=== PATIENT | male | born 1935 | race Caucasian/White ===

== ENCOUNTER 2016-08-17 15:58 | Inpatient (IN) | payer OTHER, MEDICARE ==
[2016-08-17] VITALS (7 sets, daily range): BP systolic 111–164; BP diastolic 56–74; PULSE 81–101; RESP 18–22; TEMP 98.1–101.4; O2SAT 94–96
[~2016-08-17] VITALS: Ht 170.2 cm; Wt 82.1 kg
[~2016-08-17 15:58] MED LIST: LATA.005%O OU; LISI-587 PO; LOVA40TA PO; TAMS0.4C67 PO
[2016-08-17] MEDS ORDERED: LISI-587 PO (16:11)
[2016-08-17] MEDS ORDERED: TAMS5CAP PO (16:11)
[2016-08-17] MEDS ORDERED: LATA0.002 EACH EYE (16:11)
[2016-08-17] MEDS ORDERED: LOVA40TA PO (16:11)
[2016-08-17] MEDS ORDERED: SODIUM CHLOR 0.9% 1000 ML INJ 1,000 ML IV ONE (16:15)
[2016-08-17] MEDS ORDERED: ACETAMINOPHEN 325 MG TAB PO ONE (16:15)
--- NOTE | 2016-08-17 16:25 | PD ---
HPI Chief Complaint: General Weakness Time Seen by Provider: 16:07 Travel History International Travel<30 days: No Contact w/Intl Traveler<30days: No Traveled to known affect area: No History of Present Illness HPI 81-year-old man who presents to the emergency department complaining of feeling weak and dizzy. The symptoms started about 2 days ago. It some chills with it. Today he was weak and had a fall motor strength get up. He had one episode of vomiting earlier today and another episode in the EMS unit. States she has a little bit a chronic cough but no change. Only medical history is hyperlipidemia. No history of surgery. No shortness of breath, no chest pain, no myalgias, no urinary symptoms, no diarrhea. No other complaints. History Past Medical History Narrative Medical Hyperlipidemia Tetanus Vaccination: > 5 Years Past Surgical History Surgical History: No Previous Surgery Social History Alcohol Use: Yes (A FEW DRINKS PER NITE) Tobacco Use: Yes (1 PPD) Allergies-Medications (Allergen,Severity, Reaction): Coded Allergies: No Known Allergies (Unverified , 05/16/15) Reported Meds & Prescriptions Reported Meds & Active Scripts Active Reported Zestoretic (Lisinopril-Hctz) 20-25 Mg Tab 1 Tab PO DAILY Flomax (Tamsulosin HCl) 0.4 Mg Cap 0.4 Mg PO HS Lovastatin 40 Mg Tab 40 Mg PO DAILY Latanoprost Opth Drops (Latanoprost) 0.005% Drops 1 Drop EACH EYE HS Refrigerate until opened. Review of Systems Except as stated in HPI: all other systems reviewed are Neg Physical Exam Narrative GENERAL: Well-appearing 81 year-old woman, no acute distress. SKIN: Warm, flushed. HEAD: Atraumatic. Normocephalic. EYES: Pupils equal and round. No scleral icterus. No injection or drainage. ENT: No nasal bleeding or discharge. Mucous membranes pink and moist. NECK: Trachea midline. No JVD. CARDIOVASCULAR: Heart. The rapid. He has a soft systolic murmur. RESPIRATORY: No accessory muscle use. Clear to auscultation. Breath sounds equal bilaterally. GASTROINTESTINAL: Abdomen soft, non-tender, nondistended. Hepatic and splenic margins not palpable. MUSCULOSKELETAL: No obvious deformities. No edema. NEUROLOGICAL: Awake and alert. No obvious cranial nerve deficits. Motor grossly within normal limits. Normal speech. Data Data Last Documented VS Vital Signs Date Time Temp Pulse Resp B/P Pulse Ox O2 Delivery O2 Flow Rate FiO2 08/17/16 18:00 99.6 91 22 129/74 94 08/17/16 16:16 Room Air Orders Complete Blood Count With Diff (08/17/16 16:07) Comprehensive Metabolic Panel (08/17/16 16:07) Lactic Acid Sepsis Protocol (08/17/16 16:07) Magnesium (Mg) (08/17/16 16:07) Troponin I (08/17/16 16:07) Urinalysis - C+S If Indicated (08/17/16 16:07) Influenzae A/B Antigen (08/17/16 16:07) Blood Culture (08/17/16 16:07) Chest, Single Ap (08/17/16 16:07) Blood Glucose (08/17/16 16:07) Ecg Monitoring (08/17/16 16:07) Iv Access Insert/Monitor (08/17/16 16:07) Oximetry (08/17/16 16:07) Oxygen Administration (08/17/16 16:07) Acetaminophen (Tylenol) (08/17/16 16:15) Sodium Chlor 0.9% 1000 Ml Inj (Ns 1000 M (08/17/16 16:15) Urine Culture (08/17/16 16:47) Admit Order (Ed Use Only) (08/17/16 ) Ceftriaxone Inj (Rocephin Inj) (08/17/16 18:00) Labs Laboratory Tests Test 08/17/16 08/17/16 16:15 16:47 White Blood Count 14.6 TH/MM3 Red Blood Count 4.06 MIL/MM3 Hemoglobin 12.8 GM/DL Hematocrit 37.6 % Mean Corpuscular Volume 92.6 FL Mean Corpuscular Hemoglobin 31.6 PG Mean Corpuscular Hemoglobin 34.1 % Concent Red Cell Distribution Width 13.7 % Platelet Count 163 TH/MM3 Mean Platelet Volume 9.3 FL Neutrophils (%) (Auto) 86.7 % Lymphocytes (%) (Auto) 4.6 % Monocytes (%) (Auto) 8.5 % Eosinophils (%) (Auto) 0.0 % Basophils (%) (Auto) 0.2 % Neutrophils # (Auto) 12.7 TH/MM3 Lymphocytes # (Auto) 0.7 TH/MM3 Monocytes # (Auto) 1.2 TH/MM3 Eosinophils # (Auto) 0.0 TH/MM3 Basophils # (Auto) 0.0 TH/MM3 CBC Comment DIFF FINAL Differential Comment Sodium Level 135 MEQ/L Potassium Level 3.6 MEQ/L Chloride Level 102 MEQ/L Carbon Dioxide Level 24.1 MEQ/L Anion Gap 9 MEQ/L Blood Urea Nitrogen 19 MG/DL Creatinine 1.21 MG/DL Estimat Glomerular Filtration 57 ML/MIN Rate Random Glucose 149 MG/DL Lactic Acid Level 1.7 mmol/L Calcium Level 8.5 MG/DL Magnesium Level 1.7 MG/DL Total Bilirubin 0.3 MG/DL Aspartate Amino Transf 16 U/L (AST/SGOT) Alanine Aminotransferase 26 U/L (ALT/SGPT) Alkaline Phosphatase 75 U/L Troponin I LESS THAN 0.02 NG/ML Total Protein 7.1 GM/DL Albumin 3.6 GM/DL Urine Color YELLOW Urine Turbidity CLEAR Urine pH 5.5 Urine Specific [place] 1.029 Urine Protein 30 mg/dL Urine Glucose (UA) TRACE mg/dL Urine Ketones 40 mg/dL Urine Occult Blood MOD Urine Nitrite NEG Urine Bilirubin NEG Urine Urobilinogen LESS THAN 2.0 MG/DL Urine Leukocyte Esterase NEG Urine RBC 2 /hpf Urine WBC 1 /hpf Urine Squamous Epithelial <1 /hpf Cells Urine Bacteria OCC /hpf Urine Mucus FEW /lpf Microscopic Urinalysis Comment CATH-CULTURE IND MDM Medical Decision Making Medical Screen Exam Complete: Yes Emergency Medical Condition: Yes Interpretation(s) My review of EKG: Sinus tachycardia rate of 101, normal axis, normal intervals, lateral T wave flattening, no definite evidence of acute ischemia. LABS: CBC remarkable for mild leukocytosis. Mild anemia. CMP is generally unremarkable. Troponin negative. Lactate 1.7 Chest x-ray: No acute cardiopulmonary disease. Differential Diagnosis Infection, UTI, influenza, pneumonia, bronchitis, other Narrative Course Medical decision making INITIAL: This Is an 81 year-old woman presents emergent department we can dizziness, fall, and a little bit of vomiting, with a low-grade fever and some tachycardia. We'll check labs, influenza, give IV fluids, reassess. Diagnosis Primary Impression: Sepsis Qualified Code: A41.9 - Sepsis, due to unspecified organism Admitting Information Admitting Physician Requests: Admit Osvaldo Ignacio MD Aug 17, 2016 16:25
--- NOTE | 2016-08-17 16:37 | RADRPT ---
EXAM DATE/TIME: 08/17/2016 16:18 [facility] COMPARISON: No previous studies available for comparison. INDICATIONS : Fever. Congestion. MEDICAL HISTORY : None. SURGICAL HISTORY : None. ENCOUNTER: Initial ACUITY: 3 days PAIN SCORE: 4/10 LOCATION: Bilateral chest FINDINGS: The lungs are clear without infiltrate, nodule, or mass. There is no appreciable pleural effusion fo r technique. Heart and mediastinum are unremarkable. CONCLUSION: No acute cardiopulmonary disease. Jorge Ferrera MD on August 17, 2016 at 16:34 Board Certified Radiologist. This report was verified electronically.
[2016-08-17 16:38] LABS: AUTOMATED NEUTROPHIL # 12.7 TH/MM3 (1.8-7.7); BASOPHIL % 0.2 % (0.0-2.0); HEMATOCRIT 37.6 % (39.0-51.0); HEMO FLAGS DIFF FINAL; LYMPH % 4.6 % (9.0-44.0); LYMPHOCYTE # 0.7 TH/MM3 (1.0-4.8); MEAN CELL VOLUME 92.6 FL (80.0-100.0); MEAN CORPUSCULAR HEMOGLOBIN 31.6 PG (27.0-34.0); MEAN CORPUSCULAR HGB CONC 34.1 % (32.0-36.0); MONO % 8.5 % (0.0-8.0); NEUT % 86.7 % (16.0-70.0); PLATELET COUNT 163 TH/MM3 (150-450); RED BLOOD COUNT 4.06 MIL/MM3 (4.50-5.90); RED CELL DISTRIBUTION WIDTH 13.7 % (11.6-17.2); WHITE BLOOD COUNT 14.6 TH/MM3 (4.0-11.0)
[2016-08-17 16:57] LABS: ANION GAP 9 MEQ/L (5-15); AST (GOT) 16 U/L (15-37); BICARBONATE 24.1 MEQ/L (21.0-32.0); BLOOD UREA NITROGEN 19 MG/DL (7-18); CHLORIDE 102 MEQ/L (98-107); GLOMERULAR FILTRATION RATE 57 ML/MIN (>89); MAGNESIUM 1.7 MG/DL (1.5-2.5); POTASSIUM 3.6 MEQ/L (3.5-5.1); SODIUM (NA) 135 MEQ/L (136-145)
[2016-08-17 17:02] LABS: ALKALINE PHOSPHATASE 75 U/L (45-117); ALT (GPT) 26 U/L (12-78); TOTAL BILIRUBIN ADULT 0.3 MG/DL (0.2-1.0)
[2016-08-17 17:16] LABS: BACTERIA, URINE OCC /hpf; BLOOD, URINE MOD (NEG); GLUCOSE,URINE TRACE mg/dL (NEG); KETONE, URINE 40 mg/dL (NEG); MUCUS URINE FEW /lpf (OCC); NITRITE,URINE NEG (NEG); PH, URINE 5.5 (5.0-8.5); SQUAMOUS EPITHELIAL CELL URINE <1 /hpf (0-5); URINE COLOR YELLOW (YELLW/STRAW)
[2016-08-17 17:25] LABS: COMMENT (UR) CATH-CULTURE IND; CULTURE IF INDICATED CATH CULTURE IND
[2016-08-17] MEDS ORDERED: cefTRIAXone INJ 1,000 MG in SODIUM CHLORIDE 0.9% INJ 100 ML IV ONE (18:00)
[2016-08-17] MEDS: SODIUM CHLOR 0.9% 1000 ML INJ 1,000 ML IV SCH ×2 (18:10→22:44)
[2016-08-17] MEDS ORDERED: ONDANSETRON HCL 4 MG/2 ML VIAL IVP PRN (18:15)
[2016-08-17] MEDS ORDERED: NALOXONE HCL 0.4 MG/ML AMP IV PRN (18:15)
[2016-08-17] MEDS ORDERED: SODIUM CHLORIDE 0.9% FLUSH 5 ML FLUSH FLUSH PRN (18:15)
[2016-08-17] MEDS: ENOXAPARIN SODIUM 40 MG/0.4 ML SYRINGE SQ SCH (20:08)
[2016-08-17] MEDS: SODIUM CHLORIDE 0.9% FLUSH 5 ML FLUSH FLUSH SCH (21:00)
[2016-08-17] MEDS: LATANOPROST 0.005% OPHT SOLN 2.5 ML BTL EACH EYE SCH (22:43)
[2016-08-17] MEDS: TAMSULOSIN HCL 0.4 MG CAP PO SCH (22:43)
[2016-08-18] VITALS (8 sets, daily range): BP systolic 118–188; BP diastolic 56–91; PULSE 87–111; RESP 18–24; TEMP 98.1–101; O2SAT 87–93
[2016-08-18] MEDS ORDERED: cloNIDine HCL 0.1 MG TAB PO PRN (02:00)
[2016-08-18 05:10] LABS: AUTOMATED NEUTROPHIL # 9.9 TH/MM3 (1.8-7.7); BASOPHIL % 0.2 % (0.0-2.0); EOSINOPHIL % 0.1 % (0.0-4.0); HEMO FLAGS DIFF FINAL; LYMPH % 6.3 % (9.0-44.0); LYMPHOCYTE # 0.7 TH/MM3 (1.0-4.8); MEAN CELL VOLUME 91.6 FL (80.0-100.0); MEAN CORPUSCULAR HEMOGLOBIN 31.2 PG (27.0-34.0); MEAN CORPUSCULAR HGB CONC 34.1 % (32.0-36.0); MONO % 8.4 % (0.0-8.0); PLATELET COUNT 140 TH/MM3 (150-450); RED BLOOD COUNT 3.71 MIL/MM3 (4.50-5.90); RED CELL DISTRIBUTION WIDTH 13.4 % (11.6-17.2); WHITE BLOOD COUNT 11.6 TH/MM3 (4.0-11.0)
[2016-08-18 06:05] LABS: ALKALINE PHOSPHATASE 60 U/L (45-117); ALT (GPT) 33 U/L (12-78); ANION GAP 10 MEQ/L (5-15); AST (GOT) 26 U/L (15-37); BICARBONATE 21.5 MEQ/L (21.0-32.0); BLOOD UREA NITROGEN 18 MG/DL (7-18); CHLORIDE 109 MEQ/L (98-107); GLOMERULAR FILTRATION RATE 64 ML/MIN (>89); POTASSIUM 3.6 MEQ/L (3.5-5.1); SODIUM (NA) 140 MEQ/L (136-145); TOTAL BILIRUBIN ADULT 0.2 MG/DL (0.2-1.0)
--- NOTE | 2016-08-18 08:02 | EKG ---
Date Performed: 08/17/2016 Time Performed: 16:07:21 PTAGE: 81 years EKG: SINUS TACHYCARDIA NONSPECIFIC ST & T-WAVE ABNORMALITY ABNORMAL RHYTHM ECG NO PREVIOUS TRACING DOCTOR: Vivek Clayton Interpretating Date/Time 08/18/2016 07:59:55
[2016-08-18] MEDS ORDERED: NON-FORMULARY DRUG (Lisinopril-Hctz (Zestoretic) 1 TAB) PO SCH (09:00)
[2016-08-18] MEDS ORDERED: HYDROCHLOROTHIAZIDE 25 MG TAB PO SCH (09:00)
[2016-08-18] MEDS: LISINOPRIL 20 MG TAB PO SCH (09:07)
[2016-08-18] MEDS: PRAVASTATIN SOD 40 MG TAB PO SCH (09:07)
[2016-08-18] MEDS: SODIUM CHLORIDE 0.9% FLUSH 5 ML FLUSH FLUSH SCH ×2 (09:07→21:00)
[2016-08-18] MEDS ORDERED: FOLIC ACID 1 MG TAB PO ONE (10:00)
[2016-08-18 10:24] LABS: FERRITIN 276 NG/ML (26-388); TRANSFERRIN IRON PROFILE 173 MG/DL (200-360)
--- NOTE | 2016-08-18 11:31 | MH ---
cc: MELISSA BRYSON MD DATE OF ADMISSION: 08/17/2016 CHIEF COMPLAINT The patient came to the ER complaining weakness, dizziness followed by fall twice. HISTORY OF PRESENTING ILLNESS This is a pleasant, 81-year-old male with prior history of hypertension, hyperlipidemia, BPH and chronic urge incontinence. He lives at home with his . He smokes about two packs per day and usually consumes a couple of shots of Scotch and whiskey at night. He was in his usual state of health until yesterday when he claims that he was sitting in chair. As he tried to get up to go to the kitchen, he lost his balance and fell backward on his buttocks. Fortunately he did not sustain any injury. He denies head injury, loss of consciousness, denies preceding chest pain, palpitations. His came to help him and it took him about 8-10 minutes after which was able to get up and was able to walk to the chair and sat down for some time. She needed to help his put a roast in the oven, so therefore he walked to the kitchen where he bent over and placed the roast inside the oven. After he was done pushing it in, he lost his balance again and fell backwards again, landing on his bottom. He denies any significant back pain, hip pain, head injury or loss of consciousness. He had a difficult time getting up, his got concerned and called [facility]. The patient was brought to hospital. Upon arrival he was slightly tachycardiac, clinically appeared dehydrated. He admitted to having intermittent cough which is mostly chronic with occasional scanty white sputum production. He denies fever, denies chest pain, dyspnea, orthopnea, paroxysmal nocturnal dyspnea. Denies nausea or vomiting. His appetite is okay. He denies melena or bright red blood per rectum. He has had frequent urination and has chronic urge incontinence. He has to get up several times at night to urinate. He usually wears Depends at home as he is incontinent of urine. PAST MEDICAL HISTORY: Significant for - 1. Hypertension. 2. Hyperlipidemia. 3. BPH. 4. Chronic urge incontinence. 5. Glaucoma. PAST SURGICAL HISTORY 1. Significant for cyst removal from his back. 2. Colonoscopy 7 or 8 years ago. ALLERGIES No known drug allergies. HOME MEDICATIONS 1. Flomax 0.4 mg daily. 2. Lisinopril HCTZ 20/25 once daily. 3. Lovastatin 40 mg daily. 4. Eye drops for glaucoma. SOCIAL HISTORY The patient is a chronic smoker, smoked one pack per day for 60+ years. He usually drinks a couple shots of Scotch or whiskey at night. He denies any drug abuse. He is and lives with his . He is retired from the formerly [employer], [employer]. FAMILY HISTORY He was raised by his grandparents. He does not know anything about his parents. REVIEW OF SYSTEMS The patient denies headache, denies loss of vision, double vision. He has chronic hearing difficulty with has not been changed. He denies any recent change in vision or hearing. Denies sore throat, dysphagia or odynophagia. Denies any chest pain, dyspnea, chest orthopnea, paroxysmal nocturnal dyspnea. He was feeling somewhat weak the last couple of days and has not been eating as much as he usually does. He denies change in bowel pattern. Denies melena or bright red blood per rectum. Denies dysuria or hematuria. Denies back pain, hip pain or joint pain. Otherwise review of some was negative for 12 systems except what is mentioned above. PHYSICAL EXAMINATION General: An elderly obese male, lying in bed, not in any acute distress. Awake, alert. He is oriented x 3. Vital Signs: Upon arrival, blood pressure 164/72, pulse of 101, respirations 20, temperature 101.4 degrees Fahrenheit, O2 sat was 95%. Head and Neck Examination: Normocephalic, atraumatic. Eye examination - Extraocular muscles intact. Pupils are round and reactive. No icterus or significant pallor. ENT: No throat congestion. No oral ulcers. The patient is wearing false dentures. Ears clear. Neck: Supple. No JVD, no lymphadenopathy, no bruits. Cardiovascular: S1, S2 audible. Regular rhythm. No murmur or gallop appreciated. Respiratory System: Good bilateral air entry. Lungs: Clear to auscultation. No crackles or rhonchi appreciated. Abdomen: Soft, protuberant, bulky, nontender. Positive bowel sounds. No hepatosplenomegaly. Extremities: No edema, cyanosis, clubbing. Feet are warm to touch. Homans' sign is negative. Neurologic: Awake and alert. He is oriented x 3. Slightly hard of hearing. Cranial nerves II through XII otherwise intact. No facial asymmetry. Tongue is midline. Sternocleidomastoid muscles intact. Motor exam shows power is 5/5 in both upper and lower extremities with good tone and bulk. DTRs 1+ bilaterally. Plantars are downgoing. No cerebellar sign. Gait is normal. LABORATORY DATA White count 14.6, hemoglobin 12.8, hematocrit 7.6, platelet count of 160, MCV of 92.7. Differential shows 86.7% neutrophils. Sodium 135, potassium 3.6, chloride 102, bicarb 24, BUN of 19, creatinine 1.2, random glucose 149, calcium was 8.5. LFTs unremarkable. CPK 132, troponin-I less than 0.02. Total protein 7.1, albumin 3.6. Urinalysis showed yellow clear urine, pH 5.5, specific gravity 1.029, ketones 40, occult blood moderate, bacteria occasional, RBCs 2. Chest x-ray was taken; this was a portable film. Shows clear lung guevara. No evidence of acute infiltrate or effusion. EKG A 12-lead EKG was performed, showed sinus tach with ventricular rate of 101, normal axis, nonspecific T-wave changes. No acute ST-segment changes. ASSESSMENT 1. Acute febrile illness with leukocytosis and left shift, source not clear. The patient has evidence of microscopic hematuria, questionable urinary tract infection, rule out bacteremia, question bronchitis. 2. Hyperglycemia. 3. Normochromic normocytic anemia. 4. BPH with chronic urge incontinence. 5. Hypertension. 6. Hyperlipidemia. 7. Recurrent falls, fortunately no significant injury. PLAN 1. The patient is admitted to the hospital. He was placed in observation. However I feel that he meets inpatient criteria due to his fever, leukocytosis and left shift. Due to his advanced age he would be at risk for developing serious complications if untreated for appropriate infection. Blood cultures have been taking. Tested for flu antigen, A and B and they are negative. Urine culture has been taken. He was started on empiric IV antibiotic, currently getting IV Rocephin. We will give him IV fluids. Monitor H&H. Check ultrasound of the kidneys as he is showing signs of microscopic hematuria, to rule out underlying stone or malignant process. 2. Follow H&H. 3. Control blood pressure. 4. Resume home medications. 5. Put him on GI protection with Pepcid. He is started on subcu Lovenox for DVT prophylaxis. We will monitor him closely. If he shows any sign of bleeding, will stop that. 6. The patient was counseled against cigarette smoking and was advised to completely stop smoking but he is not willing to do that at this at this time. He has been smoking all his life and he enjoys is. He also was advised to at least cut down on drinking alcohol. We will put him on some thiamine and folic acid and watch him for DTs. The patient meets inpatient criteria due to advanced age, fever and leukocytosis. He needs further investigation for his occult infection and control offered for appropriate treatment including intravenous antibiotics. Expected length of stay is about 3-4 days with possible to discharge when stable. MD RICHARD Phelps/YOVANI /9:34 AM /11:25 AM
[2016-08-18] MEDS: ACETAMINOPHEN 325 MG TAB PO PRN (12:38)
[2016-08-18] MEDS: THIAMINE HCL 100 MG TAB PO SCH (12:38)
[2016-08-18] MEDS: SODIUM CHLOR 0.9% 1000 ML INJ 1,000 ML IV SCH ×2 (12:43→23:18)
--- NOTE | 2016-08-18 13:16 | RADRPT ---
EXAM DATE/TIME: 08/18/2016 11:49 [facility] COMPARISON: No previous studies available for comparison. INDICATIONS : Hematuria. MEDICAL HISTORY : Hypertension. Hypercholesterolemia. Glaucoma.Cataracts. SURGICAL HISTORY : Back. ENCOUNTER: Initial ACUITY: 1 day PAIN SCORE: 3/10 LOCATION: Bilateral flank MEASUREMENTS: RIGHT KIDNEY: 10.3 x 5.4 x 5.6 cm LEFT KIDNEY: 11.0 x 6.5 x 5.2 cm FINDINGS: Kidneys are echogenic. No hydronephrosis. No masses. Bilateral simple cysts the largest in the right kidney measures 22 x 22 x 18 mm. Smaller one measures 9 x 10 x 12 mm. Cyst in the left mid kidney srinivas sures 31 x 27 x 33 mm. Urinary bladder are unremarkable. CONCLUSION: 1. Echogenic kidneys which can be seen with medical renal disease. 2. Bilateral renal cysts. Ricardo Adan MD on August 18, 2016 at 13:12 Board Certified Radiologist. This report was verified electronically.
--- NOTE | 2016-08-18 13:31 | RADRPT ---
EXAM DATE/TIME: 08/18/2016 13:13 [facility] COMPARISON: No previous studies available for comparison. INDICATIONS : Dizziness. RADIATION DOSE: 42.84 CTDIvol (mGy) MEDICAL HISTORY : Hypertension. SURGICAL HISTORY : None. ENCOUNTER: Initial ACUITY: 3 days PAIN SCALE: 0/10 LOCATION: cranial TECHNIQUE: Multiple contiguous axial images were obtained of the head. Using automated exposure control and adj ustment of the mA and/or kV according to patient size, radiation dose was kept as low as reasonably a chievable to obtain optimal diagnostic quality images. FINDINGS: CEREBRUM: The ventricles are normal for age. No evidence of midline shift, mass lesion, hemorrhage or acute in farction. No extra-axial fluid collections are seen. POSTERIOR FOSSA: The cerebellum and brainstem are intact. The 4th ventricle is midline. The cerebellopontine angle i s unremarkable. EXTRACRANIAL: The visualized portion of the orbits is intact. SKULL: The calvaria is intact. No evidence of skull fracture. CONCLUSION: No acute intracranial disease. Ricardo Adan MD on August 18, 2016 at 13:28 Board Certified Radiologist. This report was verified electronically.
[2016-08-18] MEDS: cefTRIAXone INJ 1,000 MG in SODIUM CHLORIDE 0.9% INJ 100 ML IV SCH (16:39)
[2016-08-18] MEDS: LATANOPROST 0.005% OPHT SOLN 2.5 ML BTL EACH EYE SCH (21:00)
[2016-08-18] MEDS: TAMSULOSIN HCL 0.4 MG CAP PO SCH (23:12)
[2016-08-18] MEDS: ENOXAPARIN SODIUM 40 MG/0.4 ML SYRINGE SQ SCH (23:13)
[2016-08-19] VITALS (21 sets, daily range): BP systolic 104–201; BP diastolic 58–96; PULSE 76–163; RESP 20–26; TEMP 97.8–101; O2SAT 79–99
[2016-08-19] MEDS: ACETAMINOPHEN 325 MG TAB PO PRN (02:11)
[2016-08-19] MEDS ORDERED: ETOMIDATE 20 MG/10 ML VIAL ONE (02:37)
[2016-08-19] MEDS ORDERED: PROPOFOL 1000 MG/100 ML INJ 100 ML ONE (02:38)
--- NOTE | 2016-08-19 02:49 | HHI.FPPN ---
Addendum to progress note ADDENDUM Additional information Code rosa called at [phone] due to respiratory distress. Family medicine residents responded. Upon arrival to pt room, pt was sitting up in bed wearing a non- rebreather, alert and interactive. Lining Cleaner present at bedside. Pt to be transferred to ICU. Gabrielle Finn MD R2 Aug 19, 2016 02:48
--- NOTE | 2016-08-19 03:12 | PD.CONS ---
HPI Service Critical Care Medicine Consult Requested By Primary Care Physician Unknown History of Present Illness 81-year-old man who admitted to [facility] with complains of feeling weak and dizzy , also some chills with it. He had one episode of vomiting earlier today and another episode in the ED. While on a medical floor, he became hypoxemic and tachycardic. Due to hypoxemia at 80s he is transfered to ICU. Patient is alert and oriented and he doesn't want to be intubated in case his condition declines. Review of Systems ROS Unable to obtain, patient on FM BiPAP Past Family Social History Allergies: Coded Allergies: No Known Allergies (Unverified , 05/16/15) Past Medical History Hyperlipidemia HTN BPH Glaucoma Past Surgical History No Previous Surgery Reported Medications Zestoretic (Lisinopril-Hctz) 20-25 Mg Tab 1 Tab PO DAILY Flomax (Tamsulosin HCl) 0.4 Mg Cap 0.4 Mg PO HS Lovastatin 40 Mg Tab 40 Mg PO DAILY Latanoprost Opth Drops (Latanoprost) 0.005% Drops 1 Drop EACH EYE HS Active Ordered Medications Current Medications Medications (Trade) Dose Ordered Sig/Kelsie Route PRN Reason Start Time Stop Time Status Last Admin Dose Admin Sodium Chloride (NS 1000 ml Inj) 1,000 ml @ 100 mls/hr Q10H IV 08/17/16 18:01 08/18/16 23:18 IV Flush (NS Flush) 2 ml UNSCH PRN FLUSH FLUSH AFTER USING IV ACCESS 08/17/16 18:15 IV Flush (NS Flush) 2 ml BID FLUSH 08/17/16 21:00 08/18/16 09:07 Acetaminophen (Tylenol) 650 mg Q4H PRN PO TEMP > 100.4 08/17/16 18:15 08/19/16 02:11 Ondansetron HCl (Zofran Inj) 4 mg Q6H PRN IVP NAUSEA OR VOMITING 08/17/16 18:15 Enoxaparin Sodium (Lovenox Inj) 40 mg Q24H SQ 08/17/16 20:00 08/18/16 23:13 Naloxone HCl 0.4 mg 0.4 mg UNSCH PRN IV SEE LABEL COMMENTS 08/17/16 18:15 Ceftriaxone Sodium/Sodium Chloride (Rocephin Inj/NS Inj) 100 ml @ 200 mls/hr Q24H IV 08/18/16 18:00 08/18/16 16:39 Latanoprost (Xalatan 0.005% Opth Soln) 1 drop HS EACH EYE 08/17/16 21:00 08/18/16 21:00 Pravastatin Sodium (Pravachol) 40 mg DAILY PO 08/18/16 09:00 08/18/16 09:07 Tamsulosin HCl (Flomax) 0.4 mg HS PO 08/17/16 21:00 08/18/16 23:12 Lisinopril (Prinivil) 20 mg DAILY PO 08/18/16 09:00 08/18/16 09:07 Clonidine (Catapres) 0.1 mg Q8H PRN PO FOR SBP > 180 08/18/16 02:00 08/18/16 02:35 Thiamine HCl (Vitamin B1) 100 mg DAILY PO 08/18/16 10:00 08/18/16 12:38 Folic Acid 1 mg 1 mg DAILY PO 08/19/16 09:00 Diltiazem HCl/ Sodium Chloride (Cardizem Inj/NS Inj) 125 ml @ 0 mls/hr TITRATE IV 08/19/16 03:15 Family History Noncontributory Social History Smokes PPD lifelong Drinks occasionally Physical Exam Vital Signs Vital Signs Date Time Temp Pulse Resp B/P Pulse Ox O2 Delivery O2 Flow Rate FiO2 08/19/16 02:49 92 100 08/19/16 02:40 85 15.00 100 08/19/16 00:30 99.3 98 22 139/66 93 08/19/16 00:30 Nasal Cannula 2.00 08/18/16 20:25 106 08/18/16 20:15 93 Nasal Cannula 2.00 08/18/16 20:00 100.8 111 20 118/56 87 08/18/16 20:00 Room Air 08/18/16 16:00 100.5 108 20 188/84 87 08/18/16 11:39 101.0 87 18 142/70 08/18/16 07:45 99.3 94 24 140/68 93 08/18/16 05:32 98.2 93 20 146/63 93 Physical Exam GENERAL: Well-nourished, well-developed elderly patient. SKIN: Warm and dry. HEAD: Normocephalic.[place] EYES: No scleral icterus. No injection or drainage. NECK: Supple, trachea midline. No JVD or lymphadenopathy. CARDIOVASCULAR: Regular rate and rhythm without murmurs, gallops, or rubs. RESPIRATORY: Breath sounds equal bilaterally. No accessory muscle use. GASTROINTESTINAL: Abdomen soft, non-tender, nondistended. MUSCULOSKELETAL: No cyanosis, or edema. BACK: Nontender without obvious deformity. No CVA tenderness. Laboratory Laboratory Tests Test 08/18/16 04:22 White Blood Count 11.6 Red Blood Count 3.71 Hemoglobin 11.6 Hematocrit 34.0 Mean Corpuscular Volume 91.6 Mean Corpuscular Hemoglobin 31.2 Mean Corpuscular Hemoglobin 34.1 Concent Red Cell Distribution Width 13.4 Platelet Count 140 Mean Platelet Volume 9.6 Neutrophils (%) (Auto) 85.0 Lymphocytes (%) (Auto) 6.3 Monocytes (%) (Auto) 8.4 Eosinophils (%) (Auto) 0.1 Basophils (%) (Auto) 0.2 Neutrophils # (Auto) 9.9 Lymphocytes # (Auto) 0.7 Monocytes # (Auto) 1.0 Eosinophils # (Auto) 0.0 Basophils # (Auto) 0.0 CBC Comment DIFF FINAL Differential Comment Sodium Level 140 Potassium Level 3.6 Chloride Level 109 Carbon Dioxide Level 21.5 Anion Gap 10 Blood Urea Nitrogen 18 Creatinine 1.10 Estimat Glomerular Filtration 64 Rate Random Glucose 125 Calcium Level 7.9 Iron Level 5 Total Iron Binding Capacity 242 Percent Iron Saturation 2.1 Ferritin 276 Total Bilirubin 0.2 Aspartate Amino Transf 26 (AST/SGOT) Alanine Aminotransferase 33 (ALT/SGPT) Alkaline Phosphatase 60 Total Protein 6.0 Albumin 2.8 Date/Time Procedure Status Source Growth 08/17/16 16:47 Urine Culture - Preliminary Resulted Urine Catheterized Urine Gram Negative [place] 08/17/16 16:27 Influenza Types A,B Antigen ([facility]ANDOVAL) - Final Complete Nasal Washing NEGATIVE FOR FLU A AND B ANTIGEN.... 08/17/16 16:25 Aerobic Blood Culture - Preliminary Resulted Blood Peripheral NO GROWTH IN 1 DAY 08/17/16 16:25 Anaerobic Blood Culture - Preliminary Resulted Blood Peripheral NO GROWTH IN 1 DAY Result Diagram: 08/18/16 0422 08/18/16 0422 Imaging Last 24 hours Impressions Chest X-Ray 08/19/16 0000 Signed Impressions: Service Date/Time: Friday, August 19, 2016 03:42 - CONCLUSION: New bilateral perihilar and bibasilar infiltrates. Findings are most consistent with pulmonary edema. Germán Bansal MD Septic Shock Reassessment Heart: Regular rate and rhythm Lungs: Clear Skin: Warm Peripheral Pulses: Bounding Right Radial Bounding Left Radial Bounding Right Popliteal Bounding Left Popliteal Assessment and Plan Problem List: (1) BPH with urinary obstruction ICD Code: N40.1 Status: Acute (2) COPD (chronic obstructive pulmonary disease) ICD Code: J44.9 Status: Acute (3) Pulmonary edema ICD Code: J81.1 Status: Acute (4) Respiratory failure ICD Code: J96.90 Status: Acute Assessment and Plan Respiratory failure - pulmonary edema - patient is DNI - BiPAP as needed - i.v. Lasix - O2 to keep Sat > 92 - Aerosols PRN HTN - Lisinopril - Clonidine - Diltiazem as well for rate control Pulmonaryu edema - diuresis - CXR - 2D Echo - r/o coronary syndrom - Troponin Stat BPH - Flomax Hyperlipidemia - Statins per home regiment Glaucoma - Latanoprost DVT/GI prophylaxis - Lovenox/ Pepcid Critical Care: The total critical care time was 35 minutes. Time to perform other separately billable procedures was not included in the critical care time. Joseph Ramsay MD Aug 19, 2016 03:12
[2016-08-19] MEDS ORDERED: methylPREDNISolone SOD SUCC 125 MG/2 ML VIAL IV PUSH ONE (03:15)
[2016-08-19] MEDS ORDERED: DILTIAZEM INJ 125 MG in SODIUM CHLORIDE 0.9% INJ 100 ML IV SCH (03:15)
[2016-08-19] MEDS ORDERED: FUROSEMIDE 20 MG/2 ML VIAL IV PUSH ONE (03:15)
[2016-08-19] MEDS ORDERED: DILTIAZEM HCL 25 MG/5 ML VIAL IVP ONE (03:15)
[2016-08-19] MEDS: RESP: ALBUTEROL 2.5 MG/IPRATROPIUM 0.5 MG NEB (SCH) NEB ×6 (03:40→23:25)
[2016-08-19 03:41] LABS: BLOOD GAS BASE EXCESS -5.6 mmol/L (-2-2); BLOOD GAS CARBOXYHEMOGLOBIN 0.9 % (0-4); BLOOD GAS HCO3 19 mmol/L (22-26); BLOOD GAS METHEMOGLOBIN 0.8 % (0-2); BLOOD GAS O2 HGB SATURATION 96 % (90-100); BLOOD GAS PCO2 32 mmHg (38-42); BLOOD GAS PO2 101 mmHg (61-120); BLOOD GAS TOTAL HGB 12.6 G/DL (12.0-16.0); CRITICAL VALUE NO; OXYGEN DEVICE BiPAP; TEMP CORR TO 98.6; VENT SETTINGS 12IPAP/8EPAP
[2016-08-19 03:42] LABS: DRAW SITE LT BRACHIAL; FIO2 100 %; NUMBER OF ARTERIAL PUNCTURES 2; STAT NO; ULNAR PULSE PRESENT
--- NOTE | 2016-08-19 04:33 | RADRPT ---
EXAM DATE/TIME: 08/19/2016 03:42 [facility] COMPARISON: CHEST SINGLE AP, August 17, 2016, 16:18. INDICATIONS : Shortness of breath. MEDICAL HISTORY : Hypertension. Hypercholesterolemia. Glaucoma.Cataracts SURGICAL HISTORY : None. ENCOUNTER: Subsequent ACUITY: 1 day PAIN SCORE: 0/10 LOCATION: Bilateral chest FINDINGS: A single AP semierect view the chest was obtained and demonstrates new bilateral perihilar and bibasi lar infiltrates. This is greater on the right than the left with consolidation and air bronchograms. The heart size is within normal limits there is no effusion. The bony thorax is intact. CONCLUSION: New bilateral perihilar and bibasilar infiltrates. Findings are most consistent with pulmonary edema. Germán Bansal MD on August 19, 2016 at 4:28 Board Certified Radiologist. This report was verified electronically.
[2016-08-19] MEDS: FUROSEMIDE 20 MG/2 ML VIAL IV PUSH SCH ×3 (09:15→20:14)
[2016-08-19] MEDS: PRAVASTATIN SOD 40 MG TAB PO SCH (09:15)
[2016-08-19] MEDS: THIAMINE HCL 100 MG TAB PO SCH (09:16)
[2016-08-19] MEDS: FOLIC ACID 1 MG TAB PO SCH (09:16)
[2016-08-19] MEDS: LISINOPRIL 20 MG TAB PO SCH (09:16)
[2016-08-19] MEDS: SODIUM CHLORIDE 0.9% FLUSH 5 ML FLUSH FLUSH SCH ×2 (09:16→20:16)
[2016-08-19 09:31] LABS: HEMATOCRIT 37.4 % (39.0-51.0); MEAN CORPUSCULAR HEMOGLOBIN 31.4 PG (27.0-34.0); MEAN CORPUSCULAR HGB CONC 33.7 % (32.0-36.0); PLATELET COUNT 148 TH/MM3 (150-450); RED BLOOD COUNT 4.02 MIL/MM3 (4.50-5.90); RED CELL DISTRIBUTION WIDTH 13.7 % (11.6-17.2); REVIEW FLAG FINAL; WHITE BLOOD COUNT 12.8 TH/MM3 (4.0-11.0)
[2016-08-19 09:59] LABS: BICARBONATE 23.1 MEQ/L (21.0-32.0); MAGNESIUM 2.2 MG/DL (1.5-2.5); POTASSIUM 3.9 MEQ/L (3.5-5.1)
[2016-08-19] MEDS: SODIUM CHLOR 0.9% 1000 ML INJ 1,000 ML IV SCH ×2 (10:01→20:01)
[2016-08-19] MEDS ORDERED: PILL SPLITTER OTHER PRN (12:15)
[2016-08-19] MEDS: ASPIRIN 81 MG CHEW TAB CHEW SCH (13:00)
[2016-08-19] MEDS ORDERED: METOPROLOL SUCCINATE 25 MG EXTENDED RELEASE TAB PO SCH (13:00)
--- NOTE | 2016-08-19 13:04 | HHI.CCPN ---
History - Height: 170.18 cm Weight: 85.6 kg Allergies: Coded Allergies: No Known Allergies (Unverified , 05/16/15) Major 24 Hour Events Elevated troponin level 5.17 resulted. EKG sinus rhythm, with PACs. The patient denies any chest pain. Aspirin, beta rosalio initiated. The patient's home medication statin is continued. Serial troponins and BNP pending. Echo obtained. Drips Drips Cardizem infusion 4 mg/hr Vent Settings Respiratory Data Oxygen 3 L/m nasal cannula Mechanical Vent Remarks N/A IV Lines IV Lines Remarks PIV's x 2 Exam Patient Data - Vital Signs Date Time Temp Pulse Resp B/P Pulse Ox O2 Delivery O2 Flow Rate FiO2 08/19/16 12:00 98 08/19/16 10:00 96 08/19/16 08:00 76 08/19/16 07:57 93 Nasal Cannula 6.00 08/19/16 07:36 96 Partial Rebreather 08/19/16 07:00 95 Nasal Cannula 4.00 08/19/16 05:35 94 Partial Rebreather 15.00 08/19/16 05:13 93 60 08/19/16 04:00 97 80 08/19/16 04:00 100.1 139 26 187/95 99 08/19/16 02:49 92 100 08/19/16 02:45 86 15.00 08/19/16 02:40 85 15.00 100 08/19/16 02:30 Non-Rebreather 100 08/19/16 02:30 161 187/90 79 08/19/16 02:27 81 Non-Rebreather 100 08/19/16 02:27 151 201/96 08/19/16 02:25 163 170/93 08/19/16 02:25 73 Non-Rebreather 100 08/19/16 02:05 101.0 08/19/16 00:30 99.3 98 22 139/66 93 08/19/16 00:30 Nasal Cannula 2.00 08/18/16 20:25 106 08/18/16 20:15 93 Nasal Cannula 2.00 08/18/16 20:00 100.8 111 20 118/56 87 08/18/16 20:00 Room Air 08/18/16 16:00 100.5 108 20 188/84 87 Intake & Output 08/18/16 08/18/16 08/19/16 15:00 23:00 07:00 Intake Total 480 ml 776 ml 200 ml Output Total 200 ml Balance 480 ml 776 ml 0 ml Intake Oral 480 ml IV Total 776 ml 200 ml Output Urine Total 200 ml # Voids 0 # Bowel Movements 0 Critical Care EMR Data Laboratory Tests Test 08/19/16 08/19/16 03:28 09:03 Blood Gas Puncture Site LT BRACHIAL Blood Gas Patient Temperature 98.6 Blood Gas HCO3 19 mmol/L Blood Gas Base Excess -5.6 mmol/L Blood Gas Oxygen Saturation 96 % Arterial Blood pH 7.38 Arterial Blood Partial 32 mmHg Pressure CO2 Arterial Blood Partial 101 mmHg Pressure O2 Arterial Blood Oxygen Content 17.0 Vol % Arterial Blood 0.9 % Carboxyhemoglobin Arterial Blood Methemoglobin 0.8 % Blood Gas Hemoglobin 12.6 G/DL Oxygen Delivery Device BiPAP Blood Gas Ventilator Setting 12IPAP/8EPAP Blood Gas Inspired Oxygen 100 % White Blood Count 12.8 TH/MM3 Red Blood Count 4.02 MIL/MM3 Hemoglobin 12.6 GM/DL Hematocrit 37.4 % Mean Corpuscular Volume 93.0 FL Mean Corpuscular Hemoglobin 31.4 PG Mean Corpuscular Hemoglobin 33.7 % Concent Red Cell Distribution Width 13.7 % Platelet Count 148 TH/MM3 Mean Platelet Volume 10.2 FL Sodium Level 138 MEQ/L Potassium Level 3.9 MEQ/L Chloride Level 103 MEQ/L Carbon Dioxide Level 23.1 MEQ/L Anion Gap 12 MEQ/L Blood Urea Nitrogen 23 MG/DL Creatinine 1.42 MG/DL Estimat Glomerular Filtration 48 ML/MIN Rate Random Glucose 167 MG/DL Calcium Level 8.3 MG/DL Magnesium Level 2.2 MG/DL Troponin I 5.17 NG/ML Medications see MAR Patient Data Remarks Last Impressions Chest X-Ray 08/19/16 0000 Signed Impressions: Service Date/Time: Friday, August 19, 2016 03:42 - CONCLUSION: New bilateral perihilar and bibasilar infiltrates. Findings are most consistent with pulmonary edema. Germán Bansal MD Renal Ultrasound 08/18/16 0000 Signed Impressions: Service Date/Time: Thursday, August 18, 2016 11:49 - CONCLUSION: 1. Echogenic kidneys which can be seen with medical renal disease. 2. Bilateral renal cysts. Ricardo Adan MD Head CT 08/18/16 0000 Signed Impressions: Service Date/Time: Thursday, August 18, 2016 13:13 - CONCLUSION: No acute intracranial disease. Ricardo Adan MD Constitutional Nutritional status: normal Respiratory Respiratory effort: normal Chest appearance: Increased AP diameter Ausculation: Right: Diminished at base Gastrointestinal Bowel sounds: LUQ: Normal, LLQ: Normal, RUQ: Normal, RLQ: Normal Skin Nails: Clubbing Neurologic Cranial nerves: Normal: CN I: Olfactory, CN II: Optic, CN III: Oculomotor, CN IV: Trochlear, CN V: Trigeminal, CN : Abducent, CN VII: Facial, CN VIII: Acoustic, CN IX: Glossopharyngeal, CN X: Vagus, CN XI: Accessory, CN XII: Hypoglossal Sensation: Normal: Light touch, Pinprick, Proprioception, Vibratory Results CBC/BMP: 08/19/16 0903 08/19/16 0903 Micro/ID Microbiology Date/Time Procedure Status Source Growth 08/17/16 16:47 Urine Culture - Final Complete Urine Catheterized Urine Proteus Mirabilis 08/17/16 16:27 Influenza Types A,B Antigen (SANDOVAL) - Final Complete Nasal Washing NEGATIVE FOR FLU A AND B ANTIGEN.... 08/17/16 16:25 Aerobic Blood Culture - Preliminary Resulted Blood Peripheral NO GROWTH IN 2 DAYS 08/17/16 16:25 Anaerobic Blood Culture - Preliminary Resulted Blood Peripheral NO GROWTH IN 2 DAYS Daily Goals Daily Goals: Yes: Family Updated last 24 hr Daily Goals Remarks Discussed with patient and family CODE status, patient and family at this time requests full code, and all aggressive measures. Assessment/Plan Assessment/Plan - Cardiovascular -Troponin level 5.17, patient denies chest pain -Continue serial troponin 2 -Cardiology consulted -Echo obtained, follow-up results -Aspirin,beta rosalio initiated patient on already on statin( home medication) -EKG normal sinus rhythmPAC's -NSTEMI -Nuclear medicine stress scan- scheduled for this afternoon -Follow cardiology recommendations, for possible cardiac catheterization Time Spend with Patient Critical Care Minutes: 27 Gavi Meraz MD Aug 19, 2016 13:03
[2016-08-19] MEDS ORDERED: METOPROLOL TARTRATE 5 MG/5 ML VIAL ONE (14:56)
[2016-08-19] MEDS: cefTRIAXone INJ 1,000 MG in SODIUM CHLORIDE 0.9% INJ 100 ML IV SCH ×2 (18:00→20:15)
--- NOTE | 2016-08-19 19:00 | HHI.PR ---
Subjective History of Present Illness Patient apparently became hypoxemic and turned blue last night Halicat at was called Patient was placed on oxygen and transferred to intensive care unit Portable chest x-ray showed evidence of pulmonary edema Troponin I was elevated IV Lasix was started/ cardiology was consulted Patients feeling much better now I don't remember what happened He denies chest pain No nausea or vomiting No more fever Good appetite Offers no other complaints Vitals/Results Intake & Output 08/18/16 08/18/16 08/19/16 15:00 23:00 07:00 Intake Total 480 ml 776 ml 200 ml Output Total 200 ml Balance 480 ml 776 ml 0 ml Intake Oral 480 ml IV Total 776 ml 200 ml Output Urine Total 200 ml # Voids 0 # Bowel Movements 0 Vital Signs Vital Signs Date Time Temp Pulse Resp B/P Pulse Ox O2 Delivery O2 Flow Rate FiO2 08/19/16 16:04 92 Nasal Cannula 2.00 08/19/16 16:00 99.0 95 23 122/58 94 08/19/16 12:00 97.9 100 24 131/67 94 08/19/16 12:00 98 08/19/16 10:00 96 08/19/16 08:00 97.8 76 20 104/60 95 08/19/16 08:00 76 08/19/16 07:57 93 Nasal Cannula 6.00 08/19/16 07:36 96 Partial Rebreather 08/19/16 07:00 95 Nasal Cannula 4.00 08/19/16 05:35 94 Partial Rebreather 15.00 08/19/16 05:13 93 60 08/19/16 04:00 97 80 08/19/16 04:00 100.1 139 26 187/95 99 08/19/16 02:49 92 100 08/19/16 02:45 86 15.00 08/19/16 02:40 85 15.00 100 08/19/16 02:30 Non-Rebreather 100 08/19/16 02:30 161 187/90 79 08/19/16 02:27 81 Non-Rebreather 100 08/19/16 02:27 151 201/96 08/19/16 02:25 163 170/93 08/19/16 02:25 73 Non-Rebreather 100 08/19/16 02:05 101.0 08/19/16 00:30 99.3 98 22 139/66 93 08/19/16 00:30 Nasal Cannula 2.00 08/18/16 20:25 106 08/18/16 20:15 93 Nasal Cannula 2.00 08/18/16 20:00 100.8 111 20 118/56 87 08/18/16 20:00 Room Air CBC/BMP: 08/19/16 0903 08/19/16 0903 Lab Results Laboratory Tests Test 08/19/16 08/19/16 08/19/16 03:28 09:03 15:02 Blood Gas Puncture Site LT BRACHIAL Blood Gas Patient Temperature 98.6 Blood Gas HCO3 19 mmol/L Blood Gas Base Excess -5.6 mmol/L Blood Gas Oxygen Saturation 96 % Arterial Blood pH 7.38 Arterial Blood Partial 32 mmHg Pressure CO2 Arterial Blood Partial 101 mmHg Pressure O2 Arterial Blood Oxygen Content 17.0 Vol % Arterial Blood 0.9 % Carboxyhemoglobin Arterial Blood Methemoglobin 0.8 % Blood Gas Hemoglobin 12.6 G/DL Oxygen Delivery Device BiPAP Blood Gas Ventilator Setting 12IPAP/8EPAP Blood Gas Inspired Oxygen 100 % White Blood Count 12.8 TH/MM3 Red Blood Count 4.02 MIL/MM3 Hemoglobin 12.6 GM/DL Hematocrit 37.4 % Mean Corpuscular Volume 93.0 FL Mean Corpuscular Hemoglobin 31.4 PG Mean Corpuscular Hemoglobin 33.7 % Concent Red Cell Distribution Width 13.7 % Platelet Count 148 TH/MM3 Mean Platelet Volume 10.2 FL Sodium Level 138 MEQ/L Potassium Level 3.9 MEQ/L Chloride Level 103 MEQ/L Carbon Dioxide Level 23.1 MEQ/L Anion Gap 12 MEQ/L Blood Urea Nitrogen 23 MG/DL Creatinine 1.42 MG/DL Estimat Glomerular Filtration 48 ML/MIN Rate Random Glucose 167 MG/DL Calcium Level 8.3 MG/DL Magnesium Level 2.2 MG/DL Troponin I 5.17 NG/ML 4.91 NG/ML B-Type Natriuretic Peptide 158 PG/ML Physical Exam General General Appearance: No Acute Distress, Comfortable, Obese Eyes Eye Exam: Pupils Equal, Sclera White, Extraocular Movement Intact Ears & Nose Ears & Nose Exam: Nasal Mucosa [place] Throat Throat Exam: Oral Mucosa [place] & Moist Neck Neck Exam: Neck Supple, Trachea Midline Pulmonary Resp Exam: Breath Sounds Equal, No Distress, Crackles Cardiology CV Exam: Regular, Normal Sinus Rhythm, Tachycardia Gastrointestinal/Abdomen GI Exam: Soft, Non-Tender, Bowel Sounds Present Integumentary Skin Exam: Warm, Dry Extremeties Extremities Exam: No Edema, Pedal Pulses Palpable Neurologic Neuro Exam: Alert, Awake, Oriented, Speech Clear, Moving All Extremities Psychiatric Psych Exam: Appropriate Responses Assessment/Plan Assessment/Plan ASSESSMENT 1. Acute febrile illness with leukocytosis and left shift, source not clear. The patient has evidence of microscopic hematuria, questionable urinary tract infection, rule out bacteremia, question bronchitis. 2. Hyperglycemia. 3. Normochromic normocytic anemia. 4. BPH with chronic urge incontinence. 5. Hypertension. 6. Hyperlipidemia. 7. Recurrent falls, fortunately no significant injury. 8. S/P hYPOXEMIA D/T PULMONARYN EDEMA 9. ACS/ NSTEMI PLAN O2 Aspirin Beta rosalio IV Lasix/ kcl Repeat troponin Cardiology consulted, Dr. almonte aware Add statin Check lipid profile The echocardiogram Cardizem was started due to tachycardia Blood cultures negative so far Urine culture positive for Proteus mirabilis, Continue IV antibiotic [employer] input appreciated Continue PPI Subcutaneous Lovenox A.m. labs Will follow Elba De La Cruz MD Aug 19, 2016 19:00
--- NOTE | 2016-08-19 19:05 | MB ---
cc: DEBBI MENJIVAR DATE OF CONSULTATION 08/19/16 HISTORY OF PRESENT ILLNESS Mr. Pulido is an 81 year old white male with history of hypertension and dyslipidemia. He presented with dizziness, weakness, chills, vomiting, shortness of breath and hypoxemia. He was transferred to the Intensive Care Unit. He refused intubation at the time. His condition improved and he currently has minimal shortness of breath. He had not had any chest pain. PAST MEDICAL HISTORY 1. Dyslipidemia 2. Hypertension 3. Benign prostatic hypertrophy 4. Glaucoma MEDICATIONS 1. Latanoprost 2. Lovastatin 3. Flomax 4. Zestoretic ALLERGIES None. SOCIAL HISTORY The patient is a smoker. He drinks alcohol occasionally. He is a . He is accompanied by his fiance and his son. FAMILY HISTORY Negative for heart disease REVIEW OF SYSTEMS Otherwise negative. PHYSICAL EXAMINATION VITAL SIGNS: Blood pressure 120/58, pulse 95 and regular. HEENT: Negative, 2+ carotid upstrokes, no bruits. LUNGS: Clear with decreased breath sounds at the bases. HEART: Regular with no murmurs or gallops ABDOMEN: Soft, no bruits. EXTREMITIES: Without edema, 2+ distal pulses. NEUROLOGIC: Grossly nonfocal. CARDIOLOGY STUDIES Electrocardiogram was reviewed and showed sinus tachycardia and mild nonspecific ST T changes. LABORATORY DATA Hemoglobin 12.6, potassium 3.9, creatinine 1.3, troponin 4.9, BNP 158. DIAGNOSES 1. Non ST elevation myocardial infarction 2. Respiratory failure 3. Acute pulmonary edema 4. Chronic obstructive pulmonary disease 5. Hypertension 6. Dyslipidemia DISPOSITION Mr. Pulido will undergo adenosine myocardial perfusion study to evaluate for ischemia. If he has significant ischemic burden, we will consider cardiac catheterization for his further evaluation. I recommend to continue his medical program with aggressive modification of his cardiac risk factors. I recommend to continue therapy with beta rosalio, aspirin, and JOSE inhibitor. I also recommend continuing diuresis closely monitoring his renal function. I will follow him for cardiology during his hospitalization. MD CASSY Treadwell/ /6:26 PM /6:51 PM SH[facility]
[2016-08-19] MEDS: ENOXAPARIN SODIUM 40 MG/0.4 ML SYRINGE SQ SCH (20:00)
[2016-08-19] MEDS: TAMSULOSIN HCL 0.4 MG CAP PO SCH (20:14)
[2016-08-19] MEDS: LATANOPROST 0.005% OPHT SOLN 2.5 ML BTL EACH EYE SCH (20:16)
--- NOTE | 2016-08-19 21:04 | EC ---
Study Study Date:08/19/2016 STUDY CONCLUSIONS SUMMARY - Left ventricle: The cavity size was normal. Wall thickness was normal. Systolic function was at the lower limits of normal. The estimated ejection fraction was 50%. Wall motion was normal; there were no regional wall motion abnormalities. - Mitral valve: Mildly calcified annulus. - Right ventricle: The cavity size was mildly dilated. Wall thickness was normal. - Pulmonary arteries: PA peak pressure: 38mm Hg (S). If LV function is below 40, please consider prescribing an ACEI or ARB or document rationale for non-use. PROCEDURE DATA STUDY STATUS: Elective. Procedure: Transthoracic echocardiography. Image quality was good. Scanning was performed from the parasternal, apical, and subcostal acoustic windows. Study completion: The patient tolerated the procedure well. Transthoracic echocardiography. M-mode, complete 2D, complete spectral Doppler, and color Doppler. Patient status: Inpatient. CARDIAC ANATOMY LEFT VENTRICLE: The cavity size was normal. Wall thickness was normal. Systolic function was at the lower limits of normal. The estimated ejection fraction was 50%. Wall motion was normal; there were no regional wall motion abnormalities. AORTIC VALVE: Trileaflet; moderately thickened, mildly calcified leaflets. Doppler: Transvalvular velocity was within the normal range. There was no stenosis. No regurgitation. Mean gradient: 6mm Hg (S). Peak gradient: 12mm Hg (S). AORTA: Aortic root: The aortic root was normal in size. MITRAL VALVE: Mildly calcified annulus. Doppler: Transvalvular velocity was within the normal range. There was no evidence for stenosis. Trace regurgitation. Peak gradient: 5mm Hg (D). LEFT ATRIUM: The atrium was normal in size. RIGHT VENTRICLE: The cavity size was mildly dilated. Wall thickness was normal. PULMONIC VALVE: Doppler: Transvalvular velocity was within the normal range. There was no evidence for stenosis. No regurgitation. TRICUSPID VALVE: Structurally normal valve. Doppler: Transvalvular velocity was within the normal range. Trace regurgitation. PULMONARY ARTERY: The main pulmonary artery was normal-sized. Systolic pressure was within the normal range. RIGHT ATRIUM: The atrium was normal in size. PERICARDIUM: There was no pericardial effusion. SYSTEMIC VEINS: Inferior vena cava: The vessel was normal in size. BASIC MEASUREMENTS ADULT NORMAL Left ventricle LV internal dimension, ED, chordal level, 45.2 mm 43-52 PLAX LV internal dimension, ES, chordal level, 36.7 mm 23-38 PLAX Fractional shortening, chordal level, PLAX *19 % >29 LV posterior wall thickness, ED 8.55 mm IVS/LVPW ratio, ED 1.08 <1.3 Ventricular septum Septal thickness, ED 9.26 mm Aortic valve Leaflet separation 17 mm 15-26 Left atrium Anterior-posterior dimension 32 mm Right ventricle RV internal dimension, ED, PLAX 29.9 mm 19-38 BASIC MEASUREMENTS ADULT NORMAL Aortic valve Leaflet separation 17 mm 15-26 Aorta Root diameter, ED 30 mm 20-37 DOPPLER MEASUREMENTS ADULT NORMAL Main pulmonary artery Pressure, S *38 mm Hg =30 Aortic valve Peak velocity, S 171 cm/s Mean velocity, S 113 cm/s VTI, S 41 cm Mean gradient, S 6 mm Hg Peak gradient, S 12 mm Hg Mitral valve Peak E-wave velocity 110 cm/s Peak A-wave velocity 111 cm/s Peak gradient, D 5 mm Hg Peak E/A ratio 1 Tricuspid valve Regurgitant peak velocity 266 cm/s Peak RV-RA gradient, S 28 mm Hg Maximal regurgitant velocity 266 cm/s Systemic veins Estimated CVP 10 mm Hg Right ventricle RV pressure, S *38 mm Hg <30 LEGEND: Mean values are shown as u=mean value. Asterisk (*) burton values outside specified normal range. Prepared and signed by Regi Cason [id number]
[2016-08-20] VITALS (13 sets, daily range): BP systolic 96–142; BP diastolic 42–64; PULSE 96–112; RESP 12–32; TEMP 98–100.9; O2SAT 89–99
[2016-08-20] MEDS: FUROSEMIDE 20 MG/2 ML VIAL IV PUSH SCH (01:25)
[2016-08-20] MEDS: RESP: ALBUTEROL 2.5 MG/IPRATROPIUM 0.5 MG NEB (SCH) NEB ×7 (03:25→23:48)
[2016-08-20 05:04] LABS: HEMATOCRIT 33.6 % (39.0-51.0); MEAN CELL VOLUME 90.7 FL (80.0-100.0); MEAN CORPUSCULAR HEMOGLOBIN 30.9 PG (27.0-34.0); PLATELET COUNT 163 TH/MM3 (150-450); RED CELL DISTRIBUTION WIDTH 13.6 % (11.6-17.2); REVIEW FLAG FINAL; WHITE BLOOD COUNT 14.3 TH/MM3 (4.0-11.0)
[2016-08-20] MEDS: SODIUM CHLOR 0.9% 1000 ML INJ 1,000 ML IV SCH (05:14)
--- NOTE | 2016-08-20 05:22 | RADRPT ---
EXAM DATE/TIME: 08/20/2016 04:12 [facility] COMPARISON: CHEST SINGLE AP, August 19, 2016, 3:42. INDICATIONS : Congestive heart failure and shortness of breath. MEDICAL HISTORY : Hypertension. Hypercholesterolemia SURGICAL HISTORY : None. ENCOUNTER: Subsequent ACUITY: 2 days PAIN SCORE: Non-responsive. LOCATION: Bilateral chest FINDINGS: A single AP semierect view of the chest was obtained and demonstrates an interval decrease in the con fluent infiltrate in the perihilar regions and both lung bases. Moderate residual remains greater on the right. The heart size is mildly prominent. There is no definite effusion. There are multiple over lying electrocardiogram leads. The bony thorax remains intact. CONCLUSION: 1. Mild improvement in pulmonary edema. 2. Mild cardiomegaly. Germán Bansal MD on August 20, 2016 at 5:20 Board Certified Radiologist. This report was verified electronically.
[2016-08-20 05:28] LABS: BICARBONATE 24.7 MEQ/L (21.0-32.0); HDL CHOLESTEROL 65.3 MG/DL (40.0-60.0); MAGNESIUM 1.9 MG/DL (1.5-2.5)
[2016-08-20] MEDS: RESP: ALBUTEROL 2.5 MG/IPRATROPIUM 0.5 MG NEB (PRN) NEB ×2 (06:57→15:37)
[2016-08-20] MEDS: POTASSIUM CHLOR 20 MEQ PREMIX 100 ML IV PRN ×2 (07:00→13:00)
[2016-08-20] MEDS ORDERED: METOPROLOL TARTRATE 5 MG/5 ML VIAL IV PUSH ONE (07:30)
[2016-08-20] MEDS ORDERED: ICU - POTASSIUM PHOSPHATE 30 MMOL/NS 250 ML IV PRN ×2 (07:30)
[2016-08-20] MEDS ORDERED: ICU - MAGNESIUM OXIDE 400 MG TAB PO PRN (07:30)
[2016-08-20] MEDS ORDERED: ICU - POTASSIUM CHLORIDE 10% LIQUID 40 MEQ/30 ML CUP PO PRN (07:30)
[2016-08-20] MEDS ORDERED: ICU - SODIUM PHOSPHATE 30 MMOL/NS 250 ML IV PRN ×2 (07:30)
[2016-08-20] MEDS ORDERED: MAGNESIUM SULFATE INJ 4 GM in SODIUM CHLORIDE 0.9% INJ 92 ML IV PRN (07:30)
[2016-08-20] MEDS ORDERED: ICU - MAGNESIUM SULFATE 4 GM/NS 100 ML IV PRN ×2 (07:30)
[2016-08-20] MEDS ORDERED: ICU - POTASSIUM PHOSPHATE MONOBASIC 500 MG TAB PO/TUBE PRN (07:30)
[2016-08-20] MEDS ORDERED: ICU - POTASSIUM CHLORIDE/AQUEOUS SOLN 20 MEQ/100 ML IVPB IV PRN (07:30)
[2016-08-20] MEDS ORDERED: POTASSIUM PHOSPHATE MONOBASIC 500 MG TAB PO/TUBE PRN (07:30)
[2016-08-20] MEDS ORDERED: ICU - MAGNESIUM SULFATE 2 GM/NS 100 ML IV PRN ×2 (07:30)
[2016-08-20] MEDS ORDERED: POTASSIUM CL 40 MEQ/30 ML LIQ UDC PO/TUBE PRN ×2 (07:30)
[2016-08-20] MEDS ORDERED: MAGNESIUM OXIDE 400 MG TAB PO PRN (07:30)
[2016-08-20] MEDS ORDERED: POTASSIUM CHLOR 40 MEQ PREMIX 100 ML IV PRN ×2 (07:30)
[2016-08-20] MEDS ORDERED: POTASSIUM PHOSPHATE INJ 30 MMOL in SODIUM CHLOR 0.9% 250 ML INJ 250 ML IV PRN (07:30)
[2016-08-20] MEDS ORDERED: POTASSIUM CHLOR 20 MEQ PREMIX 100 ML IV PRN (07:30)
[2016-08-20] MEDS ORDERED: POTASSIUM PHOSPHATE MONOBASIC 500 MG TAB PO PRN (07:30)
[2016-08-20] MEDS ORDERED: MAGNESIUM SULFATE INJ 2 GM in SODIUM CHLORIDE 0.9% INJ 96 ML IV PRN (07:30)
[2016-08-20] MEDS ORDERED: ICU - D/C ICU ELECTROLYTE ORDERS XX PRN (07:30)
[2016-08-20] MEDS ORDERED: ICU - CALL ORDERING PHYSICIAN XX PRN (07:30)
[2016-08-20] MEDS ORDERED: SODIUM PHOSPHATE INJ 30 MMOL in SODIUM CHLOR 0.9% 250 ML INJ 240 ML IV PRN (07:30)
[2016-08-20] MEDS ORDERED: ICU - POTASSIUM CHLORIDE/AQUEOUS SOLN 40 MEQ/100 ML IVPB IV PRN (07:30)
--- NOTE | 2016-08-20 07:41 | EKG ---
Date Performed: 08/19/2016 Time Performed: 11:26:27 PTAGE: 81 years EKG: Sinus rhythm WITH OCCASIONAL SUPRAVENTRICULAR PREMATURE COMPLEXES BORDERLINE ECG PREVIOUS TRACING : 08/17/2016 16.07 DOCTOR: Jared Carvajal Interpretating Date/Time 08/20/2016 07:39:09
[2016-08-20] MEDS ORDERED: LORazepam 2 MG/ML VIAL IM ONE (08:00)
[2016-08-20] MEDS ORDERED: LORazepam 2 MG/ML VIAL IM PRN (08:00)
--- NOTE | 2016-08-20 08:16 | RADRPT ---
EXAM DATE/TIME: 08/20/2016 07:58 [facility] COMPARISON: CT BRAIN W/O CONTRAST, August 18, 2016, 13:13. INDICATIONS : Trauma. Fell out of bed. RADIATION DOSE: 56.77 CTDIvol (mGy) MEDICAL HISTORY : Hypertension. SURGICAL HISTORY : None. ENCOUNTER: Initial ACUITY: 1 day PAIN SCALE: 2/10 LOCATION: cranial TECHNIQUE: Multiple contiguous axial images were obtained of the head. Using automated exposure control and adj ustment of the mA and/or kV according to patient size, radiation dose was kept as low as reasonably a chievable to obtain optimal diagnostic quality images. FINDINGS: CEREBRUM: The ventricles are normal for age. Stable bilateral chronic white matter changes. No evidence of midl ine shift, mass lesion, hemorrhage or acute infarction. No extra-axial fluid collections are seen. POSTERIOR FOSSA: The cerebellum and brainstem are intact. The 4th ventricle is midline. The cerebellopontine angle i s unremarkable. EXTRACRANIAL: The visualized portion of the orbits is intact. Chronic sinus disease in the ethmoid sinuses. Stable compared to the prior study. SKULL: The calvaria is intact. No evidence of skull fracture. No significant changes. CONCLUSION: Unremarkable and stable CT brain for patient's age. Alexander Carter MD on August 20, 2016 at 8:13 Board Certified Radiologist. This report was verified electronically.
--- NOTE | 2016-08-20 08:28 | HHI.CCPN ---
Subjective Remarks/Hospital Course 81-year-old man who admitted to [facility] with complains of feeling weak and dizzy , also some chills with it. He had one episode of vomiting earlier today and another episode in the ED. While on a medical floor, he became hypoxemic and tachycardic. Due to hypoxemia at 80s he is transfered to ICU. Patient is alert and oriented and he doesn't want to be intubated in case his condition declines. 08/20 Afebrile. 24 hours patient was noted to have elevated troponins, etiology consulted patient was initiated on aspirin and beta blockers. Cardiology was consulted. Plan for nuclear medicine myocardial perfusion scan, initially scheduled for 08/19 will be done today secondary to NPO status of patient. The patient continues on a Cardizem infusion, metoprolol dosage was increased. Early this a.m., the patient climbed out of the bed and fell, noted laceration posterior right ear. Of note, the patient consumes 2-3 drinks of whiskey per night, came very anxious last night, reported by . The patient was alert and oriented with GCS of 15. Full range of motion denies pain in extremities 4. Stat CT of the head, results pending. Objective Vital Signs Date Time Temp Pulse Resp B/P Pulse Ox O2 Delivery O2 Flow Rate FiO2 08/20/16 07:01 98 60 08/20/16 04:00 98.9 110 12 100/62 08/19/16 19:51 Nasal Cannula 2.00 Intake and Output 08/19/16 08/19/16 08/19/16 07:59 15:59 23:59 Intake Total 200 ml 479 ml 386 ml Output Total 200 ml 1250 ml 1100 ml Balance 0 ml -771 ml -714 ml Result Diagram: 08/20/16 0350 08/20/16 0350 Other Results Microbiology Date/Time Procedure Status Source Growth 08/17/16 16:27 Influenza Types A,B Antigen (SANDOVAL) - Final Complete Nasal Washing NEGATIVE FOR FLU A AND B ANTIGEN.... 08/17/16 16:47 Urine Culture - Final Complete Urine Catheterized Urine Proteus Mirabilis Imaging Last Impressions Chest X-Ray 08/20/16 0600 Signed Impressions: Service Date/Time: Thursday, August 20, 2016 04:12 - CONCLUSION: 1. Mild improvement in pulmonary edema. 2. Mild cardiomegaly. Germán Bansal MD Head CT 08/20/16 0000 Signed Impressions: Service Date/Time: Saturday, August 20, 2016 07:58 - CONCLUSION: Unremarkable and stable CT brain for patient's age. Alexander Carter MD Renal Ultrasound 08/18/16 0000 Signed Impressions: Service Date/Time: Thursday, August 18, 2016 11:49 - CONCLUSION: 1. Echogenic kidneys which can be seen with medical renal disease. 2. Bilateral renal cysts. Ricardo Adan MD Last 24 hours Impressions Chest X-Ray 08/19/16 0000 Signed Impressions: Service Date/Time: Friday, August 19, 2016 03:42 - CONCLUSION: New bilateral perihilar and bibasilar infiltrates. Findings are most consistent with pulmonary edema. Germán Bansal MD Objective Remarks GENERAL: Well-nourished, well-developed elderly patient, sitting in chair viewing television SKIN: Warm and dry, noted abrasion posterior right ear, and small abrasion right knee HEAD: Normocephalic.[place] EYES: No scleral icterus. No injection or drainage. NECK: Supple, trachea midline. No JVD or lymphadenopathy. CARDIOVASCULAR: Regular rate and rhythm without murmurs, gallops, or rubs. RESPIRATORY: Breath sounds equal bilaterally, diminished bilateral bases. No accessory muscle use. GASTROINTESTINAL: Abdomen soft, non-tender, nondistended. MUSCULOSKELETAL: No cyanosis, or edema. Movement of extremities 4. Motor strength 5/5. BACK: Nontender without obvious deformity. No CVA tenderness. Urinary Catheter: Yes Assessment to: Continue Bauer insert reason: Measure Accurate Output Date of Insertion: Aug 19, 2016 Vascular Central Line Catheter: No A/P Problem List: (1) BPH with urinary obstruction ICD Code: N40.1 Status: Acute (2) COPD (chronic obstructive pulmonary disease) ICD Code: J44.9 Status: Acute (3) Pulmonary edema ICD Code: J81.1 Status: Acute (4) Respiratory failure ICD Code: J96.90 Status: Acute Assessment and Plan Neurologic: Glaucoma Alcohol use S/P Fall-confusion (08/20) -GCS 15, alert oriented 3 conversant appropriately -Continued on Latanoprost (home med) -Fall OOB early this am, obtain stat CT of the head, follow-up results -Monitor for alcohol withdrawal, reports 2-3 drinks whiskey per day-Ativan 0.5 mg prn q 6 hr for agitation -Sleep hygiene, stimulation during the day, minimize disruptions at night. -Thiamine, folate q/day -Melatonin for sleep Respiratory: Acute Pulmonary edema COPD Chronic smoker -Continue diuresis ,Lasix scheduled doses -BiPAP PRN -Maintain O2 sat greater than 92% -Chest x-ray 08/20- mild improvement in pulmonary edema -Schedule dual nebs every 4 hours, add every 2 when necessary -Counseled on smoking cessation (smokes 1 PPD x 55 years) -Nicotine patch Cardiovascular: NSTEMI Hypertension Tachycardia Dyslipidemia -EKG ST with -Cardizem infusion -Troponin5.17->4.91->4.23 -Continue ASA 81 mg/day, Metoprolol increased, patient on pravastatin (home med) -Patient continued on home medications clonidine, lisinopril -ECHO 08/19- EF 50% , no RWMA -BNP- 156->91 today -08/20 nuclear medicine myocardial perfusion scan scheduled today -Cardiology on board, Dr. Cason, follow recommendations Renal: Renal insufficiency BPH -Creatinine 1.3, continue to monitor, adequate urine output -Maintain Bauer -Continued on home meds Flomax -- Strict I/Os FEN/GI: Hypokalemia -Electrolyte replacement per ICU protocol -NPO for studies, resume heart healthy diet -Zofran for nausea -Pepcid GI prophylaxis -Bowel regimen Heme/ID: - 08/18 urine culture-Proteus mirabilis -08/18 blood culture- NGTD -Rocephin (day 2) -Monitor CBC, WBC 14.3 Endocrine: Blood glucose monitoring every 4 hours per ICU protocol -- SSI Prophylaxis: GI Prophylaxis Pepcid DVT Prophylaxis -- SCDs Lovenox Lines: Peripheral IVs. Central line if indicated Dispo: Level 3 Physician Gavi Chew MD Aug 20, 2016 08:28 Hyperlipidemia - Statins per home regiment Glaucoma - Latanoprost DVT/GI prophylaxis - Lovenox/ Pepcid Critical Care: The total critical care time was 35 minutes. Time to perform other separately billable procedures was not included in the critical care time. Gavi Meraz MD Aug 20, 2016 08:28
[2016-08-20] MEDS ORDERED: REGADENOSON INJ 0.4 MG/5 ML SYR ONE (08:44)
[2016-08-20] MEDS: LISINOPRIL 20 MG TAB PO SCH (09:00)
[2016-08-20] MEDS ORDERED: METOPROLOL SUCCINATE 25 MG EXTENDED RELEASE TAB PO SCH (09:00)
[2016-08-20] MEDS: SODIUM CHLORIDE 0.9% FLUSH 5 ML FLUSH FLUSH SCH ×2 (09:00→22:35)
[2016-08-20] MEDS ORDERED: LORazepam 2 MG/ML VIAL IV PRN (09:30)
[2016-08-20] MEDS ORDERED: DEXTROSE 50% IN WATER 50 ML VIAL(D50) IV PUSH PRN (09:30)
[2016-08-20] MEDS ORDERED: MELATONIN 5 MG TAB PO PRN (09:30)
[2016-08-20] MEDS ORDERED: GLUCAGON 1 MG/ML VIAL OTHER PRN (09:30)
[2016-08-20] MEDS: REMOVE OLD PATCH TD SCH (10:00)
[2016-08-20] MEDS: NICOTINE 14 MG/24 HR PATCH TD SCH (10:00)
[2016-08-20] MEDS: FOLIC ACID 1 MG TAB PO SCH (10:31)
[2016-08-20] MEDS: THIAMINE HCL 100 MG TAB PO SCH (10:32)
[2016-08-20] MEDS: PRAVASTATIN SOD 40 MG TAB PO SCH (10:32)
--- NOTE | 2016-08-20 10:34 | RADRPT ---
EXAM DATE/TIME: 08/20/2016 08:43 [facility] COMPARISON: No previous studies available for comparison. INDICATIONS : Infarction with weakness and syncope. Abnormal EKG. DOSE: 26.9 mCi Tc99m Myoview at stress. 8.5 mCi Tc99m Myoview at rest. 0.4 mg Lexiscan STRESS SYMPTOMS: None noted. EJECTION FRACTION: 55% MEDICAL HISTORY : Hypercholesterolemia. Hypertension. Hyperlipidemia SURGICAL HISTORY : Cataract removal ENCOUNTER: Initial ACUITY: 2 days PAIN SCALE: 2/10 LOCATION: TECHNIQUE: The patient underwent pharmacologic stress with infusion of prescribed dose. Continuous ECG tracing was monitored during stress. Gated SPECT imaging was performed after stress and conventional SPECT i maging was performed at rest. The examination was performed on a SPECT/CT scanner, both attenuation and non-corrected datasets were reviewed. FINDINGS: DISTRIBUTION: The maximum perfused segment at stress is in the anterior wall. PERFUSION STUDY: The pattern of perfusion at stress is within normal limits. GATED STUDY: There is intact wall motion and thickening without hypokinetic or dyskinetic segments. CONCLUSION: Unremarkable myocardial perfusion examination. RISK CATEGORY: low Alexander Carter MD on August 20, 2016 at 10:32 Board Certified Radiologist. This report was verified electronically.
[2016-08-20] MEDS: ASPIRIN 81 MG CHEW TAB CHEW SCH (10:44)
[2016-08-20] MEDS ORDERED: ETOMIDATE 40 MG/20 ML VIAL ONE (12:37)
[2016-08-20] MEDS ORDERED: FUROSEMIDE 100 MG/10 ML VIAL IV PUSH ONE (12:45)
[2016-08-20] MEDS ORDERED: PROPOFOL 1000 MG/100 ML INJ 100 ML ONE ×2 (12:54→21:50)
[2016-08-20] MEDS ORDERED: MIDAZOLAM HCL 5 MG/ML VIAL (1 ML) ONE (13:03)
[2016-08-20 13:13] LABS: BLOOD GAS BASE EXCESS -2.2 mmol/L (-2-2); BLOOD GAS CARBOXYHEMOGLOBIN 0.8 % (0-4); BLOOD GAS HCO3 22 mmol/L (22-26); BLOOD GAS METHEMOGLOBIN 0.7 % (0-2); BLOOD GAS O2 HGB SATURATION 89 % (90-100); BLOOD GAS OXYGEN CONTENT 17.7 Vol % (12.0-20.0); BLOOD GAS PCO2 33 mmHg (38-42); BLOOD GAS PO2 62 mmHg (61-120); BLOOD GAS TOTAL HGB 14.1 G/DL (12.0-16.0); CRITICAL VALUE YES; DRAW SITE LT RADIAL; FIO2 100 %; NUMBER OF ARTERIAL PUNCTURES 1; OXYGEN DEVICE VENTILATOR; STAT YES; TEMP CORR TO 98.6; ULNAR PULSE PRESENT; VENT SETTINGS PRVC/AC
--- NOTE | 2016-08-20 13:34 | RADRPT ---
EXAM DATE/TIME: 08/20/2016 13:20 [facility] COMPARISON: CHEST SINGLE AP, August 20, 2016, 4:12. INDICATIONS : ET Tube placement. MEDICAL HISTORY : Hypertension. Hypercholesterolemia. Glaucoma.Cataracts SURGICAL HISTORY : None. ENCOUNTER: Subsequent ACUITY: 4 - 6 days PAIN SCORE: Non-responsive. LOCATION: Bilateral chest FINDINGS: An ET tube has been placed. The ET tube appears to be in good position. There is an NG tube in the st omach. There is no pneumothorax. There is diffuse bilateral interstitial and airspace disease through out the lung guevara. This appears to be increased compared to the prior exam. The heart size is withi n normal limits. There are no pleural effusions. The bony structures are stable. CONCLUSION: 1. The ET tube and NG tube appear to be in good position. 2. No pneumothorax. 3. Diffuse bilateral interstitial and airspace disease. Alexander Carter MD on August 20, 2016 at 13:31 Board Certified Radiologist. This report was verified electronically.
--- NOTE | 2016-08-20 13:50 | PD.PROCEDR ---
Procedure Note Procedure Procedure: Arterial Line Placement Right radial Diagnosis: Hypoxic respiratory failure Indications: Cardiac and respiratory monitoring Consent: Emergent Description of the Procedure: The right radial was prepped and draped sterilely. 1% lidocaine was used for local anesthesia. The pulse was located and a needle was advanced into the artery. A 20-gauge gauge, 1 3/4 in catheter was advanced into the artery using a modified Seldinger technique. The catheter was sutured to the skin and a sterile dressing was applied. The catheter was connected to a pressure transducer and an arterial waveform was noted. There were no immediate complications noted. There was minimal EBL. I personally performed the procedure. Gavi Meraz MD Aug 20, 2016 13:50
--- NOTE | 2016-08-20 13:52 | PD.PROCEDR ---
Procedure Note Procedure Endotracheal Intubation Diagnosis: Hypoxic respiratory failure Indications: Acute hypoxic respiratory failure Consent: Emergent Anesthesia: Etomidate 20 mg, Description of the Procedure: The patient was positioned in the sniffing position. Pre-oxygenation was performed using a 100% Ambu bag. Anesthesia was induced via rapid sequence. A glidescope #4 was used for laryngoscopy and a Grade 1 view was obtained. A 8.0 cuffed endotracheal tube was inserted atraumatically through the vocal cords. Confirmation of correct endotracheal tube placement was made by equal and bilateral breath sounds and colorimetric CO2 detection. The endotracheal tube was secured at 24 cm at the teeth. There were no immediate complications noted. The patient remained hemodynamically stable throughout the procedure. A chest x-ray has been ordered. I personally performed the procedure. Gavi Meraz MD Aug 20, 2016 13:52
[2016-08-20] MEDS: ESMOLOL DRIP INJ PREMIX 250 ML IV SCH ×2 (13:53→19:41)
[2016-08-20 14:21] LABS: BLOOD GAS BASE EXCESS -1.7 mmol/L (-2-2); BLOOD GAS CARBOXYHEMOGLOBIN 0.9 % (0-4); BLOOD GAS HCO3 22 mmol/L (22-26); BLOOD GAS METHEMOGLOBIN 0.7 % (0-2); BLOOD GAS O2 HGB SATURATION 96 % (90-100); BLOOD GAS OXYGEN CONTENT 16.6 Vol % (12.0-20.0); BLOOD GAS PCO2 31 mmHg (38-42); BLOOD GAS PO2 94 mmHg (61-120); BLOOD GAS TOTAL HGB 12.3 G/DL (12.0-16.0); CRITICAL VALUE NO; DRAW SITE ART LINE; FIO2 100 %; NUMBER OF ARTERIAL PUNCTURES 0; OXYGEN DEVICE VENTILATOR; STAT YES; TEMP CORR TO 98.6; ULNAR PULSE PRESENT; VENT SETTINGS AC/RR18/600/PEEP5
[2016-08-20] MEDS: fentaNYL DRIP 250 ML IV SCH (15:00)
[2016-08-20 15:41] LABS: BICARBONATE 22.9 MEQ/L (21.0-32.0); POTASSIUM 3.6 MEQ/L (3.5-5.1)
[2016-08-20] MEDS ORDERED: MIDAZOLAM HCL 2 MG/2 ML VIAL IVP ONE (16:00)
[2016-08-20] MEDS ORDERED: SUCCINYLCHOLINE CHLORIDE 200 MG/10 ML VIAL IVP ONE (16:00)
[2016-08-20] MEDS ORDERED: ETOMIDATE 20 MG/10 ML VIAL IV PUSH ONE (16:00)
[2016-08-20] MEDS: INSULIN ASPART SUPPLEMENTAL SCALE SQ SCH ×2 (16:00→21:00)
[2016-08-20] MEDS ORDERED: Vancomycin Consult Pharmacy 1 EA OTHER SCH (17:00)
[2016-08-20] MEDS: ACETAMINOPHEN 325 MG TAB PO PRN ×2 (17:11→22:57)
[2016-08-20] MEDS: cefTRIAXone INJ 1,000 MG in SODIUM CHLORIDE 0.9% INJ 100 ML IV SCH (17:16)
[2016-08-20] MEDS: LEVOFLOXACIN 750 MG PREMIX INJ 150 ML IV SCH (17:23)
--- NOTE | 2016-08-20 18:07 | HHI.PR ---
Subjective History of Present Illness remained intubated , now on 45% fio2 spiked temp again BP dropped , on pressors sedated making urine son is at bedside Vitals/Results Intake & Output 08/19/16 08/19/16 08/20/16 15:00 23:00 07:00 Intake Total 479 ml 386 ml 144 ml Output Total 1250 ml 1100 ml 750 ml Balance -771 ml -714 ml -606 ml Intake Oral 200 ml 250 ml IV Total 279 ml 136 ml 144 ml Output Urine Total 1250 ml 1100 ml 750 ml # Bowel Movements 0 Vital Signs Vital Signs Date Time Temp Pulse Resp B/P Pulse Ox O2 Delivery O2 Flow Rate FiO2 08/20/16 15:37 96 80 08/20/16 13:06 93 100 08/20/16 10:30 98 Nasal Cannula 3.00 08/20/16 08:00 98.0 112 32 142/64 92 08/20/16 08:00 112 08/20/16 07:01 98 60 08/20/16 07:00 97 Bi-Pap 60 08/20/16 04:00 98.9 110 12 100/62 92 08/20/16 00:00 99.1 112 16 110/56 99 08/19/16 22:00 99.6 110 21 141/90 95 08/19/16 20:00 113 08/19/16 19:51 95 Nasal Cannula 2.00 08/19/16 19:00 95 Nasal Cannula 4.00 CBC/BMP: 08/20/16 0350 08/20/16 1329 Lab Results Laboratory Tests Test 08/19/16 08/20/16 08/20/16 08/20/16 21:21 00:00 03:30 03:50 Troponin I 4.23 NG/ML Blood Gas Puncture Site ART LINE Blood Gas Patient Temperature 98.6 Blood Gas HCO3 22 mmol/L Blood Gas Base Excess -1.7 mmol/L Blood Gas Oxygen Saturation 96 % Arterial Blood pH 7.46 Arterial Blood Partial 31 mmHg Pressure CO2 Arterial Blood Partial 94 mmHg Pressure O2 Arterial Blood Oxygen Content 16.6 Vol % Arterial Blood 0.9 % Carboxyhemoglobin Arterial Blood Methemoglobin 0.7 % Blood Gas Hemoglobin 12.3 G/DL Oxygen Delivery Device VENTILATOR Blood Gas Ventilator Setting AC/RR18/600/PEEP5 Blood Gas Inspired Oxygen 100 % B-Type Natriuretic Peptide 91 PG/ML White Blood Count 14.3 TH/MM3 Red Blood Count 3.70 MIL/MM3 Hemoglobin 11.4 GM/DL Hematocrit 33.6 % Mean Corpuscular Volume 90.7 FL Mean Corpuscular Hemoglobin 30.9 PG Mean Corpuscular Hemoglobin 34.0 % Concent Red Cell Distribution Width 13.6 % Platelet Count 163 TH/MM3 Mean Platelet Volume 10.9 FL Sodium Level 140 MEQ/L Potassium Level 3.0 MEQ/L Chloride Level 104 MEQ/L Carbon Dioxide Level 24.7 MEQ/L Anion Gap 11 MEQ/L Blood Urea Nitrogen 29 MG/DL Creatinine 1.38 MG/DL Estimat Glomerular Filtration 49 ML/MIN Rate Random Glucose 143 MG/DL Calcium Level 8.6 MG/DL Phosphorus Level 1.9 MG/DL Magnesium Level 1.9 MG/DL Triglycerides Level 65 MG/DL Cholesterol Level 138 MG/DL LDL Cholesterol 60 MG/DL HDL Cholesterol 65.3 MG/DL Cholesterol/HDL Ratio 2.11 RATIO Test 08/20/16 08/20/16 08/20/16 11:05 13:00 13:29 Phosphorus Level 2.2 MG/DL Blood Gas Puncture Site LT RADIAL Blood Gas Patient Temperature 98.6 Blood Gas HCO3 22 mmol/L Blood Gas Base Excess -2.2 mmol/L Blood Gas Oxygen Saturation 89 % Arterial Blood pH 7.43 Arterial Blood Partial 33 mmHg Pressure CO2 Arterial Blood Partial 62 mmHg Pressure O2 Arterial Blood Oxygen Content 17.7 Vol % Arterial Blood 0.8 % Carboxyhemoglobin Arterial Blood Methemoglobin 0.7 % Blood Gas Hemoglobin 14.1 G/DL Oxygen Delivery Device VENTILATOR Blood Gas Ventilator Setting PRVC/AC Blood Gas Inspired Oxygen 100 % Sodium Level 139 MEQ/L Potassium Level 3.6 MEQ/L Chloride Level 104 MEQ/L Carbon Dioxide Level 22.9 MEQ/L Anion Gap 12 MEQ/L Blood Urea Nitrogen 31 MG/DL Creatinine 1.57 MG/DL Estimat Glomerular Filtration 43 ML/MIN Rate Random Glucose 185 MG/DL Calcium Level 8.2 MG/DL Physical Exam General General Appearance: No Acute Distress, Comfortable, Obese Appearance Remarks Intubated and sedated Eyes Eye Exam: Pupils Equal, Sclera White, Extraocular Movement Intact Ears & Nose Ears & Nose Exam: Nasal Mucosa [place] Throat Throat Exam: Oral Mucosa [place] & Moist Throat Remarks +VE ET tube. +ve OGT Neck Neck Exam: Neck Supple, Trachea Midline Pulmonary Resp Exam: Breath Sounds Equal, Crackles Cardiology CV Exam: Regular, Normal Sinus Rhythm Gastrointestinal/Abdomen GI Exam: Soft, Non-Tender, Bowel Sounds Present Integumentary Skin Exam: Warm, Dry Extremeties Extremities Exam: No Edema, Pedal Pulses Palpable VTE Prophylaxis VTE Prophylaxis Meds: Lovenox PUD Prophylasis PUD Prophylaxis: Protonix Assessment/Plan Assessment/Plan ASSESSMENT 1. Acute febrile illness with leukocytosis and left shift, source not clear. The patient has evidence of microscopic hematuria, questionable urinary tract infection, rule out bacteremia, question bronchitis. 2. Hyperglycemia. 3. Normochromic normocytic anemia. 4. BPH with chronic urge incontinence. 5. Hypertension. 6. Hyperlipidemia. 7. Recurrent falls, fortunately no significant injury. 8. Acute VDRF 9. ACS/ NSTEMI 10. Acute pulmonary edema/flash pulmonary edema PLAN Ventilator support and weaning per control systems specialist IV sedation pressors , Neosynephrine/levo, titrate to keep MAP >60 mmhg IV diuretic therapy Control blood pressure 2-D echocardiogram noted, EF is 50% Stress test noted, no evidence of reversible ischemia Discussed with Dr. almonte earlier this morning Empiric IV antibiotic, ID input appreciated tube feeding is started Continue Aspirin hold beta rosalio d/t hypotension worsening renal function likley d/t diuresis consider holding diuretic & cautious hydration f/u renal function Blood cultures negative so far Urine culture positive for Proteus mirabilis, Continue PPI Subcutaneous Lovenox Discussed with patient's son at bedside in detail Graeme labs Will follow Elba De La Cruz MD Aug 20, 2016 18:07 Subcutaneous Lovenox Discussed with patient's significant other and his children at bedside in detail Answered all of their questions, they verbalized understanding Discussed with Dr. Meraz Achava. labs Will follow Elba De La Cruz MD Aug 20, 2016 18:07
[2016-08-20] MEDS ORDERED: VANCOMYCIN INJ 2,000 MG in SODIUM CHLORID 0.9% 500 ML INJ 500 ML IV ONE (18:30)
[2016-08-20] MEDS ORDERED: BUMETANIDE INJ 1 MG/4 ML VIAL IV PUSH STA (19:31)
[2016-08-20] MEDS: DOCUSATE SODIUM 50 MG/SENNA 8.6 MG TAB PO SCH (19:41)
[2016-08-20] MEDS: TAMSULOSIN HCL 0.4 MG CAP PO SCH (19:42)
[2016-08-20] MEDS: ENOXAPARIN SODIUM 40 MG/0.4 ML SYRINGE SQ SCH (19:42)
[2016-08-20] MEDS: LATANOPROST 0.005% OPHT SOLN 2.5 ML BTL EACH EYE SCH (19:43)
[2016-08-20] MEDS: CHLORHEXIDINE 0.12% (ORAL KIT) 15 ML CUP MT SCH (19:43)
[2016-08-20] MEDS ORDERED: TERBUTALINE INJ 1 MG/ML AMP SQ PRN ×2 (19:45→22:15)
[2016-08-20] MEDS ORDERED: PHENYLEPHRINE 40 MG/D5W 496 ML ADMIX IV SCH ×2 (19:45)
[2016-08-20] MEDS: LORazepam 2 MG/ML VIAL IV PRN (21:30)
[2016-08-20] MEDS: PROPOFOL 1000 MG/100 ML IV SCH (22:35)
[2016-08-20] MEDS: PHENYLEPHRINE HCL 80 MG/D5W 492 ML ADMIX IV SCH ×2 (22:53)
[2016-08-20] MEDS: NOREPINEPHRINE 8 MG/D5W 250 ML IV SCH ×2 (22:53)
[2016-08-21] VITALS (13 sets, daily range): BP systolic 89–118; BP diastolic 47–56; PULSE 82–96; RESP 18; TEMP 98.1–101.3; O2SAT 95–98
[2016-08-21] MEDS ORDERED: MIDAZOLAM 100 MG/NS 100 ML DRIP Premix IV SCH (00:45)
[2016-08-21] MEDS: LORazepam 2 MG/ML VIAL IV PRN (03:06)
[2016-08-21] MEDS: fentaNYL DRIP 250 ML IV SCH (03:06)
[2016-08-21] MEDS: ACETAMINOPHEN 325 MG TAB PO PRN (03:37)
[2016-08-21 03:53] LABS: HEMATOCRIT 35.6 % (39.0-51.0); MEAN CELL VOLUME 91.8 FL (80.0-100.0); MEAN CORPUSCULAR HEMOGLOBIN 30.5 PG (27.0-34.0); MEAN CORPUSCULAR HGB CONC 33.2 % (32.0-36.0); PLATELET COUNT 190 TH/MM3 (150-450); RED BLOOD COUNT 3.88 MIL/MM3 (4.50-5.90); RED CELL DISTRIBUTION WIDTH 14.4 % (11.6-17.2); REVIEW FLAG FINAL; WHITE BLOOD COUNT 19.6 TH/MM3 (4.0-11.0)
[2016-08-21 04:24] LABS: BICARBONATE 23.2 MEQ/L (21.0-32.0); POTASSIUM 4.5 MEQ/L (3.5-5.1)
[2016-08-21] MEDS: PHENYLEPHRINE HCL 80 MG/D5W 492 ML ADMIX IV SCH ×4 (04:38→13:17)
[2016-08-21] MEDS: NOREPINEPHRINE 8 MG/D5W 250 ML IV SCH ×2 (04:38)
[2016-08-21] MEDS: RESP: ALBUTEROL 2.5 MG/IPRATROPIUM 0.5 MG NEB (SCH) NEB ×5 (05:14→20:25)
[2016-08-21] MEDS: INSULIN ASPART SUPPLEMENTAL SCALE SQ SCH ×3 (06:11→20:34)
[2016-08-21] MEDS: PROPOFOL 1000 MG/100 ML IV SCH ×2 (06:11→13:00)
[2016-08-21] MEDS ORDERED: methylPREDNISolone SOD SUCC 125 MG/2 ML VIAL ONE (06:23)
[2016-08-21] MEDS ORDERED: methylPREDNISolone SOD SUCC 125 MG/2 ML VIAL IV PUSH ONE (07:00)
--- NOTE | 2016-08-21 07:17 | HHI.CCPN ---
Subjective Remarks/Hospital Course 81-year-old man who admitted to [place] with complains of feeling weak and dizzy , also some chills with it. He had one episode of vomiting earlier today and another episode in the ED. While on a medical floor, he became hypoxemic and tachycardic. Due to hypoxemia at 80s he is transfered to ICU. Patient is alert and oriented and he doesn't want to be intubated in case his condition declines. 08/20 Afebrile. 24 hours patient was noted to have elevated troponins, etiology consulted patient was initiated on aspirin and beta blockers. Cardiology was consulted. Plan for nuclear medicine myocardial perfusion scan, initially scheduled for 08/19 will be done today secondary to NPO status of patient. The patient continues on a Cardizem infusion, metoprolol dosage was increased. Early this a.m., the patient climbed out of the bed and fell, noted laceration posterior right ear. Of note, the patient consumes 2-3 drinks of whiskey per night, came very anxious last night, reported by . The patient was alert and oriented with GCS of 15. Full range of motion denies pain in extremities 4. Stat CT of the head, results pending. 08/21 Tmax 101.8. Yesterday afternoon post nuclear medicine perfusion scan, the patient became acutely hypoxic O2 sat in the 70s, the patient was emergently intubated. Max pulmonary edema was noted, with copious pink frothy sputum via ETT . FiO2 requirements were increased, unable to wean below 70% yesterday afternoon .Sputum culture and urine cultures were obtained, broad- spectrum antibiotics were initiated Vancomycin and Levaquin. The patient currently is on Rocephin for UTI. Flowtrac was instituted, cardiac output and cardiac index were within normal limits. During the night the patient's O2 requirements were increased, the patient required 15 cm of PEEP and initially 100% FiO2. The patient was received 2 mg of Bumex without any diuresis noted. The patient became hypotensive during the night requiring Charbel-Synephrine and Norepinephrine infusions. This morning a central line was placed, steroids were initiated, Solu-Medrol 125 mg IV push, and repeat blood cultures were obtained. Objective Vital Signs Date Time Temp Pulse Resp B/P Pulse Ox O2 Delivery O2 Flow Rate FiO2 08/21/16 05:14 98 80 08/21/16 04:00 101.3 91 18 97/47 08/20/16 10:30 Nasal Cannula 3.00 Intake and Output 08/20/16 08/20/16 08/21/16 08:00 16:00 00:00 Intake Total 144 ml 471 ml 1015 ml Output Total 750 ml 825 ml 275 ml Balance -606 ml -354 ml 740 ml Result Diagram: 08/21/16 0340 08/21/16 0340 Other Results Laboratory Tests Test 08/20/16 13:00 Blood Gas Puncture Site LT RADIAL Blood Gas Patient Temperature 98.6 Blood Gas HCO3 22 mmol/L (22-26) Blood Gas Base Excess -2.2 mmol/L (-2-2) Blood Gas Oxygen Saturation 89 % (90-100) Arterial Blood pH 7.43 (7.380-7.420) Arterial Blood Partial 33 mmHg (38-42) Pressure CO2 Arterial Blood Partial 62 mmHg Pressure O2 (61-120) Arterial Blood Oxygen Content 17.7 Vol % (12.0-20.0) Arterial Blood 0.8 % (0-4) Carboxyhemoglobin Arterial Blood Methemoglobin 0.7 % (0-2) Blood Gas Hemoglobin 14.1 G/DL (12.0-16.0) Oxygen Delivery Device VENTILATOR Blood Gas Ventilator Setting PRVC/AC Blood Gas Inspired Oxygen 100 % Imaging Last Impressions Chest X-Ray 08/20/16 0600 Signed Impressions: Service Date/Time: Saturday, August 20, 2016 04:12 - CONCLUSION: 1. Mild improvement in pulmonary edema. 2. Mild cardiomegaly. Germán Bansal MD Myocardial Perfusion Scan Nuc Med 08/20/16 0000 Signed Impressions: Service Date/Time: Saturday, August 20, 2016 08:43 - CONCLUSION: Unremarkable myocardial perfusion examination. RISK CATEGORY: low Alexander Carter MD Head CT 08/20/16 0000 Signed Impressions: Service Date/Time: Saturday, August 20, 2016 07:58 - CONCLUSION: Unremarkable and stable CT brain for patient's age. Alexander Carter MD Renal Ultrasound 08/18/16 0000 Signed Impressions: Service Date/Time: Thursday, August 18, 2016 11:49 - CONCLUSION: 1. Echogenic kidneys which can be seen with medical renal disease. 2. Bilateral renal cysts. Ricardo F. Tocci, MD Last Impressions Chest X-Ray 08/20/16 0600 Signed Impressions: Service Date/Time: Saturday, August 20, 2016 04:12 - CONCLUSION: 1. Mild improvement in pulmonary edema. 2. Mild cardiomegaly. Germán Bansal MD Head CT 08/20/16 0000 Signed Impressions: Service Date/Time: Saturday, August 20, 2016 07:58 - CONCLUSION: Unremarkable and stable CT brain for patient's age. Alexander Carter MD Renal Ultrasound 08/18/16 0000 Signed Impressions: Service Date/Time: Thursday, August 18, 2016 11:49 - CONCLUSION: 1. Echogenic kidneys which can be seen with medical renal disease. 2. Bilateral renal cysts. Ricardo Adan MD Last 24 hours Impressions Chest X-Ray 08/19/16 0000 Signed Impressions: Service Date/Time: Friday, August 19, 2016 03:42 - CONCLUSION: New bilateral perihilar and bibasilar infiltrates. Findings are most consistent with pulmonary edema. Germán Bansal MD Objective Remarks GENERAL: Critically ill-appearing male intubated and sedated. SKIN: Warm and dry, noted abrasion posterior right ear, and small abrasion right knee HEAD: Normocephalic. EYES: No scleral icterus. No injection or drainage. NECK: Supple, trachea midline. No JVD or lymphadenopathy. Orotracheally intubated CARDIOVASCULAR: Regular rate and rhythm without murmurs, gallops, or rubs. RESPIRATORY: Breath sounds equal bilaterally, diminished bilateral base, no wheezing noted. Mechanically ventilated GASTROINTESTINAL: Abdomen soft, non-tender, nondistended. OGT in situ MUSCULOSKELETAL: No cyanosis, or edema. Movement of extremities 4. During sedation holiday BACK: Nontender without obvious deformity. No CVA tenderness. Procedures Central line placement Urinary Catheter: Yes Bauer insert reason: ICU Pt Getting Diuretics Date of Insertion: Aug 19, 2016 Vascular Central Line Catheter: Yes Date of Insertion: Aug 21, 2016 Line: Central Venous Catheter Side: Right Location: Internal, Jugular Reason for Continuation Vasoactive medications administration and CVP monitoring A/P Problem List: (1) BPH with urinary obstruction ICD Code: N40.1 Status: Acute (2) COPD (chronic obstructive pulmonary disease) ICD Code: J44.9 Status: Acute (3) Pulmonary edema ICD Code: J81.1 Status: Acute (4) Respiratory failure ICD Code: J96.90 Status: Acute Assessment and Plan Neurologic: Glaucoma Alcohol use S/P Fall-confusion (08/20) -GCS 3T, sedated and intubated, propofol infusion@25 mcgs -Continued on Latanoprost (home med) -Fall OOB 08/20, CT of the head-unremarkable stable CT of the brain -Monitor for alcohol withdrawal, reports 2-3 drinks whiskey per day-Ativan 0.5 mg prn q 6 hr for agitation -Thiamine, folate q/day Respiratory: Acute hypoxic respiratory failure Acute Pulmonary edema COPD exacerbation Chronic smoker Probable multilobar Pneumonia -Continue diuresis ,Lasix scheduled doses -Intubated 08/20-ETT 8.0 -Mechanical vent settings-FiO2 60%/550/12/rate of 18, and attempt to wean FiO2 -Maintain O2 sat greater than 92% -Chest x-ray 08/20 afternoon-worsening diffuse bilateral interstitial and airspace disease throughout all lung guevara -Schedule dual nebs every 4 hours, add every 2 PRN -Methylprednisone 125 mg IV push, 60 mg every 8hrs 3 days, then attempt to wean steroids -Counseled on smoking [id number] (smokes 2 PPD x 65 years), family reported accurate smoking history -Nicotine patch day 09/30 Cardiovascular: NSTEMI H/O Hypertension Tachycardia-resolved Dyslipidemia Cardiogenic Shock -Cardizem infusion discontinued, esmolol infusion discontinued yesterday -Charbel-Synephrine infusions currently 190 mcgs, norepinephrine 10 mcgs -Troponin (08/19)5.17->4.91->4.23 -Continue ASA 81 mg/day, Metoprolol on hold, heart rate 80s patient continues on pravastatin (home med) -Patient's home medications clonidine, lisinopril (on hold) -ECHO 08/19- EF 50% , no RWMA -BNP- 156->91 (08/21) -08/20 nuclear medicine myocardial perfusion scan-intact wall motion and thickening without hypokinetic or dyskinetic segments -Cardiology on board, Dr. Cason, follow recommendations -Flowtrac monitor- CO 5.3, CI 2.7 (08/21) Renal: Renal insufficiency BPH -Creatinine 2.3, increased continue to monitor, adequate urine output -Maintain Bauer - Home meds Flomax-held in light of hypotension -- Strict I/Os -monitor urinary output hourly FEN/GI: Hypokalemia-resolved -Electrolyte replacement per ICU protocol -Begin tube feeds-Jevity 1.5, goal of 60 cc/hr -Zofran for nausea -Protonix GI prophylaxis -Bowel regimen Heme/ID: Leukocytosis Probable multilobar pneumonia Septic shock UTI - 08/18 urine culture-Proteus mirabilis -08/18 blood culture- Coag neg Staph (resulted 08/21 am) -08/20 blood culture-NGTD -08/20 urine Legionella, Pneumococcal-pending -Rocephin dc'd (2 days) azithromycin, vancomycin (day 2) -Methylprednisolone 60 mg every 8 hours -Monitor CBC, WBC 14.3->19.6 today -Follow-up serial lactate level -ID consulted, appreciate recommendations Vanc, Levaquin (Day 2), Rocephin dc'd, Cefepime 2 GM q 8hr initiated Endocrine: Blood glucose monitoring every 4 hours per ICU protocol -- SSI Prophylaxis: GI Prophylaxis Protonix DVT Prophylaxis -- SCDs Lovenox Lines: Peripheral IVs. Central line RIJ 08/21, R radial Radha 08/21 Dispo: This patient remains critically ill with one or more organ systems which are or may become a threat to life. I have spent in excess of 43 minutes discontinuously in the care and management of this patient. This time is exclusive of procedures, and includes, but is not limited to, evaluation of the patient, review of the medical record, discussions with family, consultants, nursing staff, or respiratory therapy, and documentation in the medical record. Updated family, and discussed with PANEL COVERER at bedside Physician Gavi Chew MD Aug 21, 2016 07:17
--- NOTE | 2016-08-21 07:32 | RADRPT ---
EXAM DATE/TIME: 08/21/2016 07:16 [facility] COMPARISON: CHEST SINGLE AP, August 20, 2016, 13:20. INDICATIONS : Central line placement. MEDICAL HISTORY : Hypertension. Hypercholesterolemia. SURGICAL HISTORY : None. ENCOUNTER: Subsequent ACUITY: 4 - 6 days PAIN SCORE: Non-responsive. LOCATION: Bilateral chest FINDINGS: Widespread alveolar opacities are again seen in both lungs, especially in the bilateral mid to lower lungs. These appear slightly improved since yesterday. No pleural effusion. No pneumothorax seen. There is a new right IJ central venous catheter with tip in the superior vena cava. Patient remains i ntubated. Endotracheal tube tip is about 4 cm above the les. There is a nasogastric tube coursing into the stomach. CONCLUSION: 1. New right internal jugular central venous catheter with tip in the superior vena cava. No pneumoth orax. 2. Other lines and tubes unchanged as above. 3. Widespread alveolar parenchymal opacities slightly improved. Moises Villagomez MD on August 21, 2016 at 7:29 Board Certified Radiologist. This report was verified electronically.
[2016-08-21 08:10] LABS: CALCIUM-PROTEIN CORRECTED 8.3 MG/DL (8.5-10.1)
[2016-08-21 08:43] LABS: BLOOD GAS BASE EXCESS -4.8 mmol/L (-2-2); BLOOD GAS CARBOXYHEMOGLOBIN 0.8 % (0-4); BLOOD GAS HCO3 20 mmol/L (22-26); BLOOD GAS O2 HGB SATURATION 95 % (90-100); BLOOD GAS OXYGEN CONTENT 16.3 Vol % (12.0-20.0); BLOOD GAS PCO2 42 mmHg (38-42); BLOOD GAS PO2 98 mmHg (61-120); BLOOD GAS TOTAL HGB 12.2 G/DL (12.0-16.0); CRITICAL VALUE NO; OXYGEN DEVICE VENTILATOR; TEMP CORR TO 98.6
[2016-08-21 08:44] LABS: DRAW SITE ART LINE; FIO2 60 %; STAT NO; VENT SETTINGS PVRC/R18/VT550/IT1.0
[2016-08-21] MEDS ORDERED: METOPROLOL SUCCINATE 50 MG EXTENDED RELEASE TAB PO SCH (09:00)
[2016-08-21] MEDS ORDERED: MEROPENEM INJ 1,000 MG in SODIUM CHLORIDE 0.9% INJ 100 ML IV SCH (09:00)
[2016-08-21] MEDS ORDERED: MISCELLANEOUS PHARMACY INFORMATION XX PRN ×2 (09:00)
[2016-08-21] MEDS: NICOTINE 14 MG/24 HR PATCH TD SCH (09:00)
[2016-08-21] MEDS: REMOVE OLD PATCH TD SCH (09:00)
[2016-08-21] MEDS: THIAMINE HCL 100 MG TAB PO SCH (09:07)
[2016-08-21] MEDS: DOCUSATE SODIUM 50 MG/SENNA 8.6 MG TAB PO SCH ×2 (09:07→20:32)
--- NOTE | 2016-08-21 09:09 | PD.PROCEDR ---
Central Line Procedure REASON FOR PROCEDURE Central venous access PROCEDURE PERFORMED Central line placement: Right IJ CONSENT Informed consent for procedure was obtained Tabitha DREW. The risks and benefits of the procedure were discussed to include but limited to bleeding , clot formation, infection, and even . ANESTHESIA Local injection of 1% Lidocaine DESCRIPTION OF THE PROCEDURE The patient was placed in supine, mild Trendelenburg position. The area was exposed and cleansed with ChloraPrep, times two. Large sterile drape was used to cover the patient, with the site exposed, under sterile conditions including cap, face mask, sterile gown, and sterile gloves. On single attempt, the introducer needle was inserted with negative pressure in syringe and venous flash was obtained. The guide wire was then advanced without any restriction and the needle was removed. The dilator was used without any complications. Using Seldinger technique the 7 F catheter was advanced over the guide wire to a depth of 18 centimeters. The guide wire was removed. All ports were aspirated with dark venous blood return and flushed easily with sterile saline. All ports were capped. Antibiotic disc was placed around central line at puncture site. The central line was secured to the skin with two interrupted 2.0 silk sutures. The area was bandaged with sterile see-through central line bandage. RADIOLOGICAL DATA Ultrasound guidance was used to locate right IJ. Doppler/color flow was used to confirm venous flow. COMPLICATIONS: No apparent complications ESTIMATED BLOOD LOSS: Less than 1 cc. Gavi Meraz MD Aug 21, 2016 09:09
[2016-08-21] MEDS: SODIUM CHLORIDE 0.9% FLUSH 5 ML FLUSH FLUSH SCH ×2 (09:10→20:32)
[2016-08-21] MEDS: ASPIRIN 81 MG CHEW TAB CHEW SCH (09:10)
[2016-08-21] MEDS: PANTOPRAZOLE SODIUM 40 MG VIAL IV PUSH SCH (09:11)
[2016-08-21] MEDS: CHLORHEXIDINE 0.12% (ORAL KIT) 15 ML CUP MT SCH ×2 (09:11→20:31)
[2016-08-21] MEDS: PRAVASTATIN SOD 40 MG TAB PO SCH (09:15)
[2016-08-21] MEDS: FOLIC ACID 1 MG TAB PO SCH (09:15)
[2016-08-21] MEDS: CEFEPIME 2000 MG/NS 100 ML IV SCH ×4 (10:00→21:30)
--- NOTE | 2016-08-21 12:54 | PD.CONS ---
History of Present Illness Service Infectious Disease Consult Requested By Dr Meraz Reason for Consult Eval patient with Sepsis Primary Care Physician Unknown Diagnoses: History of Present Illness Patient seen and examined. Records reviewed. Patient is an 81-year-old male admitted to the hospital after he had fallen 2 times at home. There was reportedly no loss of consciousness or any obvious injury noted. He had a fever on admission. His WBC was elevated at 14,000. Chest x-ray and urinalysis were both unremarkable. Patient ruled in for an OH. He was started empirically on some antibiotics. On August 19 Ange Was called and he was transferred to the intensive care unit. He was short of breath, and his chest x-ray has developed bilateral pulmonary infiltrates felt to be pulmonary edema. Yesterday he deteriorated further, and ended up getting intubated. He also developed hypotension requiring pressors. Patient has been febrile. His creatinine had gone up to 2+. Chest x-ray has remained with bilateral pulmonary infiltrates. His echo showed EF of 50%. Patient had 1 blood culture when he came in that had coag-negative staph. His urine culture had Proteus. Renal ultrasound did not show any evidence of obstruction. Patient currently is on pressors. He is sedated on the respirator. He has a new central line in the right IJ, as well as a right radial a line. Infectious disease consultation is requested to evaluate the patient. Review of Systems ROS Limitations: Clinical Condition, Intubated Past Family Social History Allergies: Coded Allergies: No Known Allergies (Unverified , 05/16/15) Past Medical History Hyperlipidemia HTN BPH Glaucoma Past Surgical History Cyst removal from his back Colonoscopy Active Ordered Medications Tylenol Albuterol Aspirin Cefepime Lovenox Fentanyl Folic acid Levaquin Ativan Solu-Medrol Versed Nicotine patch Levophed Zofran Protonix Vasopressin Pravachol Sonia-Colace Diprivan Thiamine Vanco x 1 dose 08/20 Social History Smokes 1 ppd Drinks 2-3 shots of scotch or whiskey per night No illicit drug use Physical Exam Vital Signs Vital Signs Date Time Temp Pulse Resp B/P Pulse Ox O2 Delivery O2 Flow Rate FiO2 08/21/16 11:27 95 50 08/21/16 08:29 96 60 08/21/16 08:00 99.7 86 18 95 114/52 08/21/16 08:00 60 08/21/16 08:00 86 08/21/16 05:14 98 80 08/21/16 04:00 101.3 91 18 98 97/47 08/21/16 04:00 80 08/21/16 00:00 100.2 83 18 96 89/49 08/21/16 00:00 80 08/20/16 23:38 98 100 08/20/16 22:00 101 08/20/16 20:24 89 100 08/20/16 20:00 100.8 98 18 94 107/55 08/20/16 20:00 102 08/20/16 20:00 100 08/20/16 16:00 100.9 96 21 96/42 97 08/20/16 15:37 96 80 08/20/16 13:06 93 100 Physical Exam GENERAL: This is a well-nourished, well-developed male, sedated on the vent, not in distress. SKIN: Cool and dry. No generalized rash or ecchymosis. No embolic lesions noted. HEAD: Atraumatic. Normocephalic. No temporal or scalp tenderness. EYES: [place] conjunctivae, no petechia or hemorrhage. Pupils are equal and pinpoint. No scleral icterus. No injection or drainage. ENT: Nose without bleeding, or purulent drainage. Endotracheal tube is in the mouth. Moist oral mucosa. NECK: Trachea midline. No JVD or lymphadenopathy. Supple, nontender, no meningeal signs. CARDIOVASCULAR: Regular rate and rhythm without murmurs, gallops, or rubs. RESPIRATORY: Coarse breath sounds bilaterally, equal. No wheezes, rales, or rhonchi. Decreased breath sounds at the bases. GASTROINTESTINAL: Abdomen soft, mildly distended, no reaction to deep palpation. Bowel sounds are present and hypoactive. No hepato-splenomegaly, or palpable masses. MUSCULOSKELETAL: Extremities without clubbing, cyanosis, or edema. Both feet are cool to touch. No joint effusion, or edema noted. NEUROLOGICAL: Sedated, no Babinski, no ankle clonus. PSYCH: Unable to assess LINE: RIJ TLC, R radial A line, PIV, all with no evidence of ubfection : Bauer in place, urine looks clear Laboratory Laboratory Tests Test 08/20/16 08/20/16 08/21/16 08/21/16 13:00 13:29 03:40 08:10 Blood Gas Puncture Site LT RADIAL Blood Gas Patient Temperature 98.6 Blood Gas HCO3 22 Blood Gas Base Excess -2.2 Blood Gas Oxygen Saturation 89 Arterial Blood pH 7.43 Arterial Blood Partial 33 Pressure CO2 Arterial Blood Partial 62 Pressure O2 Arterial Blood Oxygen Content 17.7 Arterial Blood 0.8 Carboxyhemoglobin Arterial Blood Methemoglobin 0.7 Blood Gas Hemoglobin 14.1 Oxygen Delivery Device VENTILATOR Blood Gas Ventilator Setting PRVC/AC Blood Gas Inspired Oxygen 100 Sodium Level 139 136 Potassium Level 3.6 4.5 Chloride Level 104 102 Carbon Dioxide Level 22.9 23.2 Anion Gap 12 11 Blood Urea Nitrogen 31 44 Creatinine 1.57 2.34 Estimat Glomerular Filtration 43 27 Rate Random Glucose 185 109 Calcium Level 8.2 8.0 White Blood Count 19.6 Red Blood Count 3.88 Hemoglobin 11.8 Hematocrit 35.6 Mean Corpuscular Volume 91.8 Mean Corpuscular Hemoglobin 30.5 Mean Corpuscular Hemoglobin 33.2 Concent Red Cell Distribution Width 14.4 Platelet Count 190 Mean Platelet Volume 10.4 Protein Corrected Calcium 8.3 Phosphorus Level 5.6 Magnesium Level 2.0 Total Protein 6.7 Lactic Acid Level 1.1 Test 08/21/16 08:30 Blood Gas Puncture Site ART LINE Blood Gas Patient Temperature 98.6 Blood Gas HCO3 20 Blood Gas Base Excess -4.8 Blood Gas Oxygen Saturation 95 Arterial Blood pH 7.31 Arterial Blood Partial 42 Pressure CO2 Arterial Blood Partial 98 Pressure O2 Arterial Blood Oxygen Content 16.3 Arterial Blood 0.8 Carboxyhemoglobin Arterial Blood Methemoglobin 1.0 Blood Gas Hemoglobin 12.2 Oxygen Delivery Device VENTILATOR Blood Gas Ventilator Setting [id number]/R18/VT550/IT1.0 Blood Gas Inspired Oxygen 60 Date/Time Procedure Status Source Growth 08/21/16 00:45 Aerobic Blood Culture Received Blood Peripheral Pending 08/21/16 00:45 Anaerobic Blood Culture Received Blood Peripheral Pending 08/20/16 20:15 Legionella Antigen - Final Complete Urine Catheterized Urine PRESUMPTIVE NEGATIVE FOR LEGIONELLA P... 08/20/16 20:15 Streptococcus pneumoniae Antigen (M - Final Complete Urine Catheterized Urine PRESUMPTIVE NEGATIVE FOR STREPTOCOCCU... 08/20/16 05:05 Gram Stain - Final Resulted Sputum Endotracheal 08/20/16 05:05 Sputum Culture Resulted Sputum Endotracheal Pending 08/17/16 16:47 Urine Culture - Final Complete Urine Catheterized Urine Proteus Mirabilis 08/17/16 16:27 Influenza Types A,B Antigen (SANDOVAL) - Final Complete Nasal Washing NEGATIVE FOR FLU A AND B ANTIGEN.... 08/17/16 16:25 Aerobic Blood Culture - Preliminary Resulted Blood Peripheral NO GROWTH IN 4 DAYS 08/17/16 16:25 Anaerobic Blood Culture - Preliminary Resulted Staph Sp Coagulase Negative Result Diagram: 08/21/16 0340 08/21/16 0340 Imaging RADIOLOGY STUDIES/FILMS REVIEWED Chest X-Ray 08/21/16 0000 Signed Impressions: Service Date/Time: July 07:16 - CONCLUSION: 1. New right internal jugular central venous catheter with tip in the superior vena cava. No pneumothorax. 2. Other lines and tubes unchanged as above. 3. Widespread alveolar parenchymal opacities slightly improved. Moises Villagomez MD Myocardial Perfusion Scan Nuc Med 08/20/16 0000 Signed Impressions: Service Date/Time: Saturday, August 20, 2016 08:43 - CONCLUSION: Unremarkable myocardial perfusion examination. RISK CATEGORY: low Alexander Carter MD Head CT 08/20/16 0000 Signed Impressions: Service Date/Time: Saturday, August 20, 2016 07:58 - CONCLUSION: Unremarkable and stable CT brain for patient's age. Alexander Carter MD Renal Ultrasound 08/18/16 0000 Signed Impressions: Service Date/Time: Thursday, August 18, 2016 11:49 - CONCLUSION: 1. Echogenic kidneys which can be seen with medical renal disease. 2. Bilateral renal cysts. Ricardo Adan MD Assessment and Plan Assessment and Plan IMPRESSION Sepsis with shock, source, likely pulmonary, HCAP - has known COPD, chronic smoker Admission with NSTEMI, EF 50% MOSF - respiratory, renal Hx daily ETOH use Chronic smoker 1 ppd One (+) BC with Coag Neg Staph on admission likely contaminant RECOMMENDATION Continue Cefepime and Vancomycin Continue Levaquin Check Legionella Ag Repeat UA and C/S Follow C/S Follow temps Monitor progress I will determine course of Abx once work-up completed, cultures finalized and based on his clinical course I will follow along with you Thank you for this consultation Mimi Benavides MD Aug 21, 2016 12:54
[2016-08-21] MEDS: LINEZOLID 600 MG PREMIX 300 ML IV SCH (13:00)
[2016-08-21] MEDS: methylPREDNISolone SOD SUCC 125 MG/2 ML VIAL IV PUSH SCH ×2 (13:00→21:30)
[2016-08-21 15:16] LABS: BLOOD, URINE SMALL (NEG); COMMENT (UR) CULT NOT INDICATED; CULTURE IF INDICATED CULT NOT INDICATED; GLUCOSE,URINE 70 mg/dL (NEG); KETONE, URINE NEG (NEG); MUCUS URINE FEW /lpf (OCC); NITRITE,URINE NEG (NEG); PH, URINE 5.5 (5.0-8.5); SQUAMOUS EPITHELIAL CELL URINE <1 /hpf (0-5); URINE COLOR YELLOW (YELLW/STRAW)
[2016-08-21 15:39] LABS: INDIRECT BILIRUBIN 0.2 MG/DL (0.0-0.8); TOTAL BILIRUBIN ADULT 0.3 MG/DL (0.2-1.0)
[2016-08-21 15:41] LABS: ALT (GPT) 112 U/L (12-78); ANION GAP 11 MEQ/L (5-15); AST (GOT) 91 U/L (15-37); BICARBONATE 22.2 MEQ/L (21.0-32.0); BLOOD UREA NITROGEN 45 MG/DL (7-18); CHLORIDE 100 MEQ/L (98-107); GLOMERULAR FILTRATION RATE 29 ML/MIN (>89); POTASSIUM 4.3 MEQ/L (3.5-5.1); SODIUM (NA) 133 MEQ/L (136-145)
[2016-08-21 15:44] LABS: ALKALINE PHOSPHATASE 64 U/L (45-117); TOTAL BILIRUBIN ADULT 0.3 MG/DL (0.2-1.0)
[2016-08-21] MEDS ORDERED: VANCOMYCIN INJ 1,000 MG in SODIUM CHLOR 0.9% 250 ML INJ 250 ML IV ONE (16:30)
[2016-08-21] MEDS: ENOXAPARIN SODIUM 30 MG/0.3 ML SYRINGE SQ SCH (20:31)
[2016-08-21] MEDS: LATANOPROST 0.005% OPHT SOLN 2.5 ML BTL EACH EYE SCH (20:32)
[2016-08-22] VITALS (17 sets, daily range): BP systolic 98–128; BP diastolic 44–60; PULSE 84–116; RESP 11–18; TEMP 96.8–98.3; O2SAT 94–99
[2016-08-22] MEDS: RESP: ALBUTEROL 2.5 MG/IPRATROPIUM 0.5 MG NEB (SCH) NEB ×6 (00:36→20:33)
[2016-08-22] MEDS: LINEZOLID 600 MG PREMIX 300 ML IV SCH ×2 (00:53→14:04)
[2016-08-22] MEDS: PROPOFOL 1000 MG/100 ML IV SCH ×3 (03:18→23:42)
[2016-08-22 03:27] LABS: BASOPHIL % 0.2 % (0.0-2.0); HEMATOCRIT 33.2 % (39.0-51.0); HEMO FLAGS DIFF FINAL; LYMPH % 0.7 % (9.0-44.0); LYMPHOCYTE # 0.1 TH/MM3 (1.0-4.8); MEAN CELL VOLUME 91.6 FL (80.0-100.0); MEAN CORPUSCULAR HEMOGLOBIN 31.4 PG (27.0-34.0); MEAN CORPUSCULAR HGB CONC 34.3 % (32.0-36.0); MONO % 1.3 % (0.0-8.0); NEUT % 97.8 % (16.0-70.0); PLATELET COUNT 189 TH/MM3 (150-450); RED BLOOD COUNT 3.63 MIL/MM3 (4.50-5.90); RED CELL DISTRIBUTION WIDTH 14.8 % (11.6-17.2); WHITE BLOOD COUNT 19.4 TH/MM3 (4.0-11.0)
[2016-08-22 03:47] LABS: MAGNESIUM 2.4 MG/DL (1.5-2.5); POTASSIUM 3.8 MEQ/L (3.5-5.1)
--- NOTE | 2016-08-22 03:53 | HHI.CCPN ---
Subjective Remarks/Hospital Course 81-year-old man who admitted to [facility] with complains of feeling weak and dizzy , also some chills with it. He had one episode of vomiting earlier today and another episode in the ED. While on a medical floor, he became hypoxemic and tachycardic. Due to hypoxemia at 80s he is transfered to ICU. Patient is alert and oriented and he doesn't want to be intubated in case his condition declines. 08/20 Afebrile. 24 hours patient was noted to have elevated troponins, etiology consulted patient was initiated on aspirin and beta blockers. Cardiology was consulted. Plan for nuclear medicine myocardial perfusion scan, initially scheduled for 08/19 will be done today secondary to NPO status of patient. The patient continues on a Cardizem infusion, metoprolol dosage was increased. Early this a.m., the patient climbed out of the bed and fell, noted laceration posterior right ear. Of note, the patient consumes 2-3 drinks of whiskey per night, came very anxious last night, reported by . The patient was alert and oriented with GCS of 15. Full range of motion denies pain in extremities 4. Stat CT of the head, results pending. 08/21 Tmax 101.8. Yesterday afternoon post nuclear medicine perfusion scan, the patient became acutely hypoxic O2 sat in the 70s, the patient was emergently intubated. Max pulmonary edema was noted, with copious pink frothy sputum via ETT . FiO2 requirements were increased, unable to wean below 70% yesterday afternoon .Sputum culture and urine cultures were obtained, broad- spectrum antibiotics were initiated Vancomycin and Levaquin. The patient currently is on Rocephin for UTI. Flowtrac was instituted, cardiac output and cardiac index were within normal limits. During the night the patient's O2 requirements were increased, the patient required 15 cm of PEEP and initially 100% FiO2. The patient was received 2 mg of Bumex without any diuresis noted. The patient became hypotensive during the night requiring Charbel-Synephrine and Norepinephrine infusions. This morning a central line was placed, steroids were initiated, Solu-Medrol 125 mg IV push, and repeat blood cultures were obtained. 08/22 Tmax 97.8. Patient improvement, weaned off all vasopressors. Oxygen requirements decreased, FiO2 now 40%, PEEP 5. GCS 11 T during sedation holiday. Plan for CPAP trials today. Objective Vital Signs Date Time Temp Pulse Resp B/P Pulse Ox O2 Delivery O2 Flow Rate FiO2 08/22/16 03:43 96 45 08/22/16 00:00 98.2 84 18 98/46 08/20/16 10:30 Nasal Cannula 3.00 Intake and Output 08/21/16 08/21/16 08/22/16 08:00 16:00 00:00 Intake Total 1590 ml 1266 ml 1625 ml Output Total 150 ml 800 ml 525 ml Balance 1440 ml 466 ml 1100 ml Result Diagram: 08/22/16 0315 08/22/16 0315 Other Results Microbiology Date/Time Procedure Status Source Growth 08/20/16 20:15 Legionella Antigen - Final Complete Urine Catheterized Urine PRESUMPTIVE NEGATIVE FOR LEGIONELLA P... 08/20/16 20:15 Streptococcus pneumoniae Antigen (M - Final Complete Urine Catheterized Urine PRESUMPTIVE NEGATIVE FOR STREPTOCOCCU... 08/21/16 14:28 Legionella Antigen - Final Complete Urine Catheterized Urine PRESUMPTIVE NEGATIVE FOR LEGIONELLA P... Laboratory Tests Test 08/21/16 08:30 Blood Gas Puncture Site ART LINE Blood Gas Patient Temperature 98.6 Blood Gas HCO3 20 mmol/L (22-26) Blood Gas Base Excess -4.8 mmol/L (-2-2) Blood Gas Oxygen Saturation 95 % (90-100) Arterial Blood pH 7.31 (7.380-7.420) Arterial Blood Partial 42 mmHg (38-42) Pressure CO2 Arterial Blood Partial 98 mmHg Pressure O2 (61-120) Arterial Blood Oxygen Content 16.3 Vol % (12.0-20.0) Arterial Blood 0.8 % (0-4) Carboxyhemoglobin Arterial Blood Methemoglobin 1.0 % (0-2) Blood Gas Hemoglobin 12.2 G/DL (12.0-16.0) Oxygen Delivery Device VENTILATOR Blood Gas Ventilator Setting PVRC/R18/VT550/IT1.0 Blood Gas Inspired Oxygen 60 % Imaging Last Impressions Chest X-Ray 08/22/16 0200 Signed Impressions: Service Date/Time: Monday, August 22, 2016 04:55 - CONCLUSION: 1. Bilateral airspace disease more notably within the lower lobes has slightly improved. 2. Support lines and tubes are unchanged. Ricardo Adan MD Myocardial Perfusion Scan Nuc Med 12/28/16 0000 Signed Impressions: Service Date/Time: Saturday, August 20, 2016 08:43 - CONCLUSION: Unremarkable myocardial perfusion examination. RISK CATEGORY: low Alexander Carter MD Head CT 08/20/16 0000 Signed Impressions: Service Date/Time: Saturday, August 20, 2016 07:58 - CONCLUSION: Unremarkable and stable CT brain for patient's age. Alexander Carter MD Renal Ultrasound 08/18/16 0000 Signed Impressions: Service Date/Time: Thursday, August 18, 2016 11:49 - CONCLUSION: 1. Echogenic kidneys which can be seen with medical renal disease. 2. Bilateral renal cysts. Ricardo Adan MD Last Impressions Chest X-Ray 08/20/16 0600 Signed Impressions: Service Date/Time: Saturday, August 20, 2016 04:12 - CONCLUSION: 1. Mild improvement in pulmonary edema. 2. Mild cardiomegaly. Germán Bansal MD Myocardial Perfusion Scan Nuc Med 08/20/16 0000 Signed Impressions: Service Date/Time: Saturday, August 20, 2016 08:43 - CONCLUSION: Unremarkable myocardial perfusion examination. RISK CATEGORY: low Alexander Carter MD Head CT 08/20/16 0000 Signed Impressions: Service Date/Time: Saturday, August 20, 2016 07:58 - CONCLUSION: Unremarkable and stable CT brain for patient's age. Alexander Carter MD Renal Ultrasound 08/18/16 0000 Signed Impressions: Service Date/Time: Thursday, August 18, 2016 11:49 - CONCLUSION: 1. Echogenic kidneys which can be seen with medical renal disease. 2. Bilateral renal cysts. Ricardo Adan MD Last Impressions Chest X-Ray 08/20/16 0600 Signed Impressions: Service Date/Time: Saturday, August 20, 2016 04:12 - CONCLUSION: 1. Mild improvement in pulmonary edema. 2. Mild cardiomegaly. Germán Bansal MD Head CT 08/20/16 0000 Signed Impressions: Service Date/Time: Saturday, August 20, 2016 07:58 - CONCLUSION: Unremarkable and stable CT brain for patient's age. Alexander Carter MD Renal Ultrasound 08/18/16 0000 Signed Impressions: Service Date/Time: Thursday, August 18, 2016 11:49 - CONCLUSION: 1. Echogenic kidneys which can be seen with medical renal disease. 2. Bilateral renal cysts. Ricardo Adan MD Last 24 hours Impressions Chest X-Ray 08/19/16 0000 Signed Impressions: Service Date/Time: Friday, August 19, 2016 03:42 - CONCLUSION: New bilateral perihilar and bibasilar infiltrates. Findings are most consistent with pulmonary edema. Germán Bansal MD Objective Remarks GENERAL: Critically ill-appearing male intubated and sedated on propofol. SKIN: Warm and dry, noted abrasion posterior right ear, and small abrasion right knee HEAD: Normocephalic. EYES: No scleral icterus. No injection or drainage. NECK: Supple, trachea midline. No JVD or lymphadenopathy. Orotracheally intubated CARDIOVASCULAR: Regular rate and rhythm without murmurs, gallops, or rubs. RESPIRATORY: Breath sounds equal bilaterally, diminished bilateral base, no wheezing noted. Mechanically ventilated GASTROINTESTINAL: Abdomen soft, non-tender, nondistended. OGT in situ, tube feeds infusing. MUSCULOSKELETAL: No cyanosis, or edema. Movement of extremities 4. During sedation holiday BACK: Nontender without obvious deformity. No CVA tenderness. Urinary Catheter: Yes Bauer insert reason: ICU Pt Getting Diuretics Date of Insertion: Aug 19, 2016 Vascular Central Line Catheter: Yes Assessment to: Continue Date of Insertion: Aug 21, 2016 Line: Central Venous Catheter Side: Right Location: Internal, Jugular A/P Problem List: (1) BPH with urinary obstruction ICD Code: N40.1 Status: Acute (2) COPD (chronic obstructive pulmonary disease) ICD Code: J44.9 Status: Acute (3) Pulmonary edema ICD Code: J81.1 Status: Acute (4) Respiratory failure ICD Code: J96.90 Status: Acute Assessment and Plan Neurologic: Glaucoma Alcohol use S/P Fall-confusion (08/20) -GCS 11T, during sedation holiday. Propofol infusion on hold, for CPAP trials, possible SBT -Continued on Latanoprost (home med) -Fall OOB 08/20, CT of the head-unremarkable stable CT of the brain -Monitor for alcohol withdrawal, reports 2-3 drinks whiskey per day-Ativan 0.5 mg prn q 6 hr for agitation -Thiamine, folate q/day Respiratory: Acute hypoxic respiratory failure Acute Pulmonary edema COPD exacerbation Chronic smoker Probable multilobar Pneumonia -Continue diuresis ,Lasix scheduled doses -Intubated 08/20-ETT 8.0 -Mechanical vent settings-FiO2 40%/550/5/rate of 18, continue to wean FiO2 -Maintain O2 sat greater than 92% -Chest x-ray 08/21 afternoon-improvement of diffuse bilateral interstitial and airspace disease throughout all lung guevara -Schedule Duonebs every 4 hours, add every 2 PRN -Methylprednisone 125 mg IV push, 60 mg every 8hrs 3 days, then begin to taper steroids 08/24/16 -Counseled on smoking [id number] (smokes 2 PPD x 65 years), family reported accurate smoking history -Nicotine patch day 10/28 -CPAP trials this a.m. Cardiovascular: NSTEMI H/O Hypertension Tachycardia-resolved Dyslipidemia Cardiogenic Shock -Cardizem infusion discontinued, esmolol infusion discontinued yesterday -Charbel-Synephrine, levophed off since 7 AM 08/22 -Troponin (08/19)5.17->4.91->4.23 -Continue ASA 81 mg/day, Metoprolol on hold, heart rate 80s, will resume when normotensive - patient continues on pravastatin (home med) -Patient's home medications clonidine, lisinopril (on hold) -ECHO 08/19- EF 50% , no RWMA -BNP- 156->91 (08/21) -08/20 nuclear medicine myocardial perfusion scan-intact wall motion and thickening without hypokinetic or dyskinetic segments -Cardiology on board, Dr. Cason, follow recommendations -Flowtrac monitor- CO 6.1, CI 3.1(08/22) -D/C Flowtrac Renal: Renal insufficiency BPH -Creatinine 2.3-> 2.1 today continue to monitor, adequate urine output -Maintain Bauer - Home meds Flomax-held in light of hypotension, will resume when clinically indicated -- Strict I/Os -monitor urinary output hourly FEN/GI: Hypokalemia-resolved -Electrolyte replacement per ICU protocol - Tube feeds-Jevity 1.5, goal of 60 cc/hr -Zofran for nausea -Protonix GI prophylaxis -Bowel regimen Heme/ID: Leukocytosis Probable multilobar pneumonia Septic shock UTI - 08/18 urine culture-Proteus mirabilis -08/18 blood culture- Coag neg Staph (resulted 08/21 am) possible contamination of specimen -08/20 blood culture-NGTD -08/20 urine Legionella, Pneumococcal-negative -Rocephin dc'd (2 days) Levaquin, Vancomycin (day 3), Cefepime (day 2) -Methylprednisolone 60 mg every 8 hours -Monitor CBC, WBC 19.6->19.4 today -Lactate 1.5 -Follow-up serial lactate level -ID consulted, Dr Benavides -Vanc(Day 3), Levaquin (Day 2), Rocephin dc'd, Cefepime (day 2) Endocrine: Blood glucose monitoring every 4 hours per ICU protocol -- SSI Prophylaxis: GI Prophylaxis Protonix DVT Prophylaxis -- SCDs Lovenox Lines: Peripheral IVs. Central line RIJ 08/21, R radial [place] 08/21 Dispo: This patient remains critically ill with one or more organ systems which are or may become a threat to life. I have spent in excess of 39 minutes discontinuously in the care and management of this patient. This time is exclusive of procedures, and includes, but is not limited to, evaluation of the patient, review of the medical record, discussions with family, consultants, nursing staff, or respiratory therapy, and documentation in the medical record. Updated family,(son) and discussed with [employer] at bedside Physician Gavi Chew MD Aug 22, 2016 03:53
[2016-08-22 04:25] LABS: BLOOD GAS BASE EXCESS -4.8 mmol/L (-2-2); BLOOD GAS CARBOXYHEMOGLOBIN 0.7 % (0-4); BLOOD GAS HCO3 20 mmol/L (22-26); BLOOD GAS METHEMOGLOBIN 0.9 % (0-2); BLOOD GAS O2 HGB SATURATION 96 % (90-100); BLOOD GAS OXYGEN CONTENT 16.6 Vol % (12.0-20.0); BLOOD GAS PCO2 42 mmHg (38-42); BLOOD GAS PO2 120 mmHg (61-120); BLOOD GAS TOTAL HGB 12.1 G/DL (12.0-16.0); CRITICAL VALUE NO; OXYGEN DEVICE VENTILATOR; TEMP CORR TO 98.6
[2016-08-22 04:26] LABS: DRAW SITE ART LINE; STAT NO
[2016-08-22] MEDS: methylPREDNISolone SOD SUCC 125 MG/2 ML VIAL IV PUSH SCH ×3 (05:13→22:34)
--- NOTE | 2016-08-22 06:25 | RADRPT ---
EXAM DATE/TIME: 08/22/2016 04:55 [facility] COMPARISON: CHEST SINGLE AP, August 21, 2016, 7:16. INDICATIONS : Please evaluate after respiratory failure. MEDICAL HISTORY : Hypertension. Hypercholesterolemia. SURGICAL HISTORY : ENCOUNTER: Subsequent ACUITY: 1 week PAIN SCORE: Non-responsive. LOCATION: Bilateral chest FINDINGS: A single view of the chest demonstrates diffuse airspace disease more notably within the lung bases a nd minimally improved. Endotracheal tube, nasogastric tube and right jugular central line are stable position. Patient is rotated to the right. The cardiomediastinal contours are unremarkable. Osseous structures are intact. CONCLUSION: 1. Bilateral airspace disease more notably within the lower lobes has slightly improved. 2. Support lines and tubes are unchanged. Ricardo Adan MD on August 22, 2016 at 6:22 Board Certified Radiologist. This report was verified electronically.
[2016-08-22] MEDS: INSULIN ASPART SUPPLEMENTAL SCALE SQ SCH ×4 (06:36→20:50)
[2016-08-22] MEDS: REMOVE OLD PATCH TD SCH (09:00)
[2016-08-22] MEDS: NICOTINE 14 MG/24 HR PATCH TD SCH (09:00)
[2016-08-22] MEDS: ASPIRIN 81 MG CHEW TAB CHEW SCH (09:03)
[2016-08-22] MEDS: THIAMINE HCL 100 MG TAB PO SCH (09:03)
[2016-08-22] MEDS: FOLIC ACID 1 MG TAB PO SCH (09:03)
[2016-08-22] MEDS: PANTOPRAZOLE SODIUM 40 MG VIAL IV PUSH SCH (09:03)
[2016-08-22] MEDS: PRAVASTATIN SOD 40 MG TAB PO SCH (09:03)
[2016-08-22] MEDS: CEFEPIME 2000 MG/NS 100 ML IV SCH ×4 (09:03→22:34)
[2016-08-22] MEDS: DOCUSATE SODIUM 50 MG/SENNA 8.6 MG TAB PO SCH ×2 (09:04→20:49)
[2016-08-22] MEDS: SODIUM CHLORIDE 0.9% FLUSH 5 ML FLUSH FLUSH SCH ×2 (09:04→20:50)
[2016-08-22] MEDS: CHLORHEXIDINE 0.12% (ORAL KIT) 15 ML CUP MT SCH ×2 (09:05→19:36)
--- NOTE | 2016-08-22 10:03 | HHI.PR ---
Subjective History of Present Illness Temperature down BP stable, off pressors since a.m. Currently off sedation, on C PAP trial, tolerating it Making urine Tube feeding on hold No new problems Vitals/Results Intake & Output 08/21/16 08/21/16 08/22/16 15:00 23:00 07:00 Intake Total 1266 ml 1625 ml 1049 ml Output Total 800 ml 525 ml 750 ml Balance 466 ml 1100 ml 299 ml IV Total 1111 ml 1210 ml 637 ml Tube Feeding 95 ml 315 ml 362 ml Tube Irrigant 60 ml Other 100 ml 50 ml Output Urine Total 800 ml 525 ml 750 ml Stool Total 0 ml # Bowel Movements 0 0 Vital Signs Vital Signs Date Time Temp Pulse Resp B/P Pulse Ox O2 Delivery O2 Flow Rate FiO2 08/22/16 08:07 40 08/22/16 08:05 96 40 08/22/16 08:00 40 08/22/16 08:00 94 08/22/16 07:55 94 40 08/22/16 07:00 40 08/22/16 06:00 117/52 08/22/16 05:30 40 08/22/16 04:00 97.3 108 18 128/60 95 08/22/16 04:00 45 08/22/16 03:43 96 45 08/22/16 00:37 97 45 08/22/16 00:00 45 08/22/16 00:00 98.2 84 18 98/46 96 08/21/16 22:00 87 08/21/16 20:19 98 45 08/21/16 20:00 45 08/21/16 20:00 98.4 82 18 97 102/50 08/21/16 20:00 84 08/21/16 18:00 102/49 08/21/16 16:14 96 45 08/21/16 16:00 45 08/21/16 16:00 98.1 96 18 96 110/52 08/21/16 12:00 116/55 08/21/16 12:00 98.2 82 18 95 118/56 08/21/16 12:00 45 08/21/16 11:27 95 50 CBC/BMP: 08/22/16 0315 08/22/16 0315 Lab Results Laboratory Tests Test 08/21/16 08/21/16 08/21/16 08/22/16 14:18 14:28 20:21 03:15 Sodium Level 133 MEQ/L 134 MEQ/L Potassium Level 4.3 MEQ/L 3.8 MEQ/L Chloride Level 100 MEQ/L 100 MEQ/L Carbon Dioxide Level 22.2 MEQ/L 23.0 MEQ/L Anion Gap 11 MEQ/L 11 MEQ/L Blood Urea Nitrogen 45 MG/DL 49 MG/DL Creatinine 2.18 MG/DL 2.10 MG/DL Estimat Glomerular Filtration 29 ML/MIN 30 ML/MIN Rate Random Glucose 256 MG/DL 257 MG/DL Lactic Acid Level 1.5 mmol/L 1.5 mmol/L Calcium Level 8.2 MG/DL 8.2 MG/DL Total Bilirubin 0.3 MG/DL Direct Bilirubin 0.1 MG/DL Indirect Bilirubin 0.2 MG/DL Aspartate Amino Transf 89 U/L (AST/SGOT) Alanine Aminotransferase 112 U/L (ALT/SGPT) Alkaline Phosphatase 63 U/L Total Protein 6.5 GM/DL Albumin 2.1 GM/DL Random Vancomycin Level 16.8 COMMENT 29.0 COMMENT 21.5 COMMENT Urine Color YELLOW Urine Turbidity HAZY Urine pH 5.5 Urine Specific [place] 1.014 Urine Protein 30 mg/dL Urine Glucose (UA) 70 mg/dL Urine Ketones NEG mg/dL Urine Occult Blood SMALL Urine Nitrite NEG Urine Bilirubin NEG Urine Urobilinogen LESS THAN 2.0 MG/DL Urine Leukocyte Esterase NEG Urine RBC 3 /hpf Urine WBC 2 /hpf Urine Squamous Epithelial <1 /hpf Cells Urine Amorphous Sediment RARE Urine Mucus FEW /lpf Microscopic Urinalysis Comment CULT NOT INDICATED White Blood Count 19.4 TH/MM3 Red Blood Count 3.63 MIL/MM3 Hemoglobin 11.4 GM/DL Hematocrit 33.2 % Mean Corpuscular Volume 91.6 FL Mean Corpuscular Hemoglobin 31.4 PG Mean Corpuscular Hemoglobin 34.3 % Concent Red Cell Distribution Width 14.8 % Platelet Count 189 TH/MM3 Mean Platelet Volume 10.4 FL Neutrophils (%) (Auto) 97.8 % Lymphocytes (%) (Auto) 0.7 % Monocytes (%) (Auto) 1.3 % Eosinophils (%) (Auto) 0.0 % Basophils (%) (Auto) 0.2 % Neutrophils # (Auto) 19.0 TH/MM3 Lymphocytes # (Auto) 0.1 TH/MM3 Monocytes # (Auto) 0.3 TH/MM3 Eosinophils # (Auto) 0.0 TH/MM3 Basophils # (Auto) 0.0 TH/MM3 CBC Comment DIFF FINAL Differential Comment Phosphorus Level 3.9 MG/DL Magnesium Level 2.4 MG/DL Test 08/22/16 04:15 Blood Gas Puncture Site ART LINE Blood Gas Patient Temperature 98.6 Blood Gas HCO3 20 mmol/L Blood Gas Base Excess -4.8 mmol/L Blood Gas Oxygen Saturation 96 % Arterial Blood pH 7.31 Arterial Blood Partial 42 mmHg Pressure CO2 Arterial Blood Partial 120 mmHg Pressure O2 Arterial Blood Oxygen Content 16.6 Vol % Arterial Blood 0.7 % Carboxyhemoglobin Arterial Blood Methemoglobin 0.9 % Blood Gas Hemoglobin 12.1 G/DL Oxygen Delivery Device VENTILATOR Blood Gas Ventilator Setting SEE COMMENT Microbiology Microbiology 08/21/16 Legionella Antigen - Final, Complete PRESUMPTIVE NEGATIVE FOR LEGIONELLA P... Physical Exam General General Appearance: No Acute Distress, Comfortable, Obese Appearance Remarks Intubated off sedation Eyes Eye Exam: Pupils Equal, Sclera White, Extraocular Movement Intact Ears & Nose Ears & Nose Exam: Nasal Mucosa [place] Throat Throat Exam: Oral Mucosa [place] & Moist Throat Remarks +VE ET tube. +ve OGT Neck Neck Exam: Neck Supple, Trachea Midline Pulmonary Resp Exam: Breath Sounds Equal, Crackles Cardiology CV Exam: Regular, Normal Sinus Rhythm Gastrointestinal/Abdomen GI Exam: Soft, Non-Tender, Bowel Sounds Present Integumentary Skin Exam: Warm, Dry Extremeties Extremities Exam: No Edema, Pedal Pulses Palpable VTE Prophylaxis VTE Prophylaxis Meds: Lovenox PUD Prophylasis PUD Prophylaxis: Protonix Assessment/Plan Assessment/Plan ASSESSMENT 1. Acute febrile illness with leukocytosis and left shift, source not clear. The patient has evidence of microscopic hematuria, questionable urinary tract infection, rule out bacteremia, question bronchitis. 2. Hyperglycemia. 3. Normochromic normocytic anemia. 4. BPH with chronic urge incontinence. 5. Hypertension. 6. Hyperlipidemia. 7. Recurrent falls, fortunately no significant injury. 8. Acute VDRF 9. ACS/ NSTEMI 10. Acute pulmonary edema/flash pulmonary edema PLAN Ventilator support and weaning per sports physical therapist IV sedation Off pressors , Off diuretic therapy Cautious hydration Broad-spectrum empiric IV antibiotics, cefepime/Zyvox/Levaquin ID input appreciated Continue IV steroids Aerosol treatment Control blood pressure 2-D echocardiogram noted, EF is 50% Stress test noted, no evidence of reversible ischemia Continue Aspirin hold beta rosalio d/t hypotension renal function stable Blood cultures negative so far Urine culture positive for Proteus mirabilis, Continue PPI Subcutaneous Lovenox Discussed with Dr. Meraz Discussed with LEISA Bedolla labs Will follow Elba De La Cruz MD Aug 22, 2016 10:03
--- NOTE | 2016-08-22 14:39 | HHI.IDPN ---
Subjective Subjective Remarks Notes reviewed temps better Off pressors Sedated on the vent Antibiotics Zyvox Levaquin Cefepime Past Medical History Past Medical History Hyperlipidemia HTN BPH Glaucoma Past Surgical History Cyst removal from his back Colonoscopy Allergies: Coded Allergies: No Known Allergies (Unverified , 05/16/15) Objective . Vital Signs Date Time Temp Pulse Resp B/P Pulse Ox O2 Delivery O2 Flow Rate FiO2 08/22/16 12:00 40 08/22/16 12:00 98.3 98 11 99 102/44 08/22/16 11:52 96 40 08/22/16 08:07 40 08/22/16 08:05 96 40 08/22/16 08:00 40 08/22/16 08:00 98.1 116 11 97 116/50 08/22/16 08:00 94 08/22/16 07:55 94 40 08/22/16 07:07 94 08/22/16 07:00 40 08/22/16 06:00 117/52 08/22/16 05:30 40 08/22/16 04:00 97.3 108 18 128/60 95 08/22/16 04:00 45 08/22/16 03:43 96 45 08/22/16 00:37 97 45 08/22/16 00:00 45 08/22/16 00:00 98.2 84 18 98/46 96 08/21/16 22:00 87 08/21/16 20:19 98 45 08/21/16 20:00 45 08/21/16 20:00 98.4 82 18 97 102/50 08/21/16 20:00 84 08/21/16 18:00 102/49 08/21/16 16:14 96 45 08/21/16 16:00 45 08/21/16 16:00 98.1 96 18 96 110/52 08/21/16 08/21/16 08/22/16 15:00 23:00 07:00 Intake Total 1266 ml 1625 ml 1049 ml Output Total 800 ml 525 ml 750 ml Balance 466 ml 1100 ml 299 ml IV Total 1111 ml 1210 ml 637 ml Tube Feeding 95 ml 315 ml 362 ml Tube Irrigant 60 ml Other 100 ml 50 ml Output Urine Total 800 ml 525 ml 750 ml Stool Total 0 ml # Bowel Movements 0 0 . Laboratory Tests Test 08/21/16 08/22/16 03:40 03:15 White Blood Count 19.6 TH/MM3 19.4 TH/MM3 Red Blood Count 3.88 MIL/MM3 3.63 MIL/MM3 Hemoglobin 11.8 GM/DL 11.4 GM/DL Hematocrit 35.6 % 33.2 % Mean Corpuscular Volume 91.8 FL 91.6 FL Mean Corpuscular Hemoglobin 30.5 PG 31.4 PG Mean Corpuscular Hemoglobin 33.2 % 34.3 % Concent Red Cell Distribution Width 14.4 % 14.8 % Platelet Count 190 TH/MM3 189 TH/MM3 Mean Platelet Volume 10.4 FL 10.4 FL Neutrophils (%) (Auto) 97.8 % Lymphocytes (%) (Auto) 0.7 % Monocytes (%) (Auto) 1.3 % Eosinophils (%) (Auto) 0.0 % Basophils (%) (Auto) 0.2 % Neutrophils # (Auto) 19.0 TH/MM3 Lymphocytes # (Auto) 0.1 TH/MM3 Monocytes # (Auto) 0.3 TH/MM3 Eosinophils # (Auto) 0.0 TH/MM3 Basophils # (Auto) 0.0 TH/MM3 CBC Comment DIFF FINAL Differential Comment Laboratory Tests Test 08/21/16 08/21/16 08/21/16 08/21/16 03:40 08:10 14:18 20:21 Sodium Level 136 MEQ/L 133 MEQ/L Potassium Level 4.5 MEQ/L 4.3 MEQ/L Chloride Level 102 MEQ/L 100 MEQ/L Carbon Dioxide Level 23.2 MEQ/L 22.2 MEQ/L Anion Gap 11 MEQ/L 11 MEQ/L Blood Urea Nitrogen 44 MG/DL 45 MG/DL Creatinine 2.34 MG/DL 2.18 MG/DL Estimat Glomerular Filtration 27 ML/MIN 29 ML/MIN Rate Random Glucose 109 MG/DL 256 MG/DL Calcium Level 8.0 MG/DL 8.2 MG/DL Protein Corrected Calcium 8.3 MG/DL Phosphorus Level 5.6 MG/DL Magnesium Level 2.0 MG/DL Total Protein 6.7 GM/DL 6.5 GM/DL Lactic Acid Level 1.1 mmol/L 1.5 mmol/L 1.5 mmol/L Total Bilirubin 0.3 MG/DL Direct Bilirubin 0.1 MG/DL Indirect Bilirubin 0.2 MG/DL Aspartate Amino Transf 89 U/L (AST/SGOT) Alanine Aminotransferase 112 U/L (ALT/SGPT) Alkaline Phosphatase 63 U/L Albumin 2.1 GM/DL Test 08/22/16 03:15 Sodium Level 134 MEQ/L Potassium Level 3.8 MEQ/L Chloride Level 100 MEQ/L Carbon Dioxide Level 23.0 MEQ/L Anion Gap 11 MEQ/L Blood Urea Nitrogen 49 MG/DL Creatinine 2.10 MG/DL Estimat Glomerular Filtration 30 ML/MIN Rate Random Glucose 257 MG/DL Calcium Level 8.2 MG/DL Phosphorus Level 3.9 MG/DL Magnesium Level 2.4 MG/DL Microbiology Date/Time Procedure Status Source Growth 08/20/16 05:05 Gram Stain - Final Complete Sputum Endotracheal 08/20/16 05:05 Sputum Culture - Final Complete Sputum Endotracheal NO GROWTH IN 48 HOURS. 08/20/16 20:15 Legionella Antigen - Final Complete Urine Catheterized Urine PRESUMPTIVE NEGATIVE FOR LEGIONELLA P... 08/20/16 20:15 Streptococcus pneumoniae Antigen (M - Final Complete Urine Catheterized Urine PRESUMPTIVE NEGATIVE FOR STREPTOCOCCU... 08/21/16 00:40 Aerobic Blood Culture - Preliminary Resulted Blood Peripheral NO GROWTH IN 1 DAY 08/21/16 00:40 Anaerobic Blood Culture - Preliminary Resulted Blood Peripheral NO GROWTH IN 1 DAY 08/21/16 00:45 Aerobic Blood Culture - Preliminary Resulted Blood Peripheral NO GROWTH IN 1 DAY 08/21/16 00:45 Anaerobic Blood Culture - Preliminary Resulted Blood Peripheral NO GROWTH IN 1 DAY 08/21/16 14:28 Legionella Antigen - Final Complete Urine Catheterized Urine PRESUMPTIVE NEGATIVE FOR LEGIONELLA P... Imaging Last Impressions Chest X-Ray 08/22/16 0200 Signed Impressions: Service Date/Time: Monday, August 22, 2016 04:55 - CONCLUSION: 1. Bilateral airspace disease more notably within the lower lobes has slightly improved. 2. Support lines and tubes are unchanged. Ricardo Adan MD Myocardial Perfusion Scan Nuc Med 08/20/16 0000 Signed Impressions: Service Date/Time: Saturday, August 20, 2016 08:43 - CONCLUSION: Unremarkable myocardial perfusion examination. RISK CATEGORY: low Alexander Carter MD Head CT 08/20/16 0000 Signed Impressions: Service Date/Time: Saturday, August 20, 2016 07:58 - CONCLUSION: Unremarkable and stable CT brain for patient's age. Alexander Carter MD Renal Ultrasound 08/18/16 0000 Signed Impressions: Service Date/Time: Thursday, August 18, 2016 11:49 - CONCLUSION: 1. Echogenic kidneys which can be seen with medical renal disease. 2. Bilateral renal cysts. Ricardo Adan MD Physical Exam GENERAL: sedated on the vent, not in distress. SKIN: Cool and dry. No generalized rash or ecchymosis. No embolic lesions noted. HEAD: Atraumatic. Normocephalic. No temporal or scalp tenderness. EYES: [place] conjunctivae, no petechia or hemorrhage. No scleral icterus. No injection or drainage. ENT: Nose without bleeding, or purulent drainage. Endotracheal tube is in the mouth. Moist oral mucosa. NECK: Trachea midline. No JVD or lymphadenopathy. Supple, nontender, no meningeal signs. CARDIOVASCULAR: Regular rate and rhythm without murmurs, gallops, or rubs. RESPIRATORY: Coarse breath sounds bilaterally, equal. No wheezes, rales, or rhonchi. Decreased breath sounds at the bases. GASTROINTESTINAL: Abdomen soft, mildly distended, no reaction to deep palpation. Bowel sounds are present and hypoactive. No hepato-splenomegaly, or palpable masses. MUSCULOSKELETAL: Extremities without clubbing, cyanosis, or edema. Both feet are cool to touch. No joint effusion, or edema noted. NEUROLOGICAL: Sedated, no Babinski, no ankle clonus. PSYCH: Unable to assess LINE: RIJ TLC, R radial A line, PIV, all with no evidence of infection : Bauer in place, urine looks clear Assessment & Plan Remarks IMPRESSION Sepsis with shock, source, likely pulmonary, HCAP - has known COPD, chronic smoker - BP better, off pressors Admission with NSTEMI, EF 50% MOSF - respiratory, renal Hx daily ETOH use Chronic smoker 1 ppd One (+) BC with Coag Neg Staph on admission likely contaminant RECOMMENDATION Continue Cefepime and Vancomycin Continue Levaquin Follow C/S Follow temps Monitor progress Dr Campa covering this weekend Mimi Benavides MD Aug 22, 2016 14:38
[2016-08-22] MEDS: LEVOFLOXACIN 750 MG PREMIX INJ 150 ML IV SCH (16:21)
[2016-08-22] MEDS: ENOXAPARIN SODIUM 30 MG/0.3 ML SYRINGE SQ SCH (19:36)
[2016-08-22] MEDS: LATANOPROST 0.005% OPHT SOLN 2.5 ML BTL EACH EYE SCH (20:50)
[2016-08-23] VITALS (19 sets, daily range): BP systolic 118–173; BP diastolic 48–80; PULSE 78–114; RESP 18–22; TEMP 96.8–98.4; O2SAT 93–97
[2016-08-23] MEDS: RESP: ALBUTEROL 2.5 MG/IPRATROPIUM 0.5 MG NEB (SCH) NEB ×4 (00:05→23:57)
[2016-08-23] MEDS: PHENYLEPHRINE HCL 80 MG/D5W 492 ML ADMIX IV SCH ×2 (00:38)
[2016-08-23] MEDS: LINEZOLID 600 MG PREMIX 300 ML IV SCH ×2 (02:16→12:25)
[2016-08-23 03:52] LABS: HEMATOCRIT 31.7 % (39.0-51.0); MEAN CELL VOLUME 90.6 FL (80.0-100.0); MEAN CORPUSCULAR HEMOGLOBIN 30.7 PG (27.0-34.0); MEAN CORPUSCULAR HGB CONC 33.9 % (32.0-36.0); PLATELET COUNT 232 TH/MM3 (150-450); RED CELL DISTRIBUTION WIDTH 14.3 % (11.6-17.2); REVIEW FLAG FINAL
[2016-08-23] MEDS: RESP: ALBUTEROL 2.5 MG/IPRATROPIUM 0.5 MG NEB (PRN) NEB (04:10)
[2016-08-23 04:37] LABS: BICARBONATE 22.5 MEQ/L (21.0-32.0); MAGNESIUM 2.8 MG/DL (1.5-2.5); POTASSIUM 3.6 MEQ/L (3.5-5.1)
--- NOTE | 2016-08-23 05:46 | RADRPT ---
EXAM DATE/TIME: 08/23/2016 03:53 [facility] COMPARISON: CHEST SINGLE AP, August 22, 2016, 4:55. INDICATIONS : Shortness of breath. MEDICAL HISTORY : Hypertension. Hypercholesterolemia. SURGICAL HISTORY : None. ENCOUNTER: Initial ACUITY: 1 week PAIN SCORE: Non-responsive. LOCATION: Bilateral chest FINDINGS: A single view of the chest demonstrates bilateral airspace disease more notably within the right noemi hilar distribution. Endotracheal tube, nasogastric tube and right jugular central line are stable pos ition. Heart in the upper limits of normal in size. The cardiomediastinal contours are unremarkable. Osseous structures are intact. CONCLUSION: 1. Diffuse bilateral airspace disease worsening in the right perihilar region. 2. Support lines and tubes are unchanged. Ricardo Adan MD on August 23, 2016 at 5:42 Board Certified Radiologist. This report was verified electronically.
[2016-08-23] MEDS: methylPREDNISolone SOD SUCC 125 MG/2 ML VIAL IV PUSH SCH ×3 (06:07→22:12)
[2016-08-23] MEDS: INSULIN ASPART SUPPLEMENTAL SCALE SQ SCH ×3 (06:07→16:13)
[2016-08-23 06:51] LABS: BLOOD GAS BASE EXCESS -3.1 mmol/L (-2-2); BLOOD GAS HCO3 21 mmol/L (22-26); BLOOD GAS METHEMOGLOBIN 0.7 % (0-2); BLOOD GAS O2 HGB SATURATION 95 % (90-100); BLOOD GAS OXYGEN CONTENT 15.2 Vol % (12.0-20.0); BLOOD GAS PCO2 36 mmHg (38-42); BLOOD GAS PO2 91 mmHg (61-120); BLOOD GAS TOTAL HGB 11.3 G/DL (12.0-16.0); CRITICAL VALUE NO; DRAW SITE ART LINE; FIO2 40 %; OXYGEN DEVICE VENTILATOR; TEMP CORR TO 98.6; VENT SETTINGS AC18/550/40/PEEP5
[2016-08-23 06:52] LABS: STAT NO
[2016-08-23] MEDS: REMOVE OLD PATCH TD SCH (09:00)
[2016-08-23] MEDS: FOLIC ACID 1 MG TAB PO SCH (09:14)
[2016-08-23] MEDS: THIAMINE HCL 100 MG TAB PO SCH (09:14)
[2016-08-23] MEDS: CHLORHEXIDINE 0.12% (ORAL KIT) 15 ML CUP MT SCH ×2 (09:14→19:43)
[2016-08-23] MEDS: ASPIRIN 81 MG CHEW TAB CHEW SCH (09:14)
[2016-08-23] MEDS: PROPOFOL 1000 MG/100 ML IV SCH (09:14)
[2016-08-23] MEDS: PRAVASTATIN SOD 40 MG TAB PO SCH (09:14)
[2016-08-23] MEDS: DOCUSATE SODIUM 50 MG/SENNA 8.6 MG TAB PO SCH ×2 (09:14→19:41)
[2016-08-23] MEDS: PANTOPRAZOLE SODIUM 40 MG VIAL IV PUSH SCH (09:15)
[2016-08-23] MEDS: SODIUM CHLORIDE 0.9% FLUSH 5 ML FLUSH FLUSH SCH ×2 (09:15→19:41)
[2016-08-23] MEDS: NICOTINE 14 MG/24 HR PATCH TD SCH (09:16)
[2016-08-23] MEDS: CEFEPIME 2000 MG/NS 100 ML IV SCH ×2 (09:20)
--- NOTE | 2016-08-23 13:02 | HHI.CCPN ---
Subjective Remarks/Hospital Course 81-year-old man who admitted to [place] with complains of feeling weak and dizzy , also some chills with it. He had one episode of vomiting earlier today and another episode in the ED. While on a medical floor, he became hypoxemic and tachycardic. Due to hypoxemia at 80s he is transfered to ICU. Patient is alert and oriented and he doesn't want to be intubated in case his condition declines. 08/20 Afebrile. 24 hours patient was noted to have elevated troponins, etiology consulted patient was initiated on aspirin and beta blockers. Cardiology was consulted. Plan for nuclear medicine myocardial perfusion scan, initially scheduled for 08/19 will be done today secondary to NPO status of patient. The patient continues on a Cardizem infusion, metoprolol dosage was increased. Early this a.m., the patient climbed out of the bed and fell, noted laceration posterior right ear. Of note, the patient consumes 2-3 drinks of whiskey per night, came very anxious last night, reported by . The patient was alert and oriented with GCS of 15. Full range of motion denies pain in extremities 4. Stat CT of the head, results pending. 08/21 Tmax 101.8. Yesterday afternoon post nuclear medicine perfusion scan, the patient became acutely hypoxic O2 sat in the 70s, the patient was emergently intubated. Max pulmonary edema was noted, with copious pink frothy sputum via ETT . FiO2 requirements were increased, unable to wean below 70% yesterday afternoon .Sputum culture and urine cultures were obtained, broad- spectrum antibiotics were initiated Vancomycin and Levaquin. The patient currently is on Rocephin for UTI. Flowtrac was instituted, cardiac output and cardiac index were within normal limits. During the night the patient's O2 requirements were increased, the patient required 15 cm of PEEP and initially 100% FiO2. The patient was received 2 mg of Bumex without any diuresis noted. The patient became hypotensive during the night requiring Charbel-Synephrine and Norepinephrine infusions. This morning a central line was placed, steroids were initiated, Solu-Medrol 125 mg IV push, and repeat blood cultures were obtained. 08/22 Tmax 97.8. Patient improvement, weaned off all vasopressors. Oxygen requirements decreased, FiO2 now 40%, PEEP 5. GCS 11 T during sedation holiday. Plan for CPAP trials today. 08/23: Passed weaning parameters today. However, several on propofol at 20 mcg /kg per minute for comfort. Switching to Precedex drip at present. Tolerating tube feeding. Objective Vital Signs Date Time Temp Pulse Resp B/P Pulse Ox O2 Delivery O2 Flow Rate FiO2 08/23/16 12:00 97.3 111 21 160/67 95 08/23/16 12:00 40 08/20/16 10:30 Nasal Cannula 3.00 Intake and Output 08/22/16 08/22/16 08/22/16 07:59 15:59 23:59 Intake Total 1049 ml 405 ml 1112 ml Output Total 750 ml 600 ml 650 ml Balance 299 ml -195 ml 462 ml Result Diagram: 08/23/16 0336 08/23/16 033 Other Results Microbiology Date/Time Procedure Status Source Growth 08/21/16 14:28 Legionella Antigen - Final Complete Urine Catheterized Urine PRESUMPTIVE NEGATIVE FOR LEGIONELLA P... 08/21/16 00:45 Aerobic Blood Culture - Preliminary Resulted Blood Peripheral NO GROWTH IN 2 DAYS 08/21/16 00:45 Anaerobic Blood Culture - Preliminary Resulted Blood Peripheral NO GROWTH IN 2 DAYS 08/20/16 05:05 Gram Stain - Final Complete Sputum Endotracheal 08/20/16 05:05 Sputum Culture - Final Complete Sputum Endotracheal NO GROWTH IN 48 HOURS. Imaging Last Impressions Chest X-Ray 08/23/16 0600 Signed Impressions: Service Date/Time: Tuesday, August 23, 2016 03:53 - CONCLUSION: 1. Diffuse bilateral airspace disease worsening in the right perihilar region. 2. Support lines and tubes are unchanged. Ricardo Adan MD Myocardial Perfusion Scan Nuc Med 08/20/16 0000 Signed Impressions: Service Date/Time: Saturday, August 20, 2016 08:43 - CONCLUSION: Unremarkable myocardial perfusion examination. RISK CATEGORY: low Alexander Carter MD Head CT 08/20/16 0000 Signed Impressions: Service Date/Time: Saturday, August 20, 2016 07:58 - CONCLUSION: Unremarkable and stable CT brain for patient's age. Alexander Carter MD Renal Ultrasound 08/18/16 0000 Signed Impressions: Service Date/Time: Thursday, August 18, 2016 11:49 - CONCLUSION: 1. Echogenic kidneys which can be seen with medical renal disease. 2. Bilateral renal cysts. Ricardo Adan MD Objective Remarks GENERAL: 81-year-old male, critically ill currently orotracheally intubated and sedated on propofol. SKIN: Warm and dry, noted abrasion posterior right ear, and small abrasion right knee HEAD: Normocephalic. EYES: No scleral icterus. No injection or drainage. Pupils around 2 mm bilaterally and reactive NECK: Supple, trachea midline. No JVD or lymphadenopathy. Orotracheally intubated CARDIOVASCULAR: Regular rate and rhythm S1, S2. No S4. Currently without murmurs, clicks, gallops or rubs. RESPIRATORY: Breath sounds equal bilaterally, diminished bilateral bases, no wheezing noted. Mechanically ventilated GASTROINTESTINAL: Abdomen soft, non-tender, nondistended. OGT in situ, tube feeds infusing. MUSCULOSKELETAL: Trace bilateral lower extremity nonpitting edema. Movement of extremities 4 while on propofol drip BACK: Nontender without obvious deformity. No CVA tenderness. Date of Insertion: Aug 19, 2016 Vascular Central Line Catheter: Yes Assessment to: Continue Date of Insertion: Aug 21, 2016 Line: Central Venous Catheter Side: Right Location: Internal, Jugular A/P Problem List: (1) BPH with urinary obstruction ICD Code: N40.1 Status: Acute (2) COPD (chronic obstructive pulmonary disease) ICD Code: J44.9 Status: Acute (3) Pulmonary edema ICD Code: J81.1 Status: Acute (4) Respiratory failure ICD Code: J96.90 Status: Acute Assessment and Plan Neurologic: Glaucoma Alcohol use S/P Fall-confusion (08/20) -GCS 11T, during sedation holiday. Propofol infusion currently on 20 mics per kilogram per minute for CPAP trials, -Continued on Latanoprost 0.005% 1 drop each eye at night for glaucoma (home med ) -Fall OOB 08/20, CT of the head-unremarkable stable CT of the brain -Monitor for alcohol withdrawal, reports 2-3 drinks whiskey per day- -Thiamine 100 mg, folate 1 mg q/day Respiratory: Acute hypoxic respiratory failure Acute Pulmonary edema COPD exacerbation Chronic smoker Probable multilobar Pneumonia -- + Cuff leak on spontaneously intra-. NIF -24. Tidal volume ~ thousand. RSBI 54 -Continue diuresis , Bumex 1 today -Intubated 08/20-ETT 8.0 -Mechanical vent settings-FiO2 40%/550/5/rate of 18, continue to wean FiO2 -Maintain O2 sat greater than 92% -Chest x-ray 08/23 worsening right greater than left bilateral infiltrates -Schedule Duonebs every 4 hours, add every 2 PRN -Methylprednisone 125 mg IV push, 60 mg every 8hrs 3 days, then begin to taper steroids 08/24/16 -Counseled on smoking [id number] (smokes 2 PPD x 65 years), family reported accurate smoking history -Nicotine patch day 11/28 -CPAP trials this a.m. Cardiovascular: NSTEMI H/O Hypertension Tachycardia-resolved Dyslipidemia Cardiogenic Shock -Cardizem infusion discontinued, esmolol infusion discontinued yesterday -Charbel-Synephrine off since 7 AM 08/23 -Troponin (08/19)5.17->4.91->4.23 -Continue ASA 81 mg/day, Metoprolol on hold, heart rate 80s, will resume when normotensive today - patient continues on pravastatin (home med) -Patient's home medications clonidine, lisinopril/HCTZ (on hold) -ECHO 08/19- EF 50% , no RWMA -BNP- 156->91 (08/21) -08/20 nuclear medicine myocardial perfusion scan-intact wall motion and thickening without hypokinetic or dyskinetic segments -Cardiology on board, Dr. Cason, follow recommendations including possible cardiac catheterization in the future once stable -Flowtrac has been discontinued Renal: Renal insufficiency BPH -Creatinine 2.3-> 2.1 -> 1.8 today continue to monitor, adequate urine output -Maintain Bauer - Home meds Flomax-held in light of hypotension, will resume when clinically indicated -- Strict I/Os -monitor urinary output hourly FEN/GI: Hypokalemia-resolved -Electrolyte replacement per ICU protocol - Tube feeds-Jevity 1.5, goal of 60 cc/hr -Zofran for nausea -Protonix GI prophylaxis -Bowel regimen including Sonia-Colace twice a day, MiraLAX and lactulose 4 times daily until BM Heme/ID: Leukocytosis Probable multilobar pneumonia Septic shock UTI - 08/18 urine culture-Proteus mirabilis -08/18 blood culture- Coag neg Staph (resulted 08/21 am) possible contamination of specimen -08/20 blood culture-NGTD -08/20 urine Legionella, Pneumococcal-negative -Rocephin dc'd (2 days) Levaquin, Vancomycin (day8) discontinued, Cefepime (day 2) -Methylprednisolone 60 mg every 8 hours -Monitor CBC, WBC 19.6->19.4 today -Lactate 1.5 -Follow-up serial lactate level -ID consulted, Dr Benavides -Zyvox (Day3), Levaquin (Day 3), Rocephin dc'd, Cefepime (day 3) Endocrine: Blood glucose monitoring every 4 hours per ICU protocol -- SSI Prophylaxis: GI Prophylaxis Protonix DVT Prophylaxis -- SCDs Lovenox Lines: Peripheral IVs. Central line RIJ 08/21, R radial Radha 08/21 Discuss with daughter at bedside. Care plan discussed. All questions answered. Critical Care: The total critical care time was 45 minutes. Time to perform other separately billable procedures was not included in the critical care time. Huan Page MD Aug 23, 2016 13:02 sedation holiday BACK: Nontender without obvious deformity. No CVA tenderness. Date of Insertion: Aug 19, 2016 Date of Insertion: Aug 21, 2016 Line: Central Venous Catheter Side: Right Location: Internal, Jugular A/P Problem List: (1) BPH with urinary obstruction ICD Code: N40.1 Status: Acute (2) COPD (chronic obstructive pulmonary disease) ICD Code: J44.9 Status: Acute (3) Pulmonary edema ICD Code: J81.1 Status: Acute (4) Respiratory failure ICD Code: J96.90 Status: Acute Assessment and Plan Neurologic: Glaucoma Alcohol use S/P Fall-confusion (08/20) -GCS 11T, during sedation holiday. Propofol infusion on hold, for CPAP trials, possible SBT -Continued on Latanoprost (home med) -Fall OOB 08/20, CT of the head-unremarkable stable CT of the brain -Monitor for alcohol withdrawal, reports 2-3 drinks whiskey per day-Ativan 0.5 mg prn q 6 hr for agitation -Thiamine, folate q/day Respiratory: Acute hypoxic respiratory failure Acute Pulmonary edema COPD exacerbation Chronic smoker Probable multilobar Pneumonia -Continue diuresis ,Lasix scheduled doses -Intubated 08/20-ETT 8.0 -Mechanical vent settings-FiO2 40%/550/5/rate of 18, continue to wean FiO2 -Maintain O2 sat greater than 92% -Chest x-ray 08/21 afternoon-improvement of diffuse bilateral interstitial and airspace disease throughout all lung guevara -Schedule Duonebs every 4 hours, add every 2 PRN -Methylprednisone 125 mg IV push, 60 mg every 8hrs 3 days, then begin to taper steroids 08/24/16 -Counseled on smoking [id number] (smokes 2 PPD x 65 years), family reported accurate smoking history -Nicotine patch day 10/28 -CPAP trials this a.m. Cardiovascular: NSTEMI H/O Hypertension Tachycardia-resolved Dyslipidemia Cardiogenic Shock -Cardizem infusion discontinued, esmolol infusion discontinued yesterday -Charbel-Synephrine, levophed off since 7 AM 08/22 -Troponin (08/19)5.17->4.91->4.23 -Continue ASA 81 mg/day, Metoprolol on hold, heart rate 80s, will resume when normotensive - patient continues on pravastatin (home med) -Patient's home medications clonidine, lisinopril (on hold) -ECHO 08/19- EF 50% , no RWMA -BNP- 156->91 (08/21) -08/20 nuclear medicine myocardial perfusion scan-intact wall motion and thickening without hypokinetic or dyskinetic segments -Cardiology on board, Dr. Cason, follow recommendations -Flowtrac monitor- CO 6.1, CI 3.1(08/22) -D/C Flowtrac Renal: Renal insufficiency BPH -Creatinine 2.3-> 2.1 today continue to monitor, adequate urine output -Maintain Bauer - Home meds Flomax-held in light of hypotension, will resume when clinically indicated -- Strict I/Os -monitor urinary output hourly FEN/GI: Hypokalemia-resolved -Electrolyte replacement per ICU protocol - Tube feeds-Jevity 1.5, goal of 60 cc/hr -Zofran for nausea -Protonix GI prophylaxis -Bowel regimen Heme/ID: Leukocytosis Probable multilobar pneumonia Septic shock UTI - 08/18 urine culture-Proteus mirabilis -08/18 blood culture- Coag neg Staph (resulted 08/21 am) possible contamination of specimen -08/20 blood culture-NGTD -08/20 urine Legionella, Pneumococcal-negative -Rocephin dc'd (2 days) Levaquin, Vancomycin (day 3), Cefepime (day 2) -Methylprednisolone 60 mg every 8 hours -Monitor CBC, WBC 19.6->19.4 today -Lactate 1.5 -Follow-up serial lactate level -ID consulted, Dr Benavides -Vanc(Day 3), Levaquin (Day 2), Rocephin dc'd, Cefepime (day 2) Endocrine: Blood glucose monitoring every 4 hours per ICU protocol -- SSI Prophylaxis: GI Prophylaxis Protonix DVT Prophylaxis -- SCDs Lovenox Lines: Peripheral IVs. Central line RIJ 08/21, R radial Radha 08/21 Dispo: This patient remains critically ill with one or more organ systems which are or may become a threat to life. I have spent in excess of 39 minutes discontinuously in the care and management of this patient. This time is exclusive of procedures, and includes, but is not limited to, evaluation of the patient, review of the medical record, discussions with family, consultants, nursing staff, or respiratory therapy, and documentation in the medical record. Updated family,(son) and discussed with PURCHASING/RECEIVING at bedside Huan Page MD Aug 23, 2016 13:02
[2016-08-23] MEDS ORDERED: METHYLNALTREXONE BROMIDE 12 MG/0.6 ML VIAL SQ ONE (13:30)
[2016-08-23] MEDS ORDERED: BUMETANIDE INJ 1 MG/4 ML VIAL IV PUSH ONE (13:30)
[2016-08-23] MEDS ORDERED: POLYETHYLENE GLYCOL 17 GM PKG PO ONE (13:30)
--- NOTE | 2016-08-23 13:37 | HHI.PR ---
Subjective History of Present Illness resting comfortably in bed afebrile on CPAP /tolerating it well Off pressors Making urine tolerating Tube feeding No new problems Vitals/Results Intake & Output 08/22/16 08/22/16 08/23/16 15:00 23:00 07:00 Intake Total 405 ml 1112 ml 683 ml Output Total 600 ml 650 ml 625 ml Balance -195 ml 462 ml 58 ml Intake Oral 0 ml IV Total 260 ml 734 ml 304 ml Tube Feeding 45 ml 318 ml 319 ml Other 100 ml 60 ml 60 ml Output Urine Total 600 ml 650 ml 625 ml # Bowel Movements 0 0 Vital Signs Vital Signs Date Time Temp Pulse Resp B/P Pulse Ox O2 Delivery O2 Flow Rate FiO2 08/23/16 12:00 97.3 111 21 160/67 95 08/23/16 12:00 40 08/23/16 12:00 113 08/23/16 11:32 94 40 08/23/16 10:00 106 08/23/16 08:46 40 08/23/16 08:36 94 40 08/23/16 08:00 113 08/23/16 08:00 97.2 114 22 173/80 94 08/23/16 08:00 40 08/23/16 06:00 128/54 08/23/16 04:10 93 40 08/23/16 04:00 97.0 99 18 138/57 93 08/23/16 04:00 55 08/23/16 00:09 94 40 08/23/16 00:00 96.8 92 22 118/48 93 08/23/16 00:00 55 08/22/16 22:00 98 08/22/16 20:29 96 40 08/22/16 20:00 88 08/22/16 20:00 96.8 86 18 108/44 08/22/16 20:00 55 08/22/16 16:20 95 40 08/22/16 16:00 55 08/22/16 16:00 97.3 100 18 94 118/57 08/22/16 15:54 95 40 CBC/BMP: 08/23/16 0336 08/23/16 0336 Lab Results Laboratory Tests Test 08/23/16 08/23/16 03:36 06:27 White Blood Count 19.0 TH/MM3 Red Blood Count 3.50 MIL/MM3 Hemoglobin 10.7 GM/DL Hematocrit 31.7 % Mean Corpuscular Volume 90.6 FL Mean Corpuscular Hemoglobin 30.7 PG Mean Corpuscular Hemoglobin 33.9 % Concent Red Cell Distribution Width 14.3 % Platelet Count 232 TH/MM3 Mean Platelet Volume 10.6 FL Sodium Level 139 MEQ/L Potassium Level 3.6 MEQ/L Chloride Level 105 MEQ/L Carbon Dioxide Level 22.5 MEQ/L Anion Gap 12 MEQ/L Blood Urea Nitrogen 52 MG/DL Creatinine 1.73 MG/DL Estimat Glomerular Filtration 38 ML/MIN Rate Random Glucose 238 MG/DL Calcium Level 8.6 MG/DL Phosphorus Level 2.4 MG/DL Magnesium Level 2.8 MG/DL Blood Gas Puncture Site ART LINE Blood Gas Patient Temperature 98.6 Blood Gas HCO3 21 mmol/L Blood Gas Base Excess -3.1 mmol/L Blood Gas Oxygen Saturation 95 % Arterial Blood pH 7.39 Arterial Blood Partial 36 mmHg Pressure CO2 Arterial Blood Partial 91 mmHg Pressure O2 Arterial Blood Oxygen Content 15.2 Vol % Arterial Blood 1.0 % Carboxyhemoglobin Arterial Blood Methemoglobin 0.7 % Blood Gas Hemoglobin 11.3 G/DL Oxygen Delivery Device VENTILATOR Blood Gas Ventilator Setting AC18/550/40/PEEP5 Blood Gas Inspired Oxygen 40 % Physical Exam General General Appearance: No Acute Distress, Comfortable, Obese Appearance Remarks Intubated off sedation Eyes Eye Exam: Pupils Equal, Sclera White Ears & Nose Ears & Nose Exam: Nasal Mucosa [place] Throat Throat Exam: Oral Mucosa [place] & Moist Throat Remarks +VE ET tube. +ve OGT Neck Neck Exam: Neck Supple, Trachea Midline Pulmonary Resp Exam: Breath Sounds Equal, Crackles Cardiology CV Exam: Regular, Normal Sinus Rhythm Gastrointestinal/Abdomen GI Exam: Soft, Non-Tender, Bowel Sounds Present Integumentary Skin Exam: Warm, Dry Extremeties Extremities Exam: No Edema, Pedal Pulses Palpable VTE Prophylaxis VTE Prophylaxis Meds: Lovenox PUD Prophylasis PUD Prophylaxis: Protonix Assessment/Plan Assessment/Plan ASSESSMENT 1. Acute febrile illness with leukocytosis and left shift, source not clear. The patient has evidence of microscopic hematuria, questionable urinary tract infection, rule out bacteremia, question bronchitis. 2. Hyperglycemia. 3. Normochromic normocytic anemia. 4. BPH with chronic urge incontinence. 5. Hypertension. 6. Hyperlipidemia. 7. Recurrent falls, fortunately no significant injury. 8. Acute VDRF 9. ACS/ NSTEMI 10. 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
[2016-08-23] MEDS: DEXMEDETOMIDINE INJ 50 ML IV SCH ×4 (13:49→22:13)
[2016-08-23] MEDS: LABETALOL HCL 100 MG/20 ML VIAL IV PUSH PRN (13:49)
[2016-08-23 14:14] LABS: AUTOMATED NEUTROPHIL # 16.9 TH/MM3 (1.8-7.7); BASOPHIL % 0.3 % (0.0-2.0); HEMATOCRIT 32.8 % (39.0-51.0); HEMO FLAGS DIFF FINAL; LYMPH % 0.9 % (9.0-44.0); LYMPHOCYTE # 0.2 TH/MM3 (1.0-4.8); MEAN CELL VOLUME 90.7 FL (80.0-100.0); MEAN CORPUSCULAR HEMOGLOBIN 30.4 PG (27.0-34.0); MEAN CORPUSCULAR HGB CONC 33.5 % (32.0-36.0); NEUT % 95.8 % (16.0-70.0); PLATELET COUNT 270 TH/MM3 (150-450); RED BLOOD COUNT 3.62 MIL/MM3 (4.50-5.90); RED CELL DISTRIBUTION WIDTH 14.6 % (11.6-17.2); WHITE BLOOD COUNT 17.6 TH/MM3 (4.0-11.0)
[2016-08-23 14:31] LABS: ALKALINE PHOSPHATASE 164 U/L (45-117); ALT (GPT) 168 U/L (12-78); ANION GAP 11 MEQ/L (5-15); AST (GOT) 122 U/L (15-37); BICARBONATE 23.4 MEQ/L (21.0-32.0); BLOOD UREA NITROGEN 53 MG/DL (7-18); CHLORIDE 106 MEQ/L (98-107); GLOMERULAR FILTRATION RATE 39 ML/MIN (>89); POTASSIUM 3.8 MEQ/L (3.5-5.1); SODIUM (NA) 140 MEQ/L (136-145); TOTAL BILIRUBIN ADULT 0.2 MG/DL (0.2-1.0)
[2016-08-23] MEDS ORDERED: POTASSIUM PHOSPHATE INJ 30 MMOL in SODIUM CHLOR 0.9% 250 ML INJ 250 ML IV ONE (16:00)
--- NOTE | 2016-08-23 16:49 | RADRPT ---
EXAM DATE/TIME: 08/23/2016 16:24 [facility] COMPARISON: No previous studies available for comparison. INDICATIONS : Abdominal distension MEDICAL HISTORY : None. SURGICAL HISTORY : None. ENCOUNTER: Initial ACUITY: 2 days PAIN SCORE: Non-responsive. LOCATION: Bilateral abdominal FINDINGS: 2 supine views of the abdomen show a nasogastric tube within a gas dilated stomach. Dilated loops of gas-filled small bowel are seen throughout the abdomen. The colon is gas-filled and mildly distended but to a lesser degree than the small bowel. No gross pneumoperitoneum observed. No organomegaly seen . Bony structures are unremarkable. CONCLUSION: Dilated bowel in a radiographic pattern suggesting an ileus. Gavin Gray Jr., MD on August 23, 2016 at 16:46 Board Certified Radiologist. This report was verified electronically.
[2016-08-23] MEDS: LACTULOSE SYRUP 20 GM/30 ML CUP PO SCH ×2 (16:52→19:41)
[2016-08-23] MEDS ORDERED: MINERAL OIL LIQUID 30 ML CUP PO ONE (17:00)
[2016-08-23] MEDS ORDERED: GLYCERIN ADULT 2 GM SUPP RECTAL PRN (17:00)
[2016-08-23] MEDS ORDERED: GLYCERIN ADULT 2 GM SUPP RECTAL ONE (17:00)
[2016-08-23] MEDS: ENOXAPARIN SODIUM 40 MG/0.4 ML SYRINGE SQ SCH (19:42)
--- NOTE | 2016-08-23 20:31 | HHI.IDPN ---
Subjective Subjective Remarks ID X cover for Dr Benavides Notes reviewed 81 yo pt with NSTEMI, tob/ETOH abuse has VDRF afebrile worsening distention of abdiomen noticed Off pressors Sedated on the vent Antibiotics Zyvox Levaquin Cefepime Past Medical History Past Medical History Hyperlipidemia HTN BPH Glaucoma Past Surgical History Cyst removal from his back Colonoscopy Allergies: Coded Allergies: No Known Allergies (Unverified , 05/16/15) Objective . Vital Signs Date Time Temp Pulse Resp B/P Pulse Ox O2 Delivery O2 Flow Rate FiO2 08/23/16 18:00 80 08/23/16 18:00 130/55 08/23/16 16:00 82 08/23/16 16:00 98.4 82 19 136/64 97 08/23/16 16:00 40 08/23/16 15:39 97 40 08/23/16 14:00 104 08/23/16 12:00 97.3 111 21 160/67 95 08/23/16 12:00 40 08/23/16 12:00 113 08/23/16 11:32 94 40 08/23/16 10:00 106 08/23/16 08:46 40 08/23/16 08:36 94 40 08/23/16 08:00 113 08/23/16 08:00 97.2 114 22 173/80 94 08/23/16 08:00 40 08/23/16 06:00 128/54 08/23/16 04:10 93 40 08/23/16 04:00 97.0 99 18 138/57 93 08/23/16 04:00 55 08/23/16 00:09 94 40 08/23/16 00:00 96.8 92 22 118/48 93 08/23/16 00:00 55 08/22/16 22:00 98 08/22/16 20:29 96 40 08/22/16 08/22/16 08/23/16 15:00 23:00 07:00 Intake Total 405 ml 1112 ml 683 ml Output Total 600 ml 650 ml 625 ml Balance -195 ml 462 ml 58 ml Intake Oral 0 ml IV Total 260 ml 734 ml 304 ml Tube Feeding 45 ml 318 ml 319 ml Other 100 ml 60 ml 60 ml Output Urine Total 600 ml 650 ml 625 ml # Bowel Movements 0 0 . Laboratory Tests Test 1208/23/16 08/23/16 03:15 03:36 13:05 White Blood Count 19.4 TH/MM3 19.0 TH/MM3 17.6 TH/MM3 Red Blood Count 3.63 MIL/MM3 3.50 MIL/MM3 3.62 MIL/MM3 Hemoglobin 11.4 GM/DL 10.7 GM/DL 11.0 GM/DL Hematocrit 33.2 % 31.7 % 32.8 % Mean Corpuscular Volume 91.6 FL 90.6 FL 90.7 FL Mean Corpuscular Hemoglobin 31.4 PG 30.7 PG 30.4 PG Mean Corpuscular Hemoglobin 34.3 % 33.9 % 33.5 % Concent Red Cell Distribution Width 14.8 % 14.3 % 14.6 % Platelet Count 189 TH/MM3 232 TH/MM3 270 TH/MM3 Mean Platelet Volume 10.4 FL 10.6 FL 10.4 FL Neutrophils (%) (Auto) 97.8 % 95.8 % Lymphocytes (%) (Auto) 0.7 % 0.9 % Monocytes (%) (Auto) 1.3 % 3.0 % Eosinophils (%) (Auto) 0.0 % 0.0 % Basophils (%) (Auto) 0.2 % 0.3 % Neutrophils # (Auto) 19.0 TH/MM3 16.9 TH/MM3 Lymphocytes # (Auto) 0.1 TH/MM3 0.2 TH/MM3 Monocytes # (Auto) 0.3 TH/MM3 0.5 TH/MM3 Eosinophils # (Auto) 0.0 TH/MM3 0.0 TH/MM3 Basophils # (Auto) 0.0 TH/MM3 0.0 TH/MM3 CBC Comment DIFF FINAL DIFF FINAL Differential Comment Laboratory Tests Test 08/22/16 08/23/16 08/23/16 03:15 03:36 13:05 Sodium Level 134 MEQ/L 139 MEQ/L 140 MEQ/L Potassium Level 3.8 MEQ/L 3.6 MEQ/L 3.8 MEQ/L Chloride Level 100 MEQ/L 105 MEQ/L 106 MEQ/L Carbon Dioxide Level 23.0 MEQ/L 22.5 MEQ/L 23.4 MEQ/L Anion Gap 11 MEQ/L 12 MEQ/L 11 MEQ/L Blood Urea Nitrogen 49 MG/DL 52 MG/DL 53 MG/DL Creatinine 2.10 MG/DL 1.73 MG/DL 1.71 MG/DL Estimat Glomerular Filtration 30 ML/MIN 38 ML/MIN 39 ML/MIN Rate Random Glucose 257 MG/DL 238 MG/DL 198 MG/DL Calcium Level 8.2 MG/DL 8.6 MG/DL 8.9 MG/DL Phosphorus Level 3.9 MG/DL 2.4 MG/DL 1.8 MG/DL Magnesium Level 2.4 MG/DL 2.8 MG/DL 3.0 MG/DL Total Bilirubin 0.2 MG/DL Aspartate Amino Transf 122 U/L (AST/SGOT) Alanine Aminotransferase 168 U/L (ALT/SGPT) Alkaline Phosphatase 164 U/L Total Protein 6.4 GM/DL Albumin 2.0 GM/DL Microbiology Date/Time Procedure Status Source Growth 08/21/16 00:40 Aerobic Blood Culture - Preliminary Resulted Blood Peripheral NO GROWTH IN 2 DAYS 08/21/16 00:40 Anaerobic Blood Culture - Preliminary Resulted Blood Peripheral NO GROWTH IN 2 DAYS 08/21/16 00:45 Aerobic Blood Culture - Preliminary Resulted Blood Peripheral NO GROWTH IN 2 DAYS 08/21/16 00:45 Anaerobic Blood Culture - Preliminary Resulted Blood Peripheral NO GROWTH IN 2 DAYS 08/21/16 14:28 Legionella Antigen - Final Complete Urine Catheterized Urine PRESUMPTIVE NEGATIVE FOR LEGIONELLA P... Imaging Last Impressions Chest X-Ray 08/23/16 0600 Signed Impressions: Service Date/Time: Tuesday, August 23, 2016 03:53 - CONCLUSION: 1. Diffuse bilateral airspace disease worsening in the right perihilar region. 2. Support lines and tubes are unchanged. Ricardo Adan MD Abdomen X-Ray 08/23/16 0000 Signed Impressions: Service Date/Time: Tuesday, August 23, 2016 16:24 - CONCLUSION: Dilated bowel in a radiographic pattern suggesting an ileus. Gavin Gray Jr., MD Myocardial Perfusion Scan Nuc Med 08/20/16 0000 Signed Impressions: Service Date/Time: Saturday, August 20, 2016 08:43 - CONCLUSION: Unremarkable myocardial perfusion examination. RISK CATEGORY: low Alexander Carter MD Head CT 08/20/16 0000 Signed Impressions: Service Date/Time: Saturday, August 20, 2016 07:58 - CONCLUSION: Unremarkable and stable CT brain for patient's age. Alexander Carter MD Renal Ultrasound 08/18/16 0000 Signed Impressions: Service Date/Time: Thursday, August 18, 2016 11:49 - CONCLUSION: 1. Echogenic kidneys which can be seen with medical renal disease. 2. Bilateral renal cysts. Ricardo Adan MD Physical Exam GENERAL: sedated on the vent, not in distress. SKIN: Cool and dry. No generalized rash or ecchymosis. No embolic lesions noted. EYES: [place] conjunctivae, no petechia or hemorrhage. No scleral icterus. No injection or drainage. ENT: Nose without bleeding, or purulent drainage. Endotracheal tube is in the mouth. Moist oral mucosa. NECK: Trachea midline. No JVD CARDIOVASCULAR: Regular rate and rhythm without murmurs, gallops, or rubs. RESPIRATORY: Coarse breath sounds bilaterally, equal. Scattered rhonchi. Decreased breath sounds at the bases. GASTROINTESTINAL: Abdomen soft, markedly distended, no reaction to deep palpation. Bowel sounds are present and high pitched, hypoactive. No hepato- splenomegaly, or palpable masses. MUSCULOSKELETAL: Extremities without clubbing, cyanosis, or edema. Both feet are cool to touch. No joint effusion, or edema noted. NEUROLOGICAL: Sedated, PSYCH: Unable to assess LINE: RIJ TLC, R radial A line, PIV, all with no evidence of infection : Bauer in place, urine looks clear Assessment & Plan Remarks IMPRESSION Sepsis with shock, source, likely pulmonary, HCAP - resp clx negative at 48 hrs - has known COPD, chronic smoker - BP better, off pressors Admission with NSTEMI, EF 50% MOSF - respiratory, renal Hx daily ETOH use Chronic smoker 1 ppd One (+) BC with Coag Neg Staph on admission likely contaminant Proteus mirabilis in the urine Ileus RECOMMENDATION dc Cefepime and Vancomycin Continue Levaquin Follow C/S Follow temps Monitor progress dw RN dw dgtr at b/s Amanda Campa MD Aug 23, 2016 20:31
[2016-08-23] MEDS: DEXMEDETOMIDINE INJ 1,000 MCG in SODIUM CHLOR 0.9% 250 ML INJ 240 ML IV SCH (22:59)
[2016-08-24] VITALS (19 sets, daily range): BP systolic 141–160; BP diastolic 58–82; PULSE 68–80; RESP 18–21; TEMP 97.7–98.9; O2SAT 94–97
[2016-08-24] MEDS: LINEZOLID 600 MG PREMIX 300 ML IV SCH ×2 (01:56→12:15)
[2016-08-24] MEDS ORDERED: BISACODYL 10 MG SUPP RECTAL ONE (02:00)
[2016-08-24] MEDS: METOCLOPRAMIDE HCL 10 MG/2 ML VIAL IV PUSH SCH ×3 (02:46→17:01)
[2016-08-24] MEDS: RESP: ALBUTEROL 2.5 MG/IPRATROPIUM 0.5 MG NEB (SCH) NEB ×6 (04:16→23:44)
--- NOTE | 2016-08-24 04:59 | RADRPT ---
EXAM DATE/TIME: 08/24/2016 03:22 [facility] COMPARISON: ABDOMEN KUB ONLY, August 23, 2016, 16:24. INDICATIONS : Distention. MEDICAL HISTORY : None. SURGICAL HISTORY : None. ENCOUNTER: Initial ACUITY: 4 - 6 days PAIN SCORE: Non-responsive. LOCATION: abdomen, all quadrants. FINDINGS: Supine view of the abdomen was performed. The abdominal bowel gas pattern is normal. No abnormal ma sses, calcifications, or organomegaly is seen. The osseous structures are unremarkable. CONCLUSION: Normal examination. Air is in the stomach with a nasogastric tube, large amount of air throughout the small bowel which is diffusely distended but may be slightly improved Osvaldo Webb MD on August 24, 2016 at 4:56 Board Certified Radiologist. This report was verified electronically.
--- NOTE | 2016-08-24 05:04 | RADRPT ---
EXAM DATE/TIME: 08/24/2016 03:19 [facility] COMPARISON: CHEST SINGLE AP, August 23, 2016, 3:53. INDICATIONS : Shortness of breath. MEDICAL HISTORY : Hypertension. Hypercholesterolemia. SURGICAL HISTORY : None. ENCOUNTER: Subsequent ACUITY: 1 week PAIN SCORE: Non-responsive. LOCATION: Bilateral chest FINDINGS: A single view of the chest demonstrates marked improved appearance of the lungs with much less infilt rates. There is more infiltrate right greater than left. Endotracheal tube nasogastric tube in good p osition. Osseous structures are intact. CONCLUSION: Improved airspace disease with some persistent infiltrate in the right perihilar and right lower lobe . NG tube and endotracheal tube in good position. Osvaldo Webb MD on August 24, 2016 at 5:00 Board Certified Radiologist. This report was verified electronically.
[2016-08-24 05:17] LABS: AUTOMATED NEUTROPHIL # 14.3 TH/MM3 (1.8-7.7); BASOPHIL % 0.1 % (0.0-2.0); HEMATOCRIT 33.3 % (39.0-51.0); HEMO FLAGS DIFF FINAL; LYMPH % 1.3 % (9.0-44.0); LYMPHOCYTE # 0.2 TH/MM3 (1.0-4.8); MEAN CELL VOLUME 89.4 FL (80.0-100.0); MEAN CORPUSCULAR HEMOGLOBIN 30.9 PG (27.0-34.0); MEAN CORPUSCULAR HGB CONC 34.5 % (32.0-36.0); MONO % 3.9 % (0.0-8.0); NEUT % 94.7 % (16.0-70.0); PLATELET COUNT 291 TH/MM3 (150-450); RED BLOOD COUNT 3.73 MIL/MM3 (4.50-5.90); RED CELL DISTRIBUTION WIDTH 14.2 % (11.6-17.2); WHITE BLOOD COUNT 15.1 TH/MM3 (4.0-11.0)
[2016-08-24 05:25] LABS: BICARBONATE 23.1 MEQ/L (21.0-32.0); POTASSIUM 3.9 MEQ/L (3.5-5.1)
[2016-08-24] MEDS: methylPREDNISolone SOD SUCC 125 MG/2 ML VIAL IV PUSH SCH (06:34)
[2016-08-24] MEDS: INSULIN ASPART SUPPLEMENTAL SCALE SQ SCH ×4 (07:00→20:31)
[2016-08-24] MEDS: DEXMEDETOMIDINE INJ 1,000 MCG in SODIUM CHLOR 0.9% 250 ML INJ 240 ML IV SCH ×3 (07:14→22:37)
[2016-08-24 07:16] LABS: BLOOD GAS BASE EXCESS 0.2 mmol/L (-2-2); BLOOD GAS CARBOXYHEMOGLOBIN 0.7 % (0-4); BLOOD GAS HCO3 24 mmol/L (22-26); BLOOD GAS METHEMOGLOBIN 0.7 % (0-2); BLOOD GAS O2 HGB SATURATION 97 % (90-100); BLOOD GAS OXYGEN CONTENT 16.6 Vol % (12.0-20.0); BLOOD GAS PCO2 34 mmHg (38-42); BLOOD GAS PO2 114 mmHg (61-120); BLOOD GAS TOTAL HGB 12.1 G/DL (12.0-16.0); CRITICAL VALUE NO; DRAW SITE ART LINE; FIO2 40 %; OXYGEN DEVICE VENTILATOR; STAT YES; TEMP CORR TO 98.6
[2016-08-24] MEDS: REMOVE OLD PATCH TD SCH (07:54)
[2016-08-24] MEDS: PANTOPRAZOLE SODIUM 40 MG VIAL IV PUSH SCH (07:54)
[2016-08-24] MEDS: CHLORHEXIDINE 0.12% (ORAL KIT) 15 ML CUP MT SCH ×2 (07:54→20:32)
[2016-08-24] MEDS: NICOTINE 14 MG/24 HR PATCH TD SCH (07:54)
[2016-08-24] MEDS: PRAVASTATIN SOD 40 MG TAB PO SCH (07:55)
[2016-08-24] MEDS: DOCUSATE SODIUM 50 MG/SENNA 8.6 MG TAB PO SCH ×2 (07:55→20:33)
[2016-08-24] MEDS: POLYETHYLENE GLYCOL 17 GM PKG PO SCH ×2 (07:55→19:59)
[2016-08-24] MEDS: THIAMINE HCL 100 MG TAB PO SCH (07:55)
[2016-08-24] MEDS: FOLIC ACID 1 MG TAB PO SCH (07:55)
[2016-08-24] MEDS: LACTULOSE SYRUP 20 GM/30 ML CUP PO SCH ×4 (07:55→19:59)
[2016-08-24] MEDS: ASPIRIN 81 MG CHEW TAB CHEW SCH (07:55)
[2016-08-24] MEDS ORDERED: POLYETHYLENE GLYCOL 17 GM PKG PO SCH (09:00)
[2016-08-24] MEDS: SODIUM CHLORIDE 0.9% FLUSH 5 ML FLUSH FLUSH SCH ×2 (09:00→20:33)
--- NOTE | 2016-08-24 11:35 | HHI.CCPN ---
Subjective Remarks/Hospital Course 81-year-old man who admitted to [facility] with complains of feeling weak and dizzy , also some chills with it. He had one episode of vomiting earlier today and another episode in the ED. While on a medical floor, he became hypoxemic and tachycardic. Due to hypoxemia at 80s he is transfered to ICU. Patient is alert and oriented and he doesn't want to be intubated in case his condition declines. 08/20 Afebrile. 24 hours patient was noted to have elevated troponins, etiology consulted patient was initiated on aspirin and beta blockers. Cardiology was consulted. Plan for nuclear medicine myocardial perfusion scan, initially scheduled for 08/19 will be done today secondary to NPO status of patient. The patient continues on a Cardizem infusion, metoprolol dosage was increased. Early this a.m., the patient climbed out of the bed and fell, noted laceration posterior right ear. Of note, the patient consumes 2-3 drinks of whiskey per night, came very anxious last night, reported by . The patient was alert and oriented with GCS of 15. Full range of motion denies pain in extremities 4. Stat CT of the head, results pending. 08/21 Tmax 101.8. Yesterday afternoon post nuclear medicine perfusion scan, the patient became acutely hypoxic O2 sat in the 70s, the patient was emergently intubated. Max pulmonary edema was noted, with copious pink frothy sputum via ETT . FiO2 requirements were increased, unable to wean below 70% yesterday afternoon .Sputum culture and urine cultures were obtained, broad- spectrum antibiotics were initiated Vancomycin and Levaquin. The patient currently is on Rocephin for UTI. Flowtrac was instituted, cardiac output and cardiac index were within normal limits. During the night the patient's O2 requirements were increased, the patient required 15 cm of PEEP and initially 100% FiO2. The patient was received 2 mg of Bumex without any diuresis noted. The patient became hypotensive during the night requiring Charbel-Synephrine and Norepinephrine infusions. This morning a central line was placed, steroids were initiated, Solu-Medrol 125 mg IV push, and repeat blood cultures were obtained. 08/22 Tmax 97.8. Patient improvement, weaned off all vasopressors. Oxygen requirements decreased, FiO2 now 40%, PEEP 5. GCS 11 T during sedation holiday. Plan for CPAP trials today. 08/23: Passed weaning parameters today. However, several on propofol at 20 mcg /kg per minute for comfort. Switching to Precedex drip at present. Tolerating tube feeding. 08/24: Not tolerating NG tube feeds, noted residual 500 cc last night. Ileus noted on KUB yesterday. NG tube placed to suction, large amount of care noted. Repeat KUB slightly improved. Prokinetic agents instituted over the last 24 hours. Objective Vital Signs Date Time Temp Pulse Resp B/P Pulse Ox O2 Delivery O2 Flow Rate FiO2 08/24/16 10:00 69 08/24/16 08:00 97.7 18 160/66 95 08/24/16 08:00 40 08/20/16 10:30 Nasal Cannula 3.00 Intake and Output 08/23/16 08/23/16 08/24/16 08:00 16:00 00:00 Intake Total 683 ml 817 ml 994 ml Output Total 625 ml 600 ml 1250 ml Balance 58 ml 217 ml -256 ml Result Diagram: 08/24/16 0433 08/24/16 0433 Other Results Microbiology Date/Time Procedure Status Source Growth 08/21/16 14:28 Legionella Antigen - Final Complete Urine Catheterized Urine PRESUMPTIVE NEGATIVE FOR LEGIONELLA P... Laboratory Tests Test 08/24/16 07:09 Blood Gas Puncture Site ART LINE Blood Gas Patient Temperature 98.6 Blood Gas HCO3 24 mmol/L (22-26) Blood Gas Base Excess 0.2 mmol/L (-2-2) Blood Gas Oxygen Saturation 97 % (90-100) Arterial Blood pH 7.46 (7.380-7.420) Arterial Blood Partial 34 mmHg (38-42) Pressure CO2 Arterial Blood Partial 114 mmHg Pressure O2 (61-120) Arterial Blood Oxygen Content 16.6 Vol % (12.0-20.0) Arterial Blood 0.7 % (0-4) Carboxyhemoglobin Arterial Blood Methemoglobin 0.7 % (0-2) Blood Gas Hemoglobin 12.1 G/DL (12.0-16.0) Oxygen Delivery Device VENTILATOR Blood Gas Ventilator Setting AC,18,600,PEEP5 Blood Gas Inspired Oxygen 40 % Imaging Last Impressions Chest X-Ray 08/23/16 0600 Signed Impressions: Service Date/Time: Tuesday, August 23, 2016 03:53 - CONCLUSION: 1. Diffuse bilateral airspace disease worsening in the right perihilar region. 2. Support lines and tubes are unchanged. Ricardo Adan MD Myocardial Perfusion Scan Nuc Med 08/20/16 0000 Signed Impressions: Service Date/Time: Saturday, August 20, 2016 08:43 - CONCLUSION: Unremarkable myocardial perfusion examination. RISK CATEGORY: low Alexander Carter MD Head CT 08/20/16 0000 Signed Impressions: Service Date/Time: Saturday, August 20, 2016 07:58 - CONCLUSION: Unremarkable and stable CT brain for patient's age. Alexander Carter MD Renal Ultrasound 08/18/16 0000 Signed Impressions: Service Date/Time: Thursday, August 18, 2016 11:49 - CONCLUSION: 1. Echogenic kidneys which can be seen with medical renal disease. 2. Bilateral renal cysts. Ricardo Adan MD Objective Remarks GENERAL: 81-year-old male, critically ill currently orotracheally intubated and sedated on propofol. SKIN: Warm and dry, noted abrasion posterior right ear, and small abrasion right knee HEAD: Normocephalic. EYES: No scleral icterus. No injection or drainage. Pupils around 2 mm bilaterally and reactive NECK: Supple, trachea midline. No JVD or lymphadenopathy. Orotracheally intubated CARDIOVASCULAR: Regular rate and rhythm S1, S2. No S4. Currently without murmurs, clicks, gallops or rubs. RESPIRATORY: Breath sounds equal bilaterally, diminished bilateral bases, no wheezing noted. Mechanically ventilated GASTROINTESTINAL: Abdomen soft, non-tender, nondistended. OGT in situ, tube feeds infusing. MUSCULOSKELETAL: Trace bilateral lower extremity nonpitting edema. Movement of extremities 4 while on propofol drip BACK: Nontender without obvious deformity. No CVA tenderness. Urinary Catheter: Yes Bauer insert reason: ICU Pt Getting Diuretics Date of Insertion: Aug 19, 2016 Date of Insertion: Aug 21, 2016 Line: Central Venous Catheter Side: Right Location: Internal, Jugular Reason for Continuation Measurement of CVP A/P Problem List: (1) BPH with urinary obstruction ICD Code: N40.1 Status: Acute (2) COPD (chronic obstructive pulmonary disease) ICD Code: J44.9 Status: Acute (3) Pulmonary edema ICD Code: J81.1 Status: Acute (4) Respiratory failure ICD Code: J96.90 Status: Acute Assessment and Plan Neurologic: Glaucoma Alcohol use S/P Fall-confusion (08/20) -GCS 11T, during sedation holiday. Currently on Precedex infusion, RASS -2 maintained -Continued on Latanoprost 0.005% 1 drop each eye at night for glaucoma (home med ) -Fall OOB 08/20, CT of the head-unremarkable stable CT of the brain -Monitor for alcohol withdrawal, reports 2-3 drinks whiskey per day -Thiamine 100 mg, folate 1 mg q/day Respiratory: Acute hypoxic respiratory failure Acute Pulmonary edema COPD exacerbation Chronic smoker Probable multilobar Pneumonia -SBT 08/23 + Cuff leak on spontaneously intra-. NIF -24. Tidal volume ~ thousand. RSBI 54 -Diuresis -Intubated 08/20-ETT 8.0 -Mechanical vent settings-FiO2 40%/550/5/rate of 18, continue to wean FiO2 -Maintain O2 sat greater than 92% -Chest x-ray improved -Scheduled Duonebs every 4 hours, add every 2 PRN -Initially Methylprednisone 125 mg IV push, 60 mg every 8hrs 3 days, then begin to taper steroids 08/24/16 40 mg BID, -Counseled on smoking [id number] (smokes 2 PPD x 65 years), family reported accurate smoking history -Nicotine patch day 12/28 Cardiovascular: NSTEMI H/O Hypertension Tachycardia-resolved Dyslipidemia Cardiogenic Shock -Charbel-Synephrine off since 7 AM 08/23 -Troponin (08/19)5.17->4.91->4.23 -Continue ASA 81 mg/day,Resume Lisinopril , HR 60's , SBP 140's-150's - Patient continues on pravastatin (home med) -Patient's home medications clonidine, lisinopril/HCTZ (on hold) -ECHO 08/19- EF 50% , no RWMA -BNP- 156->91 (08/21) -08/20 nuclear medicine myocardial perfusion scan-intact wall motion and thickening without hypokinetic or dyskinetic segments -Cardiology on board, Dr. Cason, follow recommendations including possible cardiac catheterization in the future once stable -Monitor CVP Renal: Renal insufficiency BPH -Creatinine 2.3-> 2.1 -> 1.8 today continue to monitor, adequate urine output -Maintain Bauer - Home meds Flomax- will resume 08/24 -- Strict I/Os -monitor urinary output hourly FEN/GI: Hypokalemia-resolved Ileus Constipation Increase intra-abdominal pressure -Electrolyte replacement per ICU protocol -Measure bladder pressures q 2hrs-initially 7, post soap suds enema 21 (no output) -Surgery consult-Dr Elizabeth 2/ increased intra-abdominal pressure - Tube feeds-Jevity 1.5, goal of 60 cc/hr on hold -NG tube to suction -Reglan 3 times a day -Soapsuds enema today -Zofran for nausea -Protonix GI prophylaxis -Bowel regimen including Sonia-Colace twice a day, MiraLAX and lactulose 4 times daily until BM Heme/ID: Leukocytosis Probable multilobar pneumonia Septic shock UTI - 08/18 urine culture-Proteus mirabilis -08/18 blood culture- Staph Capitis ([id number]) -08/20 blood culture-NGTD -08/20 urine Legionella, Pneumococcal-negative -Rocephin dc'd (2 days) Levaquin, Vancomycin (day8) discontinued, Cefepime (day 2) -Methylprednisolone 40 mg BID -Monitor CBC, WBC improving 17-> 15 today -Lactate 1.5 (08/22) -ID consulted, Dr Benavides - follow-up recommendations Endocrine: Blood glucose monitoring every 4 hours per ICU protocol -- SSI Prophylaxis: GI Prophylaxis Protonix DVT Prophylaxis -- SCDs Lovenox Lines: Peripheral IVs. Central line [place] 08/21, R radial Radha 08/21 Discussed with brother at bedside Critical Care: This patient remains critically ill with one or more organ systems which are or may become a threat to life. I have spent in excess of 49 minutes discontinuously in the care and management of this patient. This time is exclusive of procedures, and includes, but is not limited to, evaluation of the patient, review of the medical record, discussions with family, consultants, nursing staff, or respiratory therapy, and documentation in the medical record. . Physician Gavi Chew MD Aug 24, 2016 11:35
[2016-08-24] MEDS ORDERED: MAGNESIUM CITRATE SOLN 300 ML BTL PO ONE (12:15)
[2016-08-24] MEDS: LEVOFLOXACIN 750 MG PREMIX INJ 150 ML IV SCH (17:01)
--- NOTE | 2016-08-24 19:26 | HHI.PR ---
Subjective History of Present Illness remained intubated afebrile on CPAP /tolerating it well Off pressors Making urine abd is distended AXR c/w developing of ileus No other problems Vitals/Results Intake & Output 08/23/16 08/23/16 08/24/16 15:00 23:00 07:00 Intake Total 817 ml 994 ml 1076 ml Output Total 600 ml 1250 ml 1000 ml Balance 217 ml -256 ml 76 ml Intake Oral 0 ml IV Total 519 ml 462 ml 601 ml Tube Feeding 238 ml 432 ml 415 ml Other 60 ml 100 ml 60 ml Output Urine Total 600 ml 1250 ml 500 ml Gastric Drainage Total 500 ml # Bowel Movements 0 0 0 Vital Signs Vital Signs Date Time Temp Pulse Resp B/P Pulse Ox O2 Delivery O2 Flow Rate FiO2 08/24/16 18:00 69 08/24/16 18:00 157/68 08/24/16 16:00 72 08/24/16 16:00 40 08/24/16 16:00 98.0 72 20 141/58 97 08/24/16 15:29 94 40 08/24/16 15:27 40 08/24/16 14:00 71 08/24/16 12:00 97.7 71 18 142/62 96 08/24/16 12:00 40 08/24/16 12:00 71 08/24/16 11:53 94 40 08/24/16 10:00 69 08/24/16 08:00 68 08/24/16 08:00 97.7 68 18 160/66 95 08/24/16 08:00 40 08/24/16 07:58 95 40 08/24/16 07:00 143/69 08/24/16 06:00 76 08/24/16 04:17 97 40 08/24/16 04:00 40 08/24/16 04:00 98.5 73 20 154/73 97 08/24/16 04:00 80 08/24/16 02:00 80 08/24/16 00:00 80 08/24/16 00:00 98.9 80 18 160/70 95 08/24/16 00:00 40 08/23/16 23:52 97 40 08/23/16 22:23 95 40 08/23/16 22:00 80 08/23/16 20:30 95 40 08/23/16 20:00 98.0 78 20 132/56 95 08/23/16 20:00 78 08/23/16 20:00 40 CBC/BMP: 08/24/16 0433 08/24/16 0433 Lab Results Laboratory Tests Test 08/24/16 08/24/16 04:33 07:09 White Blood Count 15.1 TH/MM3 Red Blood Count 3.73 MIL/MM3 Hemoglobin 11.5 GM/DL Hematocrit 33.3 % Mean Corpuscular Volume 89.4 FL Mean Corpuscular Hemoglobin 30.9 PG Mean Corpuscular Hemoglobin 34.5 % Concent Red Cell Distribution Width 14.2 % Platelet Count 291 TH/MM3 Mean Platelet Volume 10.0 FL Neutrophils (%) (Auto) 94.7 % Lymphocytes (%) (Auto) 1.3 % Monocytes (%) (Auto) 3.9 % Eosinophils (%) (Auto) 0.0 % Basophils (%) (Auto) 0.1 % Neutrophils # (Auto) 14.3 TH/MM3 Lymphocytes # (Auto) 0.2 TH/MM3 Monocytes # (Auto) 0.6 TH/MM3 Eosinophils # (Auto) 0.0 TH/MM3 Basophils # (Auto) 0.0 TH/MM3 CBC Comment DIFF FINAL Differential Comment Sodium Level 144 MEQ/L Potassium Level 3.9 MEQ/L Chloride Level 108 MEQ/L Carbon Dioxide Level 23.1 MEQ/L Anion Gap 13 MEQ/L Blood Urea Nitrogen 62 MG/DL Creatinine 1.82 MG/DL Estimat Glomerular Filtration 36 ML/MIN Rate Random Glucose 238 MG/DL Calcium Level 9.1 MG/DL Phosphorus Level 3.1 MG/DL Magnesium Level 3.0 MG/DL Blood Gas Puncture Site ART LINE Blood Gas Patient Temperature 98.6 Blood Gas HCO3 24 mmol/L Blood Gas Base Excess 0.2 mmol/L Blood Gas Oxygen Saturation 97 % Arterial Blood pH 7.46 Arterial Blood Partial 34 mmHg Pressure CO2 Arterial Blood Partial 114 mmHg Pressure O2 Arterial Blood Oxygen Content 16.6 Vol % Arterial Blood 0.7 % Carboxyhemoglobin Arterial Blood Methemoglobin 0.7 % Blood Gas Hemoglobin 12.1 G/DL Oxygen Delivery Device VENTILATOR Blood Gas Ventilator Setting AC,18,600,PEEP5 Blood Gas Inspired Oxygen 40 % Physical Exam General General Appearance: No Acute Distress, Comfortable, Obese Appearance Remarks Intubated off sedation Eyes Eye Exam: Pupils Equal, Sclera White Ears & Nose Ears & Nose Exam: Nasal Mucosa [place] Throat Throat Exam: Oral Mucosa [place] & Moist Throat Remarks +VE ET tube. +ve OGT Neck Neck Exam: Neck Supple, Trachea Midline Pulmonary Resp Exam: Breath Sounds Equal, Crackles Cardiology CV Exam: Regular, Normal Sinus Rhythm Gastrointestinal/Abdomen GI Exam: Soft, Non-Tender, Bowel Sounds Present, Distended, Bowel Sounds Hypoactive Integumentary Skin Exam: Warm, Dry Extremeties Extremities Exam: No Edema, Pedal Pulses Palpable VTE Prophylaxis VTE Prophylaxis Meds: Lovenox PUD Prophylasis PUD Prophylaxis: Protonix Assessment/Plan Assessment/Plan ASSESSMENT 1. Acute febrile illness with leukocytosis and left shift, source not clear. The patient has evidence of microscopic hematuria, questionable urinary tract infection, rule out bacteremia, question bronchitis. 2. Hyperglycemia. 3. Normochromic normocytic anemia. 4. BPH with chronic urge incontinence. 5. Hypertension. 6. Hyperlipidemia. 7. Recurrent falls, fortunately no significant injury. 8. Acute VDRF 9. ACS/ NSTEMI 10. s/p Acute pulmonary edema/flash pulmonary edema 11. possible Pneumonia 12. Abdominal Ileus PLAN Ventilator support and weaning per subeditor IV sedation Off pressors , cont empic IV antibiotics, cefepime/Zyvox/Levaquin IV steroids aerosol tx IV diuretic ordered ID f/u Control blood pressure 2-D echocardiogram noted, EF is 50% Continue Aspirin Blood cultures negative so far Urine culture positive for Proteus mirabilis, hold tube feeding consider adding reglan/emycin Continue PPI Subcutaneous Lovenox Discussed with LEISA Bedolla labs Will follow Elba De La Cruz MD Aug 24, 2016 19:26
[2016-08-24] MEDS: ENOXAPARIN SODIUM 40 MG/0.4 ML SYRINGE SQ SCH (20:00)
[2016-08-24] MEDS: LATANOPROST 0.005% OPHT SOLN 2.5 ML BTL EACH EYE SCH (20:32)
[2016-08-24] MEDS: methylPREDNISolone SOD SUCC 40 MG/1 ML VIAL IV PUSH SCH (20:33)
[2016-08-24] MEDS: LORazepam 2 MG/ML VIAL IV PRN (20:33)
[2016-08-25] VITALS (19 sets, daily range): BP systolic 109–169; BP diastolic 50–74; PULSE 64–74; RESP 18–24; TEMP 97.9–99.2; O2SAT 94–96
[2016-08-25] MEDS: LORazepam 2 MG/ML VIAL IV PRN ×4 (00:37→22:44)
[2016-08-25] MEDS: LINEZOLID 600 MG PREMIX 300 ML IV SCH (00:37)
[2016-08-25] MEDS: METOCLOPRAMIDE HCL 10 MG/2 ML VIAL IV PUSH SCH ×3 (00:37→17:44)
[2016-08-25] MEDS: hydrALAZINE HCL 20 MG/ML VIAL IV PUSH PRN (03:07)
[2016-08-25] MEDS: RESP: ALBUTEROL 2.5 MG/IPRATROPIUM 0.5 MG NEB (SCH) NEB ×6 (03:32→23:58)
[2016-08-25 03:53] LABS: HEMATOCRIT 33.1 % (39.0-51.0); MEAN CELL VOLUME 89.4 FL (80.0-100.0); MEAN CORPUSCULAR HEMOGLOBIN 31.5 PG (27.0-34.0); MEAN CORPUSCULAR HGB CONC 35.2 % (32.0-36.0); PLATELET COUNT 288 TH/MM3 (150-450); RED BLOOD COUNT 3.71 MIL/MM3 (4.50-5.90); REVIEW FLAG FINAL; WHITE BLOOD COUNT 14.2 TH/MM3 (4.0-11.0)
[2016-08-25 04:17] LABS: BICARBONATE 27.1 MEQ/L (21.0-32.0); MAGNESIUM 3.1 MG/DL (1.5-2.5); POTASSIUM 4.1 MEQ/L (3.5-5.1)
[2016-08-25] MEDS: DEXMEDETOMIDINE INJ 1,000 MCG in SODIUM CHLOR 0.9% 250 ML INJ 240 ML IV SCH ×3 (05:20→21:15)
--- NOTE | 2016-08-25 05:50 | RADRPT ---
EXAM DATE/TIME: 08/25/2016 04:26 [facility] COMPARISON: CHEST SINGLE AP, August 24, 2016, 3:19. INDICATIONS : Shortness of breath. MEDICAL HISTORY : Hypertension. Hypercholesterolemia. SURGICAL HISTORY : None. ENCOUNTER: Subsequent ACUITY: 1 week PAIN SCORE: Non-responsive. LOCATION: Bilateral chest FINDINGS: A single portable frontal view of the chest shows an endotracheal tube with the tip 3 cm proximal to the les. Nasogastric tube tip is in the antrum of the stomach. By lateral pulmonary infiltrates ar e largely basilar in nature. These are more pronounced from the prior study. No effusions. Heart is n ormal in size. CONCLUSION: Worsening bilateral pulmonary infiltrates. Gavin Gray Jr., MD on August 25, 2016 at 5:48 Board Certified Radiologist. This report was verified electronically.
[2016-08-25] MEDS: INSULIN ASPART SUPPLEMENTAL SCALE SQ SCH ×4 (06:17→21:00)
[2016-08-25] MEDS ORDERED: BISACODYL 10 MG SUPP RECTAL ONE (07:00)
[2016-08-25 07:27] LABS: ULNAR PULSE PRESENT
[2016-08-25] MEDS: LACTULOSE SYRUP 20 GM/30 ML CUP PO SCH ×4 (09:00→20:37)
[2016-08-25] MEDS: REMOVE OLD PATCH TD SCH (09:00)
[2016-08-25] MEDS: POLYETHYLENE GLYCOL 17 GM PKG PO SCH ×2 (09:00→20:38)
[2016-08-25] MEDS: CHLORHEXIDINE 0.12% (ORAL KIT) 15 ML CUP MT SCH ×2 (09:07→20:39)
[2016-08-25] MEDS: DOCUSATE SODIUM 50 MG/SENNA 8.6 MG TAB PO SCH ×2 (09:11→20:38)
[2016-08-25] MEDS: ASPIRIN 81 MG CHEW TAB CHEW SCH (09:11)
[2016-08-25] MEDS: LISINOPRIL 20 MG TAB PO SCH (09:11)
[2016-08-25] MEDS: PANTOPRAZOLE SODIUM 40 MG VIAL IV PUSH SCH (09:11)
[2016-08-25] MEDS: methylPREDNISolone SOD SUCC 40 MG/1 ML VIAL IV PUSH SCH ×2 (09:12→20:38)
[2016-08-25] MEDS: FOLIC ACID 1 MG TAB PO SCH (09:12)
[2016-08-25] MEDS: NICOTINE 14 MG/24 HR PATCH TD SCH (09:12)
[2016-08-25] MEDS: SODIUM CHLORIDE 0.9% FLUSH 5 ML FLUSH FLUSH SCH ×2 (09:12→20:39)
[2016-08-25] MEDS: PRAVASTATIN SOD 40 MG TAB PO SCH (09:23)
[2016-08-25] MEDS: THIAMINE HCL 100 MG TAB PO SCH (09:24)
--- NOTE | 2016-08-25 10:34 | HHI.CCPN ---
Subjective Remarks/Hospital Course 81-year-old man who admitted to [facility] with complains of feeling weak and dizzy , also some chills with it. He had one episode of vomiting earlier today and another episode in the ED. While on a medical floor, he became hypoxemic and tachycardic. Due to hypoxemia at 80s he is transfered to ICU. Patient is alert and oriented and he doesn't want to be intubated in case his condition declines. 08/20 Afebrile. 24 hours patient was noted to have elevated troponins, etiology consulted patient was initiated on aspirin and beta blockers. Cardiology was consulted. Plan for nuclear medicine myocardial perfusion scan, initially scheduled for 08/19 will be done today secondary to NPO status of patient. The patient continues on a Cardizem infusion, metoprolol dosage was increased. Early this a.m., the patient climbed out of the bed and fell, noted laceration posterior right ear. Of note, the patient consumes 2-3 drinks of whiskey per night, came very anxious last night, reported by . The patient was alert and oriented with GCS of 15. Full range of motion denies pain in extremities 4. Stat CT of the head, results pending. 08/21 Tmax 101.8. Yesterday afternoon post nuclear medicine perfusion scan, the patient became acutely hypoxic O2 sat in the 70s, the patient was emergently intubated. Max pulmonary edema was noted, with copious pink frothy sputum via ETT . FiO2 requirements were increased, unable to wean below 70% yesterday afternoon .Sputum culture and urine cultures were obtained, broad- spectrum antibiotics were initiated Vancomycin and Levaquin. The patient currently is on Rocephin for UTI. Flowtrac was instituted, cardiac output and cardiac index were within normal limits. During the night the patient's O2 requirements were increased, the patient required 15 cm of PEEP and initially 100% FiO2. The patient was received 2 mg of Bumex without any diuresis noted. The patient became hypotensive during the night requiring Charbel-Synephrine and Norepinephrine infusions. This morning a central line was placed, steroids were initiated, Solu-Medrol 125 mg IV push, and repeat blood cultures were obtained. 08/22 Tmax 97.8. Patient improvement, weaned off all vasopressors. Oxygen requirements decreased, FiO2 now 40%, PEEP 5. GCS 11 T during sedation holiday. Plan for CPAP trials today. 08/23: Passed weaning parameters today. However, several on propofol at 20 mcg /kg per minute for comfort. Switching to Precedex drip at present. Tolerating tube feeding. 08/24: Not tolerating NG tube feeds, noted residual 500 cc last night. Ileus noted on KUB yesterday. NG tube placed to suction, large amount of care noted. Repeat KUB slightly improved. Prokinetic agents instituted over the last 24 hours 08/25: Increase in intra-abdominal pressure, bladder pressures yesterday afternoon up to . Mag citrate added to bowel regimen, Lopid large voluminous bowel movement. OGT to continuous suction 500 cc output overnight. The patient was placed on CPAP trials yesterday from 4 PM2 AM. Abdomen currently soft bladder pressure 14 at 6 AM. Plan for continued CPAP trials today, insertion of NG tube to continued low continuous suction, follow-up KUB. Objective Vital Signs Date Time Temp Pulse Resp B/P Pulse Ox O2 Delivery O2 Flow Rate FiO2 08/25/16 08:01 95 40 08/25/16 06:00 128/52 08/25/16 06:00 64 08/25/16 04:00 98.2 18 Intake and Output 08/24/16 08/24/16 08/25/16 08:00 16:00 00:00 Intake Total 1076 ml 637 ml 633 ml Output Total 1000 ml 850 ml 1000 ml Balance 76 ml -213 ml -367 ml Result Diagram: 08/25/16 0330 08/25/16 0330 Imaging Last Impressions Chest X-Ray 08/24/16 0600 Signed Impressions: Service Date/Time: Wednesday, August 24, 2016 03:19 - CONCLUSION: Improved airspace disease with some persistent infiltrate in the right perihilar and right lower lobe. NG tube and endotracheal tube in good position. Osvaldo Webb MD Abdomen X-Ray 08/24/16 0600 Signed Impressions: Service Date/Time: Wednesday, August 24, 2016 03:22 - CONCLUSION: Normal examination. Air is in the stomach with a nasogastric tube, large amount of air throughout the small bowel which is diffusely distended but may be slightly improved Osvaldo Webb MD Myocardial Perfusion Scan Nuc Med 08/20/16 0000 Signed Impressions: Service Date/Time: Saturday, August 20, 2016 08:43 - CONCLUSION: Unremarkable myocardial perfusion examination. RISK CATEGORY: low Alexander Carter MD Head CT 08/20/16 0000 Signed Impressions: Service Date/Time: Saturday, August 20, 2016 07:58 - CONCLUSION: Unremarkable and stable CT brain for patient's age. Alexander Carter MD Renal Ultrasound 08/18/16 0000 Signed Impressions: Service Date/Time: Thursday, August 18, 2016 11:49 - CONCLUSION: 1. Echogenic kidneys which can be seen with medical renal disease. 2. Bilateral renal cysts. Ricardo Adan MD Last Impressions Chest X-Ray 08/23/16 0600 Signed Impressions: Service Date/Time: Tuesday, August 23, 2016 03:53 - CONCLUSION: 1. Diffuse bilateral airspace disease worsening in the right perihilar region. 2. Support lines and tubes are unchanged. Ricardo Adan MD Myocardial Perfusion Scan Nuc Med 08/20/16 0000 Signed Impressions: Service Date/Time: Saturday, August 20, 2016 08:43 - CONCLUSION: Unremarkable myocardial perfusion examination. RISK CATEGORY: low Alexander Carter MD Head CT 08/20/16 0000 Signed Impressions: Service Date/Time: Saturday, August 20, 2016 07:58 - CONCLUSION: Unremarkable and stable CT brain for patient's age. Alexander Carter MD Renal Ultrasound 08/18/16 0000 Signed Impressions: Service Date/Time: Thursday, August 18, 2016 11:49 - CONCLUSION: 1. Echogenic kidneys which can be seen with medical renal disease. 2. Bilateral renal cysts. Ricardo Adan MD Objective Remarks GENERAL: 81-year-old male, critically ill currently orotracheally intubated and sedated on propofol. SKIN: Warm and dry, noted abrasion posterior right ear, and small abrasion right knee HEAD: Normocephalic. EYES: No scleral icterus. No injection or drainage. Pupils around 2 mm bilaterally and reactive NECK: Supple, trachea midline. No JVD or lymphadenopathy. Orotracheally intubated CARDIOVASCULAR: Regular rate and rhythm S1, S2. No S4. Currently without murmurs, clicks, gallops or rubs. RESPIRATORY: Breath sounds equal bilaterally, diminished bilateral bases, no wheezing noted. Mechanically ventilated GASTROINTESTINAL: Abdomen soft, obese non-tender, nondistended. OGT in situ, low continuous suction, bilious secretions MUSCULOSKELETAL: Trace bilateral lower extremity nonpitting edema. Movement of extremities 4 while on propofol drip BACK: Nontender without obvious deformity. No CVA tenderness. Urinary Catheter: Yes Date of Insertion: Aug 19, 2016 Vascular Central Line Catheter: Yes Date of Insertion: Aug 21, 2016 Line: Central Venous Catheter Side: Right Location: Internal, Jugular A/P Problem List: (1) BPH with urinary obstruction ICD Code: N40.1 Status: Acute (2) COPD (chronic obstructive pulmonary disease) ICD Code: J44.9 Status: Acute (3) Pulmonary edema ICD Code: J81.1 Status: Acute (4) Respiratory failure ICD Code: J96.90 Status: Acute Assessment and Plan Neurologic: Glaucoma Alcohol use S/P Fall-confusion (08/20) -GCS 11T, during sedation holiday. Precedex infusion, RASS -1 maintained -Continued on Latanoprost 0.005% 1 drop each eye at night for glaucoma (home med ) -Fall OOB 08/20, CT of the head-unremarkable stable CT of the brain -Monitor for alcohol withdrawal, reports 2-3 drinks whiskey per day -Thiamine 100 mg, folate 1 mg q/day Respiratory: Acute hypoxic respiratory failure Acute Pulmonary edema COPD exacerbation Chronic smoker Probable multilobar Pneumonia -SBT 08/23 + Cuff leak on spontaneously intra-. NIF -24. Tidal volume ~ thousand. RSBI 54 -Diuresis -Intubated 08/20-ETT 8.0 -Mechanical vent settings-FiO2 40%/550/5/rate of 18, continue to wean FiO2 -Maintain O2 sat greater than 92% -Chest x-ray improved -Scheduled Duonebs every 4 hours, add every 2 PRN -Initially Methylprednisone 125 mg IV push, 60 mg every 8hrs 3 days, then begin to taper steroids 08/24/16 40 mg BID, -Counseled on smoking /28 (smokes 2 PPD x 65 years), family reported accurate smoking history -Nicotine patch day 01/28 Cardiovascular: NSTEMI H/O Hypertension Tachycardia-resolved Dyslipidemia Cardiogenic Shock -Charbel-Synephrine off since 7 AM 08/23 -Troponin (08/19)5.17->4.91->4.23 -Continue ASA 81 mg/day,Resume Lisinopril , HR 60's , SBP 140's-150's - Patient continues on pravastatin (home med) -Patient's home medications clonidine, lisinopril/HCTZ (on hold) -ECHO 08/19- EF 50% , no RWMA -BNP- 156->91 (08/21) -08/20 nuclear medicine myocardial perfusion scan-intact wall motion and thickening without hypokinetic or dyskinetic segments -Cardiology on board, Dr. Cason, follow recommendations including possible cardiac catheterization in the future once stable -Monitor CVP Renal: Renal insufficiency BPH -Creatinine 2.3-> 2.1 -> 1.8 today continue to monitor, adequate urine output -Maintain Bauer - Home meds Flomax(unable to crush)- will change to Hytrin, patient NGT will remain -- Strict I/Os -monitor urinary output hourly FEN/GI: Hypokalemia-resolved Ileus Constipation Increase intra-abdominal pressure -Electrolyte replacement per ICU protocol -Measure bladder pressures q 2hrs-14, -Large BM 08/24 -Surgery consult-Dr Elizabeth 09/25 increased intra-abdominal pressure - Tube feeds-Jevity 1.5, goal of 60 cc/hr on hold -NG tube to suction -Reglan TID -Zofran for nausea -Protonix GI prophylaxis -Bowel regimen including Sonia-Colace twice a day, MiraLAX and lactulose 4 times daily until BM Heme/ID: Leukocytosis Probable multilobar pneumonia Septic shock UTI - 08/18 urine culture-Proteus mirabilis -08/18 blood culture- Staph Capitis ([id number]) -08/20 blood culture-NGTD -08/20 urine Legionella, Pneumococcal-negative -Methylprednisolone 40 mg BID -Monitor CBC, WBC improving 14 -Lactate 1.5 (08/22) -ID consulted, Dr Benavides - follow-up recommendations Endocrine: Blood glucose monitoring every 4 hours per ICU protocol -- SSI Prophylaxis: GI Prophylaxis Protonix DVT Prophylaxis -- SCDs Lovenox Lines: Peripheral IVs. Central line RIJ 08/21, R radial Radha 08/21 Discussed with brother at bedside Critical Care: This patient remains critically ill with one or more organ systems which are or may become a threat to life. I have spent in excess of 41 minutes discontinuously in the care and management of this patient. This time is exclusive of procedures, and includes, but is not limited to, evaluation of the patient, review of the medical record, discussions with family, consultants, nursing staff, or respiratory therapy, and documentation in the medical record. . Physician Gavi Chew MD Aug 25, 2016 10:34 Gavi Meraz MD Aug 25, 2016 10:34
[2016-08-25] MEDS ORDERED: FUROSEMIDE 40 MG/4 ML VIAL IV PUSH ONE (10:45)
--- NOTE | 2016-08-25 11:35 | RADRPT ---
EXAM DATE/TIME: 08/25/2016 10:43 [facility] COMPARISON: ABDOMEN KUB ONLY, August 24, 2016, 3:22. INDICATIONS : Ileus. MEDICAL HISTORY : Hypertension. Hypercholesterolemia. SURGICAL HISTORY : None. ENCOUNTER: Initial ACUITY: 1 week PAIN SCORE: Non-responsive. LOCATION: Bilateral abdomen FINDINGS: There is diffuse distention of small and large bowel loops characteristic of an ileus. NG tube tip te rminates at the proximal stomach. Temperature probe overlies the rectum. CONCLUSION: Ileus pattern. Rj Bangura MD on August 25, 2016 at 11:33 Board Certified Radiologist. This report was verified electronically.
--- NOTE | 2016-08-25 12:07 | HHI.IDPN ---
Subjective Subjective Remarks Notes reviewed Temps ok BP ok, not on pressors On CPAP, tolertaing well Problems with ileus - has NGT LIWS Sputum neg x 48 hrs BC negative Antibiotics Zyvox Levaquin Past Medical History Reviewed Allergies: Coded Allergies: No Known Allergies (Unverified , 05/16/15) Objective . Vital Signs Date Time Temp Pulse Resp B/P Pulse Ox O2 Delivery O2 Flow Rate FiO2 08/25/16 11:07 96 40 08/25/16 10:00 70 08/25/16 08:01 95 40 08/25/16 08:01 40 08/25/16 08:00 98.1 66 19 129/55 94 08/25/16 08:00 66 08/25/16 08:00 40 08/25/16 06:42 40 08/25/16 06:00 128/52 08/25/16 06:00 64 08/25/16 04:00 40 08/25/16 04:00 66 08/25/16 04:00 98.2 66 18 133/52 94 08/25/16 03:31 94 40 08/25/16 02:00 64 08/25/16 00:59 95 40 08/25/16 00:00 40 08/25/16 00:00 97.9 67 20 169/74 96 08/25/16 00:00 67 08/24/16 22:01 96 40 08/24/16 22:00 70 08/24/16 20:00 97.8 74 21 160/82 95 08/24/16 20:00 40 08/24/16 20:00 74 08/24/16 19:46 96 40 08/24/16 18:00 69 08/24/16 18:00 157/68 08/24/16 16:00 72 08/24/16 16:00 40 08/24/16 16:00 98.0 72 20 141/58 97 08/24/16 15:29 94 40 08/24/16 15:27 40 08/24/16 14:00 71 08/24/16 08/24/16 08/25/16 15:00 23:00 07:00 Intake Total 637 ml 633 ml 570 ml Output Total 850 ml 1000 ml 1200 ml Balance -213 ml -367 ml -630 ml IV Total 437 ml 633 ml 570 ml Tube Feeding 0 ml Other 200 ml Output Urine Total 550 ml 600 ml 600 ml Gastric Drainage Total 300 ml 400 ml 600 ml # Bowel Movements 1 . Laboratory Tests Test 08/23/16 08/24/16 08/25/16 13:05 04:33 03:30 White Blood Count 17.6 TH/MM3 15.1 TH/MM3 14.2 TH/MM3 Red Blood Count 3.62 MIL/MM3 3.73 MIL/MM3 3.71 MIL/MM3 Hemoglobin 11.0 GM/DL 11.5 GM/DL 11.7 GM/DL Hematocrit 32.8 % 33.3 % 33.1 % Mean Corpuscular Volume 90.7 FL 89.4 FL 89.4 FL Mean Corpuscular Hemoglobin 30.4 PG 30.9 PG 31.5 PG Mean Corpuscular Hemoglobin 33.5 % 34.5 % 35.2 % Concent Red Cell Distribution Width 14.6 % 14.2 % 14.0 % Platelet Count 270 TH/MM3 291 TH/MM3 288 TH/MM3 Mean Platelet Volume 10.4 FL 10.0 FL 9.5 FL Neutrophils (%) (Auto) 95.8 % 94.7 % Lymphocytes (%) (Auto) 0.9 % 1.3 % Monocytes (%) (Auto) 3.0 % 3.9 % Eosinophils (%) (Auto) 0.0 % 0.0 % Basophils (%) (Auto) 0.3 % 0.1 % Neutrophils # (Auto) 16.9 TH/MM3 14.3 TH/MM3 Lymphocytes # (Auto) 0.2 TH/MM3 0.2 TH/MM3 Monocytes # (Auto) 0.5 TH/MM3 0.6 TH/MM3 Eosinophils # (Auto) 0.0 TH/MM3 0.0 TH/MM3 Basophils # (Auto) 0.0 TH/MM3 0.0 TH/MM3 CBC Comment DIFF FINAL DIFF FINAL Differential Comment Laboratory Tests Test 08/23/16 08/24/16 08/25/16 13:05 04:33 03:30 Sodium Level 140 MEQ/L 144 MEQ/L 143 MEQ/L Potassium Level 3.8 MEQ/L 3.9 MEQ/L 4.1 MEQ/L Chloride Level 106 MEQ/L 108 MEQ/L 105 MEQ/L Carbon Dioxide Level 23.4 MEQ/L 23.1 MEQ/L 27.1 MEQ/L Anion Gap 11 MEQ/L 13 MEQ/L 11 MEQ/L Blood Urea Nitrogen 53 MG/DL 62 MG/DL 68 MG/DL Creatinine 1.71 MG/DL 1.82 MG/DL 1.59 MG/DL Estimat Glomerular Filtration 39 ML/MIN 36 ML/MIN 42 ML/MIN Rate Random Glucose 198 MG/DL 238 MG/DL 194 MG/DL Calcium Level 8.9 MG/DL 9.1 MG/DL 8.7 MG/DL Phosphorus Level 1.8 MG/DL 3.1 MG/DL 3.4 MG/DL Magnesium Level 3.0 MG/DL 3.0 MG/DL 3.1 MG/DL Total Bilirubin 0.2 MG/DL Aspartate Amino Transf 122 U/L (AST/SGOT) Alanine Aminotransferase 168 U/L (ALT/SGPT) Alkaline Phosphatase 164 U/L Total Protein 6.4 GM/DL Albumin 2.0 GM/DL Imaging Chest X-Ray 08/24/16 0600 Signed Impressions: Service Date/Time: Wednesday, August 24, 2016 03:19 - CONCLUSION: Improved airspace disease with some persistent infiltrate in the right perihilar and right lower lobe. NG tube and endotracheal tube in good position. Osvaldo Webb MD Abdomen X-Ray 08/24/16 0600 Signed Impressions: Service Date/Time: Wednesday, August 24, 2016 03:22 - CONCLUSION: Normal examination. Air is in the stomach with a nasogastric tube, large amount of air throughout the small bowel which is diffusely distended but may be slightly improved Osvaldo Webb MD Chest X-Ray 08/23/16 0600 Signed Impressions: Service Date/Time: Tuesday, August 23, 2016 03:53 - CONCLUSION: 1. Diffuse bilateral airspace disease worsening in the right perihilar region. 2. Support lines and tubes are unchanged. Ricardo Adan MD Abdomen X-Ray 08/23/16 0000 Signed Impressions: Service Date/Time: Tuesday, August 23, 2016 16:24 - CONCLUSION: Dilated bowel in a radiographic pattern suggesting an ileus. Gavin Gray Jr., MD Myocardial Perfusion Scan Nuc Med 08/20/16 0000 Signed Impressions: Service Date/Time: Saturday, August 20, 2016 08:43 - CONCLUSION: Unremarkable myocardial perfusion examination. RISK CATEGORY: low Alexander Carter MD Head CT 08/20/16 0000 Signed Impressions: Service Date/Time: Saturday, August 20, 2016 07:58 - CONCLUSION: Unremarkable and stable CT brain for patient's age. Alexander Carter MD Renal Ultrasound 08/18/16 0000 Signed Impressions: Service Date/Time: Thursday, August 18, 2016 11:49 - CONCLUSION: 1. Echogenic kidneys which can be seen with medical renal disease. 2. Bilateral renal cysts. Ricardo Adan MD Physical Exam GENERAL: sedated on the vent, not in distress. On CPAP SKIN: Cool and dry. No generalized rash or ecchymosis. HEENT: [place]ven[place] conjunctivae, no petechia or hemorrhage. No scleral icterus. No injection or drainage. NGT in place, nose without bleeding, or purulent drainage. Endotracheal tube is in the mouth. NECK: Trachea midline. No JVD CARDIOVASCULAR: Regular rate and rhythm without murmurs, gallops, or rubs. RESPIRATORY: Coarse breath sounds bilaterally, equal. Scattered rhonchi. Decreased breath sounds at the bases. GASTROINTESTINAL: Abdomen softer, less distended, no reaction to deep palpation. Bowel sounds are present and high pitched, hypoactive. MUSCULOSKELETAL: Extremities without clubbing, cyanosis, or edema. Both feet are cool to touch. No joint effusion, or edema noted. NEUROLOGICAL: Sedated, PSYCH: Unable to assess LINE: RIJ TLC, PIV, all with no evidence of infection : Bauer in place, urine looks clear Assessment & Plan Remarks IMPRESSION Sepsis with shock, source, likely pulmonary, HCAP - sputum C/S negative at 48 hrs - has known COPD, chronic smoker - BP better, off pressors Admission with NSTEMI, EF 50% MOSF - respiratory, renal Hx daily ETOH use Chronic smoker 1 ppd One (+) BC with Coag Neg Staph on admission likely contaminant Proteus mirabilis in the urine Ileus RECOMMENDATION Continue Levaquin Stop Zyvox Follow C/S Follow temps Monitor progress Weaning per CCM Mimi Benavides MD Aug 25, 2016 12:07
[2016-08-25] MEDS: NYSTATIN SUSP 500,000 U/5 ML CUP SWISH-SPIT SCH ×3 (15:30→20:38)
--- NOTE | 2016-08-25 16:47 | HHI.PR ---
Subjective History of Present Illness remained intubated afebrile was on CPAP became tired , back on AC Off pressors NGT to LIWS 600 cc output overnight & 380 cc so far today had a small BM today abd is less distended No other problems & step daughter are at bedside Vitals/Results Intake & Output 08/24/16 08/24/16 08/25/16 14:59 22:59 06:59 Intake Total 637 ml 633 ml 570 ml Output Total 850 ml 1000 ml 1200 ml Balance -213 ml -367 ml -630 ml IV Total 437 ml 633 ml 570 ml Tube Feeding 0 ml Other 200 ml Output Urine Total 550 ml 600 ml 600 ml Gastric Drainage Total 300 ml 400 ml 600 ml # Bowel Movements 1 Vital Signs Vital Signs Date Time Temp Pulse Resp B/P Pulse Ox O2 Delivery O2 Flow Rate FiO2 08/25/16 15:06 96 40 08/25/16 12:00 98.4 73 24 126/54 96 08/25/16 12:00 40 08/25/16 12:00 73 08/25/16 11:07 96 40 08/25/16 10:00 70 08/25/16 08:01 95 40 08/25/16 08:01 40 08/25/16 08:00 98.1 66 19 129/55 94 08/25/16 08:00 66 08/25/16 08:00 40 08/25/16 06:42 40 08/25/16 06:00 128/52 08/25/16 06:00 64 08/25/16 04:00 40 08/25/16 04:00 66 08/25/16 04:00 98.2 66 18 133/52 94 08/25/16 03:31 94 40 08/25/16 02:00 64 08/25/16 00:59 95 40 08/25/16 00:00 40 08/25/16 00:00 97.9 67 20 169/74 96 08/25/16 00:00 67 08/24/16 22:01 96 40 08/24/16 22:00 70 08/24/16 20:00 97.8 74 21 160/82 95 08/24/16 20:00 40 08/24/16 20:00 74 08/24/16 19:46 96 40 08/24/16 18:00 69 08/24/16 18:00 157/68 CBC/BMP: 08/25/16 0330 08/25/16 0330 Lab Results Laboratory Tests Test 08/25/16 03:30 White Blood Count 14.2 TH/MM3 Red Blood Count 3.71 MIL/MM3 Hemoglobin 11.7 GM/DL Hematocrit 33.1 % Mean Corpuscular Volume 89.4 FL Mean Corpuscular Hemoglobin 31.5 PG Mean Corpuscular Hemoglobin 35.2 % Concent Red Cell Distribution Width 14.0 % Platelet Count 288 TH/MM3 Mean Platelet Volume 9.5 FL Sodium Level 143 MEQ/L Potassium Level 4.1 MEQ/L Chloride Level 105 MEQ/L Carbon Dioxide Level 27.1 MEQ/L Anion Gap 11 MEQ/L Blood Urea Nitrogen 68 MG/DL Creatinine 1.59 MG/DL Estimat Glomerular Filtration 42 ML/MIN Rate Random Glucose 194 MG/DL Calcium Level 8.7 MG/DL Phosphorus Level 3.4 MG/DL Magnesium Level 3.1 MG/DL Physical Exam General General Appearance: No Acute Distress, Comfortable, Obese Appearance Remarks Intubated /sedated Eyes Eye Exam: Pupils Equal, Sclera White Ears & Nose Ears & Nose Exam: Nasal Mucosa [place] Throat Throat Exam: Oral Mucosa [place] & Moist Throat Remarks +VE ET tube. +ve OGT Neck Neck Exam: Neck Supple, Trachea Midline Pulmonary Resp Exam: Breath Sounds Equal, Crackles, Decreased Bases Cardiology CV Exam: Regular, Normal Sinus Rhythm Gastrointestinal/Abdomen GI Exam: Soft, Non-Tender, Bowel Sounds Present, Bowel Sounds Hypoactive GI Remarks abd less distended Integumentary Skin Exam: Warm, Dry Extremeties Extremities Exam: No Edema, Pedal Pulses Palpable VTE Prophylaxis VTE Prophylaxis Meds: Lovenox PUD Prophylasis PUD Prophylaxis: Protonix Assessment/Plan Assessment/Plan ASSESSMENT 1. Acute febrile illness with leukocytosis and left shift, source not clear. The patient has evidence of microscopic hematuria, questionable urinary tract infection, rule out bacteremia, question bronchitis. 2. Hyperglycemia. 3. Normochromic normocytic anemia. 4. BPH with chronic urge incontinence. 5. Hypertension. 6. Hyperlipidemia. 7. Recurrent falls, fortunately no significant injury. 8. Acute VDRF 9. ACS/ NSTEMI 10. s/p Acute pulmonary edema/flash pulmonary edema 11. HCA Pneumonia 12. Adynamic Ileus PLAN Ventilator support and weaning per newswriter IV sedation Off pressors , blood c/s neg [except stap capitis , contaminant] cont empic IV antibiotics, Levaquin zyvox d/c IV steroids , taper aerosol tx ID f/u Control blood pressure 2-D echocardiogram noted, EF is 50% Continue Aspirin cont reglan Continue PPI Subcutaneous Lovenox Discussed with family at bedside d/w LEISA Bedolla labs Dr thompson Will follow Elba De La Cruz MD Aug 25, 2016 16:47
--- NOTE | 2016-08-25 17:02 | PD.CONS ---
HPI History of Present Illness This is a 81 year old male who was admitted with weakness, dizziness and vomiting with chills. He became hypoxemic and tachycardic and had elevated troponins DT's and subsequently was intubated. He remains intubated on ventilatory support. He was stated in NG tube feedings and was noted to have a large residual and an Ileus on a KUB on 08/24/16. NG tube was placed to suction, and tube feedings were stopped. He did have a large BM yesterday and a small BM today. A repeat abdominal x-ray was done today which showed diffuse distention of the small and large bowel loops characteristic of an ileus. Secondary to no improvement in ileus, we were consulted. (Hui Trujillo) PFSH Past Medical History HTN BPH Chronic urge incontinence Glaucoma Past Surgical History Cyst removed from his back Colonoscopy about 7 to 8 years ago, results unknown (Hui Trujillo) Coded Allergies: No Known Allergies (Unverified , 05/16/15) Medications Reported Meds & Active Scripts Active Reported Zestoretic (Lisinopril-Hctz) 20-25 Mg Tab 1 Tab PO DAILY Flomax (Tamsulosin HCl) 0.4 Mg Cap 0.4 Mg PO HS Lovastatin 40 Mg Tab 40 Mg PO DAILY Latanoprost Opth Drops (Latanoprost) 0.005% Drops 1 Drop EACH EYE HS Refrigerate until opened. Family History Raised by grandparents, does not know anything about his family Social History Chronic smoker, Drinks alcohol on a daily basis, he is retired from the [employer]. (Hui Trujillo) Review of Systems ROS Unable to obtain secondary to sedated on vent (Hui Trujillo) GI Exam Vitals I&O Vital Signs Date Time Temp Pulse Resp B/P Pulse Ox O2 Delivery O2 Flow Rate FiO2 08/25/16 15:06 96 40 08/25/16 12:00 98.4 73 24 126/54 96 08/25/16 12:00 40 08/25/16 12:00 73 08/25/16 11:07 96 40 08/25/16 10:00 70 08/25/16 08:01 95 40 08/25/16 08:01 40 08/25/16 08:00 98.1 66 19 129/55 94 08/25/16 08:00 66 08/25/16 08:00 40 08/25/16 06:42 40 08/25/16 06:00 128/52 08/25/16 06:00 64 08/25/16 04:00 40 08/25/16 04:00 66 08/25/16 04:00 98.2 66 18 133/52 94 08/25/16 03:31 94 40 08/25/16 02:00 64 08/25/16 00:59 95 40 08/25/16 00:00 40 08/25/16 00:00 97.9 67 20 169/74 96 08/25/16 00:00 67 08/24/16 22:01 96 40 08/24/16 22:00 70 08/24/16 20:00 97.8 74 21 160/82 95 08/24/16 20:00 40 08/24/16 20:00 74 08/24/16 19:46 96 40 08/24/16 18:00 69 08/24/16 18:00 157/68 I/O 08/24/16 08/24/16 08/24/16 08/25/16 08/25/16 08/25/16 07:00 15:00 23:00 07:00 15:00 23:00 Intake Total 1076 ml 637 ml 633 ml 570 ml Output Total 1000 ml 850 ml 1000 ml 1200 ml Balance 76 ml -213 ml -367 ml -630 ml IV Total 601 ml 437 ml 633 ml 570 ml Tube Feeding 415 ml 0 ml Other 60 ml 200 ml Output Urine Total 500 ml 550 ml 600 ml 600 ml Gastric Drainage Total 500 ml 300 ml 400 ml 600 ml # Bowel Movements 0 1 Imaging Last Impressions Chest X-Ray 08/25/16599 Signed Impressions: Service Date/Time: Thursday, August 25, 2016 04:26 - CONCLUSION: Worsening bilateral pulmonary infiltrates. Gavin Gray Jr., MD Abdomen X-Ray 08/24/16599 Signed Impressions: Service Date/Time: Wednesday, August 24, 2016 03:22 - CONCLUSION: Normal examination. Air is in the stomach with a nasogastric tube, large amount of air throughout the small bowel which is diffusely distended but may be slightly improved Osvaldo Webb MD Myocardial Perfusion Scan Nuc Med 08/20/16 0000 Signed Impressions: Service Date/Time: Saturday, August 20, 2016 08:43 - CONCLUSION: Unremarkable myocardial perfusion examination. RISK CATEGORY: low Alexander Carter MD Head CT 08/20/16 0000 Signed Impressions: Service Date/Time: Saturday, August 20, 2016 07:58 - CONCLUSION: Unremarkable and stable CT brain for patient's age. Alexander Carter MD Renal Ultrasound 08/18/16 0000 Signed Impressions: Service Date/Time: Thursday, August 18, 2016 11:49 - CONCLUSION: 1. Echogenic kidneys which can be seen with medical renal disease. 2. Bilateral renal cysts. Ricardo Adan MD Last 48 hours Impressions Chest X-Ray 08/25/16599 Signed Impressions: Service Date/Time: Thursday, August 25, 2016 04:26 - CONCLUSION: Worsening bilateral pulmonary infiltrates. Gavin Gray Jr., MD Chest X-Ray 08/24/16599 Signed Impressions: Service Date/Time: Wednesday, August 24, 2016 03:19 - CONCLUSION: Improved airspace disease with some persistent infiltrate in the right perihilar and right lower lobe. NG tube and endotracheal tube in good position. Osvaldo Webb MD Abdomen X-Ray 08/24/16599 Signed Impressions: Service Date/Time: Wednesday, August 24, 2016 03:22 - CONCLUSION: Normal examination. Air is in the stomach with a nasogastric tube, large amount of air throughout the small bowel which is diffusely distended but may be slightly improved Osvaldo Webb MD Laboratory Test 08/25/16 03:30 White Blood Count 14.2 TH/MM3 Red Blood Count 3.71 MIL/MM3 Hemoglobin 11.7 GM/DL Hematocrit 33.1 % Mean Corpuscular Volume 89.4 FL Mean Corpuscular Hemoglobin 31.5 PG Mean Corpuscular Hemoglobin 35.2 % Concent Red Cell Distribution Width 14.0 % Platelet Count 288 TH/MM3 Mean Platelet Volume 9.5 FL Sodium Level 143 MEQ/L Potassium Level 4.1 MEQ/L Chloride Level 105 MEQ/L Carbon Dioxide Level 27.1 MEQ/L Anion Gap 11 MEQ/L Blood Urea Nitrogen 68 MG/DL Creatinine 1.59 MG/DL Estimat Glomerular Filtration 42 ML/MIN Rate Random Glucose 194 MG/DL Calcium Level 8.7 MG/DL Phosphorus Level 3.4 MG/DL Magnesium Level 3.1 MG/DL Date/Time Procedure Status Source Growth 08/21/16 14:28 Legionella Antigen - Final Complete Urine Catheterized Urine PRESUMPTIVE NEGATIVE FOR LEGIONELLA P... 08/21/16 00:45 Aerobic Blood Culture - Preliminary Resulted Blood Peripheral NO GROWTH IN 4 DAYS 08/21/16 00:45 Anaerobic Blood Culture - Preliminary Resulted Blood Peripheral NO GROWTH IN 4 DAYS Physical Examination HEENT: Pupils round and reactive to light; normocephalic; atraumatic; no jaundice. Throat is clear. NECK: Neck is supple, no JVD, no lymphadenopathy. CHEST: Chest is clear to auscultation and percussion. CARDIAC: Regular rate and rhythm with no murmur gallop or rubs. ABDOMEN: Soft, distended, ; hyperactive bowel sounds are present EXTREMITIES: No clubbing, cyanosis, or edema. SKIN: Normal; no rash; no jaundice. 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 on vent (Hui Trujillo) Assessment and Plan Assessment: (1) Ileus Plan: S/p acute hypoxic respiratory failure, acute pulmonary edema, COPD exacerbation and probable pneumonia on vent Developed an Ileus and abdominal x-ray done today showed distended small and large bowel loops , ileus pattern Was stated on Miralax, stool softeners, Senna, suppositories NG tube feeding place on hold Had large BM yesterday and small BM today, has bowel sounds present Plan Plan -Continue NG and hold tube feedings -Abdominal x-ray in am -Continue Miralax, Senna, suppositories,stool softeners -Further recommendations will follow Thank you for the consult Patient was seen and examined by Dr. Thakur and myself, this note is written on his behalf. (Hui Trujillo) Physician Comments Plan as above, will follow up with you. (Juan Jose Thakur MD) Hui Trujillo Aug 25, 2016 17:02 Juan Jose Thakur MD Aug 25, 2016 22:11
--- NOTE | 2016-08-25 18:41 | RADRPT ---
EXAM DATE/TIME: 08/25/2016 18:02 [facility] COMPARISON: CHEST SINGLE AP, August 25, 2016, 4:26. INDICATIONS : Respiratory status. MEDICAL HISTORY : Hypertension. Hypercholesterolemia. SURGICAL HISTORY : unobtainable ENCOUNTER: Initial ACUITY: 3 days PAIN SCORE: Non-responsive. LOCATION: Bilateral upper chest FINDINGS: Perihilar and basilar infiltrates are not significantly changed. No large effusion. No pneumothorax. Heart size stable, within normal limits. Endotracheal tube tip is about 5 cm above the les. There is a right IJ central venous catheter wit h tip in the superior vena cava. Nasogastric tube has its tip in the distal stomach. CONCLUSION: No significant change lines, tubes or bilateral perihilar/basilar consolidation. Moises Villagomez MD on August 25, 2016 at 18:38 Board Certified Radiologist. This report was verified electronically.
[2016-08-25] MEDS: LATANOPROST 0.005% OPHT SOLN 2.5 ML BTL EACH EYE SCH (20:37)
[2016-08-25] MEDS: ENOXAPARIN SODIUM 40 MG/0.4 ML SYRINGE SQ SCH (20:37)
[2016-08-25] MEDS: TERAZOSIN HCL 1 MG CAP PO SCH (20:38)
[2016-08-26] VITALS (16 sets, daily range): BP systolic 104–152; BP diastolic 47–72; PULSE 64–84; RESP 14–21; TEMP 97.9–99.2; O2SAT 94–99
[2016-08-26] MEDS: METOCLOPRAMIDE HCL 10 MG/2 ML VIAL IV PUSH SCH ×3 (00:31→16:33)
[2016-08-26] MEDS: RESP: ALBUTEROL 2.5 MG/IPRATROPIUM 0.5 MG NEB (SCH) NEB ×6 (03:32→23:35)
[2016-08-26 03:47] LABS: BASOPHIL # 0.1 TH/MM3 (0-0.2); BASOPHIL % 0.5 % (0.0-2.0); EOSINOPHIL % 0.1 % (0.0-4.0); HEMATOCRIT 35.7 % (39.0-51.0); LYMPHOCYTE # 0.5 TH/MM3 (1.0-4.8); MEAN CELL VOLUME 89.6 FL (80.0-100.0); MEAN CORPUSCULAR HGB CONC 33.5 % (32.0-36.0); MONO % 4.3 % (0.0-8.0); NEUT % 91.1 % (16.0-70.0); PLATELET COUNT 322 TH/MM3 (150-450); RED BLOOD COUNT 3.99 MIL/MM3 (4.50-5.90); RED CELL DISTRIBUTION WIDTH 14.3 % (11.6-17.2)
[2016-08-26 03:51] LABS: HEMO FLAGS AUTO DIFF
[2016-08-26 04:01] LABS: ALT (GPT) 123 U/L (12-78); ANION GAP 10 MEQ/L (5-15); AST (GOT) 48 U/L (15-37); BICARBONATE 27.1 MEQ/L (21.0-32.0); BLOOD UREA NITROGEN 74 MG/DL (7-18); CHLORIDE 109 MEQ/L (98-107); GLOMERULAR FILTRATION RATE 40 ML/MIN (>89); MAGNESIUM 3.1 MG/DL (1.5-2.5); POTASSIUM 4.3 MEQ/L (3.5-5.1); SODIUM (NA) 146 MEQ/L (136-145)
[2016-08-26 04:03] LABS: ALKALINE PHOSPHATASE 88 U/L (45-117); TOTAL BILIRUBIN ADULT 0.7 MG/DL (0.2-1.0)
[2016-08-26] MEDS: DEXMEDETOMIDINE INJ 1,000 MCG in SODIUM CHLOR 0.9% 250 ML INJ 240 ML IV SCH ×3 (04:23→21:36)
[2016-08-26] MEDS: hydrALAZINE HCL 20 MG/ML VIAL IV PUSH PRN (05:28)
[2016-08-26] MEDS: INSULIN ASPART SUPPLEMENTAL SCALE SQ SCH ×4 (05:32→21:00)
[2016-08-26 07:07] LABS: BANDS 5 % (0-6); NEUTROPHIL # MANUAL DIFF 11.2 TH/MM3 (1.8-7.7); POLYS (SEG NEUTROPHILS) 88 % (16-70); WBC DIFF SAMPLE 100
[2016-08-26 07:08] LABS: PLATELET MORPHOLOGY NORMAL (NORMAL); SCAN/DIFF FINAL DIFF MANUAL; SLIDE REVIEW N; TOXIC GRANULATION 1+ (NORMAL); TOXIC VACUOLATION PRESENT (NONE SEEN)
[2016-08-26] MEDS: CHLORHEXIDINE 0.12% (ORAL KIT) 15 ML CUP MT SCH ×2 (08:00→20:40)
--- NOTE | 2016-08-26 08:32 | RADRPT ---
EXAM DATE/TIME: 08/26/2016 07:17 [facility] COMPARISON: CHEST SINGLE AP, August 25, 2016, 18:02. INDICATIONS : Respiratory failure. MEDICAL HISTORY : Hypertension. Hypercholesterolemia. SURGICAL HISTORY : Unobtainable. ENCOUNTER: Subsequent ACUITY: 2 days PAIN SCORE: Non-responsive. LOCATION: Bilateral chest FINDINGS: The support devices remain in place. There is no pneumothorax. There continues to be bilateral pulmon morgan interstitial infiltrates which are about the same compared to the prior examination. No definite pleural effusions. The heart size is stable. The bony structures are stable. CONCLUSION: No significant interval change. Alexander Carter MD on August 26, 2016 at 8:30 Board Certified Radiologist. This report was verified electronically.
--- NOTE | 2016-08-26 08:46 | RADRPT ---
EXAM DATE/TIME: 08/26/2016 07:26 [facility] COMPARISON: ABDOMEN KUB ONLY, August 25, 2016, 10:43. INDICATIONS : Ileus. MEDICAL HISTORY : Hypertension. Hypercholesterolemia. SURGICAL HISTORY : None. ENCOUNTER: Subsequent ACUITY: 3 days PAIN SCORE: Non-responsive. LOCATION: Bilateral abdomen FINDINGS: Supine view of the abdomen was performed. The abdominal bowel gas pattern is essentially stable comp ared to the prior study. There continues to be moderately dilated loops of small bowel. There is some stool in the rectum. The colon does not appear to be distended. There is an NG tube in the stomach.. CONCLUSION: There has been no significant change in the bowel gas pattern compared to the prior examination. Ther e continues to be some moderately distended loops of small bowel with air. Alexander Carter MD on August 26, 2016 at 8:44 Board Certified Radiologist. This report was verified electronically.
[2016-08-26] MEDS: REMOVE OLD PATCH TD SCH (09:00)
[2016-08-26] MEDS: SODIUM CHLORIDE 0.9% FLUSH 5 ML FLUSH FLUSH SCH ×2 (09:00→20:41)
[2016-08-26] MEDS: PRAVASTATIN SOD 40 MG TAB PO SCH (09:50)
[2016-08-26] MEDS: LACTULOSE SYRUP 20 GM/30 ML CUP PO SCH ×4 (09:50→20:41)
[2016-08-26] MEDS: POLYETHYLENE GLYCOL 17 GM PKG PO SCH ×2 (09:50→20:41)
[2016-08-26] MEDS: NYSTATIN SUSP 500,000 U/5 ML CUP SWISH-SPIT SCH ×4 (09:50→20:41)
[2016-08-26] MEDS: FOLIC ACID 1 MG TAB PO SCH (09:50)
[2016-08-26] MEDS: LISINOPRIL 20 MG TAB PO SCH (09:50)
[2016-08-26] MEDS: THIAMINE HCL 100 MG TAB PO SCH (09:50)
[2016-08-26] MEDS: PANTOPRAZOLE SODIUM 40 MG VIAL IV PUSH SCH (09:51)
[2016-08-26] MEDS: NICOTINE 14 MG/24 HR PATCH TD SCH (09:51)
[2016-08-26] MEDS: DOCUSATE SODIUM 50 MG/SENNA 8.6 MG TAB PO SCH ×2 (09:51→20:41)
[2016-08-26] MEDS: methylPREDNISolone SOD SUCC 40 MG/1 ML VIAL IV PUSH SCH ×2 (09:51→20:41)
[2016-08-26] MEDS: ASPIRIN 81 MG CHEW TAB CHEW SCH (09:51)
--- NOTE | 2016-08-26 12:53 | HHI.IDPN ---
Subjective Subjective Remarks Notes reviewed D/W RN Patient has been tolerating CPAP trials Possible extubation today per RN Temps ok BP ok, not on pressors Problems with ileus - has high NGT output Sputum neg x 48 hrs BC negative Antibiotics Levaquin Past Medical History Reviewed Allergies: Coded Allergies: No Known Allergies (Unverified , 05/16/15) Objective . Vital Signs Date Time Temp Pulse Resp B/P Pulse Ox O2 Delivery O2 Flow Rate FiO2 08/26/16 12:29 99 40 08/26/16 08:06 40 08/26/16 08:02 96 40 08/26/16 08:00 64 08/26/16 08:00 40 08/26/16 08:00 99.2 74 19 120/52 94 08/26/16 06:00 106/47 08/26/16 06:00 67 08/26/16 04:00 40 08/26/16 04:00 98.7 68 18 152/62 97 08/26/16 04:00 68 08/26/16 03:33 97 40 08/26/16 02:00 70 08/26/16 00:00 70 08/26/16 00:00 40 08/26/16 00:00 98.9 70 19 146/59 96 08/25/16 23:58 96 40 08/25/16 22:00 74 08/25/16 20:00 99.2 74 19 120/52 94 08/25/16 20:00 40 08/25/16 20:00 74 08/25/16 19:28 94 40 08/25/16 18:00 67 08/25/16 18:00 109/50 08/25/16 17:20 40 08/25/16 16:00 40 08/25/16 16:00 98.1 67 18 113/53 95 08/25/16 16:00 67 08/25/16 15:06 96 40 08/25/16 14:00 70 08/25/16 08/25/16 08/26/16 14:59 22:59 06:59 Intake Total 411 ml 314 ml 394 ml Output Total 1830 ml 650 ml 950 ml Balance -1419 ml -336 ml -556 ml IV Total 351 ml 264 ml 394 ml Tube Feeding 0 ml 0 ml 0 ml Other 60 ml 50 ml 0 ml Output Urine Total 1450 ml 450 ml 900 ml Gastric Drainage Total 380 ml 200 ml 50 ml # Bowel Movements 1 1 1 . Laboratory Tests Test 08/25/16 08/26/16 03:30 03:40 White Blood Count 14.2 TH/MM3 12.0 TH/MM3 Red Blood Count 3.71 MIL/MM3 3.99 MIL/MM3 Hemoglobin 11.7 GM/DL 12.0 GM/DL Hematocrit 33.1 % 35.7 % Mean Corpuscular Volume 89.4 FL 89.6 FL Mean Corpuscular Hemoglobin 31.5 PG 30.0 PG Mean Corpuscular Hemoglobin 35.2 % 33.5 % Concent Red Cell Distribution Width 14.0 % 14.3 % Platelet Count 288 TH/MM3 322 TH/MM3 Mean Platelet Volume 9.5 FL 9.5 FL Neutrophils (%) (Auto) 91.1 % Lymphocytes (%) (Auto) 4.0 % Monocytes (%) (Auto) 4.3 % Eosinophils (%) (Auto) 0.1 % Basophils (%) (Auto) 0.5 % Neutrophils # (Auto) 11.0 TH/MM3 Lymphocytes # (Auto) 0.5 TH/MM3 Monocytes # (Auto) 0.5 TH/MM3 Eosinophils # (Auto) 0.0 TH/MM3 Basophils # (Auto) 0.1 TH/MM3 CBC Comment AUTO DIFF Differential Total Cells 100 Counted Neutrophils % (Manual) 88 % Band Neutrophils % 5 % Lymphocytes % 2 % Monocytes % 5 % Neutrophils # (Manual) 11.2 TH/MM3 Differential Comment FINAL DIFF MANUAL Toxic Granulation 1+ Toxic Vacuolation PRESENT Platelet Morphology Comment NORMAL Laboratory Tests Test 08/25/16 08/26/16 03:30 03:40 Sodium Level 143 MEQ/L 146 MEQ/L Potassium Level 4.1 MEQ/L 4.3 MEQ/L Chloride Level 105 MEQ/L 109 MEQ/L Carbon Dioxide Level 27.1 MEQ/L 27.1 MEQ/L Anion Gap 11 MEQ/L 10 MEQ/L Blood Urea Nitrogen 68 MG/DL 74 MG/DL Creatinine 1.59 MG/DL 1.66 MG/DL Estimat Glomerular Filtration 42 ML/MIN 40 ML/MIN Rate Random Glucose 194 MG/DL 172 MG/DL Calcium Level 8.7 MG/DL 8.7 MG/DL Phosphorus Level 3.4 MG/DL 4.1 MG/DL Magnesium Level 3.1 MG/DL 3.1 MG/DL Total Bilirubin 0.7 MG/DL Aspartate Amino Transf 48 U/L (AST/SGOT) Alanine Aminotransferase 123 U/L (ALT/SGPT) Alkaline Phosphatase 88 U/L Total Protein 6.2 GM/DL Albumin 2.0 GM/DL Imaging Chest X-Ray 08/24/16599 Signed Impressions: Service Date/Time: Wednesday, August 24, 2016 03:19 - CONCLUSION: Improved airspace disease with some persistent infiltrate in the right perihilar and right lower lobe. NG tube and endotracheal tube in good position. Osvaldo Webb MD Abdomen X-Ray 08/24/16599 Signed Impressions: Service Date/Time: Wednesday, August 24, 2016 03:22 - CONCLUSION: Normal examination. Air is in the stomach with a nasogastric tube, large amount of air throughout the small bowel which is diffusely distended but may be slightly improved Osvaldo Webb MD Chest X-Ray 08/23/16599 Signed Impressions: Service Date/Time: Tuesday, August 23, 2016 03:53 - CONCLUSION: 1. Diffuse bilateral airspace disease worsening in the right perihilar region. 2. Support lines and tubes are unchanged. Ricardo Adan MD Abdomen X-Ray 08/23/16 Signed Impressions: Service Date/Time: Tuesday, August 23, 2016 16:24 - CONCLUSION: Dilated bowel in a radiographic pattern suggesting an ileus. Gavin Gray Jr., MD Myocardial Perfusion Scan Nuc Med 08/20/16 Signed Impressions: Service Date/Time: Saturday, August 20, 2016 08:43 - CONCLUSION: Unremarkable myocardial perfusion examination. RISK CATEGORY: low Alexander Carter MD Head CT 08/20/16 0000 Signed Impressions: Service Date/Time: Saturday, August 20, 2016 07:58 - CONCLUSION: Unremarkable and stable CT brain for patient's age. Alexander Carter MD Renal Ultrasound 08/18/16 0000 Signed Impressions: Service Date/Time: Thursday, August 18, 2016 11:49 - CONCLUSION: 1. Echogenic kidneys which can be seen with medical renal disease. 2. Bilateral renal cysts. Ricardo Adan MD Physical Exam GENERAL: Comfortable on CPAP SKIN: Cool and dry. No generalized rash or ecchymosis. HEENT: [place] conjunctivae, no petechia or hemorrhage. No scleral icterus. NGT in place, nose without bleeding, or purulent drainage. Endotracheal tube is in the mouth. NECK: Trachea midline. No JVD CARDIOVASCULAR: Regular rate and rhythm without murmurs, gallops, or rubs. RESPIRATORY: Coarse breath sounds bilaterally, equal. Scattered rhonchi. Decreased breath sounds at the bases. GASTROINTESTINAL: Abdomen softer, less distended, no reaction to deep palpation. Bowel sounds are present and high pitched, hypoactive. MUSCULOSKELETAL: Extremities without clubbing, cyanosis, or edema. Both feet are cool to touch. No joint effusion, or edema noted. NEUROLOGICAL: Sedated, PSYCH: Unable to assess LINE: RIJ TLC, PIV, all with no evidence of infection : Bauer in place, urine looks clear Assessment & Plan Remarks IMPRESSION Sepsis with shock, source, likely pulmonary, HCAP - sputum C/S negative at 48 hrs - has known COPD, chronic smoker - BP better, off pressors Admission with NSTEMI, EF 50% MOSF - respiratory, renal Hx daily ETOH use Chronic smoker 1 ppd One (+) BC with Coag Neg Staph on admission likely contaminant Proteus mirabilis in the urine Ileus RECOMMENDATION Continue Levaquin Follow temps Monitor progress Weaning per CCM - possible extubation today D/W Mimi Shaw MD Aug 26, 2016 12:53
--- NOTE | 2016-08-26 13:42 | HHI.PR ---
Subjective Subjective Remarks intubated on CPAP, tolerating well Precedex gtt poss. extubation today abd. slightly distended, NGT to LIS with green drainage -gastric output 630 ml no fever RAJENDRA's daughter at [facility], has no questions Review of Systems Constitutional Constitutional Remarks 12 point ROS unable to do Vitals/Results Intake & Output 08/25/16 08/25/16 08/26/16 14:59 22:59 06:59 Intake Total 411 ml 314 ml 394 ml Output Total 1830 ml 650 ml 950 ml Balance -1419 ml -336 ml -556 ml IV Total 351 ml 264 ml 394 ml Tube Feeding 0 ml 0 ml 0 ml Other 60 ml 50 ml 0 ml Output Urine Total 1450 ml 450 ml 900 ml Gastric Drainage Total 380 ml 200 ml 50 ml # Bowel Movements 1 1 1 Vital Signs Vital Signs Date Time Temp Pulse Resp B/P Pulse Ox O2 Delivery O2 Flow Rate FiO2 08/26/16 12:29 99 40 08/26/16 12:00 68 08/26/16 12:00 40 08/26/16 12:00 40 08/26/16 12:00 98.3 64 18 127/58 96 08/26/16 10:00 72 08/26/16 08:15 40 08/26/16 08:06 40 08/26/16 08:02 96 40 08/26/16 08:00 64 08/26/16 08:00 40 08/26/16 08:00 99.2 74 19 120/52 94 08/26/16 06:00 106/47 08/26/16 06:00 67 08/26/16 04:00 40 08/26/16 04:00 98.7 68 18 152/62 97 08/26/16 04:00 68 08/26/16 03:33 97 40 08/26/16 02:00 70 08/26/16 00:00 70 08/26/16 00:00 40 08/26/16 00:00 98.9 70 19 146/59 96 08/25/16 23:58 96 40 08/25/16 22:00 74 08/25/16 20:00 99.2 74 19 120/52 94 08/25/16 20:00 40 08/25/16 20:00 74 08/25/16 19:28 94 40 08/25/16 18:00 67 08/25/16 18:00 109/50 08/25/16 17:20 40 08/25/16 16:00 40 08/25/16 16:00 98.1 67 18 113/53 95 08/25/16 16:00 67 08/25/16 15:06 96 40 08/25/16 14:00 70 CBC/BMP: 08/26/16 0340 08/26/16 0340 Lab Results Laboratory Tests Test 08/26/16 03:40 White Blood Count 12.0 TH/MM3 Red Blood Count 3.99 MIL/MM3 Hemoglobin 12.0 GM/DL Hematocrit 35.7 % Mean Corpuscular Volume 89.6 FL Mean Corpuscular Hemoglobin 30.0 PG Mean Corpuscular Hemoglobin 33.5 % Concent Red Cell Distribution Width 14.3 % Platelet Count 322 TH/MM3 Mean Platelet Volume 9.5 FL Neutrophils (%) (Auto) 91.1 % Lymphocytes (%) (Auto) 4.0 % Monocytes (%) (Auto) 4.3 % Eosinophils (%) (Auto) 0.1 % Basophils (%) (Auto) 0.5 % Neutrophils # (Auto) 11.0 TH/MM3 Lymphocytes # (Auto) 0.5 TH/MM3 Monocytes # (Auto) 0.5 TH/MM3 Eosinophils # (Auto) 0.0 TH/MM3 Basophils # (Auto) 0.1 TH/MM3 CBC Comment AUTO DIFF Differential Total Cells 100 Counted Neutrophils % (Manual) 88 % Band Neutrophils % 5 % Lymphocytes % 2 % Monocytes % 5 % Neutrophils # (Manual) 11.2 TH/MM3 Differential Comment FINAL DIFF MANUAL Toxic Granulation 1+ Toxic Vacuolation PRESENT Platelet Morphology Comment NORMAL Sodium Level 146 MEQ/L Potassium Level 4.3 MEQ/L Chloride Level 109 MEQ/L Carbon Dioxide Level 27.1 MEQ/L Anion Gap 10 MEQ/L Blood Urea Nitrogen 74 MG/DL Creatinine 1.66 MG/DL Estimat Glomerular Filtration 40 ML/MIN Rate Random Glucose 172 MG/DL Calcium Level 8.7 MG/DL Phosphorus Level 4.1 MG/DL Magnesium Level 3.1 MG/DL Total Bilirubin 0.7 MG/DL Aspartate Amino Transf 48 U/L (AST/SGOT) Alanine Aminotransferase 123 U/L (ALT/SGPT) Alkaline Phosphatase 88 U/L Total Protein 6.2 GM/DL Albumin 2.0 GM/DL Physical Exam General General Appearance: No Acute Distress, Comfortable, Obese Eyes Eye Exam: Pupils Equal, Sclera White Ears & Nose Ears & Nose Exam: Nasal Mucosa Beckemeyer Throat Throat Exam: Oral Mucosa Beck[place]eyer & Moist Neck Neck Exam: Neck Supple, Trachea Midline Pulmonary Resp Exam: Breath Sounds Equal, Crackles, Decreased Bases Cardiology CV Exam: Regular, Normal Sinus Rhythm Gastrointestinal/Abdomen GI Exam: Soft, Non-Tender, Bowel Sounds Present, Distended, Bowel Sounds Hypoactive GI Remarks NGT to LIS Genitourinary Exam: Clear Urine Remarks SHIELDS Musculoskeletal MS Exam: Joints Intact Integumentary Skin Exam: Warm, Dry Extremeties Extremities Exam: No Edema, Pedal Pulses Palpable Neurologic Neuro Exam: Sedated VTE Prophylaxis VTE Prophylaxis Meds: Lovenox PUD Prophylasis PUD Prophylaxis: Protonix Assessment/Plan Assessment/Plan ASSESSMENT 1. Acute febrile illness with leukocytosis and left shift, source not clear. The patient has evidence of microscopic hematuria, questionable urinary tract infection, rule out bacteremia, question bronchitis. 2. Hyperglycemia. 3. Normochromic normocytic anemia. 4. BPH with chronic urge incontinence. 5. Hypertension. 6. Hyperlipidemia. 7. Recurrent falls, fortunately no significant injury. 8. Acute VDRF 9. ACS/ NSTEMI -evaluated per card. Had STT, negative 10. s/p Acute pulmonary edema/flash pulmonary edema 11. HCA Pneumonia 12. Adynamic Ileus PLAN CCM following Ventilator support and weaning per field coil winder IV sedation- Precedex Tolerating CPAP trial well, poss. extubation today Off vasopressors blood c/s neg [except stap capitis , contaminant] cont empic IV antibiotics, Levaquin Appreciate ID input IV steroids , taper aerosol tx Control blood pressure S/P NSTEMI, card. evaluated. STT done negative. 2-D echocardiogram noted, EF is 50% Continue Aspirin cont reglan Continue PPI Subcutaneous Lovenox Persistent ileus, abd. xray today, results reviewed Appreciate GI input NGT to LIS-output decreasing some, 630 cc Bowel regimen -had BMs condition guarded D/W RN D/W pt's POA daughter, has no questions D/W Dr. Shelton This patient was seen by myself and Dr. Shelton, this note is written on his behalf. Kandi Summers Aug 26, 2016 13:42
--- NOTE | 2016-08-26 15:36 | HHI.CCPN ---
Subjective Remarks/Hospital Course 81-year-old man who admitted to [facility] [place] with complains of feeling weak and dizzy , also some chills with it. He had one episode of vomiting earlier today and another episode in the ED. While on a medical floor, he became hypoxemic and tachycardic. Due to hypoxemia at 80s he is transfered to ICU. Patient is alert and oriented and he doesn't want to be intubated in case his condition declines. 08/20 Afebrile. 24 hours patient was noted to have elevated troponins, etiology consulted patient was initiated on aspirin and beta blockers. Cardiology was consulted. Plan for nuclear medicine myocardial perfusion scan, initially scheduled for 08/19 will be done today secondary to NPO status of patient. The patient continues on a Cardizem infusion, metoprolol dosage was increased. Early this a.m., the patient climbed out of the bed and fell, noted laceration posterior right ear. Of note, the patient consumes 2-3 drinks of whiskey per night, came very anxious last night, reported by . The patient was alert and oriented with GCS of 15. Full range of motion denies pain in extremities 4. Stat CT of the head, results pending. 08/21 Tmax 101.8. Yesterday afternoon post nuclear medicine perfusion scan, the patient became acutely hypoxic O2 sat in the 70s, the patient was emergently intubated. Max pulmonary edema was noted, with copious pink frothy sputum via ETT . FiO2 requirements were increased, unable to wean below 70% yesterday afternoon .Sputum culture and urine cultures were obtained, broad- spectrum antibiotics were initiated Vancomycin and Levaquin. The patient currently is on Rocephin for UTI. Flowtrac was instituted, cardiac output and cardiac index were within normal limits. During the night the patient's O2 requirements were increased, the patient required 15 cm of PEEP and initially 100% FiO2. The patient was received 2 mg of Bumex without any diuresis noted. The patient became hypotensive during the night requiring Charbel-Synephrine and Norepinephrine infusions. This morning a central line was placed, steroids were initiated, Solu-Medrol 125 mg IV push, and repeat blood cultures were obtained. 08/22 Tmax 97.8. Patient improvement, weaned off all vasopressors. Oxygen requirements decreased, FiO2 now 40%, PEEP 5. GCS 11 T during sedation holiday. Plan for CPAP trials today. 08/23: Passed weaning parameters today. However, several on propofol at 20 mcg /kg per minute for comfort. Switching to Precedex drip at present. Tolerating tube feeding. 08/24: Not tolerating NG tube feeds, noted residual 500 cc last night. Ileus noted on KUB yesterday. NG tube placed to suction, large amount of care noted. Repeat KUB slightly improved. Prokinetic agents instituted over the last 24 hours 08/25: Increase in intra-abdominal pressure, bladder pressures yesterday afternoon up to 22. Mag citrate added to bowel regimen, Lopid large voluminous bowel movement. OGT to continuous suction 500 cc output overnight. The patient was placed on CPAP trials yesterday from 4 PM2 AM. Abdomen currently soft bladder pressure 14 at 6 AM. Plan for continued CPAP trials today, insertion of NG tube to continued low continuous suction, follow-up KUB. 08/26: Tmax 99.2. The patient was maintained on CPAP trials over 8 hours yesterday without difficulty. GI was consulted yesterday . Patient is NG tube output were night significantly diminished. 250 cc bilious gastric output over 14 hours in total. The patient had 3 bowel movements last night. KUB remains unchanged today with continued small and large bowel distention-ileus. Bladder pressures the last 24 hours remain low averaging 34. Objective Vital Signs Date Time Temp Pulse Resp B/P Pulse Ox O2 Delivery O2 Flow Rate FiO2 08/26/16 12:29 99 40 08/26/16 12:00 68 08/26/16 12:00 98.3 18 127/58 Intake and Output 08/25/16 08/25/16 08/26/16 08:00 16:00 00:00 Intake Total 570 ml 411 ml 314 ml Output Total 1200 ml 1830 ml 650 ml Balance -630 ml -1419 ml -336 ml Result Diagram: 08/26/16 0340 08/26/16 0340 Imaging Last Impressions Abdomen X-Ray 08/26/16 0800 Signed Impressions: Service Date/Time: Friday, August 26, 2016 07:26 - CONCLUSION: There has been no significant change in the bowel gas pattern compared to the prior examination. There continues to be some moderately distended loops of small bowel with air. Alexander Carter MD Chest X-Ray 08/26/16 0000 Signed Impressions: Service Date/Time: Friday, August 26, 2016 07:17 - CONCLUSION: No significant interval change. Alexander Carter MD Myocardial Perfusion Scan Nuc Med 08/20/16 0000 Signed Impressions: Service Date/Time: Saturday, August 20, 2016 08:43 - CONCLUSION: Unremarkable myocardial perfusion examination. RISK CATEGORY: low Alexander Carter MD Head CT 08/20/16 0000 Signed Impressions: Service Date/Time: Saturday, August 20, 2016 07:58 - CONCLUSION: Unremarkable and stable CT brain for patient's age. Alexander Carter MD Renal Ultrasound 08/18/16 0000 Signed Impressions: Service Date/Time: Thursday, August 18, 2016 11:49 - CONCLUSION: 1. Echogenic kidneys which can be seen with medical renal disease. 2. Bilateral renal cysts. Ricardo Adan MD Last Impressions Chest X-Ray 08/24/16 0600 Signed Impressions: Service Date/Time: Wednesday, August 24, 2016 03:19 - CONCLUSION: Improved airspace disease with some persistent infiltrate in the right perihilar and right lower lobe. NG tube and endotracheal tube in good position. Osvaldo Webb MD Abdomen X-Ray 08/24/16 0600 Signed Impressions: Service Date/Time: Wednesday, August 24, 2016 03:22 - CONCLUSION: Normal examination. Air is in the stomach with a nasogastric tube, large amount of air throughout the small bowel which is diffusely distended but may be slightly improved Osvaldo Webb MD Myocardial Perfusion Scan Nuc Med 08/20/16 0000 Signed Impressions: Service Date/Time: Saturday, August 20, 2016 08:43 - CONCLUSION: Unremarkable myocardial perfusion examination. RISK CATEGORY: low Alexander Carter MD Head CT 08/20/16 0000 Signed Impressions: Service Date/Time: Saturday, August 20, 2016 07:58 - CONCLUSION: Unremarkable and stable CT brain for patient's age. Alexander Carter MD Renal Ultrasound 08/18/16 0000 Signed Impressions: Service Date/Time: Thursday, August 18, 2016 11:49 - CONCLUSION: 1. Echogenic kidneys which can be seen with medical renal disease. 2. Bilateral renal cysts. Ricardo Adan MD Last Impressions Chest X-Ray 08/23/16 0600 Signed Impressions: Service Date/Time: Tuesday, August 23, 2016 03:53 - CONCLUSION: 1. Diffuse bilateral airspace disease worsening in the right perihilar region. 2. Support lines and tubes are unchanged. Ricardo Adan MD Myocardial Perfusion Scan Nuc Med 08/20/16 0000 Signed Impressions: Service Date/Time: Saturday, August 20, 2016 08:43 - CONCLUSION: Unremarkable myocardial perfusion examination. RISK CATEGORY: low Alexander Carter MD Head CT 08/20/16 0000 Signed Impressions: Service Date/Time: Saturday, August 20, 2016 07:58 - CONCLUSION: Unremarkable and stable CT brain for patient's age. Alexander Carter MD Renal Ultrasound 08/18/16 0000 Signed Impressions: Service Date/Time: Thursday, August 18, 2016 11:49 - CONCLUSION: 1. Echogenic kidneys which can be seen with medical renal disease. 2. Bilateral renal cysts. Ricardo Adan MD Objective Remarks GENERAL: 81-year-old male, critically ill currently orotracheally intubated and sedated on Precedex, RASS -1 SKIN: Warm and dry, noted abrasion posterior right ear, and small abrasion right knee HEAD: Normocephalic. EYES: No scleral icterus. No injection or drainage. Pupils around 2 mm bilaterally and reactive NECK: Supple, trachea midline. No JVD or lymphadenopathy. Orotracheally intubated CARDIOVASCULAR: Regular rate and rhythm S1, S2. No S4. Currently without murmurs, clicks, gallops or rubs. RESPIRATORY: Breath sounds equal bilaterally, diminished bilateral bases, no wheezing noted. Mechanically ventilated GASTROINTESTINAL: Abdomen soft, obese non-tender, nondistended. Intra- abdominal pressure 4. OGT in situ, low continuous suction, bilious secretions MUSCULOSKELETAL: Trace bilateral lower extremity nonpitting edema. Movement of extremities 4 on commands BACK: Nontender without obvious deformity. No CVA tenderness. Urinary Catheter: Yes Bauer insert reason: Measure Accurate Output Date of Insertion: Aug 19, 2016 Vascular Central Line Catheter: Yes Date of Insertion: Aug 21, 2016 Line: Central Venous Catheter Side: Right Location: Internal, Jugular A/P Problem List: (1) BPH with urinary obstruction ICD Code: N40.1 Status: Acute (2) COPD (chronic obstructive pulmonary disease) ICD Code: J44.9 Status: Acute (3) Pulmonary edema ICD Code: J81.1 Status: Acute (4) Respiratory failure ICD Code: J96.90 Status: Acute Assessment and Plan Neurologic: Glaucoma Alcohol use S/P Fall-confusion (08/20) -GCS 11T, Precedex infusion, RASS -1 maintained -Continued on Latanoprost 0.005% 1 drop each eye at night for glaucoma -Fall OOB 08/20, CT of the head-unremarkable stable CT of the brain -Monitor for alcohol withdrawal -Thiamine 100 mg, folate 1 mg q/day Respiratory: Acute hypoxic respiratory failure Acute Pulmonary edema COPD exacerbation Chronic smoker Probable multilobar Pneumonia -SBT 08/23 + Cuff leak on spontaneously intra-. NIF -24. Tidal volume 1000 . RSBI 54, -Intubated 08/20-ETT 8.0, patient remains intubated secondary to ileus and risk of aspiration -Mechanical vent settings-FiO2 40%/550/5/rate of 18 -CPAP trial -Maintain O2 sat greater than 92% -Scheduled Duonebs every 4 hours, add every 2 PRN -Initially Methylprednisone taper 30mg BID -Counseled on smoking [id number] (smokes 2 PPD x 65 years), family reported accurate smoking history -Nicotine patch day 02/27 discontinued Cardiovascular: NSTEMI H/O Hypertension Tachycardia-resolved Dyslipidemia Cardiogenic Shock -Charbel-Synephrine off since 7 AM 08/23 -Troponin (08/19)5.17->4.91->4.23 -Continue ASA 81 mg/day,Resumed Lisinopril/HCTZ , HR 60's , SBP 140's-150's -Resume metoprolol - Patient continues on pravastatin (home med) -Patient's home medications clonidine -ECHO 08/19- EF 50% , no RWMA -BNP- 156->91 (08/21) -08/20 nuclear medicine myocardial perfusion scan-intact wall motion and thickening without hypokinetic or dyskinetic segments -Cardiology on board, Dr. Cason, follow recommendations including possible cardiac catheterization in the future once stable Renal: Renal insufficiency BPH -Creatinine 1.6 continue to monitor, adequate urine output -Maintain Bauer - Home meds Flomax. Patient placed on Hytrin 08/25 secondary to NG tube administration -- Strict I/Os -monitor urinary output hourly FEN/GI: Hypokalemia-resolved Ileus Constipation Increase intra-abdominal pressure -Electrolyte replacement per ICU protocol -Measure bladder pressures q 2hrs-4 -BM x 3 -Surgery consult-Dr Elizabeth 09/25 increased intra-abdominal pressure-resolved - Tube feeds-Jevity 1.5, goal of 60 cc/hr on hold -NG tube to low continuous suction-output from 14 hours 250 cc -Reglan TID -Zofran for nausea -Protonix GI prophylaxis -Bowel regimen including Sonia-Colace twice a day, MiraLAX and lactulose QID Heme/ID: Leukocytosis Probable multilobar pneumonia Septic shock UTI - 08/18 urine culture-Proteus mirabilis -08/18 blood culture- Staph Capitis () -08/20 blood culture-NGTD -08/20 urine Legionella, Pneumococcal-negative -Methylprednisolone 40 mg BID -Monitor CBC, WBC improving 12 -Lactate 1.5 (08/22) -ID consulted, Dr Benavides - follow-up recommendations Endocrine: Blood glucose monitoring every 4 hours per ICU protocol -- SSI Prophylaxis: GI Prophylaxis Protonix DVT Prophylaxis -- SCDs Lovenox Lines: Peripheral IVs. Central line RIJ 08/21, R radial Quinlan 08/21 Discussed with RAJENDRA, provided an update on patient's status. Critical Care: This patient remains critically ill with one or more organ systems which are or may become a threat to life. I have spent in excess of 33 minutes discontinuously in the care and management of this patient. This time is exclusive of procedures, and includes, but is not limited to, evaluation of the patient, review of the medical record, discussions with family, consultants, nursing staff, or respiratory therapy, and documentation in the medical record. . Physician Gavi Chew MD Aug 26, 2016 15:36
[2016-08-26] MEDS: LEVOFLOXACIN 750 MG PREMIX INJ 150 ML IV SCH (16:33)
--- NOTE | 2016-08-26 17:31 | HHI.GIFU ---
Subjective Remarks Resting in bed. Sedated on vent. Started on Lactulose today. + BM. (Alivia Ross) Objective Vitals I&O Vital Signs Date Time Temp Pulse Resp B/P Pulse Ox O2 Delivery O2 Flow Rate FiO2 08/26/16 16:55 98 40 08/26/16 16:00 97.9 68 14 133/59 96 08/26/16 16:00 69 08/26/16 16:00 40 08/26/16 14:00 69 08/26/16 12:29 99 40 08/26/16 12:00 68 08/26/16 12:00 40 08/26/16 12:00 40 08/26/16 12:00 98.3 64 18 127/58 96 08/26/16 10:00 72 08/26/16 08:15 40 08/26/16 08:06 40 08/26/16 08:02 96 40 08/26/16 08:00 64 08/26/16 08:00 40 08/26/16 08:00 99.2 74 19 120/52 94 08/26/16 06:00 106/47 08/26/16 06:00 67 08/26/16 04:00 40 08/26/16 04:00 98.7 68 18 152/62 97 08/26/16 04:00 68 08/26/16 03:33 97 40 08/26/16 02:00 70 08/26/16 00:00 70 08/26/16 00:00 40 08/26/16 00:00 98.9 70 19 146/59 96 08/25/16 23:58 96 40 08/25/16 22:00 74 08/25/16 20:00 99.2 74 19 120/52 94 08/25/16 20:00 40 08/25/16 20:00 74 08/25/16 19:28 94 40 08/25/16 18:00 67 08/25/16 18:00 109/50 08/25/16 17:20 40 I/O 08/25/16 08/25/16 08/25/16 08/26/16 08/26/16 08/26/16 07:00 15:00 23:00 07:00 15:00 23:00 Intake Total 570 ml 411 ml 314 ml 394 ml 764 ml Output Total 1200 ml 1830 ml 650 ml 950 ml 1260 ml Balance -630 ml -1419 ml -336 ml -556 ml -496 ml IV Total 570 ml 351 ml 264 ml 394 ml 764 ml Tube Feeding 0 ml 0 ml 0 ml Other 60 ml 50 ml 0 ml Output Urine Total 600 ml 1450 ml 450 ml 900 ml 1200 ml Gastric Drainage Total 600 ml 380 ml 200 ml 50 ml 60 ml # Bowel Movements 1 1 1 0 Laboratory Laboratory Tests Test 08/26/16 03:40 White Blood Count 12.0 Red Blood Count 3.99 Hemoglobin 12.0 Hematocrit 35.7 Mean Corpuscular Volume 89.6 Mean Corpuscular Hemoglobin 30.0 Mean Corpuscular Hemoglobin 33.5 Concent Red Cell Distribution Width 14.3 Platelet Count 322 Mean Platelet Volume 9.5 Neutrophils (%) (Auto) 91.1 Lymphocytes (%) (Auto) 4.0 Monocytes (%) (Auto) 4.3 Eosinophils (%) (Auto) 0.1 Basophils (%) (Auto) 0.5 Neutrophils # (Auto) 11.0 Lymphocytes # (Auto) 0.5 Monocytes # (Auto) 0.5 Eosinophils # (Auto) 0.0 Basophils # (Auto) 0.1 CBC Comment AUTO DIFF Differential Total Cells 100 Counted Neutrophils % (Manual) 88 Band Neutrophils % 5 Lymphocytes % 2 Monocytes % 5 Neutrophils # (Manual) 11.2 Differential Comment FINAL DIFF MANUAL Toxic Granulation 1+ Toxic Vacuolation PRESENT Platelet Morphology Comment NORMAL Sodium Level 146 Potassium Level 4.3 Chloride Level 109 Carbon Dioxide Level 27.1 Anion Gap 10 Blood Urea Nitrogen 74 Creatinine 1.66 Estimat Glomerular Filtration 40 Rate Random Glucose 172 Calcium Level 8.7 Phosphorus Level 4.1 Magnesium Level 3.1 Total Bilirubin 0.7 Aspartate Amino Transf 48 (AST/SGOT) Alanine Aminotransferase 123 (ALT/SGPT) Alkaline Phosphatase 88 Total Protein 6.2 Albumin 2.0 Imaging Last Impressions Abdomen X-Ray 08/26/16 0800 Signed Impressions: Service Date/Time: Friday, August 26, 2016 07:26 - CONCLUSION: There has been no significant change in the bowel gas pattern compared to the prior examination. There continues to be some moderately distended loops of small bowel with air. Alexander Carter MD Chest X-Ray 08/26/16 0000 Signed Impressions: Service Date/Time: Friday, August 26, 2016 07:17 - CONCLUSION: No significant interval change. Alexander Carter MD Myocardial Perfusion Scan Nuc Med 08/20/16 0000 Signed Impressions: Service Date/Time: Saturday, August 20, 2016 08:43 - CONCLUSION: Unremarkable myocardial perfusion examination. RISK CATEGORY: low Alexander Carter MD Head CT 08/20/16 0000 Signed Impressions: Service Date/Time: Saturday, August 20, 2016 07:58 - CONCLUSION: Unremarkable and stable CT brain for patient's age. Alexander Carter MD Renal Ultrasound 08/18/16 0000 Signed Impressions: Service Date/Time: Thursday, August 18, 2016 11:49 - CONCLUSION: 1. Echogenic kidneys which can be seen with medical renal disease. 2. Bilateral renal cysts. Ricardo Adan MD Physical Exam HEENT: Normocephalic; atraumatic; no jaundice. CHEST: OETT to vent. Course breath sounds CARDIAC: RRR ABDOMEN: Semifirm, distended, no hepatosplenomegaly; bowel sounds are present in all four quadrants. NGT to LIWS with brownish colored gastric secretions EXTREMITIES: Generalized edema. [employer]ER: Sedated on vent. (Alivia Ross) Assessment and Plan Plan ASSESSMENT: - Ileus, small bowel. Abdomen X-Ray (08/26/16)------> There has been no significant change in the bowel gas pattern compared to the prior examination. There continues to be some moderately distended loops of small bowel with air. He is not on chronic narcotics. Pt is on Miralax, Reglan, and was started on Lactulose QID today. He has had 3 BMs today. Has NGT to LIWS- still with high output. - Acute hypoxic respiratory failure, pulmonary edema, COPD, and probable pneumonia. Vent per [facility]. - Leukocytosis, Fever. WBC 12.0 - Anemia. 12.0/35.7. - ACS/NSTEMI, S/P cardiology evaluation. - HTN, Hyperlipidemia, per primary PLAN: - NPO - NGT to LIWS - Lactulose started today - Cont. Reglan - Cont. Miralax - Will recheck KUB in am, if no improvement, SSE - Supportive care - Further recommendations to follow based on results of above - Pt seen and examined by Dr. Benavides and myself and this note is written on his behalf (Alivia Ross) Physician Comments Patient was seen and examined, agree with above note. we will check labs, continue supportive care. KUB in am (Maximo Benavides MD) Alivia Ross Aug 26, 2016 17:31 Maximo Benavides MD Aug 26, 2016 22:00
[2016-08-26] MEDS: ENOXAPARIN SODIUM 40 MG/0.4 ML SYRINGE SQ SCH (20:40)
[2016-08-26] MEDS: LATANOPROST 0.005% OPHT SOLN 2.5 ML BTL EACH EYE SCH (20:40)
[2016-08-26] MEDS: TERAZOSIN HCL 1 MG CAP PO SCH (20:41)
[2016-08-26 22:16] LABS: BLOOD GAS CARBOXYHEMOGLOBIN 0.8 % (0-4); BLOOD GAS HCO3 25 mmol/L (22-26); BLOOD GAS METHEMOGLOBIN 0.8 % (0-2); BLOOD GAS O2 HGB SATURATION 96 % (90-100); BLOOD GAS OXYGEN CONTENT 16.6 Vol % (12.0-20.0); BLOOD GAS PCO2 34 mmHg (38-42); BLOOD GAS PO2 111 mmHg (61-120); BLOOD GAS TOTAL HGB 12.1 G/DL (12.0-16.0); CRITICAL VALUE NO; DRAW SITE ART LINE; FIO2 40 %; OXYGEN DEVICE VENTILATOR; STAT NO; TEMP CORR TO 98.6; VENT SETTINGS PRVC/AC
[2016-08-26] MEDS: LORazepam 2 MG/ML VIAL IV PRN (23:10)
[2016-08-27] VITALS (18 sets, daily range): BP systolic 85–139; BP diastolic 56–83; PULSE 68–82; RESP 18–19; TEMP 97–98.7; O2SAT 96–100
--- NOTE | 2016-08-27 01:43 | RADRPT ---
EXAM DATE/TIME: 08/27/2016 01:10 [place] COMPARISON: ABDOMEN KUB ONLY, August 26, 2016, 7:26. INDICATIONS : Ileus MEDICAL HISTORY : Hypertension. Abdomianl distention SURGICAL HISTORY : Unknown ENCOUNTER: Subsequent ACUITY: 4 - 6 days PAIN SCORE: Non-responsive. LOCATION: Bilateral Abdomen FINDINGS: Supine view of the abdomen was performed. Gas dilated loops of small bowel are unchanged in the prior study. Nasogastric tube is seen within the stomach. Stomach is gas filled but not grossly dilated. N o abnormal masses, calcifications, or organomegaly is seen. The osseous structures are unremarkable. CONCLUSION: No change. Persistent gaseous distention of the small bowel. Gavin Gray Jr., MD on August 27, 2016 at 1:40 Board Certified Radiologist. This report was verified electronically.
[2016-08-27] MEDS: METOCLOPRAMIDE HCL 10 MG/2 ML VIAL IV PUSH SCH ×3 (01:54→18:36)
[2016-08-27] MEDS: RESP: ALBUTEROL 2.5 MG/IPRATROPIUM 0.5 MG NEB (SCH) NEB ×4 (03:27→15:29)
[2016-08-27] MEDS: INSULIN ASPART SUPPLEMENTAL SCALE SQ SCH ×4 (07:00→20:57)
[2016-08-27] MEDS: DEXMEDETOMIDINE INJ 1,000 MCG in SODIUM CHLOR 0.9% 250 ML INJ 240 ML IV SCH ×2 (07:53→18:39)
[2016-08-27] MEDS ORDERED: MAGNESIUM CITRATE SOLN 300 ML BTL PO ONE (08:30)
--- NOTE | 2016-08-27 08:33 | HHI.CCPN ---
Subjective Remarks/Hospital Course 81-year-old man who admitted to [facility] with complains of feeling weak and dizzy , also some chills with it. He had one episode of vomiting earlier today and another episode in the ED. While on a medical floor, he became hypoxemic and tachycardic. Due to hypoxemia at 80s he is transfered to ICU. Patient is alert and oriented and he doesn't want to be intubated in case his condition declines. 08/20 Afebrile. 24 hours patient was noted to have elevated troponins, etiology consulted patient was initiated on aspirin and beta blockers. Cardiology was consulted. Plan for nuclear medicine myocardial perfusion scan, initially scheduled for 08/19 will be done today secondary to NPO status of patient. The patient continues on a Cardizem infusion, metoprolol dosage was increased. Early this a.m., the patient climbed out of the bed and fell, noted laceration posterior right ear. Of note, the patient consumes 2-3 drinks of whiskey per night, came very anxious last night, reported by . The patient was alert and oriented with GCS of 15. Full range of motion denies pain in extremities 4. Stat CT of the head, results pending. 08/21 Tmax 101.8. Yesterday afternoon post nuclear medicine perfusion scan, the patient became acutely hypoxic O2 sat in the 70s, the patient was emergently intubated. Max pulmonary edema was noted, with copious pink frothy sputum via ETT . FiO2 requirements were increased, unable to wean below 70% yesterday afternoon .Sputum culture and urine cultures were obtained, broad- spectrum antibiotics were initiated Vancomycin and Levaquin. The patient currently is on Rocephin for UTI. Flowtrac was instituted, cardiac output and cardiac index were within normal limits. During the night the patient's O2 requirements were increased, the patient required 15 cm of PEEP and initially 100% FiO2. The patient was received 2 mg of Bumex without any diuresis noted. The patient became hypotensive during the night requiring Charbel-Synephrine and Norepinephrine infusions. This morning a central line was placed, steroids were initiated, Solu-Medrol 125 mg IV push, and repeat blood cultures were obtained. 08/22 Tmax 97.8. Patient improvement, weaned off all vasopressors. Oxygen requirements decreased, FiO2 now 40%, PEEP 5. GCS 11 T during sedation holiday. Plan for CPAP trials today. 08/23: Passed weaning parameters today. However, several on propofol at 20 mcg /kg per minute for comfort. Switching to Precedex drip at present. Tolerating tube feeding. 08/24: Not tolerating NG tube feeds, noted residual 500 cc last night. Ileus noted on KUB yesterday. NG tube placed to suction, large amount of care noted. Repeat KUB slightly improved. Prokinetic agents instituted over the last 24 hours 08/25: Increase in intra-abdominal pressure, bladder pressures yesterday afternoon up to 22. Mag citrate added to bowel regimen, Lopid large voluminous bowel movement. OGT to continuous suction 500 cc output overnight. The patient was placed on CPAP trials yesterday from 4 PM2 AM. Abdomen currently soft bladder pressure 14 at 6 AM. Plan for continued CPAP trials today, insertion of NG tube to continued low continuous suction, follow-up KUB. 08/26: Tmax 99.2. The patient was maintained on CPAP trials over 8 hours yesterday without difficulty. GI was consulted yesterday . Patient is NG tube output were night significantly diminished. 250 cc bilious gastric output over 14 hours in total. The patient had 3 bowel movements last night. KUB remains unchanged today with continued small and large bowel distention-ileus. Bladder pressures the last 24 hours remain low averaging 34. 1: Afebrile. No acute respiratory issues. Patient remains on Precedex infusion with RASS-1, cooperative. NG tube output 230 cc overnight for 12 hours. Patient still has not had a bowel movement in the last 24hrs. repeat KUB remains unchanged today continued bowel distention. Mag citrate ordered this a.m.. GI following. Intra-abdominal pressures are low 37. Objective Vital Signs Date Time Temp Pulse Resp B/P Pulse Ox O2 Delivery O2 Flow Rate FiO2 08/27/16 06:00 139/74 08/27/16 06:00 73 08/27/16 05:20 100 40 08/27/16 04:00 98.7 18 Intake and Output 08/26/16 08/26/16 08/27/16 08:00 16:00 00:00 Intake Total 394 ml 764 ml 452 ml Output Total 950 ml 1260 ml 850 ml Balance -556 ml -496 ml -398 ml Result Diagram: 08/26/16 0340 08/26/16 0340 Other Results Laboratory Tests Test 08/26/16 22:10 Blood Gas Puncture Site ART LINE Blood Gas Patient Temperature 98.6 Blood Gas HCO3 25 mmol/L (22-26) Blood Gas Base Excess 2.0 mmol/L (-2-2) Blood Gas Oxygen Saturation 96 % (90-100) Arterial Blood pH 7.49 (7.380-7.420) Arterial Blood Partial 34 mmHg (38-42) Pressure CO2 Arterial Blood Partial 111 mmHg Pressure O2 (61-120) Arterial Blood Oxygen Content 16.6 Vol % (12.0-20.0) Arterial Blood 0.8 % (0-4) Carboxyhemoglobin Arterial Blood Methemoglobin 0.8 % (0-2) Blood Gas Hemoglobin 12.1 G/DL (12.0-16.0) Oxygen Delivery Device VENTILATOR Blood Gas Ventilator Setting PRVC/AC Blood Gas Inspired Oxygen 40 % Imaging Last Impressions Abdomen X-Ray 08/27/16 0600 Signed Impressions: Service Date/Time: Saturday, August 27, 2016 01:10 - CONCLUSION: No change. Persistent gaseous distention of the small bowel. Gavin Gray Jr., MD Chest X-Ray 08/26/16 0000 Signed Impressions: Service Date/Time: Friday, August 26, 2016 07:17 - CONCLUSION: No significant interval change. Alexander Carter MD Myocardial Perfusion Scan Nuc Med 08/20/16 0000 Signed Impressions: Service Date/Time: Saturday, August 20, 2016 08:43 - CONCLUSION: Unremarkable myocardial perfusion examination. RISK CATEGORY: low Alexander Carter MD Head CT 08/20/16 0000 Signed Impressions: Service Date/Time: Saturday, August 20, 2016 07:58 - CONCLUSION: Unremarkable and stable CT brain for patient's age. Alexander Carter MD Renal Ultrasound 08/18/16 0000 Signed Impressions: Service Date/Time: Thursday, August 18, 2016 11:49 - CONCLUSION: 1. Echogenic kidneys which can be seen with medical renal disease. 2. Bilateral renal cysts. Ricardo Adan MD Last Impressions Abdomen X-Ray 08/26/16 0800 Signed Impressions: Service Date/Time: Friday, August 26, 2016 07:26 - CONCLUSION: There has been no significant change in the bowel gas pattern compared to the prior examination. There continues to be some moderately distended loops of small bowel with air. Alexander Carter MD Chest X-Ray 08/26/16 0000 Signed Impressions: Service Date/Time: Friday, August 26, 2016 07:17 - CONCLUSION: No significant interval change. Alexander Carter MD Myocardial Perfusion Scan Nuc Med 08/20/16 0000 Signed Impressions: Service Date/Time: Saturday, August 20, 2016 08:43 - CONCLUSION: Unremarkable myocardial perfusion examination. RISK CATEGORY: low Alexander Carter MD Head CT 08/20/16 0000 Signed Impressions: Service Date/Time: Saturday, August 20, 2016 07:58 - CONCLUSION: Unremarkable and stable CT brain for patient's age. Alexander Carter MD Renal Ultrasound 08/18/16 0000 Signed Impressions: Service Date/Time: Thursday, August 18, 2016 11:49 - CONCLUSION: 1. Echogenic kidneys which can be seen with medical renal disease. 2. Bilateral renal cysts. Ricardo Adan MD Last Impressions Chest X-Ray 08/24/16 0600 Signed Impressions: Service Date/Time: Wednesday, August 24, 2016 03:19 - CONCLUSION: Improved airspace disease with some persistent infiltrate in the right perihilar and right lower lobe. NG tube and endotracheal tube in good position. Osvaldo Webb MD Abdomen X-Ray 08/24/16 0600 Signed Impressions: Service Date/Time: Wednesday, August 24, 2016 03:22 - CONCLUSION: Normal examination. Air is in the stomach with a nasogastric tube, large amount of air throughout the small bowel which is diffusely distended but may be slightly improved Osvaldo Webb MD Myocardial Perfusion Scan Nuc Med 08/20/16 0000 Signed Impressions: Service Date/Time: Saturday, August 20, 2016 08:43 - CONCLUSION: Unremarkable myocardial perfusion examination. RISK CATEGORY: low Alexander Carter MD Head CT 08/20/16 0000 Signed Impressions: Service Date/Time: Saturday, August 20, 2016 07:58 - CONCLUSION: Unremarkable and stable CT brain for patient's age. Alexander Carter MD Renal Ultrasound 08/18/16 0000 Signed Impressions: Service Date/Time: Thursday, August 18, 2016 11:49 - CONCLUSION: 1. Echogenic kidneys which can be seen with medical renal disease. 2. Bilateral renal cysts. Ricardo Adan MD Last Impressions Chest X-Ray 08/23/16 0600 Signed Impressions: Service Date/Time: Tuesday, August 23, 2016 03:53 - CONCLUSION: 1. Diffuse bilateral airspace disease worsening in the right perihilar region. 2. Support lines and tubes are unchanged. Ricardo Adan MD Myocardial Perfusion Scan Nuc Med 08/20/16 0000 Signed Impressions: Service Date/Time: Saturday, August 20, 2016 08:43 - CONCLUSION: Unremarkable myocardial perfusion examination. RISK CATEGORY: low Alexander Carter MD Head CT 08/20/16 0000 Signed Impressions: Service Date/Time: Saturday, August 20, 2016 07:58 - CONCLUSION: Unremarkable and stable CT brain for patient's age. Alexander Carter MD Renal Ultrasound 08/18/16 0000 Signed Impressions: Service Date/Time: Thursday, August 18, 2016 11:49 - CONCLUSION: 1. Echogenic kidneys which can be seen with medical renal disease. 2. Bilateral renal cysts. Ricardo Adan MD Objective Remarks GENERAL: 81-year-old male, critically ill currently orotracheally intubated and sedated on Precedex, RASS -1, nodding yes and no to questions SKIN: Warm and dry, noted abrasion posterior right ear, and small abrasion right knee HEAD: Normocephalic. EYES: No scleral icterus. No injection or drainage. Pupils around 2 mm bilaterally and reactive NECK: Supple, trachea midline. No JVD or lymphadenopathy. Orotracheally intubated CARDIOVASCULAR: Regular rate and rhythm S1, S2. No S4. Currently without murmurs, clicks, gallops or rubs. RESPIRATORY: Breath sounds equal bilaterally,no wheezing noted. Mechanically ventilated GASTROINTESTINAL: Abdomen soft, obese non-tender, nondistended. Intra- abdominal pressure ranges 3-7. OGT in situ, low continuous suction, bilious secretions, noted 230 cc within the last 12 hours MUSCULOSKELETAL: Trace bilateral lower extremity nonpitting edema. Movement of extremities 4 on commands BACK: Nontender without obvious deformity. No CVA tenderness. Urinary Catheter: Yes Date of Insertion: Aug 19, 2016 Vascular Central Line Catheter: Yes Date of Insertion: Aug 21, 2016 Line: Central Venous Catheter Side: Right Location: Internal, Jugular Reason for Continuation CVP monitoring A/P Problem List: (1) BPH with urinary obstruction ICD Code: N40.1 Status: Acute (2) COPD (chronic obstructive pulmonary disease) ICD Code: J44.9 Status: Acute (3) Pulmonary edema ICD Code: J81.1 Status: Acute (4) Respiratory failure ICD Code: J96.90 Status: Acute Assessment and Plan Neurologic: Glaucoma Alcohol use S/P Fall-confusion (08/20) -GCS 11T, Precedex infusion, RASS -1 , patient responsive, following commands -Continued on Latanoprost 0.005% 1 drop each eye at night for glaucoma -Fall OOB 08/20, CT of the head-unremarkable stable CT of the brain -Monitor for signs of alcohol withdrawal -Thiamine 100 mg, folate 1 mg q/day Respiratory: Acute hypoxic respiratory failure Acute Pulmonary edema COPD exacerbation-resolved Chronic smoker Probable multilobar Pneumonia -SBT 08/23 + Cuff leak on spontaneously intra-. NIF -24. Tidal volume 1000 . RSBI 54, -Intubated 08/20-ETT 8.0, patient remains intubated secondary to ileus and risk of aspiration -Mechanical vent settings-FiO2 40%/550/5/rate of 18 -CPAP trials continued -Maintain O2 sat greater than 92% -Scheduled Duonebs every 4 hours, add every 2 PRN - Methylprednisone taper 30mg BID -Counseled on smoking qowtnuaft15/28 (smokes 2 PPD x 65 years), family reported accurate smoking history -Nicotine patch day 02/27 discontinued Cardiovascular: NSTEMI H/O Hypertension Tachycardia-resolved Dyslipidemia Cardiogenic Shock -Charbel-Synephrine off since 7 AM 08/23 -Troponin (08/19)5.17->4.91->4.23 -Continue ASA 81 mg/day,Resumed Lisinopril/HCTZ , HR 60's , SBP 140's-150's - Metoprolol 12.5 daily begin 08/27 - Patient continues on pravastatin (home med) -ECHO 08/19- EF 50% , no RWMA -BNP- 156->91 (08/21) -08/20 nuclear medicine myocardial perfusion scan-intact wall motion and thickening without hypokinetic or dyskinetic segments -Cardiology on board, Dr. Cason, follow recommendations including possible cardiac catheterization in the future once stable Renal: Renal insufficiency BPH -Creatinine 1.6 continue to monitor, adequate urine output -Maintain Bauer - Home meds Flomax Hytrin 08/25 secondary to NG tube administration -- Strict I/Os -monitor urinary output hourly FEN/GI: Hypokalemia-resolved Ileus Constipation Increase intra-abdominal pressure -Electrolyte replacement per ICU protocol -Measure bladder pressures q 4 hours-ranges 37 -BM x 3 -Surgery consult-Dr Elizabeth 09/25 increased intra-abdominal pressure-resolved - Tube feeds-Jevity 1.5, goal of 60 cc/hr on hold -NG tube to low continuous suction-output from 14 hours 250 cc -Zofran for nausea -Protonix GI prophylaxis -Bowel regimen including Sonia-Colace twice a day, MiraLAX and lactulose QID, Reglan TID -KUB 08/27- unchanged, abdominal distention ,Mag citrate this a.m.x 1 dose Heme/ID: Leukocytosis Probable multilobar pneumonia Septic shock UTI - 08/18 urine culture-Proteus mirabilis -08/18 blood culture- Staph Capitis ([id number]) -08/20 blood culture-NGTD -08/20 urine Legionella, Pneumococcal-negative -Methylprednisolone 30 mg BID -Monitor CBC, WBC 12 -Lactate 1.5 (08/22) -ID consulted, Dr Benavides - follow-up recommendations Endocrine: Blood glucose monitoring every 4 hours per ICU protocol -- SSI Prophylaxis: GI Prophylaxis Protonix DVT Prophylaxis -- SCDs Lovenox Lines: Peripheral IVs. Central line RIJ 08/21, R radial Radha 08/21 Critical Care: This patient remains critically ill with one or more organ systems which are or may become a threat to life. I have spent in excess of 31 minutes discontinuously in the care and management of this patient. This time is exclusive of procedures, and includes, but is not limited to, evaluation of the patient, review of the medical record, discussions with family, consultants, nursing staff, or respiratory therapy, and documentation in the medical record. . Physician Gavi Chew MD Aug 27, 2016 08:33 Gavi Meraz MD Aug 27, 2016 08:33
[2016-08-27] MEDS: METOPROLOL SUCCINATE 25 MG EXTENDED RELEASE TAB PO SCH (09:00)
[2016-08-27] MEDS: CHLORHEXIDINE 0.12% (ORAL KIT) 15 ML CUP MT SCH ×2 (09:11→19:54)
[2016-08-27] MEDS: PRAVASTATIN SOD 40 MG TAB PO SCH (09:12)
[2016-08-27] MEDS: LISINOPRIL 20 MG TAB PO SCH (09:12)
[2016-08-27] MEDS: FOLIC ACID 1 MG TAB PO SCH (09:12)
[2016-08-27] MEDS: THIAMINE HCL 100 MG TAB PO SCH (09:12)
[2016-08-27] MEDS: LACTULOSE SYRUP 20 GM/30 ML CUP PO SCH ×4 (09:12→20:57)
[2016-08-27] MEDS: ASPIRIN 81 MG CHEW TAB CHEW SCH (09:12)
[2016-08-27] MEDS: PANTOPRAZOLE SODIUM 40 MG VIAL IV PUSH SCH (09:13)
[2016-08-27] MEDS: SODIUM CHLORIDE 0.9% FLUSH 5 ML FLUSH FLUSH SCH ×2 (09:13→20:56)
[2016-08-27] MEDS: POLYETHYLENE GLYCOL 17 GM PKG PO SCH ×2 (09:13→20:57)
[2016-08-27] MEDS: methylPREDNISolone SOD SUCC 40 MG/1 ML VIAL IV PUSH SCH ×2 (09:13→20:56)
[2016-08-27] MEDS: DOCUSATE SODIUM 50 MG/SENNA 8.6 MG TAB PO SCH ×2 (09:16→20:57)
[2016-08-27] MEDS: NYSTATIN SUSP 500,000 U/5 ML CUP SWISH-SPIT SCH ×4 (09:17→20:57)
[2016-08-27] MEDS: DEXTROSE 5%-LACTATED RING INJ 1,000 ML IV SCH (11:10)
--- NOTE | 2016-08-27 14:00 | HHI.PR ---
Subjective Subjective Remarks intubated back on AC tolerated cpap yesterday On Precedex gtt not extubated yesterday due to abd. distension, no BM intra abd pressures being monitored, low give mag citrate today NGT to LIS, gastric output 290 no fever Review of Systems Constitutional Constitutional Remarks 12 point ROS unable to do Vitals/Results Intake & Output 08/26/16 08/26/16 08/27/16 14:59 22:59 06:59 Intake Total 764 ml 452 ml 309 ml Output Total 1260 ml 850 ml 930 ml Balance -496 ml -398 ml -621 ml IV Total 764 ml 452 ml 309 ml Output Urine Total 1200 ml 700 ml 850 ml Gastric Drainage Total 60 ml 150 ml 80 ml # Bowel Movements 0 0 0 Vital Signs Vital Signs Date Time Temp Pulse Resp B/P Pulse Ox O2 Delivery O2 Flow Rate FiO2 08/27/16 12:00 72 08/27/16 11:27 98 40 08/27/16 10:00 69 08/27/16 08:27 100 40 08/27/16 08:00 69 08/27/16 06:00 139/74 08/27/16 06:00 73 08/27/16 05:20 100 40 08/27/16 04:00 82 08/27/16 04:00 40 08/27/16 04:00 98.7 82 18 98/80 98 08/27/16 02:00 73 08/27/16 01:31 99 40 08/27/16 00:00 82 08/27/16 00:00 40 08/27/16 00:00 98.5 82 18 136/56 97 08/26/16 22:00 69 08/26/16 20:00 40 08/26/16 20:00 95 40 08/26/16 20:00 69 08/26/16 20:00 98.4 84 20 104/49 94 08/26/16 18:00 74 08/26/16 18:00 128/58 08/26/16 16:55 98 40 08/26/16 16:00 97.9 68 14 133/59 96 08/26/16 16:00 69 08/26/16 16:00 40 08/26/16 14:00 69 CBC/BMP: 08/26/16 0340 08/26/16 0340 Lab Results Laboratory Tests Test 08/26/16 22:10 Blood Gas Puncture Site ART LINE Blood Gas Patient Temperature 98.6 Blood Gas HCO3 25 mmol/L Blood Gas Base Excess 2.0 mmol/L Blood Gas Oxygen Saturation 96 % Arterial Blood pH 7.49 Arterial Blood Partial 34 mmHg Pressure CO2 Arterial Blood Partial 111 mmHg Pressure O2 Arterial Blood Oxygen Content 16.6 Vol % Arterial Blood 0.8 % Carboxyhemoglobin Arterial Blood Methemoglobin 0.8 % Blood Gas Hemoglobin 12.1 G/DL Oxygen Delivery Device VENTILATOR Blood Gas Ventilator Setting PRVC/AC Blood Gas Inspired Oxygen 40 % Physical Exam General General Appearance: No Acute Distress, Comfortable, Obese Eyes Eye Exam: Pupils Equal, Sclera White Ears & Nose Ears & Nose Exam: Nasal Mucosa Lebo Throat Throat Exam: Oral Mucosa Lebo & Moist Neck Neck Exam: Neck Supple, Trachea Midline Pulmonary Resp Exam: Breath Sounds Equal, Crackles, Decreased Bases Cardiology CV Exam: Regular, Normal Sinus Rhythm Gastrointestinal/Abdomen GI Exam: Soft, Non-Tender, Bowel Sounds Present, Distended, Bowel Sounds Hypoactive GI Remarks NGT to LIS Genitourinary Exam: Clear Urine Remarks SHIELDS Musculoskeletal MS Exam: Joints Intact Integumentary Skin Exam: Warm, Dry Extremeties Extremities Exam: No Edema, Pedal Pulses Palpable Neurologic Neuro Exam: Sedated VTE Prophylaxis VTE Prophylaxis Meds: Lovenox PUD Prophylasis PUD Prophylaxis: Protonix Assessment/Plan Assessment/Plan ASSESSMENT 1. Acute febrile illness with leukocytosis and left shift, source not clear. The patient has evidence of microscopic hematuria, questionable urinary tract infection, rule out bacteremia, question bronchitis. 2. Hyperglycemia. 3. Normochromic normocytic anemia. 4. BPH with chronic urge incontinence. 5. Hypertension. 6. Hyperlipidemia. 7. Recurrent falls, fortunately no significant injury. 8. Acute VDRF 9. ACS/ NSTEMI -evaluated per card. Had STT, negative 10. s/p Acute pulmonary edema/flash pulmonary edema 11. HCA Pneumonia 12. Adynamic Ileus PLAN CCM following Ventilator support and weaning per pipe organ mechanic apprentice IV sedation- Precedex not extubated due to abd. distension and ileus continue on vent Off vasopressors blood c/s neg [except stap capitis , contaminant] cont empic IV antibiotics, Levaquin Appreciate ID input IV steroids , taper aerosol tx Control blood pressure S/P NSTEMI, card. evaluated. STT done negative. 2-D echocardiogram noted, EF is 50% Continue Aspirin cont reglan Continue PPI Subcutaneous Lovenox Persistent ileus, abd. xray today, results reviewed, no change no bm x 24 hours, given Mag citrate today Appreciate GI input NGT to LIS condition guarded has been accepted at [facility], will wait for Dr. Meraz's input if okay to tx to acute care rehab D/W RN D/W pt's POA daughter, has no questions D/W Dr. Shelton This patient was seen by myself and Dr. Shelton, this note is written on his behalf. Kandi Summers Aug 27, 2016 14:00
--- NOTE | 2016-08-27 14:41 | HHI.IDPN ---
Subjective Subjective Remarks Notes reviewed D/W RN Did CPAP most of the day yesterday Rested on the vent Remains on the vent Problem with abdominal distension NGT to continuous suction Temps ok No BM On precedex BP ok Sputum neg BC negative Antibiotics Levaquin Past Medical History Reviewed Allergies: Coded Allergies: No Known Allergies (Unverified , 05/16/15) Objective . Vital Signs Date Time Temp Pulse Resp B/P Pulse Ox O2 Delivery O2 Flow Rate FiO2 08/27/16 14:00 72 08/27/16 12:00 97.0 72 19 103/59 97 85/81 08/27/16 12:00 72 08/27/16 12:00 40 08/27/16 11:27 98 40 08/27/16 10:00 69 08/27/16 08:27 100 40 08/27/16 08:00 40 08/27/16 08:00 97.7 68 18 116/83 97 08/27/16 08:00 69 08/27/16 06:00 139/74 08/27/16 06:00 73 08/27/16 05:20 100 40 08/27/16 04:00 82 08/27/16 04:00 40 08/27/16 04:00 98.7 82 18 98/80 98 08/27/16 02:00 73 08/27/16 01:31 99 40 08/27/16 00:00 82 08/27/16 00:00 40 08/27/16 00:00 98.5 82 18 136/56 97 08/26/16 22:00 69 08/26/16 20:00 40 08/26/16 20:00 95 40 08/26/16 20:00 69 08/26/16 20:00 98.4 84 20 104/49 94 08/26/16 18:00 74 08/26/16 18:00 128/58 08/26/16 16:55 98 40 08/26/16 16:00 97.9 68 14 133/59 96 08/26/16 16:00 69 08/26/16 16:00 40 08/26/16 08/26/16 08/27/16 14:59 22:59 06:59 Intake Total 764 ml 452 ml 309 ml Output Total 1260 ml 850 ml 930 ml Balance -496 ml -398 ml -621 ml IV Total 764 ml 452 ml 309 ml Output Urine Total 1200 ml 700 ml 850 ml Gastric Drainage Total 60 ml 150 ml 80 ml # Bowel Movements 0 0 0 . Laboratory Tests Test 08/26/16 03:40 White Blood Count 12.0 TH/MM3 Red Blood Count 3.99 MIL/MM3 Hemoglobin 12.0 GM/DL Hematocrit 35.7 % Mean Corpuscular Volume 89.6 FL Mean Corpuscular Hemoglobin 30.0 PG Mean Corpuscular Hemoglobin 33.5 % Concent Red Cell Distribution Width 14.3 % Platelet Count 322 TH/MM3 Mean Platelet Volume 9.5 FL Neutrophils (%) (Auto) 91.1 % Lymphocytes (%) (Auto) 4.0 % Monocytes (%) (Auto) 4.3 % Eosinophils (%) (Auto) 0.1 % Basophils (%) (Auto) 0.5 % Neutrophils # (Auto) 11.0 TH/MM3 Lymphocytes # (Auto) 0.5 TH/MM3 Monocytes # (Auto) 0.5 TH/MM3 Eosinophils # (Auto) 0.0 TH/MM3 Basophils # (Auto) 0.1 TH/MM3 CBC Comment AUTO DIFF Differential Total Cells 100 Counted Neutrophils % (Manual) 88 % Band Neutrophils % 5 % Lymphocytes % 2 % Monocytes % 5 % Neutrophils # (Manual) 11.2 TH/MM3 Differential Comment FINAL DIFF MANUAL Toxic Granulation 1+ Toxic Vacuolation PRESENT Platelet Morphology Comment NORMAL Laboratory Tests Test 08/26/16 03:40 Sodium Level 146 MEQ/L Potassium Level 4.3 MEQ/L Chloride Level 109 MEQ/L Carbon Dioxide Level 27.1 MEQ/L Anion Gap 10 MEQ/L Blood Urea Nitrogen 74 MG/DL Creatinine 1.66 MG/DL Estimat Glomerular Filtration 40 ML/MIN Rate Random Glucose 172 MG/DL Calcium Level 8.7 MG/DL Phosphorus Level 4.1 MG/DL Magnesium Level 3.1 MG/DL Total Bilirubin 0.7 MG/DL Aspartate Amino Transf 48 U/L (AST/SGOT) Alanine Aminotransferase 123 U/L (ALT/SGPT) Alkaline Phosphatase 88 U/L Total Protein 6.2 GM/DL Albumin 2.0 GM/DL Imaging Chest X-Ray 08/24/16 0600 Signed Impressions: Service Date/Time: Wednesday, August 24, 2016 03:19 - CONCLUSION: Improved airspace disease with some persistent infiltrate in the right perihilar and right lower lobe. NG tube and endotracheal tube in good position. Osvaldo Webb MD Abdomen X-Ray 08/24/16 0600 Signed Impressions: Service Date/Time: Wednesday, August 24, 2016 03:22 - CONCLUSION: Normal examination. Air is in the stomach with a nasogastric tube, large amount of air throughout the small bowel which is diffusely distended but may be slightly improved Osvaldo Webb MD Chest X-Ray 08/23/16 0600 Signed Impressions: Service Date/Time: Tuesday, August 23, 2016 03:53 - CONCLUSION: 1. Diffuse bilateral airspace disease worsening in the right perihilar region. 2. Support lines and tubes are unchanged. Ricardo Adan MD Abdomen X-Ray 08/23/16 0000 Signed Impressions: Service Date/Time: Tuesday, August 23, 2016 16:24 - CONCLUSION: Dilated bowel in a radiographic pattern suggesting an ileus. Gavin Gray Jr., MD Myocardial Perfusion Scan Nuc Med 08/20/16 0000 Signed Impressions: Service Date/Time: Saturday, August 20, 2016 08:43 - CONCLUSION: Unremarkable myocardial perfusion examination. RISK CATEGORY: low Alexander Carter MD Head CT 08/20/16 0000 Signed Impressions: Service Date/Time: Saturday, August 20, 2016 07:58 - CONCLUSION: Unremarkable and stable CT brain for patient's age. Alexander Carter MD Renal Ultrasound 08/18/16 0000 Signed Impressions: Service Date/Time: Thursday, August 18, 2016 11:49 - CONCLUSION: 1. Echogenic kidneys which can be seen with medical renal disease. 2. Bilateral renal cysts. Ricardo Adan MD Physical Exam GENERAL: Restless, on the vent SKIN: Cool and dry. No generalized rash or ecchymosis. HEENT: Maxwell conjunctivae, no petechia or hemorrhage. No scleral icterus. NGT in place. Endotracheal tube is in the mouth. NECK: Trachea midline. No JVD CARDIOVASCULAR: Regular rate and rhythm without murmurs, gallops, or rubs. RESPIRATORY: Coarse breath sounds bilaterally, equal. Scattered rhonchi. GASTROINTESTINAL: Abdomen distended, no reaction to deep palpation. Bowel sounds are present and hypoactive. MUSCULOSKELETAL: Extremities without clubbing, cyanosis, or edema. No joint effusion, or edema noted. NEUROLOGICAL: Sedated, PSYCH: Unable to assess LINE: RIJ TLC, PIV, all with no evidence of infection : Bauer in place, urine looks clear Assessment & Plan Remarks IMPRESSION Sepsis with shock, source, likely pulmonary, HCAP - sputum C/S negative at 48 hrs - has known COPD, chronic smoker - BP better, off pressors Admission with NSTEMI, EF 50% MOSF - respiratory, renal Hx daily ETOH use Chronic smoker 1 ppd One (+) BC with Coag Neg Staph on admission likely contaminant Proteus mirabilis in the urine Ileus RECOMMENDATION Continue Levaquin Follow temps Monitor progress Weaning per CCM D/W Mimi Shaw MD Aug 27, 2016 14:41
--- NOTE | 2016-08-27 16:14 | HHI.GIFU ---
Subjective Remarks Resting in bed. Sedated on vent. No improvement on today's xray. Nurse reports 200cc of gastric output. States he has not had a bowel movement and she has given him magnesium citrate. (Alivia Ross) Objective Vitals I&O Vital Signs Date Time Temp Pulse Resp B/P Pulse Ox O2 Delivery O2 Flow Rate FiO2 08/27/16 15:29 100 40 08/27/16 14:00 72 08/27/16 12:00 97.0 72 19 103/59 97 85/81 08/27/16 12:00 72 08/27/16 12:00 40 08/27/16 11:27 98 40 08/27/16 10:00 69 08/27/16 08:27 100 40 08/27/16 08:00 40 08/27/16 08:00 97.7 68 18 116/83 97 08/27/16 08:00 69 08/27/16 06:00 139/74 08/27/16 06:00 73 08/27/16 05:20 100 40 08/27/16 04:00 82 08/27/16 04:00 40 08/27/16 04:00 98.7 82 18 98/80 98 08/27/16 02:00 73 08/27/16 01:31 99 40 08/27/16 00:00 82 08/27/16 00:00 40 08/27/16 00:00 98.5 82 18 136/56 97 08/26/16 22:00 69 08/26/16 20:00 40 08/26/16 20:00 95 40 08/26/16 20:00 69 08/26/16 20:00 98.4 84 20 104/49 94 08/26/16 18:00 74 08/26/16 18:00 128/58 08/26/16 16:55 98 40 I/O 08/26/16 08/26/16 08/26/16 08/27/16 08/27/16 08/27/16 07:00 15:00 23:00 07:00 15:00 23:00 Intake Total 394 ml 764 ml 452 ml 309 ml Output Total 950 ml 1260 ml 850 ml 930 ml Balance -556 ml -496 ml -398 ml -621 ml IV Total 394 ml 764 ml 452 ml 309 ml Tube Feeding 0 ml Other 0 ml Output Urine Total 900 ml 1200 ml 700 ml 850 ml Gastric Drainage Total 50 ml 60 ml 150 ml 80 ml # Bowel Movements 1 0 0 0 Laboratory Laboratory Tests Test 08/26/16 22:10 Blood Gas Puncture Site ART LINE Blood Gas Patient Temperature 98.6 Blood Gas HCO3 25 Blood Gas Base Excess 2.0 Blood Gas Oxygen Saturation 96 Arterial Blood pH 7.49 Arterial Blood Partial 34 Pressure CO2 Arterial Blood Partial 111 Pressure O2 Arterial Blood Oxygen Content 16.6 Arterial Blood 0.8 Carboxyhemoglobin Arterial Blood Methemoglobin 0.8 Blood Gas Hemoglobin 12.1 Oxygen Delivery Device VENTILATOR Blood Gas Ventilator Setting PRVC/AC Blood Gas Inspired Oxygen 40 Imaging Last Impressions Abdomen X-Ray 08/27/16 0600 Signed Impressions: Service Date/Time: Saturday, August 27, 2016 01:10 - CONCLUSION: No change. Persistent gaseous distention of the small bowel. Gavin Gray Jr., MD Chest X-Ray 08/26/16 0000 Signed Impressions: Service Date/Time: Friday, August 26, 2016 07:17 - CONCLUSION: No significant interval change. Alexander Carter MD Myocardial Perfusion Scan Nuc Med 08/20/16 0000 Signed Impressions: Service Date/Time: Saturday, August 20, 2016 08:43 - CONCLUSION: Unremarkable myocardial perfusion examination. RISK CATEGORY: low Alexander Carter MD Head CT 08/20/16 0000 Signed Impressions: Service Date/Time: Saturday, August 20, 2016 07:58 - CONCLUSION: Unremarkable and stable CT brain for patient's age. Alexander Carter MD Renal Ultrasound 08/18/16 0000 Signed Impressions: Service Date/Time: Thursday, August 18, 2016 11:49 - CONCLUSION: 1. Echogenic kidneys which can be seen with medical renal disease. 2. Bilateral renal cysts. Ricardo Adan MD Physical Exam HEENT: Normocephalic; atraumatic; no jaundice. CHEST: OETT to vent. Resp. even/unlabored. Diminished bases. CARDIAC: RRR ABDOMEN: Soft, distended, no hepatosplenomegaly; bowel sounds are hypoactive. NGT to LIWS with gold/brownish colored gastric secretions EXTREMITIES: Generalized trace edema. 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 (Alivia Ross) Assessment and Plan Plan ASSESSMENT: - Ileus, small bowel. Abdomen X-Ray (08/27/16)----> No change. Persistent gaseous distention of the small bowel. He is not on chronic narcotics. Pt is on Miralax, Reglan, Lactulose and received a dose of magnesium citrate today. No results from this. Has NGT to LIWS- 200cc output this shift. Will continue bowel regimen and try SSE x 2. ? trickle feeds to stimulate the bowel. KUB in am. - Acute hypoxic respiratory failure, pulmonary edema, COPD, and probable pneumonia. Vent per CCM. - Leukocytosis, Fever. WBC 12.0 - Anemia. 12.0/35.7. - ACS/NSTEMI, S/P cardiology evaluation. - HTN, Hyperlipidemia, per primary PLAN: - NPO - NGT to LIWS - SSE x 2 - S/P Magnesium citrate - Cont. Lactulose - Cont. Reglan - Cont. Miralax - KUB in am - ? If no improvement, consider CT - ? Trickle feeds to stimulate the bowel - Supportive care - Further recommendations to follow based on results of above - Pt seen and examined by Dr. Benavides and myself and this note is written on his behalf (Alivia Ross) Physician Comments Patient was seen and examined, agree with above note and plan, labs for AM ( Maximo Benavides MD) Alivia Ross Aug 27, 2016 16:13 Maximo Benavides MD Aug 27, 2016 20:55
[2016-08-27] MEDS: RESP: ALBUTEROL 2.5 MG/IPRATROPIUM 0.5 MG NEB (PRN) NEB (19:54)
[2016-08-27] MEDS: ENOXAPARIN SODIUM 40 MG/0.4 ML SYRINGE SQ SCH (19:54)
[2016-08-27] MEDS: LATANOPROST 0.005% OPHT SOLN 2.5 ML BTL EACH EYE SCH (20:56)
[2016-08-27] MEDS: TERAZOSIN HCL 1 MG CAP PO SCH (20:57)
[2016-08-27] MEDS: LORazepam 2 MG/ML VIAL IV PRN (21:06)
[2016-08-27] MEDS ORDERED: PEG (High)/E-LYTE SOLN 4000 ML BTL PO ONE (21:30)
[2016-08-28] VITALS (17 sets, daily range): BP systolic 88–120; BP diastolic 54–64; PULSE 20–75; RESP 18–24; TEMP 97.2–99; O2SAT 92–98
[2016-08-28] MEDS: METOCLOPRAMIDE HCL 10 MG/2 ML VIAL IV PUSH SCH ×3 (01:45→17:24)
[2016-08-28] MEDS: LORazepam 2 MG/ML VIAL IV PRN (01:46)
[2016-08-28 02:26] LABS: HEMATOCRIT 35.1 % (39.0-51.0); MEAN CELL VOLUME 91.6 FL (80.0-100.0); MEAN CORPUSCULAR HEMOGLOBIN 29.9 PG (27.0-34.0); MEAN CORPUSCULAR HGB CONC 32.6 % (32.0-36.0); PLATELET COUNT 342 TH/MM3 (150-450); RED BLOOD COUNT 3.83 MIL/MM3 (4.50-5.90); RED CELL DISTRIBUTION WIDTH 14.4 % (11.6-17.2); REVIEW FLAG FINAL
[2016-08-28 02:40] LABS: BLOOD GAS BASE EXCESS 4.9 mmol/L (-2-2); BLOOD GAS HCO3 28 mmol/L (22-26); BLOOD GAS METHEMOGLOBIN 0.8 % (0-2); BLOOD GAS O2 HGB SATURATION 92 % (90-100); BLOOD GAS OXYGEN CONTENT 16.1 Vol % (12.0-20.0); BLOOD GAS PCO2 35 mmHg (38-42); BLOOD GAS PO2 70 mmHg (61-120); BLOOD GAS TOTAL HGB 12.5 G/DL (12.0-16.0); TEMP CORR TO 98.6
[2016-08-28 02:42] LABS: CRITICAL VALUE YES; OXYGEN DEVICE VENTILATOR
[2016-08-28 02:44] LABS: DRAW SITE RT BRACHIAL; FIO2 40 %; NUMBER OF ARTERIAL PUNCTURES 1
[2016-08-28 02:45] LABS: STAT NO
[2016-08-28 02:55] LABS: BICARBONATE 29.6 MEQ/L (21.0-32.0); MAGNESIUM 2.9 MG/DL (1.5-2.5); POTASSIUM 4.3 MEQ/L (3.5-5.1)
--- NOTE | 2016-08-28 04:34 | HHI.CCPN ---
Subjective Remarks/Hospital Course 81-year-old man who admitted to [facility] with complains of feeling weak and dizzy , also some chills with it. He had one episode of vomiting earlier today and another episode in the ED. While on a medical floor, he became hypoxemic and tachycardic. Due to hypoxemia at 80s he is transfered to ICU. Patient is alert and oriented and he doesn't want to be intubated in case his condition declines. 08/20 Afebrile. 24 hours patient was noted to have elevated troponins, etiology consulted patient was initiated on aspirin and beta blockers. Cardiology was consulted. Plan for nuclear medicine myocardial perfusion scan, initially scheduled for 08/19 will be done today secondary to NPO status of patient. The patient continues on a Cardizem infusion, metoprolol dosage was increased. Early this a.m., the patient climbed out of the bed and fell, noted laceration posterior right ear. Of note, the patient consumes 2-3 drinks of whiskey per night, came very anxious last night, reported by . The patient was alert and oriented with GCS of 15. Full range of motion denies pain in extremities 4. Stat CT of the head, results pending. 08/21 Tmax 101.8. Yesterday afternoon post nuclear medicine perfusion scan, the patient became acutely hypoxic O2 sat in the 70s, the patient was emergently intubated. Max pulmonary edema was noted, with copious pink frothy sputum via ETT . FiO2 requirements were increased, unable to wean below 70% yesterday afternoon .Sputum culture and urine cultures were obtained, broad- spectrum antibiotics were initiated Vancomycin and Levaquin. The patient currently is on Rocephin for UTI. Flowtrac was instituted, cardiac output and cardiac index were within normal limits. During the night the patient's O2 requirements were increased, the patient required 15 cm of PEEP and initially 100% FiO2. The patient was received 2 mg of Bumex without any diuresis noted. The patient became hypotensive during the night requiring Charbel-Synephrine and Norepinephrine infusions. This morning a central line was placed, steroids were initiated, Solu-Medrol 125 mg IV push, and repeat blood cultures were obtained. 08/22 Tmax 97.8. Patient improvement, weaned off all vasopressors. Oxygen requirements decreased, FiO2 now 40%, PEEP 5. GCS 11 T during sedation holiday. Plan for CPAP trials today. 08/23: Passed weaning parameters today. However, several on propofol at 20 mcg /kg per minute for comfort. Switching to Precedex drip at present. Tolerating tube feeding. 08/24: Not tolerating NG tube feeds, noted residual 500 cc last night. Ileus noted on KUB yesterday. NG tube placed to suction, large amount of care noted. Repeat KUB slightly improved. Prokinetic agents instituted over the last 24 hours 08/25: Increase in intra-abdominal pressure, bladder pressures yesterday afternoon up to 22. Mag citrate added to bowel regimen, Lopid large voluminous bowel movement. OGT to continuous suction 500 cc output overnight. The patient was placed on CPAP trials yesterday from 4 PM2 AM. Abdomen currently soft bladder pressure 14 at 6 AM. Plan for continued CPAP trials today, insertion of NG tube to continued low continuous suction, follow-up KUB. 08/26: Tmax 99.2. The patient was maintained on CPAP trials over 8 hours yesterday without difficulty. GI was consulted yesterday . Patient is NG tube output were night significantly diminished. 250 cc bilious gastric output over 14 hours in total. The patient had 3 bowel movements last night. KUB remains unchanged today with continued small and large bowel distention-ileus. Bladder pressures the last 24 hours remain low averaging 34. 1/4: Afebrile. No acute respiratory issues. Patient remains on Precedex infusion with RASS-1, cooperative. NG tube output 230 cc overnight for 12 hours. Patient still has not had a bowel movement in the last 24hrs. repeat KUB remains unchanged today continued bowel distention. Mag citrate ordered this a.m.. GI following. Intra-abdominal pressures are low 37. 1/4: Patient received mag citrate yesterday with no effect. Overnight the patient was instilled 2 L of GoLYTELY and 1500 cc of soapsuds enema,per GI recommendations. KUB scheduled for this a.m.. Abdominal pressures elevated secondary to the 3.5 L volume intra-abdominal. Objective Vital Signs Date Time Temp Pulse Resp B/P Pulse Ox O2 Delivery O2 Flow Rate FiO2 08/28/16 04:16 94 40 08/28/16 02:00 69 08/28/16 00:00 97.5 18 104/61 Intake and Output 08/27/16 08/27/16 08/28/16 08:00 16:00 00:00 Intake Total 309 ml 932 ml 1230 ml Output Total 930 ml 925 ml 700 ml Balance -621 ml 7 ml 530 ml Result Diagram: 08/28/16 0222 08/28/16 0222 Other Results Laboratory Tests Test 08/28/16 02:28 Blood Gas Puncture Site RT BRACHIAL Blood Gas Patient Temperature 98.6 Blood Gas HCO3 28 mmol/L (22-26) Blood Gas Base Excess 4.9 mmol/L (-2-2) Blood Gas Oxygen Saturation 92 % (90-100) Arterial Blood pH 7.52 (7.380-7.420) Arterial Blood Partial 35 mmHg (38-42) Pressure CO2 Arterial Blood Partial 70 mmHg Pressure O2 (61-120) Arterial Blood Oxygen Content 16.1 Vol % (12.0-20.0) Arterial Blood 1.0 % (0-4) Carboxyhemoglobin Arterial Blood Methemoglobin 0.8 % (0-2) Blood Gas Hemoglobin 12.5 G/DL (12.0-16.0) Oxygen Delivery Device VENTILATOR Blood Gas Ventilator Setting COMMENT Blood Gas Inspired Oxygen 40 % Imaging Last Impressions Abdomen X-Ray 08/27/16 0600 Signed Impressions: Service Date/Time: Saturday, August 27, 2016 01:10 - CONCLUSION: No change. Persistent gaseous distention of the small bowel. Gavin Gray Jr., MD Chest X-Ray 08/26/16 0000 Signed Impressions: Service Date/Time: Friday, August 26, 2016 07:17 - CONCLUSION: No significant interval change. Alexander Carter MD Myocardial Perfusion Scan Nuc Med 08/20/16 0000 Signed Impressions: Service Date/Time: Saturday, August 20, 2016 08:43 - CONCLUSION: Unremarkable myocardial perfusion examination. RISK CATEGORY: low Alexander Carter MD Head CT 08/20/16 0000 Signed Impressions: Service Date/Time: Saturday, August 20, 2016 07:58 - CONCLUSION: Unremarkable and stable CT brain for patient's age. Alexander Carter MD Renal Ultrasound 08/18/16 0000 Signed Impressions: Service Date/Time: Thursday, August 18, 2016 11:49 - CONCLUSION: 1. Echogenic kidneys which can be seen with medical renal disease. 2. Bilateral renal cysts. Ricardo Adan MD Last Impressions Abdomen X-Ray 08/26/16 0800 Signed Impressions: Service Date/Time: Friday, August 26, 2016 07:26 - CONCLUSION: There has been no significant change in the bowel gas pattern compared to the prior examination. There continues to be some moderately distended loops of small bowel with air. Alexander Carter MD Chest X-Ray 08/26/16 0000 Signed Impressions: Service Date/Time: Friday, August 26, 2016 07:17 - CONCLUSION: No significant interval change. Alexander Carter MD Myocardial Perfusion Scan Nuc Med 08/20/16 0000 Signed Impressions: Service Date/Time: Saturday, August 20, 2016 08:43 - CONCLUSION: Unremarkable myocardial perfusion examination. RISK CATEGORY: low Alexander Carter MD Head CT 08/20/16 0000 Signed Impressions: Service Date/Time: Saturday, August 20, 2016 07:58 - CONCLUSION: Unremarkable and stable CT brain for patient's age. Alexander Carter MD Renal Ultrasound 08/18/16 0000 Signed Impressions: Service Date/Time: Thursday, August 18, 2016 11:49 - CONCLUSION: 1. Echogenic kidneys which can be seen with medical renal disease. 2. Bilateral renal cysts. Ricardo Adan MD Last Impressions Chest X-Ray 08/24/16 0600 Signed Impressions: Service Date/Time: Wednesday, August 24, 2016 03:19 - CONCLUSION: Improved airspace disease with some persistent infiltrate in the right perihilar and right lower lobe. NG tube and endotracheal tube in good position. Osvaldo Webb MD Abdomen X-Ray 08/24/16 0600 Signed Impressions: Service Date/Time: Wednesday, August 24, 2016 03:22 - CONCLUSION: Normal examination. Air is in the stomach with a nasogastric tube, large amount of air throughout the small bowel which is diffusely distended but may be slightly improved Osvaldo eWbb MD Myocardial Perfusion Scan Nuc Med 08/20/16 0000 Signed Impressions: Service Date/Time: Saturday, August 20, 2016 08:43 - CONCLUSION: Unremarkable myocardial perfusion examination. RISK CATEGORY: low Alexander Carter MD Head CT 08/20/16 0000 Signed Impressions: Service Date/Time: Saturday, August 20, 2016 07:58 - CONCLUSION: Unremarkable and stable CT brain for patient's age. Alexander Carter MD Renal Ultrasound 08/18/16 0000 Signed Impressions: Service Date/Time: Thursday, August 18, 2016 11:49 - CONCLUSION: 1. Echogenic kidneys which can be seen with medical renal disease. 2. Bilateral renal cysts. Ricardo Adan MD Last Impressions Chest X-Ray 08/23/16 0600 Signed Impressions: Service Date/Time: Tuesday, August 23, 2016 03:53 - CONCLUSION: 1. Diffuse bilateral airspace disease worsening in the right perihilar region. 2. Support lines and tubes are unchanged. Ricardo Adan MD Myocardial Perfusion Scan Nuc Med 08/20/16 0000 Signed Impressions: Service Date/Time: Saturday, August 20, 2016 08:43 - CONCLUSION: Unremarkable myocardial perfusion examination. RISK CATEGORY: low Alexander Carter MD Head CT 08/20/16 0000 Signed Impressions: Service Date/Time: Saturday, August 20, 2016 07:58 - CONCLUSION: Unremarkable and stable CT brain for patient's age. Alexander Carter MD Renal Ultrasound 08/18/16 0000 Signed Impressions: Service Date/Time: Thursday, August 18, 2016 11:49 - CONCLUSION: 1. Echogenic kidneys which can be seen with medical renal disease. 2. Bilateral renal cysts. Ricardo Adan MD Objective Remarks GENERAL: 81-year-old male, critically ill currently orotracheally intubated and sedated on Precedex, RASS -1, nodding yes and no to questions SKIN: Warm and dry, noted abrasion posterior right ear, and small abrasion right knee HEAD: Normocephalic. EYES: No scleral icterus. No injection or drainage. Pupils around 2 mm bilaterally and reactive NECK: Supple, trachea midline. No JVD or lymphadenopathy. Orotracheally intubated CARDIOVASCULAR: Regular rate and rhythm S1, S2. No S4. Currently without murmurs, clicks, gallops or rubs. RESPIRATORY: Breath sounds equal bilaterally,no wheezing noted. Mechanically ventilated GASTROINTESTINAL: Abdomen soft, obese non-tender, currently distended , tympanic secondary to instillation GoLYTELY and SSE ,3.5 L volume of fluid. Intra-abdominal pressure ranges 20. OGT currently clamped secondary to medication administration.Will resume low continuous suction MUSCULOSKELETAL: Trace bilateral lower extremity nonpitting edema. Movement of extremities 4 on commands BACK: Nontender without obvious deformity. No CVA tenderness. Urinary Catheter: Yes Date of Insertion: Aug 19, 2016 Vascular Central Line Catheter: Yes Date of Insertion: Aug 21, 2016 Line: Central Venous Catheter Side: Right Location: Internal, Jugular A/P Problem List: (1) BPH with urinary obstruction ICD Code: N40.1 Status: Acute (2) COPD (chronic obstructive pulmonary disease) ICD Code: J44.9 Status: Acute (3) Pulmonary edema ICD Code: J81.1 Status: Acute (4) Respiratory failure ICD Code: J96.90 Status: Acute Assessment and Plan Neurologic: Glaucoma Alcohol use S/P Fall-confusion (08/20) -GCS 11T, Precedex infusion currently at 1.4 mcgs, RASS -1 , patient responsive , following commands -Continued on Latanoprost 0.005% 1 drop each eye at night for glaucoma -S/P Fall OOB 08/20, CT of the head-unremarkable stable CT of the brain -Monitor for signs of alcohol withdrawal -Thiamine 100 mg, folate 1 mg q/day Respiratory: Acute hypoxic respiratory failure Acute Pulmonary edema-resolved COPD exacerbation-resolved Chronic smoker Probable multilobar Pneumonia -SBT 08/23 + Cuff leak on spontaneously intra-. NIF -24. Tidal volume 1000 . RSBI 54, -Intubated 08/20-ETT 8.0, patient remains intubated secondary to ileus and risk of aspiration -Mechanical vent settings-FiO2 40%/550/5/rate of 18 -CPAP trials continued -Maintain O2 sat greater than 92% -Scheduled Duonebs every 4 hours, add every 2 PRN - Methylprednisone taper 30mg BID -Counseled on smoking [id number] (smokes 2 PPD x 65 years), family reported accurate smoking history -Nicotine patch day 02/27 dc'd 08/26 Cardiovascular: NSTEMI H/O Hypertension Tachycardia-resolved Dyslipidemia Cardiogenic Shock -Charbel-Synephrine dc'd 08/23 -Troponin (08/19) 5.17->4.91->4.23 -Continue ASA 81 mg/day,Resumed Lisinopril/HCTZ , HR 60's , SBP 140's-150's - Metoprolol 12.5 daily begin 08/27 - Patient continues on pravastatin (home med) -ECHO 08/19- EF 50% , no RWMA -BNP- 156->91 (08/21) -08/20 nuclear medicine myocardial perfusion scan-intact wall motion and thickening without hypokinetic or dyskinetic segments -Cardiology on board, Dr. Cason, follow recommendations including possible cardiac catheterization in the future once stable Renal: Renal insufficiency BPH -Creatinine improved 1.6->1.4 today adequate urine output -Maintain Bauer - Home meds Flomax Hytrin 08/25 secondary to NG tube administration -- Strict I/Os -monitor urinary output hourly FEN/GI: Hypokalemia-resolved Ileus Constipation Increased intra-abdominal pressure -IVF D5LR @42cc/hr -Electrolyte replacement per ICU protocol -Measure bladder pressures q 4 hours -No BM in the last 24 hours -F/U KUB -Surgery consult-Dr Elizabeth / increased intra-abdominal pressure-resolved - Tube feeds-Jevity 1.5, goal of 60 cc/hr on hold -NG tube clamped-secondary to GoLYTELY administration -Zofran for nausea -Protonix GI prophylaxis -Bowel regimen including Sonia-Colace twice a day, MiraLAX and lactulose QID, Reglan TID Heme/ID: Leukocytosis Probable multilobar pneumonia Septic shock UTI - 08/18 urine culture-Proteus mirabilis -08/18 blood culture- Staph Capitis ([id number]) -08/20 blood culture-NGTD -08/20 urine Legionella, Pneumococcal-negative -Methylprednisolone 30 mg BID -Monitor CBC, WBC 12 -Lactate 1.5 (08/22) -ID consulted, Dr Benavides - follow-up recommendations Endocrine: Blood glucose monitoring every 4 hours per ICU protocol -- SSI Prophylaxis: GI Prophylaxis Protonix DVT Prophylaxis -- SCDs Lovenox Lines: Peripheral IVs. Central line RIJ 08/21, R radial Radha 08/21 Critical Care: This patient remains critically ill with one or more organ systems which are or may become a threat to life. I have spent in excess of 35 minutes discontinuously in the care and management of this patient. This time is exclusive of procedures, and includes, but is not limited to, evaluation of the patient, review of the medical record, discussions with family, consultants, nursing staff, or respiratory therapy, and documentation in the medical record. . Physician Gavi Chew MD Aug 28, 2016 04:34
[2016-08-28] MEDS: INSULIN ASPART SUPPLEMENTAL SCALE SQ SCH ×4 (06:16→21:00)
--- NOTE | 2016-08-28 06:45 | RADRPT ---
EXAM DATE/TIME: 08/28/2016 06:10 [facility] COMPARISON: CHEST SINGLE AP, August 26, 2016, 7:17. INDICATIONS : Evaluate for pulmonary disease. MEDICAL HISTORY : Hypertension. Hypercholesterolemia. SURGICAL HISTORY : None. ENCOUNTER: Initial ACUITY: 1 week PAIN SCORE: Non-responsive. LOCATION: Bilateral chest FINDINGS: A single portable frontal view of the chest shows no significant change in the bilateral pulmonary in filtrates. No effusions. Heart is normal in size. Tip of the endotracheal tube 3 cm cephalad to the c kelsy. Right-sided central line and nasogastric tube noted. CONCLUSION: Unchanged bilateral pulmonary infiltrates. Gavin Gray Jr., MD on August 28, 2016 at 6:43 Board Certified Radiologist. This report was verified electronically.
--- NOTE | 2016-08-28 06:46 | RADRPT ---
EXAM DATE/TIME: 08/28/2016 06:12 [facility] COMPARISON: ABDOMEN KUB ONLY, August 27, 2016, 1:10. INDICATIONS : Abdominal distention. MEDICAL HISTORY : Hypertension. SURGICAL HISTORY : None. ENCOUNTER: Subsequent ACUITY: 1 week PAIN SCORE: Non-responsive. LOCATION: Bilateral Abdomen FINDINGS: A single portable frontal view of the abdomen shows dilated loops of gas-filled small bowel and large bowel. The degree of distention of the small bowel is more pronounced from the prior study. Nasogast idania tube is noted within a decompressed stomach. No organomegaly observed. Bony structures are unrema rkable. CONCLUSION: Worsening distention of the small bowel. Bowel gas pattern is suggestive of an ileus. Gavin Gray Jr., MD on August 28, 2016 at 6:43 Board Certified Radiologist. This report was verified electronically.
[2016-08-28] MEDS: POLYETHYLENE GLYCOL 17 GM PKG PO SCH (08:15)
[2016-08-28] MEDS: methylPREDNISolone SOD SUCC 40 MG/1 ML VIAL IV PUSH SCH (08:15)
[2016-08-28] MEDS: LACTULOSE SYRUP 20 GM/30 ML CUP PO SCH ×3 (08:15→17:24)
[2016-08-28] MEDS: METOPROLOL SUCCINATE 25 MG EXTENDED RELEASE TAB PO SCH (08:15)
[2016-08-28] MEDS: NYSTATIN SUSP 500,000 U/5 ML CUP SWISH-SPIT SCH ×3 (08:15→17:24)
[2016-08-28] MEDS: DOCUSATE SODIUM 50 MG/SENNA 8.6 MG TAB PO SCH ×2 (08:16→21:00)
[2016-08-28] MEDS: THIAMINE HCL 100 MG TAB PO SCH (08:16)
[2016-08-28] MEDS: FOLIC ACID 1 MG TAB PO SCH (08:16)
[2016-08-28] MEDS: LISINOPRIL 20 MG TAB PO SCH (08:16)
[2016-08-28] MEDS: CHLORHEXIDINE 0.12% (ORAL KIT) 15 ML CUP MT SCH (08:16)
[2016-08-28] MEDS: SODIUM CHLORIDE 0.9% FLUSH 5 ML FLUSH FLUSH SCH (08:16)
[2016-08-28] MEDS: PANTOPRAZOLE SODIUM 40 MG VIAL IV PUSH SCH (08:16)
[2016-08-28] MEDS: ASPIRIN 81 MG CHEW TAB CHEW SCH (08:16)
[2016-08-28] MEDS: PRAVASTATIN SOD 40 MG TAB PO SCH (08:16)
[2016-08-28] MEDS: DEXTROSE 5%-LACTATED RING INJ 1,000 ML IV SCH (08:17)
--- NOTE | 2016-08-28 14:04 | HHI.PR ---
Subjective Subjective Remarks on mechanical ventilation on CPAP, tolerating well precedex being weaned down eyes open, follows simple commands no fever inc. abd distension NGT to LIS no BM x 3 days intra abd pressures elevated Gastric output 1500 no fever Review of Systems Constitutional Constitutional Remarks 12 point ROS unable to do Vitals/Results Intake & Output 08/27/16 08/27/16 08/28/16 15:00 23:00 07:00 Intake Total 932 ml 1230 ml 401 ml Output Total 925 ml 700 ml 1650 ml Balance 7 ml 530 ml -1249 ml IV Total 482 ml 730 ml 401 ml Other 450 ml 500 ml Output Urine Total 725 ml 700 ml 350 ml Gastric Drainage Total 200 ml 1300 ml # Bowel Movements 0 0 0 Vital Signs Vital Signs Date Time Temp Pulse Resp B/P Pulse Ox O2 Delivery O2 Flow Rate FiO2 08/28/16 12:00 70 08/28/16 11:09 98 50 08/28/16 10:00 67 08/28/16 08:00 40 08/28/16 08:00 97.3 66 21 120/64 94 08/28/16 08:00 66 08/28/16 07:40 40 08/28/16 07:40 92 50 08/28/16 06:00 66 08/28/16 04:16 94 40 08/28/16 04:00 97.2 67 19 88/54 96 08/28/16 04:00 40 08/28/16 04:00 67 08/28/16 02:00 69 08/28/16 01:00 95 40 08/28/16 00:00 97.5 73 18 104/61 94 08/28/16 00:00 40 08/28/16 00:00 73 08/27/16 22:00 96 40 08/27/16 22:00 72 08/27/16 20:00 40 08/27/16 20:00 97.5 74 19 108/61 99 08/27/16 20:00 74 08/27/16 19:54 99 40 08/27/16 18:00 71 08/27/16 16:00 98.1 80 19 110/63 98 Arterial Line 08/27/16 16:00 80 08/27/16 16:00 40 08/27/16 15:29 100 40 08/27/16 14:00 72 CBC/BMP: 08/28/16 0222 08/28/16221 Lab Results Laboratory Tests Test 08/28/16 08/28/16 02:22 02:28 White Blood Count 13.0 TH/MM3 Red Blood Count 3.83 MIL/MM3 Hemoglobin 11.5 GM/DL Hematocrit 35.1 % Mean Corpuscular Volume 91.6 FL Mean Corpuscular Hemoglobin 29.9 PG Mean Corpuscular Hemoglobin 32.6 % Concent Red Cell Distribution Width 14.4 % Platelet Count 342 TH/MM3 Mean Platelet Volume 8.8 FL Sodium Level 152 MEQ/L Potassium Level 4.3 MEQ/L Chloride Level 113 MEQ/L Carbon Dioxide Level 29.6 MEQ/L Anion Gap 9 MEQ/L Blood Urea Nitrogen 62 MG/DL Creatinine 1.43 MG/DL Estimat Glomerular Filtration 47 ML/MIN Rate Random Glucose 150 MG/DL Calcium Level 9.0 MG/DL Phosphorus Level 3.4 MG/DL Magnesium Level 2.9 MG/DL Blood Gas Puncture Site RT BRACHIAL Blood Gas Patient Temperature 98.6 Blood Gas HCO3 28 mmol/L Blood Gas Base Excess 4.9 mmol/L Blood Gas Oxygen Saturation 92 % Arterial Blood pH 7.52 Arterial Blood Partial 35 mmHg Pressure CO2 Arterial Blood Partial 70 mmHg Pressure O2 Arterial Blood Oxygen Content 16.1 Vol % Arterial Blood 1.0 % Carboxyhemoglobin Arterial Blood Methemoglobin 0.8 % Blood Gas Hemoglobin 12.5 G/DL Oxygen Delivery Device VENTILATOR Blood Gas Ventilator Setting COMMENT Blood Gas Inspired Oxygen 40 % Physical Exam General General Appearance: No Acute Distress, Comfortable, Obese Eyes Eye Exam: Pupils Equal, Sclera White Ears & Nose Ears & Nose Exam: Nasal Mucosa [place] Throat Throat Exam: Oral Mucosa [place] & Moist Neck Neck Exam: Neck Supple, Trachea Midline Pulmonary Resp Exam: Breath Sounds Equal, Crackles, Rhonchi, Decreased Bases Cardiology CV Exam: Regular, Normal Sinus Rhythm Gastrointestinal/Abdomen GI Exam: Non-Tender, Bowel Sounds Present, Distended, Bowel Sounds Hypoactive GI Remarks NGT to LIS Genitourinary Exam: Clear Urine Remarks SHIELDS Musculoskeletal MS Exam: Joints Intact Integumentary Skin Exam: Warm, Dry Extremeties Extremities Exam: No Edema, Pedal Pulses Palpable Neurologic Neuro Remarks eyes open, on Precedex gtt VTE Prophylaxis VTE Prophylaxis Meds: Lovenox PUD Prophylasis PUD Prophylaxis: Protonix Assessment/Plan Assessment/Plan ASSESSMENT 1. Acute febrile illness with leukocytosis and left shift, source not clear. The patient has evidence of microscopic hematuria, questionable urinary tract infection, rule out bacteremia, question bronchitis. 2. Hyperglycemia. 3. Normochromic normocytic anemia. 4. BPH with chronic urge incontinence. 5. Hypertension. 6. Hyperlipidemia. 7. Recurrent falls, fortunately no significant injury. 8. Acute VDRF 9. ACS/ NSTEMI -evaluated per card. Had STT, negative 10. s/p Acute pulmonary edema/flash pulmonary edema 11. HCA Pneumonia 12. Adynamic Ileus 13. Hypernatremia PLAN CCM following Ventilator support and weaning per medical screener IV sedation- Precedex not extubated due to abd. distension and ileus continue on vent blood c/s neg [except stap capitis , contaminant] cont empic IV antibiotics, Levaquin Appreciate ID input IV steroids , taper aerosol tx Control blood pressure S/P NSTEMI, card. evaluated. STT done negative. 2-D echocardiogram noted, EF is 50% Continue Aspirin Hypernatremic, D5LR infusing Cont reglan Continue PPI Subcutaneous Lovenox Persistent ileus, no BM Appreciate GI input NGT to LIS GI recommendations noted, given Golitely and enema, no response Small bowel series ordered per Dr. Page condition guarded not ready to tx to [facility]. D/W RN D/W Dr. Shelton This patient was seen by myself and Dr. Shelton, this note is written on his behalf. Kandi Summers Aug 28, 2016 14:04
[2016-08-28] MEDS ORDERED: TERBUTALINE INJ 1 MG/ML AMP SQ PRN (14:30)
[2016-08-28] MEDS ORDERED: ALTEPLASE RECOMBINANT 2 MG VIAL INTRACATH ONE (14:30)
[2016-08-28] MEDS ORDERED: SODIUM CHLOR 0.9% 1000 ML INJ 1,000 ML IV ONE (14:30)
[2016-08-28] MEDS ORDERED: PHENYLEPHRINE INJ 40 MG in DEXTROSE 5% IN WATE 500 ML INJ 496 ML IV SCH ×2 (15:30)
--- NOTE | 2016-08-28 16:35 | HHI.GIFU ---
Subjective Remarks PT sedated on vent. Received Golytely last night, did not have any results and had abdominal pressure of 20 this am per nurse. This was suctioned out. SBFT in process. NGT with 400cc. No BM yet. (Alivia Ross) Objective Vitals I&O Vital Signs Date Time Temp Pulse Resp B/P Pulse Ox O2 Delivery O2 Flow Rate FiO2 08/28/16 15:58 96 40 08/28/16 14:00 73 08/28/16 12:00 70 08/28/16 12:00 50 08/28/16 12:00 98.1 68 24 92/56 97 08/28/16 11:09 98 50 08/28/16 10:00 67 08/28/16 08:00 40 08/28/16 08:00 97.3 66 21 120/64 94 08/28/16 08:00 66 08/28/16 07:40 40 08/28/16 07:40 92 50 08/28/16 06:00 66 08/28/16 04:16 94 40 08/28/16 04:00 97.2 67 19 88/54 96 08/28/16 04:00 40 08/28/16 04:00 67 08/28/16 02:00 69 08/28/16 01:00 95 40 08/28/16 00:00 97.5 73 18 104/61 94 08/28/16 00:00 40 08/28/16 00:00 73 08/27/16 22:00 96 40 08/27/16 22:00 72 08/27/16 20:00 40 08/27/16 20:00 97.5 74 19 108/61 99 08/27/16 20:00 74 08/27/16 19:54 99 40 08/27/16 18:00 71 I/O 08/27/16 08/27/16 08/27/16 08/28/16 08/28/16 08/28/16 07:00 15:00 23:00 07:00 15:00 23:00 Intake Total 309 ml 932 ml 1230 ml 401 ml 693 ml Output Total 930 ml 925 ml 700 ml 1650 ml 775 ml Balance -621 ml 7 ml 530 ml -1249 ml -82 ml IV Total 309 ml 482 ml 730 ml 401 ml 573 ml Tube Irrigant 120 ml Other 450 ml 500 ml Output Urine Total 850 ml 725 ml 700 ml 350 ml 375 ml Gastric Drainage Total 80 ml 200 ml 1300 ml 400 ml # Bowel Movements 0 0 0 0 0 Laboratory Laboratory Tests Test 08/28/16 08/28/16 02:22 02:28 White Blood Count 13.0 Red Blood Count 3.83 Hemoglobin 11.5 Hematocrit 35.1 Mean Corpuscular Volume 91.6 Mean Corpuscular Hemoglobin 29.9 Mean Corpuscular Hemoglobin 32.6 Concent Red Cell Distribution Width 14.4 Platelet Count 342 Mean Platelet Volume 8.8 Sodium Level 152 Potassium Level 4.3 Chloride Level 113 Carbon Dioxide Level 29.6 Anion Gap 9 Blood Urea Nitrogen 62 Creatinine 1.43 Estimat Glomerular Filtration 47 Rate Random Glucose 150 Calcium Level 9.0 Phosphorus Level 3.4 Magnesium Level 2.9 Blood Gas Puncture Site RT BRACHIAL Blood Gas Patient Temperature 98.6 Blood Gas HCO3 28 Blood Gas Base Excess 4.9 Blood Gas Oxygen Saturation 92 Arterial Blood pH 7.52 Arterial Blood Partial 35 Pressure CO2 Arterial Blood Partial 70 Pressure O2 Arterial Blood Oxygen Content 16.1 Arterial Blood 1.0 Carboxyhemoglobin Arterial Blood Methemoglobin 0.8 Blood Gas Hemoglobin 12.5 Oxygen Delivery Device VENTILATOR Blood Gas Ventilator Setting COMMENT Blood Gas Inspired Oxygen 40 Imaging Last Impressions Abdomen X-Ray 08/28/16 0600 Signed Impressions: Service Date/Time: August 06:12 - CONCLUSION: Worsening distention of the small bowel. Bowel gas pattern is suggestive of an ileus. Gavin Gray Jr., MD Chest X-Ray 08/28/16 0300 Signed Impressions: Service Date/Time: August 06:10 - CONCLUSION: Unchanged bilateral pulmonary infiltrates. Gavin Gray Jr., MD Myocardial Perfusion Scan Nuc Med 08/20/16 0000 Signed Impressions: Service Date/Time: Saturday, August 20, 2016 08:43 - CONCLUSION: Unremarkable myocardial perfusion examination. RISK CATEGORY: low Alexander Carter MD Head CT 08/20/16 0000 Signed Impressions: Service Date/Time: Saturday, August 20, 2016 07:58 - CONCLUSION: Unremarkable and stable CT brain for patient's age. Alexander Carter MD Renal Ultrasound 08/18/16 0000 Signed Impressions: Service Date/Time: Thursday, August 18, 2016 11:49 - CONCLUSION: 1. Echogenic kidneys which can be seen with medical renal disease. 2. Bilateral renal cysts. Ricardo Adan MD Physical Exam HEENT: Normocephalic; atraumatic; no jaundice. CHEST: OETT to vent. Resp. even/unlabored. Diminished bases. CARDIAC: RRR ABDOMEN: Soft, distended, no hepatosplenomegaly; bowel sounds are hypoactive. NGT to LIWS with gold/brownish colored gastric secretions EXTREMITIES: Generalized trace edema. 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 (Alivia Ross) Assessment and Plan Plan ASSESSMENT: - Persistent small bowel Ileus. He is not on chronic narcotics. His magnesium level is 2.9. S/P Magnesium Citrate (08/27/15). S/P Golytely (08/27/15), no results and noted to have abdominal pressure 20 this am and therefore this was suctioned out. Abdomen X-Ray (08/28/16)-----> Worsening distention of the small bowel. Bowel gas pattern is suggestive of an ileus. Pt is on Miralax, Reglan, Lactulose. No results from this. NGT to LIWS- 400cc thi shift. SBFT in process. Trial of bethanechol. Await results of SBFT. - Acute hypoxic respiratory failure, pulmonary edema, COPD, and probable pneumonia. Vent per [facility]. - Leukocytosis, Fever. WBC 13.0 - Anemia. 11.5/35.1. - ACS/NSTEMI, S/P cardiology evaluation. - HTN, Hyperlipidemia, per primary PLAN: - NPO - NGT to LIWS - S/P Golytely, SSE x 2, Magnesium citrate---> no results - Trial of Bethanechol - SBFT in process, await results - Cont. Lactulose - Cont. Reglan - Cont. Miralax - KUB in am - Supportive care - Further recommendations to follow based on results of above - Pt seen and examined by Dr. Benavides and myself and this note is written on his behalf (Alivia Ross) Physician Comments Patient was seen and examined, agree with above note and plan, plan KUB in am ( Maximo Benavides MD) Alivia Ross Aug 28, 2016 16:35 Maximo Benavides MD Aug 28, 2016 20:42
[2016-08-28] MEDS: LEVOFLOXACIN 750 MG PREMIX INJ 150 ML IV SCH (17:24)
--- NOTE | 2016-08-28 17:26 | RADRPT ---
EXAM DATE/TIME: 08/28/2016 10:39 [facility] COMPARISON: No previous studies available for comparison. INDICATIONS : Ileus. FLUORO TIME: ? minutes IMAGE COUNT: CONTRAST: Gastroyuly IMAGING TIME(S): 15 min1hr 15 min,[id number] MEDICAL HISTORY : Hypertension. SURGICAL HISTORY : None. ENCOUNTER: Initial ACUITY: 2 weeks PAIN SCORE: Non-responsive. LOCATION: Bilateral abdomen FINDINGS: There is filling of the stomach with Gastrografin through the NG tube. The proximal and distal small bowel are dilated with slow movement of contrast. Contrast does become somewhat progressively diluted distally. On the 5 hour film contrast does appear to reach the proximal colon. CONCLUSION: 1. Dilated bowel most characteristic of an ileus with poor peristalsis. No transition zone identified . Juice Faith MD on August 28, 2016 at 17:21 Board Certified Radiologist. This report was verified electronically.
[2016-08-28] MEDS: TERAZOSIN HCL 1 MG CAP PO SCH (21:00)
[2016-08-29] VITALS (20 sets, daily range): BP systolic 87–114; BP diastolic 52–67; PULSE 65–120; RESP 18–26; TEMP 98–100.3; O2SAT 94–100
[2016-08-29] MEDS: CHLORHEXIDINE 0.12% (ORAL KIT) 15 ML CUP MT SCH ×3 (00:34→20:00)
[2016-08-29] MEDS: SODIUM CHLORIDE 0.9% FLUSH 5 ML FLUSH FLUSH SCH ×3 (00:35→20:30)
[2016-08-29] MEDS: LATANOPROST 0.005% OPHT SOLN 2.5 ML BTL EACH EYE SCH ×2 (00:35→20:30)
[2016-08-29] MEDS: ENOXAPARIN SODIUM 40 MG/0.4 ML SYRINGE SQ SCH ×2 (00:35→20:30)
[2016-08-29] MEDS: LACTULOSE SYRUP 20 GM/30 ML CUP PO SCH ×5 (00:36→20:29)
[2016-08-29] MEDS: methylPREDNISolone SOD SUCC 40 MG/1 ML VIAL IV PUSH SCH ×3 (00:36→20:30)
[2016-08-29] MEDS: POLYETHYLENE GLYCOL 17 GM PKG PO SCH ×3 (00:36→20:29)
[2016-08-29] MEDS: NYSTATIN SUSP 500,000 U/5 ML CUP SWISH-SPIT SCH ×5 (00:37→20:29)
[2016-08-29] MEDS: BETHANECHOL CHL 25 MG TAB PO SCH ×4 (00:38→21:27)
[2016-08-29 04:16] LABS: HEMATOCRIT 34.7 % (39.0-51.0); MEAN CELL VOLUME 91.4 FL (80.0-100.0); MEAN CORPUSCULAR HEMOGLOBIN 30.2 PG (27.0-34.0); PLATELET COUNT 344 TH/MM3 (150-450); RED BLOOD COUNT 3.79 MIL/MM3 (4.50-5.90); RED CELL DISTRIBUTION WIDTH 14.2 % (11.6-17.2); REVIEW FLAG FINAL
[2016-08-29] MEDS: METOCLOPRAMIDE HCL 10 MG/2 ML VIAL IV PUSH SCH ×3 (04:16→17:46)
[2016-08-29 04:46] LABS: BICARBONATE 28.7 MEQ/L (21.0-32.0); MAGNESIUM 3.3 MG/DL (1.5-2.5); POTASSIUM 4.1 MEQ/L (3.5-5.1)
--- NOTE | 2016-08-29 06:24 | RADRPT ---
EXAM DATE/TIME: 08/29/2016 05:00 [facility] COMPARISON: SMALL BOWEL SERIES W/GASTROGRAFIN, August 28, 2016, 10:39. ABDOMEN KUB ONLY, August 28, 2016, 6:12 . INDICATIONS : Please evaluate ileus. MEDICAL HISTORY : Hypertension. SURGICAL HISTORY : None. ENCOUNTER: Subsequent ACUITY: 2 weeks PAIN SCORE: Non-responsive. LOCATION: Bilateral Abdomen FINDINGS: There is persistent contrast in loops of bowel in the central and right abdomen, similar in appearanc e to the last image on the Gastrografin small bowel follow-through yesterday. Gastric tube and recta l tube in place. The largest loop in the right lower quadrant measures 8.3 cm in width. No haustrat ion or valvulae seen in this loop and it cannot be identified as either small or large bowel. CONCLUSION: The position of the oral contrast in dilated loops of bowel is very similar to an image performed at the end of the small bowel series yesterday. Gavin Conte MD on August 29, 2016 at 6:20 Board Certified Radiologist. This report was verified electronically.
--- NOTE | 2016-08-29 07:44 | HHI.CCPN ---
Subjective Remarks/Hospital Course 81-year-old man who admitted to [facility] with complains of feeling weak and dizzy , also some chills with it. He had one episode of vomiting earlier today and another episode in the ED. While on a medical floor, he became hypoxemic and tachycardic. Due to hypoxemia at 80s he is transfered to ICU. Patient is alert and oriented and he doesn't want to be intubated in case his condition declines. 08/20 Afebrile. 24 hours patient was noted to have elevated troponins, etiology consulted patient was initiated on aspirin and beta blockers. Cardiology was consulted. Plan for nuclear medicine myocardial perfusion scan, initially scheduled for 08/19 will be done today secondary to NPO status of patient. The patient continues on a Cardizem infusion, metoprolol dosage was increased. Early this a.m., the patient climbed out of the bed and fell, noted laceration posterior right ear. Of note, the patient consumes 2-3 drinks of whiskey per night, came very anxious last night, reported by . The patient was alert and oriented with GCS of 15. Full range of motion denies pain in extremities 4. Stat CT of the head, results pending. 08/21 Tmax 101.8. Yesterday afternoon post nuclear medicine perfusion scan, the patient became acutely hypoxic O2 sat in the 70s, the patient was emergently intubated. Max pulmonary edema was noted, with copious pink frothy sputum via ETT . FiO2 requirements were increased, unable to wean below 70% yesterday afternoon .Sputum culture and urine cultures were obtained, broad- spectrum antibiotics were initiated Vancomycin and Levaquin. The patient currently is on Rocephin for UTI. Flowtrac was instituted, cardiac output and cardiac index were within normal limits. During the night the patient's O2 requirements were increased, the patient required 15 cm of PEEP and initially 100% FiO2. The patient was received 2 mg of Bumex without any diuresis noted. The patient became hypotensive during the night requiring Charbel-Synephrine and Norepinephrine infusions. This morning a central line was placed, steroids were initiated, Solu-Medrol 125 mg IV push, and repeat blood cultures were obtained. 08/22 Tmax 97.8. Patient improvement, weaned off all vasopressors. Oxygen requirements decreased, FiO2 now 40%, PEEP 5. GCS 11 T during sedation holiday. Plan for CPAP trials today. 08/23: Passed weaning parameters today. However, several on propofol at 20 mcg /kg per minute for comfort. Switching to Precedex drip at present. Tolerating tube feeding. 08/24: Not tolerating NG tube feeds, noted residual 500 cc last night. Ileus noted on KUB yesterday. NG tube placed to suction, large amount of care noted. Repeat KUB slightly improved. Prokinetic agents instituted over the last 24 hours 08/25: Increase in intra-abdominal pressure, bladder pressures yesterday afternoon up to 22. Mag citrate added to bowel regimen, Lopid large voluminous bowel movement. OGT to continuous suction 500 cc output overnight. The patient was placed on CPAP trials yesterday from 4 PM2 AM. Abdomen currently soft bladder pressure 14 at 6 AM. Plan for continued CPAP trials today, insertion of NG tube to continued low continuous suction, follow-up KUB. 08/26: Tmax 99.2. The patient was maintained on CPAP trials over 8 hours yesterday without difficulty. GI was consulted yesterday . Patient is NG tube output were night significantly diminished. 250 cc bilious gastric output over 14 hours in total. The patient had 3 bowel movements last night. KUB remains unchanged today with continued small and large bowel distention-ileus. Bladder pressures the last 24 hours remain low averaging 34. 1/4: Afebrile. No acute respiratory issues. Patient remains on Precedex infusion with RASS-1, cooperative. NG tube output 230 cc overnight for 12 hours. Patient still has not had a bowel movement in the last 24hrs. repeat KUB remains unchanged today continued bowel distention. Mag citrate ordered this a.m.. GI following. Intra-abdominal pressures are low 37. 1: Patient received mag citrate yesterday with no effect. Overnight the patient was instilled 2 L of GoLYTELY and 1500 cc of soapsuds enema,per GI recommendations. KUB scheduled for this a.m.. Abdominal pressures elevated secondary to the 3.5 L volume intra-abdominal. Subjective 08/29: Tmax 100.3. 3450 gastric contents out of NG tube overnight. Currently resting in bed with distended abdomen. 400 cc urine output past 12 hours. Borderline systolic blood pressures. Arousable on Precedex has received Ativan 2 overnight secondary to agitation. Objective Vital Signs Date Time Temp Pulse Resp B/P Pulse Ox O2 Delivery O2 Flow Rate FiO2 08/29/16 06:00 65 08/29/16 04:00 100.3 18 105/59 94 08/29/16 04:00 40 Intake and Output 08/28/16 08/28/16 08/29/16 08:00 16:00 00:00 Intake Total 401 ml 693 ml 1598 ml Output Total 1650 ml 775 ml 500 ml Balance -1249 ml -82 ml 1098 ml Result Diagram: 08/29/16 0355 08/29/16 0355 Imaging Last Impressions Abdomen X-Ray 08/29/16 0600 Signed Impressions: Service Date/Time: Monday, August 29, 2016 05:00 - CONCLUSION: The position of the oral contrast in dilated loops of bowel is very similar to an image performed at the end of the small bowel series yesterday. Gavin Conte MD Chest X-Ray 08/28/16 0300 Signed Impressions: Service Date/Time: August 06:10 - CONCLUSION: Unchanged bilateral pulmonary infiltrates. Gavin Gray Jr., MD Small Bowel X-Ray 08/28/16 0000 Signed Impressions: Service Date/Time: August 10:39 - CONCLUSION: 1. Dilated bowel most characteristic of an ileus with poor peristalsis. No transition zone identified. Juice Faith MD Myocardial Perfusion Scan Nuc Med 08/20/16 0000 Signed Impressions: Service Date/Time: Saturday, August 20, 2016 08:43 - CONCLUSION: Unremarkable myocardial perfusion examination. RISK CATEGORY: low Alexander Carter MD Head CT 08/20/16 0000 Signed Impressions: Service Date/Time: Saturday, August 20, 2016 07:58 - CONCLUSION: Unremarkable and stable CT brain for patient's age. Alexander Carter MD Renal Ultrasound 08/18/16 0000 Signed Impressions: Service Date/Time: Thursday, August 18, 2016 11:49 - CONCLUSION: 1. Echogenic kidneys which can be seen with medical renal disease. 2. Bilateral renal cysts. Ricardo Adan MD Objective Remarks GENERAL: 81-year-old male, critically ill currently orotracheally intubated and sedated SKIN: Warm and dry, noted abrasion posterior right ear, evolving abrasion right knee HEAD: Normocephalic. EYES: No scleral icterus. No injection or drainage. Pupils around 2 mm bilaterally and reactive NECK: Supple, trachea midline. No JVD or lymphadenopathy. Orotracheally intubated CARDIOVASCULAR: Regular rate and rhythm S1, S2. No S4. Currently without murmurs, clicks, gallops or rubs. RESPIRATORY: Breath sounds equal bilaterally,no wheezing noted. Symmetrical excursion GASTROINTESTINAL: Abdomen soft, obese distended, voluntary guarding. No rigidity. Very hypoactive bowel sounds appreciated right lower quadrant MUSCULOSKELETAL: Trace bilateral lower extremity nonpitting edema. Movement of extremities 4 on commands BACK: Nontender without obvious deformity. No CVA tenderness. Urinary Catheter: Yes Assessment to: Continue Bauer insert reason: Prolonged Immobilization Date of Insertion: Aug 19, 2016 Vascular Central Line Catheter: Yes Assessment to: Continue Date of Insertion: Aug 21, 2016 Line: Central Venous Catheter Side: Right Location: Internal, Jugular A/P Problem List: (1) BPH with urinary obstruction ICD Code: N40.1 Status: Acute (2) COPD (chronic obstructive pulmonary disease) ICD Code: J44.9 Status: Acute (3) Pulmonary edema ICD Code: J81.1 Status: Acute (4) Respiratory failure ICD Code: J96.90 Status: Acute Assessment and Plan Neuro/Psych: Glaucoma Alcohol use S/P Fall-confusion (08/20) -GCS 11T, Precedex infusion currently at 1.4 mcgs, RASS -1 , patient responsive , following commands Will sister propofol drip for sedation/analgesia while intubated -Continued on Latanoprost 0.005% 1 drop each eye at night for glaucoma -S/P Fall OOB 08/20, CT of the head-unremarkable stable CT of the brain -Monitor for signs of alcohol withdrawal -Thiamine 100 mg, folate 1 mg q/day will be continued Respiratory: Acute hypoxic respiratory failure Acute Pulmonary edema-resolved COPD exacerbation-resolved Chronic smoker Probable multilobar Pneumonia -PRVC FiO2 50%/tidal volume around 550/5/inspiratory time 1.0 with the rate of 18 -CPAP trials continued -Maintain O2 sat greater than 92% -Scheduled Duonebs every 6 hours, add every 2 PRN - Methylprednisone taper 30mg BID -Counseled on smoking [id number] (smokes 2 PPD x 65 years), family reported accurate smoking history -Nicotine patch day 02/27 dc'd 08/26 Cardiovascular: NSTEMI H/O Hypertension Tachycardia-resolved Dyslipidemia Cardiogenic Shock -Charbel-Synephrine dc'd 08/23 -Troponin (08/19) 5.17->4.91->4.23 -Continue ASA 81 mg/day - Metoprolol 6.25 mg by tube twice a day Holding Hytrin 1 mg at night and Prinivil 20 mg daily and secured hypotension and acute kidney injury - Patient continues on pravastatin 40 mg by mouth daily (home med) -ECHO 08/19- EF 50% , no RWMA. RV dilated. JOHNY 38 mmHg -BNP- 156->91 (08/21) -08/20 nuclear medicine myocardial perfusion scan-intact wall motion and thickening without hypokinetic or dyskinetic segments -Cardiology on board, Dr. Cason, follow recommendations including possible cardiac catheterization in the future once stable Renal: Acute on chronic renal failure BPH -Creatinine worsening from 1.4-1.9 -Maintain Bauer - Home meds Flomax Hytrin being held secured hypotension -- Strict I/Os -monitor urinary output hourly FEN/GI: Ileus Constipation Increased intra-abdominal pressure -IVF D5LR @42cc/hr -Electrolyte replacement per ICU protocol -Measure bladder pressures q 4 hours last one around 20 -No BM in the last 72 hours -F/U KUB reveals contrast in similar position to yesterday after small bowel series -Surgery consult-Dr Elizabeth 2/2 increased intra-abdominal pressure-resolved - Tube feeds-Jevity 1.5, goal of 60 cc/hr on hold to like along the TPN -NG tube to low intermittent water suction -Zofran for nausea -Protonix GI prophylaxis -Bowel regimen including Sonia-Colace twice a day, MiraLAX twice a day and lactulose QID, Reglan 5 mg TID 1 dose of mineral oil [address] abdomen/pelvis performed today. Liver function tests, amylase, lipase, CPK lactic acid all pending Reconsultation surgery recommendations Heme/ID: Leukocytosis Probable multilobar pneumonia Septic shock UTI Proteus mirabilis - 08/18 urine culture-Proteus mirabilis -08/18 blood culture- Staph Capitis () -08/20 blood culture-NGTD -08/20 urine Legionella, Pneumococcal-negative -Methylprednisolone 30 mg BID -Monitor CBC, WBC 12 -Lactate 1.5 (08/22) -ID consulted, Dr Benavides - follow-up recommendations Currently on Levaquin since 08/20. Endocrine: Blood glucose monitoring every 4 hours per ICU protocol -- SSI Prophylaxis: GI Prophylaxis Protonix DVT Prophylaxis -- SCDs Lovenox Lines: Peripheral IVs. Central line RIJ 08/21, R radial [place] 08/21 Critical Care: The total critical care time was 45 minutes. Time to perform other separately billable procedures was not included in the critical care time. . Huan Page MD Aug 29, 2016 07:44
[2016-08-29] MEDS ORDERED: DIATRIZOATE MEGLUM/DIATRIZOATE SOD 9 ML CUP PO ONE (07:45)
[2016-08-29] MEDS ORDERED: ALTEPLASE RECOMBINANT 2 MG VIAL INTRACATH PRN (07:45)
[2016-08-29] MEDS ORDERED: MINERAL OIL LIQUID 30 ML CUP PO ONE (07:45)
[2016-08-29] MEDS: FOLIC ACID 1 MG TAB PO SCH (08:22)
[2016-08-29] MEDS: DOCUSATE SODIUM 50 MG/SENNA 8.6 MG TAB PO SCH ×2 (08:22→20:29)
[2016-08-29] MEDS: PRAVASTATIN SOD 40 MG TAB PO SCH (08:22)
[2016-08-29] MEDS: ASPIRIN 81 MG CHEW TAB CHEW SCH (08:22)
[2016-08-29] MEDS: THIAMINE HCL 100 MG TAB PO SCH (08:22)
[2016-08-29] MEDS: PANTOPRAZOLE SODIUM 40 MG VIAL IV PUSH SCH (08:23)
--- NOTE | 2016-08-29 08:26 | HHI.GIFU ---
Subjective Remarks Sedated on ventilator. Nurse reports that she was not getting much from NGT and pt with increased abdominal pressure at 20, she then manipulated this some and it put out 2,800cc of gastric contents. Rectal tube to gravity placed overnight. Abdominal pressures currently 19. No BM. Abdomen soft, distended. (Alivia Ross) Objective Vitals I&O Vital Signs Date Time Temp Pulse Resp B/P Pulse Ox O2 Delivery O2 Flow Rate FiO2 08/29/16 07:57 50 08/29/16 07:50 95 50 08/29/16 06:00 65 08/29/16 04:00 100.3 72 18 105/59 94 08/29/16 04:00 72 08/29/16 04:00 40 08/29/16 03:52 95 50 08/29/16 02:00 72 08/29/16 00:47 95 50 08/29/16 00:00 71 08/29/16 00:00 40 08/29/16 00:00 98.0 71 18 87/52 94 08/28/16 22:00 70 08/28/16 20:00 94 40 08/28/16 20:00 40 08/28/16 20:00 72 08/28/16 20:00 98.0 72 20 105/57 97 08/28/16 18:00 69 08/28/16 16:00 50 08/28/16 16:00 70 08/28/16 16:00 99.0 75 20 94/54 94 08/28/16 15:58 96 40 08/28/16 14:00 73 08/28/16 12:00 70 08/28/16 12:00 50 08/28/16 12:00 98.1 68 24 92/56 97 08/28/16 11:09 98 50 08/28/16 10:00 67 I/O 08/28/16 08/28/16 08/28/16 08/29/16 08/29/16 08/29/16 07:00 15:00 23:00 07:00 15:00 23:00 Intake Total 401 ml 693 ml 1598 ml 1137 ml Output Total 1650 ml 775 ml 500 ml 3200 ml Balance -1249 ml -82 ml 1098 ml -2063 ml IV Total 401 ml 573 ml 1598 ml 1137 ml Tube Irrigant 120 ml Output Urine Total 350 ml 375 ml 250 ml 400 ml Gastric Drainage Total 1300 ml 400 ml 250 ml 2800 ml # Bowel Movements 0 0 0 0 Laboratory Laboratory Tests Test 08/29/16 03:55 White Blood Count 16.0 Red Blood Count 3.79 Hemoglobin 11.5 Hematocrit 34.7 Mean Corpuscular Volume 91.4 Mean Corpuscular Hemoglobin 30.2 Mean Corpuscular Hemoglobin 33.0 Concent Red Cell Distribution Width 14.2 Platelet Count 344 Mean Platelet Volume 9.4 Sodium Level 154 Potassium Level 4.1 Chloride Level 116 Carbon Dioxide Level 28.7 Anion Gap 9 Blood Urea Nitrogen 74 Creatinine 1.95 Estimat Glomerular Filtration 33 Rate Random Glucose 164 Calcium Level 8.6 Phosphorus Level 3.5 Magnesium Level 3.3 Imaging Last Impressions Abdomen X-Ray 08/29/16 0600 Signed Impressions: Service Date/Time: Monday, August 29, 2016 05:00 - CONCLUSION: The position of the oral contrast in dilated loops of bowel is very similar to an image performed at the end of the small bowel series yesterday. Gavin Conte MD Chest X-Ray 08/28/16 0300 Signed Impressions: Service Date/Time: August 06:10 - CONCLUSION: Unchanged bilateral pulmonary infiltrates. Gavin Gray Jr., MD Small Bowel X-Ray 08/28/16 0000 Signed Impressions: Service Date/Time: August 10:39 - CONCLUSION: 1. Dilated bowel most characteristic of an ileus with poor peristalsis. No transition zone identified. Juice Faith MD Myocardial Perfusion Scan Nuc Med 08/20/16 0000 Signed Impressions: Service Date/Time: Saturday, August 20, 2016 08:43 - CONCLUSION: Unremarkable myocardial perfusion examination. RISK CATEGORY: low Alexander Carter MD Head CT 08/20/16 0000 Signed Impressions: Service Date/Time: Saturday, August 20, 2016 07:58 - CONCLUSION: Unremarkable and stable CT brain for patient's age. Alexander Carter MD Renal Ultrasound 08/18/16 0000 Signed Impressions: Service Date/Time: Thursday, August 18, 2016 11:49 - CONCLUSION: 1. Echogenic kidneys which can be seen with medical renal disease. 2. Bilateral renal cysts. Ricardo Adan MD Physical Exam HEENT: Normocephalic; atraumatic; no jaundice. CHEST: OETT to vent. Resp. even/unlabored. Diminished bases. CARDIAC: RRR ABDOMEN: Soft, distended, no hepatosplenomegaly; bowel sounds are hypoactive. NGT to LIWS with gold/brownish colored gastric secretions, rectal tube to gravity without any output EXTREMITIES: Generalized edema. 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 (Alivia Ross) Assessment and Plan Plan ASSESSMENT: - Persistent small bowel Ileus. He is not on chronic narcotics. His magnesium level is 2.9. S/P Magnesium Citrate (08/27/15). S/P Golytely (08/27/15), no results and noted to have abdominal pressure 20 and therefore this was suctioned out. SBFT ()-----> 1. Dilated bowel most characteristic of an ileus with poor peristalsis. No transition zone identified. Abdomen X-Ray (08/29/16)----> The position of the oral contrast in dilated loops of bowel is very similar to an image performed at the end of the small bowel series yesterday. Pt is on Miralax, Reglan, Lactulose, bethanechol. No results from this. NGT to LIWS- was not draining and pt had abdominal pressure 20 with worsening distention, this was manipulated and the patient put out 2,800cc of gastric secretions. D/W Dr. Page, not candidate for neostigmine with recent NSTEMI. Rectal tube to gravity, will place to LIWS. Decompression will not be beneficial as this is primarily small bowel. CT pending. GS evaluation. Call placed to IR to see if there is anyway to place catheter in small bowel for decompression. Awaiting call back. - Acute hypoxic respiratory failure, pulmonary edema, COPD, and probable pneumonia. Vent per CCM. - Leukocytosis, Fever. WBC 16.0 - Anemia. 11.5/34.7 - ACS/NSTEMI, S/P cardiology evaluation. - HTN, Hyperlipidemia, per primary PLAN: - NPO - NGT to LIWS - Place rectal tube to decompression - Await CT Scan - GS evaluation- D/W Dr. Elizabeth - S/P Golytely, SSE x 2, Magnesium citrate, SBFT with gastrografin---> no results - Cont. Bethanechol - Cont. Lactulose - Cont. Reglan - Cont. Miralax - KUB in am - Supportive care - Call placed to IR to see if it would be possible for them to place a catheter in sb for decompression, awaiting call back - Further recommendations to follow based on results of above - Pt seen and examined by Dr. Benavides and myself and this note is written on his behalf ADDENDUM 1424: Pt's abdomen seems slightly softer. No bm per nurse. S/P CT with persistent small bowel ileus, but now also with moderate rectal constipation. Barium enema ordered already. Will see if he has any results with this. ( Alivia Ross) Physician Comments Patient was seen and examined, agree with above note and plan, guarded prognosis , await ACBE (Maximo Benavides MD) Alivia Ross Aug 29, 2016 08:26 Maximo Benavides MD Aug 30, 2016 07:20
[2016-08-29] MEDS: RESP: ALBUTEROL 2.5 MG/IPRATROPIUM 0.5 MG NEB (SCH) NEB ×3 (09:00→21:22)
[2016-08-29] MEDS: METOPROLOL TARTRATE 25 MG TAB PO SCH ×2 (09:00→20:29)
--- NOTE | 2016-08-29 09:20 | HHI.IDPN ---
Subjective Subjective Remarks Notes reviewed D/W RN Has low grade temps On the vent, on precedex SB series showing poor peristalsis, no transition zone seen NGT currently clamped - had a lot of output last 24 hours Creatinine rising WBC higher BP ok Antibiotics Levaquin Lines [facility] - 08/21 Past Medical History Reviewed Allergies: Coded Allergies: No Known Allergies (Unverified , 05/16/15) Objective . Vital Signs Date Time Temp Pulse Resp B/P Pulse Ox O2 Delivery O2 Flow Rate FiO2 08/29/16 09:00 94 50 08/29/16 07:57 50 08/29/16 07:50 95 50 08/29/16 06:00 65 08/29/16 04:00 100.3 72 18 105/59 94 08/29/16 04:00 72 08/29/16 04:00 40 08/29/16 03:52 95 50 08/29/16 02:00 72 08/29/16 00:47 95 50 08/29/16 00:00 71 08/29/16 00:00 40 08/29/16 00:00 98.0 71 18 87/52 94 08/28/16 22:00 70 08/28/16 20:00 94 40 08/28/16 20:00 40 08/28/16 20:00 72 08/28/16 20:00 98.0 72 20 105/57 97 08/28/16 18:00 69 08/28/16 16:00 50 08/28/16 16:00 70 08/28/16 16:00 99.0 75 20 94/54 94 08/28/16 15:58 96 40 08/28/16 14:00 73 08/28/16 12:00 70 08/28/16 12:00 50 08/28/16 12:00 98.1 68 24 92/56 97 08/28/16 11:09 98 50 08/28/16 10:00 67 08/28/16 08/28/16 08/29/16 15:00 23:00 07:00 Intake Total 693 ml 1598 ml 1137 ml Output Total 775 ml 500 ml 3200 ml Balance -82 ml 1098 ml -2063 ml IV Total 573 ml 1598 ml 1137 ml Tube Irrigant 120 ml Output Urine Total 375 ml 250 ml 400 ml Gastric Drainage Total 400 ml 250 ml 2800 ml # Bowel Movements 0 0 0 . Laboratory Tests Test 08/28/16 08/29/16 02:22 03:55 White Blood Count 13.0 TH/MM3 16.0 TH/MM3 Red Blood Count 3.83 MIL/MM3 3.79 MIL/MM3 Hemoglobin 11.5 GM/DL 11.5 GM/DL Hematocrit 35.1 % 34.7 % Mean Corpuscular Volume 91.6 FL 91.4 FL Mean Corpuscular Hemoglobin 29.9 PG 30.2 PG Mean Corpuscular Hemoglobin 32.6 % 33.0 % Concent Red Cell Distribution Width 14.4 % 14.2 % Platelet Count 342 TH/MM3 344 TH/MM3 Mean Platelet Volume 8.8 FL 9.4 FL Laboratory Tests Test 08/28/16 08/29/16 02:22 03:55 Sodium Level 152 MEQ/L 154 MEQ/L Potassium Level 4.3 MEQ/L 4.1 MEQ/L Chloride Level 113 MEQ/L 116 MEQ/L Carbon Dioxide Level 29.6 MEQ/L 28.7 MEQ/L Anion Gap 9 MEQ/L 9 MEQ/L Blood Urea Nitrogen 62 MG/DL 74 MG/DL Creatinine 1.43 MG/DL 1.95 MG/DL Estimat Glomerular Filtration 47 ML/MIN 33 ML/MIN Rate Random Glucose 150 MG/DL 164 MG/DL Calcium Level 9.0 MG/DL 8.6 MG/DL Phosphorus Level 3.4 MG/DL 3.5 MG/DL Magnesium Level 2.9 MG/DL 3.3 MG/DL Imaging Abdomen X-Ray 08/29/16 0600 Signed Impressions: Service Date/Time: Monday, August 29, 2016 05:00 - CONCLUSION: The position of the oral contrast in dilated loops of bowel is very similar to an image performed at the end of the small bowel series yesterday. Gavin Conte MD Abdomen X-Ray 08/28/16 0600 Signed Impressions: Service Date/Time: August 06:12 - CONCLUSION: Worsening distention of the small bowel. Bowel gas pattern is suggestive of an ileus. Gavin Gray Jr., MD Chest X-Ray 08/28/16 0300 Signed Impressions: Service Date/Time: August 06:10 - CONCLUSION: Unchanged bilateral pulmonary infiltrates. Gavin Gray Jr., MD Small Bowel X-Ray 08/28/16 0000 Signed Impressions: Service Date/Time: August 10:39 - CONCLUSION: 1. Dilated bowel most characteristic of an ileus with poor peristalsis. No transition zone identified. Juice Faith MD Abdomen X-Ray 08/27/16 0600 Signed Impressions: Service Date/Time: Saturday, August 27, 2016 01:10 - CONCLUSION: No change. Persistent gaseous distention of the small bowel. Gavin Gray Jr., MD Chest X-Ray 08/24/16 06 Signed Impressions: Service Date/Time: Wednesday, August 24, 2016 03:19 - CONCLUSION: Improved airspace disease with some persistent infiltrate in the right perihilar and right lower lobe. NG tube and endotracheal tube in good position. Osvaldo Webb MD Abdomen X-Ray 08/24/16 06 Signed Impressions: Service Date/Time: Wednesday, August 24, 2016 03:22 - CONCLUSION: Normal examination. Air is in the stomach with a nasogastric tube, large amount of air throughout the small bowel which is diffusely distended but may be slightly improved Osvaldo Webb MD Chest X-Ray 08/23/16 06 Signed Impressions: Service Date/Time: Tuesday, August 23, 2016 03:53 - CONCLUSION: 1. Diffuse bilateral airspace disease worsening in the right perihilar region. 2. Support lines and tubes are unchanged. Ricardo Adan MD Abdomen X-Ray 08/23/16 0000 Signed Impressions: Service Date/Time: Tuesday, August 23, 2016 16:24 - CONCLUSION: Dilated bowel in a radiographic pattern suggesting an ileus. Gavin Gray Jr., MD Myocardial Perfusion Scan Nuc Med 08/20/16 0000 Signed Impressions: Service Date/Time: Saturday, August 20, 2016 08:43 - CONCLUSION: Unremarkable myocardial perfusion examination. RISK CATEGORY: low Alexander Carter MD Head CT 08/20/16 0000 Signed Impressions: Service Date/Time: Saturday, August 20, 2016 07:58 - CONCLUSION: Unremarkable and stable CT brain for patient's age. Alexander Carter MD Renal Ultrasound 08/18/16 0000 Signed Impressions: Service Date/Time: Thursday, August 18, 2016 11:49 - CONCLUSION: 1. Echogenic kidneys which can be seen with medical renal disease. 2. Bilateral renal cysts. Ricardo Adan MD Physical Exam GENERAL: Comfortable on the vent SKIN: Cool and dry. No generalized rash or ecchymosis. HEENT: Nikep conjunctivae, no petechia or hemorrhage. No scleral icterus. NGT in place. Endotracheal tube is in the mouth. NECK: Trachea midline. No JVD CARDIOVASCULAR: Regular rate and rhythm without murmurs, gallops, or rubs. RESPIRATORY: Coarse breath sounds bilaterally, equal. Scattered rhonchi. GASTROINTESTINAL: Abdomen distended, no reaction to deep palpation. Bowel sounds are present and hypoactive. MUSCULOSKELETAL: Extremities without clubbing, cyanosis, or edema. No joint effusion, or edema noted. NEUROLOGICAL: Sedated, PSYCH: Unable to assess LINE: RIJ TLC, PIV, all with no evidence of infection : Bauer in place, urine looks clear Assessment & Plan Remarks IMPRESSION Sepsis with shock, source, likely pulmonary, HCAP - sputum C/S negative at 48 hrs - has known COPD, chronic smoker - BP better, off pressors Low grade temps, new Admission with NSTEMI, EF 50% MOSF - respiratory, renal Hx daily ETOH use Chronic smoker 1 ppd One (+) BC with Coag Neg Staph on admission likely contaminant Proteus mirabilis in the urine Ileus RECOMMENDATION Continue Levaquin Follow temps - it temps continues and gets higher, may need to broaden Abx coverage BC and UC today Monitor progress Weaning per CCM Follow C/S D/W RN Dr Vega covering this weekend if needed Mimi Benavides MD Aug 29, 2016 09:20
[2016-08-29] MEDS: DEXTROSE 5%-NACL 0.225% INJ 1,000 ML IV SCH (09:30)
[2016-08-29] MEDS ORDERED: EPINEPHrine HCL (1:10,000) 1 MG/10 ML SYRINGE ONE (09:44)
[2016-08-29] MEDS ORDERED: ATROPINE SULFATE 1 MG/10 ML SYRINGE ONE (09:45)
[2016-08-29] MEDS ORDERED: LIDOCAINE HCL 2% 100 MG/5 ML SYRINGE ONE (09:45)
--- NOTE | 2016-08-29 10:15 | PD.CAR.PN ---
CVT Progress Note Subjective/Hospital Course: 81-year-old male bedridden on narcotics Developed recurrent colonic ileus with decreased bowel movements Abdomen is soft with hypoactive bowel sounds and colon is distended Patient does not have bowel obstruction, rather(simple colonic ileus often seen in elderly patients were bedridden on narcotics Decreasing narcotics mobilization of the patient and laxatives only necessary therapy at this time as far as the distention is concerned In face of the myocardial infarction patient is not a candidate for neostigmine Objective: Vital Signs Date Time Temp Pulse Resp B/P Pulse Ox O2 Delivery O2 Flow Rate FiO2 08/29/16 09:00 94 50 08/29/16 07:57 50 08/29/16 07:50 95 50 08/29/16 06:00 65 08/29/16 04:00 100.3 72 18 105/59 94 08/29/16 04:00 72 08/29/16 04:00 40 08/29/16 03:52 95 50 08/29/16 02:00 72 08/29/16 00:47 95 50 08/29/16 00:00 71 08/29/16 00:00 40 08/29/16 00:00 98.0 71 18 87/52 94 08/28/16 22:00 70 08/28/16 20:00 94 40 08/28/16 20:00 40 08/28/16 20:00 72 08/28/16 20:00 98.0 72 20 105/57 97 08/28/16 18:00 69 08/28/16 16:00 50 08/28/16 16:00 70 08/28/16 16:00 99.0 75 20 94/54 94 08/28/16 15:58 96 40 08/28/16 14:00 73 08/28/16 12:00 70 08/28/16 12:00 50 08/28/16 12:00 98.1 68 24 92/56 97 08/28/16 11:09 98 50 Labs: Laboratory Tests Test 08/29/16 03:55 White Blood Count 16.0 TH/MM3 (4.0-11.0) Red Blood Count 3.79 MIL/MM3 (4.50-5.90) Hemoglobin 11.5 GM/DL (13.0-17.0) Hematocrit 34.7 % (39.0-51.0) Mean Corpuscular Volume 91.4 FL (80.0-100.0) Mean Corpuscular Hemoglobin 30.2 PG (27.0-34.0) Mean Corpuscular Hemoglobin 33.0 % Concent (32.0-36.0) Red Cell Distribution Width 14.2 % (11.6-17.2) Platelet Count 344 TH/MM3 (150-450) Mean Platelet Volume 9.4 FL (7.0-11.0) Sodium Level 154 MEQ/L (136-145) Potassium Level 4.1 MEQ/L (3.5-5.1) Chloride Level 116 MEQ/L (98-107) Carbon Dioxide Level 28.7 MEQ/L (21.0-32.0) Anion Gap 9 MEQ/L (5-15) Blood Urea Nitrogen 74 MG/DL (7-18) Creatinine 1.95 MG/DL (0.60-1.30) Estimat Glomerular Filtration 33 ML/MIN (>89) Rate Random Glucose 164 MG/DL (74-106) Calcium Level 8.6 MG/DL (8.5-10.1) Phosphorus Level 3.5 MG/DL (2.5-4.9) Magnesium Level 3.3 MG/DL (1.5-2.5) Result Diagram: 08/29/16 0355 08/29/16 0355 Ok Elizabeth MD Aug 29, 2016 10:15
[2016-08-29] MEDS: INSULIN ASPART SUPPLEMENTAL SCALE SQ SCH ×3 (11:00→21:00)
--- NOTE | 2016-08-29 11:06 | RADRPT ---
EXAM DATE/TIME: 08/29/2016 10:15 [facility] COMPARISON: No previous studies available for comparison. INDICATIONS : Distended abdomen; evaluate for ileus. ORAL CONTRAST: Prescribed oral contrast ingested. RADIATION DOSE: 14.74 CTDIvol (mGy) MEDICAL HISTORY : Hypertension. SURGICAL HISTORY : None. ENCOUNTER: Initial ACUITY: 1 day PAIN SCALE: Non-responsive LOCATION: abdomen. TECHNIQUE: Volumetric scanning of the abdomen and pelvis was performed. Using automated exposure control and ad justment of the mA and/or kV according to patient size, radiation dose was kept as low as reasonably achievable to obtain optimal diagnostic quality images. FINDINGS: There is basilar dependent consolidation in both lungs, right greater than left. No significant abnor mality in the liver, spleen, adrenals or pancreas. Bilateral renal cysts present. Nonobstructing calc albina noted lower pole right kidney measuring 3 mm. The small bowel is diffusely dilated with air fluid levels characteristic of an ileus. Contrast does reach the cecum. Rectal tube is present. There is rectal constipation. Bauer catheter in bladder. CONCLUSION: 1. Diffuse ileus and small bowel with air-fluid levels and dilatation. Oral contrast does reach the c olon and there is no evidence for small bowel obstruction. 2. Basilar lung consolidation, right greater than left. 3. NG tip in stomach. Rectal tube present with moderate rectal constipation. Bauer in decompressed bl adder. Juice Faith MD on August 29, 2016 at 10:58 Board Certified Radiologist. This report was verified electronically.
[2016-08-29 11:29] LABS: INDIRECT BILIRUBIN 0.4 MG/DL (0.0-0.8); TOTAL BILIRUBIN ADULT 0.8 MG/DL (0.2-1.0)
--- NOTE | 2016-08-29 11:36 | HHI.PR ---
Subjective Subjective Remarks on mechanical ventilation precedex being weaned down eyes open, follows simple commands fever overnight 100.3 Abd distended, but soft No BM NGT to LIS Gastric output 3450 Review of Systems Constitutional Constitutional Remarks 12 point ROS unable to do Vitals/Results Intake & Output 08/28/16 08/28/16 08/29/16 15:00 23:00 07:00 Intake Total 693 ml 1598 ml 1137 ml Output Total 775 ml 500 ml 3200 ml Balance -82 ml 1098 ml -2063 ml IV Total 573 ml 1598 ml 1137 ml Tube Irrigant 120 ml Output Urine Total 375 ml 250 ml 400 ml Gastric Drainage Total 400 ml 250 ml 2800 ml # Bowel Movements 0 0 0 Vital Signs Vital Signs Date Time Temp Pulse Resp B/P Pulse Ox O2 Delivery O2 Flow Rate FiO2 08/29/16 10:00 100 100 08/29/16 09:00 94 50 08/29/16 07:57 50 08/29/16 07:50 95 50 08/29/16 06:00 65 08/29/16 04:00 100.3 72 18 105/59 94 08/29/16 04:00 72 08/29/16 04:00 40 08/29/16 03:52 95 50 08/29/16 02:00 72 08/29/16 00:47 95 50 08/29/16 00:00 71 08/29/16 00:00 40 08/29/16 00:00 98.0 71 18 87/52 94 08/28/16 22:00 70 08/28/16 20:00 94 40 08/28/16 20:00 40 08/28/16 20:00 72 08/28/16 20:00 98.0 72 20 105/57 97 08/28/16 18:00 69 08/28/16 16:00 50 08/28/16 16:00 70 08/28/16 16:00 99.0 75 20 94/54 94 08/28/16 15:58 96 40 08/28/16 14:00 73 08/28/16 12:00 70 08/28/16 12:00 50 08/28/16 12:00 98.1 68 24 92/56 97 CBC/BMP: 08/29/16 0355 08/29/16 0355 Lab Results Laboratory Tests Test 08/29/16 08/29/16 03:55 10:45 White Blood Count 16.0 TH/MM3 Red Blood Count 3.79 MIL/MM3 Hemoglobin 11.5 GM/DL Hematocrit 34.7 % Mean Corpuscular Volume 91.4 FL Mean Corpuscular Hemoglobin 30.2 PG Mean Corpuscular Hemoglobin 33.0 % Concent Red Cell Distribution Width 14.2 % Platelet Count 344 TH/MM3 Mean Platelet Volume 9.4 FL Sodium Level 154 MEQ/L Potassium Level 4.1 MEQ/L Chloride Level 116 MEQ/L Carbon Dioxide Level 28.7 MEQ/L Anion Gap 9 MEQ/L Blood Urea Nitrogen 74 MG/DL Creatinine 1.95 MG/DL Estimat Glomerular Filtration 33 ML/MIN Rate Random Glucose 164 MG/DL Calcium Level 8.6 MG/DL Phosphorus Level 3.5 MG/DL Magnesium Level 3.3 MG/DL Lactic Acid Level 1.4 mmol/L Total Bilirubin 0.8 MG/DL Direct Bilirubin 0.4 MG/DL Indirect Bilirubin 0.4 MG/DL Aspartate Amino Transf 51 U/L (AST/SGOT) Alanine Aminotransferase 93 U/L (ALT/SGPT) Alkaline Phosphatase 103 U/L Total Creatine Kinase 185 U/L Total Protein 6.5 GM/DL Albumin 2.3 GM/DL Amylase Level 194 U/L Lipase 633 U/L Microbiology Microbiology 08/29/16 Aerobic Blood Culture, Received Pending 08/29/16 Anaerobic Blood Culture, Received Pending 08/29/16 Aerobic Blood Culture, Received Pending 08/29/16 Anaerobic Blood Culture, Received Pending Physical Exam General General Appearance: No Acute Distress, Comfortable, Obese Eyes Eye Exam: Pupils Equal, Sclera White Ears & Nose Ears & Nose Exam: Nasal Mucosa [place] Throat Throat Exam: Oral Mucosa [place] & Moist Neck Neck Exam: Neck Supple, Trachea Midline Pulmonary Resp Exam: Breath Sounds Equal, Crackles, Rhonchi, Decreased Bases Cardiology CV Exam: Regular, Normal Sinus Rhythm Gastrointestinal/Abdomen GI Exam: Non-Tender, Bowel Sounds Present, Distended, Bowel Sounds Hypoactive GI Remarks NGT to LIS Genitourinary Exam: Clear Urine Remarks CORNELIUS Musculoskeletal MS Exam: Joints Intact Integumentary Skin Exam: Warm, Dry Extremeties Extremities Exam: No Edema, Pedal Pulses Palpable Neurologic Neuro Remarks tries to open eyes VTE Prophylaxis VTE Prophylaxis Meds: Lovenox PUD Prophylasis PUD Prophylaxis: Protonix Assessment/Plan Assessment/Plan ASSESSMENT 1. Acute febrile illness with leukocytosis and left shift, source not clear. The patient has evidence of microscopic hematuria, questionable urinary tract infection, rule out bacteremia, question bronchitis. 2. Hyperglycemia. 3. Normochromic normocytic anemia. 4. BPH with chronic urge incontinence. 5. Hypertension. 6. Hyperlipidemia. 7. Recurrent falls, fortunately no significant injury. 8. Acute VDRF 9. ACS/ NSTEMI -evaluated per card. Had STT, negative 10. s/p Acute pulmonary edema/flash pulmonary edema 11. HCA Pneumonia 12. Adynamic Ileus 13. Hypernatremia PLAN CCM following Ventilator support and weaning per aerial advertiser IV sedation- Precedex continue on vent blood c/s neg [except stap capitis , contaminant] cont empiric IV antibiotics, Levaquin Appreciate ID input IV steroids , taper aerosol tx Control blood pressure S/P NSTEMI, card. evaluated. STT done negative. 2-D echocardiogram noted, EF is 50% Continue Aspirin Hypernatremic, D5LR infusing Cont reglan Continue PPI Subcutaneous Lovenox Persistent ileus, no BM-continue with bowel regimena CT of abd done, results noted Appreciate GI input Continue with NGT to LIS Renal function worsening BP marginal Surgery evaluated, Dr. Martin, recommends to jul. narc, laxatives, no neostigmine due to recent LA Condition guarded D/W RN D/W Dr. Shelton This patient was seen by myself and Dr. Shelton, this note is written on his behalf. Kandi Summers Aug 29, 2016 11:36 Kandi Summers Aug 29, 2016 11:36
[2016-08-29] MEDS ORDERED: MAGNESIUM CITRATE SOLN 300 ML BTL PO ONE ×2 (12:00→18:00)
[2016-08-29] MEDS ORDERED: DIATRIZOATE MEGLUM/DIATRIZOATE SOD 120 ML BTL (for RAD DIAG) RECTAL ONE (15:52)
--- NOTE | 2016-08-29 16:54 | RADRPT ---
EXAM DATE/TIME: 08/29/2016 15:22 [facility] COMPARISON: No previous studies available for comparison. INDICATIONS : Distended abdomen, constipation. FLUORO TIME: 2.20 minutes IMAGE COUNT: 13 CONTRAST: 1. [facility] MEDICAL HISTORY : Hypertension. SURGICAL HISTORY : None. ENCOUNTER: Subsequent ACUITY: 2 days PAIN SCORE: Non-responsive. LOCATION: Gastrografin enema. FINDINGS: Gastrografin barium enema was performed. Exam reveals additionally some stool within the rectosigmoid . Remainder of the colon fairly clear of stool. No. Some contrast did reach the cecal region with balwinder e reflux into small bowel. There is some clearing of rectosigmoid constipation on the post evacuation images. CONCLUSION: 1. Gastrografin enema as above with some clearing of the rectosigmoid constipation on the postevacuat ion film. Diffuse ileus. Juice Faith MD on August 29, 2016 at 16:51 Board Certified Radiologist. This report was verified electronically.
[2016-08-29] MEDS: BISACODYL EC 5 MG TABEC PO SCH ×2 (17:46→21:00)
[2016-08-29] MEDS: PROPOFOL 1000 MG/100 ML INJ 100 ML IV SCH (20:34)
[2016-08-29] MEDS: LABETALOL HCL 100 MG/20 ML VIAL IV PUSH PRN (21:50)
[2016-08-30] VITALS (18 sets, daily range): BP systolic 99–158; BP diastolic 55–81; PULSE 88–107; RESP 18–21; TEMP 97.8–99.9; O2SAT 98–100
[2016-08-30] MEDS: PROPOFOL 1000 MG/100 ML INJ 100 ML IV SCH ×3 (00:12→05:00)
[2016-08-30] MEDS: DEXTROSE 5%-NACL 0.225% INJ 1,000 ML IV SCH ×2 (01:47→20:43)
[2016-08-30] MEDS: METOCLOPRAMIDE HCL 10 MG/2 ML VIAL IV PUSH SCH ×2 (01:47→10:07)
[2016-08-30] MEDS: RESP: ALBUTEROL 2.5 MG/IPRATROPIUM 0.5 MG NEB (SCH) NEB ×4 (03:31→20:15)
[2016-08-30] MEDS: LABETALOL HCL 100 MG/20 ML VIAL IV PUSH PRN ×2 (04:55→19:15)
[2016-08-30] MEDS: BETHANECHOL CHL 25 MG TAB PO SCH ×3 (05:00→20:43)
[2016-08-30] MEDS: INSULIN ASPART SUPPLEMENTAL SCALE SQ SCH ×2 (06:10→11:00)
[2016-08-30] MEDS: CHLORHEXIDINE 0.12% (ORAL KIT) 15 ML CUP MT SCH ×2 (07:45→19:54)
[2016-08-30] MEDS: ASPIRIN 81 MG CHEW TAB CHEW SCH (07:49)
[2016-08-30] MEDS: PANTOPRAZOLE SODIUM 40 MG VIAL IV PUSH SCH (07:50)
[2016-08-30] MEDS: SODIUM CHLORIDE 0.9% FLUSH 5 ML FLUSH FLUSH SCH ×2 (07:50→19:55)
[2016-08-30] MEDS: FOLIC ACID 1 MG TAB PO SCH (07:51)
[2016-08-30] MEDS: methylPREDNISolone SOD SUCC 40 MG/1 ML VIAL IV PUSH SCH ×2 (07:51→20:17)
[2016-08-30] MEDS: LACTULOSE SYRUP 20 GM/30 ML CUP PO SCH (07:51)
[2016-08-30] MEDS: METOPROLOL TARTRATE 25 MG TAB PO SCH ×2 (07:51→20:17)
[2016-08-30] MEDS: NYSTATIN SUSP 500,000 U/5 ML CUP SWISH-SPIT SCH ×3 (07:52→19:54)
[2016-08-30] MEDS: PRAVASTATIN SOD 40 MG TAB PO SCH (07:52)
[2016-08-30] MEDS: POLYETHYLENE GLYCOL 17 GM PKG PO SCH ×2 (07:52→20:17)
[2016-08-30] MEDS: DOCUSATE SODIUM 50 MG/SENNA 8.6 MG TAB PO SCH ×2 (07:52→20:17)
[2016-08-30] MEDS: THIAMINE HCL 100 MG TAB PO SCH (07:52)
--- NOTE | 2016-08-30 08:10 | HHI.CCPN ---
Subjective Remarks/Hospital Course 81-year-old man who admitted to [facility] with complains of feeling weak and dizzy , also some chills with it. He had one episode of vomiting earlier today and another episode in the ED. While on a medical floor, he became hypoxemic and tachycardic. Due to hypoxemia at 80s he is transfered to ICU. Patient is alert and oriented and he doesn't want to be intubated in case his condition declines. 08/20 Afebrile. 24 hours patient was noted to have elevated troponins, etiology consulted patient was initiated on aspirin and beta blockers. Cardiology was consulted. Plan for nuclear medicine myocardial perfusion scan, initially scheduled for 08/19 will be done today secondary to NPO status of patient. The patient continues on a Cardizem infusion, metoprolol dosage was increased. Early this a.m., the patient climbed out of the bed and fell, noted laceration posterior right ear. Of note, the patient consumes 2-3 drinks of whiskey per night, came very anxious last night, reported by . The patient was alert and oriented with GCS of 15. Full range of motion denies pain in extremities 4. Stat CT of the head, results pending. 08/21 Tmax 101.8. Yesterday afternoon post nuclear medicine perfusion scan, the patient became acutely hypoxic O2 sat in the 70s, the patient was emergently intubated. Max pulmonary edema was noted, with copious pink frothy sputum via ETT . FiO2 requirements were increased, unable to wean below 70% yesterday afternoon .Sputum culture and urine cultures were obtained, broad- spectrum antibiotics were initiated Vancomycin and Levaquin. The patient currently is on Rocephin for UTI. Flowtrac was instituted, cardiac output and cardiac index were within normal limits. During the night the patient's O2 requirements were increased, the patient required 15 cm of PEEP and initially 100% FiO2. The patient was received 2 mg of Bumex without any diuresis noted. The patient became hypotensive during the night requiring Charbel-Synephrine and Norepinephrine infusions. This morning a central line was placed, steroids were initiated, Solu-Medrol 125 mg IV push, and repeat blood cultures were obtained. 08/22 Tmax 97.8. Patient improvement, weaned off all vasopressors. Oxygen requirements decreased, FiO2 now 40%, PEEP 5. GCS 11 T during sedation holiday. Plan for CPAP trials today. 08/23: Passed weaning parameters today. However, several on propofol at 20 mcg /kg per minute for comfort. Switching to Precedex drip at present. Tolerating tube feeding. 08/24: Not tolerating NG tube feeds, noted residual 500 cc last night. Ileus noted on KUB yesterday. NG tube placed to suction, large amount of care noted. Repeat KUB slightly improved. Prokinetic agents instituted over the last 24 hours 08/25: Increase in intra-abdominal pressure, bladder pressures yesterday afternoon up to 22. Mag citrate added to bowel regimen, Lopid large voluminous bowel movement. OGT to continuous suction 500 cc output overnight. The patient was placed on CPAP trials yesterday from 4 PM2 AM. Abdomen currently soft bladder pressure 14 at 6 AM. Plan for continued CPAP trials today, insertion of NG tube to continued low continuous suction, follow-up KUB. 08/26: Tmax 99.2. The patient was maintained on CPAP trials over 8 hours yesterday without difficulty. GI was consulted yesterday . Patient is NG tube output were night significantly diminished. 250 cc bilious gastric output over 14 hours in total. The patient had 3 bowel movements last night. KUB remains unchanged today with continued small and large bowel distention-ileus. Bladder pressures the last 24 hours remain low averaging 34. 1: Afebrile. No acute respiratory issues. Patient remains on Precedex infusion with RASS-1, cooperative. NG tube output 230 cc overnight for 12 hours. Patient still has not had a bowel movement in the last 24hrs. repeat KUB remains unchanged today continued bowel distention. Mag citrate ordered this a.m.. GI following. Intra-abdominal pressures are low 37. 08/28: Patient received mag citrate yesterday with no effect. Overnight the patient was instilled 2 L of GoLYTELY and 1500 cc of soapsuds enema,per GI recommendations. KUB scheduled for this a.m.. Abdominal pressures elevated secondary to the 3.5 L volume intra-abdominal. 08/29: Tmax 100.3. 3450 gastric contents out of NG tube overnight. Currently resting in bed with distended abdomen. 400 cc urine output past 12 hours. Borderline systolic blood pressures. Arousable on Precedex has received Ativan 2 overnight secondary to agitation. Subjective 08/30: Afebrile overnight. Approximately 1 L stool since Gastrografin enema. Abdomen still distended but softer. Adequate urine output overnight. Off and on Charbel-Synephrine for vasopressors support. Follows commands on the ventilator. Objective Vital Signs Date Time Temp Pulse Resp B/P Pulse Ox O2 Delivery O2 Flow Rate FiO2 08/30/16 06:00 93 08/30/16 04:00 50 08/30/16 04:00 98.4 18 99/55 100 Intake and Output 08/29/16 08/29/16 08/30/16 08:00 16:00 00:00 Intake Total 1137 ml 977 ml 885 ml Output Total 3200 ml 2200 ml 450 ml Balance -2063 ml -1223 ml 435 ml Result Diagram: 08/29/16 0355 08/29/16 0355 Other Results Microbiology Date/Time Procedure Status Source Growth 08/29/16 10:58 Aerobic Blood Culture Received Blood Peripheral Pending 08/29/16 10:58 Anaerobic Blood Culture Received Blood Peripheral Pending Imaging Last Impressions Abdomen X-Ray 08/29/16 0600 Signed Impressions: Service Date/Time: Monday, August 29, 2016 05:00 - CONCLUSION: The position of the oral contrast in dilated loops of bowel is very similar to an image performed at the end of the small bowel series yesterday. Gavin Conte MD Enema w/Water Soluble 08/29/16 0000 Signed Impressions: Service Date/Time: Monday, August 29, 2016 15:22 - CONCLUSION: 1. Gastrografin enema as above with some clearing of the rectosigmoid constipation on the postevacuation film. Diffuse ileus. Juice Faith MD Abdomen/Pelvis CT 08/29/16 0000 Signed Impressions: Service Date/Time: Monday, August 29, 2016 10:15 - CONCLUSION: 1. Diffuse ileus and small bowel with air-fluid levels and dilatation. Oral contrast does reach the colon and there is no evidence for small bowel obstruction. 2. Basilar lung consolidation, right greater than left. 3. NG tip in stomach. Rectal tube present with moderate rectal constipation. Bauer in decompressed bladder. Juice Faith MD Chest X-Ray 08/28/16 0300 Signed Impressions: Service Date/Time: August 06:10 - CONCLUSION: Unchanged bilateral pulmonary infiltrates. Gavin Gray Jr., MD Small Bowel X-Ray 08/28/16 0000 Signed Impressions: Service Date/Time: August 10:39 - CONCLUSION: 1. Dilated bowel most characteristic of an ileus with poor peristalsis. No transition zone identified. Juice Faith MD Myocardial Perfusion Scan Nuc Med 08/20/16 0000 Signed Impressions: Service Date/Time: Saturday, August 20, 2016 08:43 - CONCLUSION: Unremarkable myocardial perfusion examination. RISK CATEGORY: low Alexander Carter MD Head CT 08/20/16 0000 Signed Impressions: Service Date/Time: Saturday, August 20, 2016 07:58 - CONCLUSION: Unremarkable and stable CT brain for patient's age. Alexander Carter MD Renal Ultrasound 08/18/16 0000 Signed Impressions: Service Date/Time: Thursday, August 18, 2016 11:49 - CONCLUSION: 1. Echogenic kidneys which can be seen with medical renal disease. 2. Bilateral renal cysts. Ricardo Adan MD Objective Remarks GENERAL: 81-year-old male, critically ill currently orotracheally intubated in no acute distress SKIN: Warm and dry, noted abrasion posterior right ear, evolving abrasion right knee HEAD: Normocephalic. EYES: No scleral icterus. No injection or drainage. Pupils around 2 mm bilaterally and reactive NECK: Supple, trachea midline. No JVD or lymphadenopathy. Orotracheally intubated CARDIOVASCULAR: Regular rate and rhythm S1, S2. No S4. Currently without murmurs, clicks, gallops or rubs. RESPIRATORY: Breath sounds equal bilaterally,no wheezing noted. Symmetrical excursion GASTROINTESTINAL: Abdomen soft, obese distended. No guarding this AM.. No rigidity. Very hypoactive bowel sounds appreciated right lower quadrant MUSCULOSKELETAL: Trace bilateral lower extremity nonpitting edema. Movement of extremities 4 on commands BACK: Nontender without obvious deformity. No CVA tenderness. Urinary Catheter: Yes Assessment to: Continue Bauer insert reason: Prolonged Immobilization Date of Insertion: Aug 19, 2016 Vascular Central Line Catheter: Yes Assessment to: Continue Date of Insertion: Aug 21, 2016 Line: Central Venous Catheter Side: Right Location: Internal, Jugular A/P Problem List: (1) BPH with urinary obstruction ICD Code: N40.1 Status: Acute (2) COPD (chronic obstructive pulmonary disease) ICD Code: J44.9 Status: Acute (3) Pulmonary edema ICD Code: J81.1 Status: Acute (4) Respiratory failure ICD Code: J96.90 Status: Acute Assessment and Plan Neuro/Psych: Glaucoma Alcohol use S/P Fall-confusion (08/20) -GCS 11T, propofol drip at 45 mg/kg per minute for sedation while intubated -Continued on Latanoprost 0.005% 1 drop each eye at night for glaucoma -S/P Fall OOB 08/20, CT of the head-unremarkable stable CT of the brain -Thiamine 100 mg, folate 1 mg q/day will be continued Respiratory: Acute hypoxic respiratory failure Acute Pulmonary edema-resolved COPD exacerbation-resolved Chronic smoker Probable multilobar Pneumonia -PRVC FiO2 50%/tidal volume around 550/5/inspiratory time 1.0 with the rate of 18 -CPAP trials continued -Maintain O2 sat greater than 92% -Scheduled Duonebs every 6 hours, add every 2 PRN - Methylprednisone taper 30mg BID -Counseled on smoking [id number] (smokes 2 PPD x 65 years), family reported accurate smoking history -Nicotine patch day 02/27 dc'd 08/26 Cardiovascular: NSTEMI H/O Hypertension Tachycardia-resolved Dyslipidemia Cardiogenic Shock -Charbel-Synephrine dc'd 08/30 -Troponin (08/19) 5.17->4.91->4.23 -Continue ASA 81 mg/day - Metoprolol 6.25 mg by tube twice a day Holding Hytrin 1 mg at night and Prinivil 20 mg daily and secured hypotension and acute kidney injury - Patient continues on pravastatin 40 mg by mouth daily (home med) -ECHO 08/19- EF 50% , no RWMA. RV dilated. JOHNY 38 mmHg -BNP- 156->91 (08/21) -08/20 nuclear medicine myocardial perfusion scan-intact wall motion and thickening without hypokinetic or dyskinetic segments -Cardiology has signed off, Dr. Cason, follow recommendations including possible cardiac catheterization in the future once stable Renal: Acute on chronic renal failure BPH -Creatinine worsening from 1.4-1.9 and a.m. labs pending -Maintain Bauer - Home meds Flomax being held as currently nothing by mouth Hytrin being held secured hypotension -- Strict I/Os -monitor urinary output hourly FEN/GI: Ileus Constipation Increased intra-abdominal pressure Pancreatitis -IVF D5 08/27 NS @ 50 cc an hour -Electrolyte replacement per ICU protocol -Measure bladder pressures q 4 hours last one around -1 L still since Gastrografin enema -F/U KUB reveals contrast in similar position to yesterday after small bowel series Status post Gastrografin enema with positive BM results. Appears to be clearing stool from:. Ileus persists -Surgery consult-Dr Elizabeth / increased intra-abdominal pressure-resolved - Tube feeds-Jevity 1.5, goal of 60 cc/hr on hold since 08/24. Start TPN today -NG tube to low intermittent water suction -Zofran for nausea -Protonix GI prophylaxis -Bowel regimen including Sonia-Colace twice a day, MiraLAX twice a day and lactulose QID, Reglan 5 mg TID Urecholine 25 mg 3 times a day written for stimulation 1 dose of mineral oil [address] abdomen/pelvis performed today. Liver function tests slightly elevated. Lipase elevated. Recheck this morning Heme/ID: Leukocytosis Probable multilobar pneumonia Septic shock UTI Proteus mirabilis - 08/18 urine culture-Proteus mirabilis -08/18 blood culture- Staph Capitis ([id number]) -08/20 blood culture-NGTD -08/20 urine Legionella, Pneumococcal-negative - 08/29 - blood cultures 2 - -pending -Methylprednisolone 30 mg BID -Monitor CBC, WBC 12 -Lactate 1.4 -ID consulted, Dr Benavides - follow-up recommendations Currently on Levaquin since 08/20. Endocrine: Blood glucose monitoring every 4 hours per ICU protocol -- SSI Prophylaxis: GI Prophylaxis Protonix DVT Prophylaxis -- SCDs Lovenox Lines: Peripheral IVs. Central line RIJ 08/21, R radial Radha 08/21 Critical Care: The total critical care time was 35 minutes. Time to perform other separately billable procedures was not included in the critical care time. . Huan Page MD Aug 30, 2016 08:09
--- NOTE | 2016-08-30 08:32 | RADRPT ---
EXAM DATE/TIME: 08/30/2016 07:51 [facility] COMPARISON: CHEST SINGLE AP, August 28, 2016, 6:10. INDICATIONS : Respiratory disease. MEDICAL HISTORY : Hypertension. SURGICAL HISTORY : None. ENCOUNTER: Subsequent ACUITY: 2 weeks PAIN SCORE: Non-responsive. LOCATION: Bilateral chest FINDINGS: Support apparatus is in good position. There is interval improvement with less interstitial edema. There is no other consolidation, pleural effusion or pneumothorax. CONCLUSION: Interval improvement with better aeration and less interstitial edema. Manolo Owens MD FACR on August 30, 2016 at 8:30 Board Certified Radiologist. This report was verified electronically.
--- NOTE | 2016-08-30 08:35 | RADRPT ---
EXAM DATE/TIME: 08/30/2016 07:54 [facility] COMPARISON: ABDOMEN KUB ONLY, August 29, 2016, 5:00. INDICATIONS : Distention. Possible ileus. MEDICAL HISTORY : Hypertension. SURGICAL HISTORY : None. ENCOUNTER: Subsequent ACUITY: 2 weeks PAIN SCORE: Non-responsive. LOCATION: Bilateral abdomen. FINDINGS: Rectal tube is in place. There is some radiographic contrast present in the colon. Nasogastric tube is across the GE junction. There is continued gaseous distention of small bowel with air in the colon most suggestive of an ileu s. Small bowel remains dilated to approximately 4.6 cm. CONCLUSION: 1. Persistent bowel dilatation most likely ileus. 2. Nasogastric tube and rectal tube are noted. Radiographic contrast is seen scattered in the colon . 3. There has been interval improvement. Manolo Owens MD FACR on August 30, 2016 at 8:27 Board Certified Radiologist. This report was verified electronically.
[2016-08-30 09:57] LABS: AUTOMATED NEUTROPHIL # 14.1 TH/MM3 (1.8-7.7); BASOPHIL % 0.2 % (0.0-2.0); EOSINOPHIL # 0.1 TH/MM3 (0-0.4); EOSINOPHIL % 0.6 % (0.0-4.0); HEMATOCRIT 36.3 % (39.0-51.0); HEMO FLAGS DIFF FINAL; LYMPH % 5.9 % (9.0-44.0); MEAN CELL VOLUME 92.3 FL (80.0-100.0); MEAN CORPUSCULAR HEMOGLOBIN 30.3 PG (27.0-34.0); MEAN CORPUSCULAR HGB CONC 32.8 % (32.0-36.0); MONO % 6.8 % (0.0-8.0); NEUT % 86.5 % (16.0-70.0); PLATELET COUNT 350 TH/MM3 (150-450); RED BLOOD COUNT 3.94 MIL/MM3 (4.50-5.90); RED CELL DISTRIBUTION WIDTH 14.3 % (11.6-17.2); WHITE BLOOD COUNT 16.3 TH/MM3 (4.0-11.0)
[2016-08-30 10:23] LABS: BACTERIA, URINE OCC /hpf; BLOOD, URINE MOD (NEG); COMMENT (UR) CATH-CULTURE IND; CULTURE IF INDICATED CATH CULTURE IND; GLUCOSE,URINE NEG (NEG); KETONE, URINE NEG (NEG); MUCUS URINE FEW /lpf (OCC); NITRITE,URINE NEG (NEG); PH, URINE 5.5 (5.0-8.5); SQUAMOUS EPITHELIAL CELL URINE <1 /hpf (0-5); URIC ACID CRYSTALS, URINE MANY /hpf; URINE COLOR YELLOW (YELLW/STRAW)
[2016-08-30 10:38] LABS: INTERNATIONAL NORMALIZED RATIO 1.2 RATIO; PROTHROMBIN TIME - PATIENT 13.6 SEC (9.8-11.6)
[2016-08-30 10:40] LABS: ALKALINE PHOSPHATASE 97 U/L (45-117); ALT (GPT) 79 U/L (12-78); ANION GAP 10 MEQ/L (5-15); AST (GOT) 47 U/L (15-37); BICARBONATE 29.3 MEQ/L (21.0-32.0); BLOOD UREA NITROGEN 81 MG/DL (7-18); CHLORIDE 111 MEQ/L (98-107); GLOMERULAR FILTRATION RATE 25 ML/MIN (>89); MAGNESIUM 3.7 MG/DL (1.5-2.5); SODIUM (NA) 150 MEQ/L (136-145); TOTAL BILIRUBIN ADULT 0.6 MG/DL (0.2-1.0)
[2016-08-30] MEDS ORDERED: SODIUM CHLOR 0.45% 1000 ML INJ 1,000 ML IV ONE (11:15)
[2016-08-30] MEDS ORDERED: SODIUM CHLOR 0.9% 1000 ML INJ 1,000 ML IV ONE (11:15)
[2016-08-30] MEDS: MIDAZOLAM 100 MG/ML INJ 100 ML IV SCH ×2 (12:16→19:56)
[2016-08-30] MEDS: CALCIUM ACETATE 667 MG CAP PO SCH (13:34)
--- NOTE | 2016-08-30 14:39 | HHI.PR ---
Subjective Interval History on mechanical ventilation on diprivan no fever in past 24 hour Abd less distended, but soft had large BM as per rn NGT to LIS Vitals/Results Intake & Output 08/29/16 08/29/16 08/30/16 15:00 23:00 07:00 Intake Total 977 ml 885 ml 624 ml Output Total 2200 ml 450 ml 1750 ml Balance -1223 ml 435 ml -1126 ml IV Total 630 ml 725 ml 584 ml Lipid 47 ml Tube Irrigant 300 ml Other 160 ml 40 ml Output Urine Total 500 ml 250 ml 500 ml Stool Total 100 ml 200 ml Gastric Drainage Total 1700 ml 100 ml 1050 ml # Bowel Movements 0 2 Vital Signs Vital Signs Date Time Temp Pulse Resp B/P Pulse Ox O2 Delivery O2 Flow Rate FiO2 08/30/16 12:22 99 40 08/30/16 08:17 98 40 08/30/16 08:17 100 Ventilator 40 08/30/16 06:00 93 08/30/16 04:00 104 08/30/16 04:00 50 08/30/16 04:00 98.4 104 18 99/55 100 08/30/16 03:31 100 50 08/30/16 02:00 90 08/30/16 00:44 100 50 08/30/16 00:00 96 08/30/16 00:00 50 08/30/16 00:00 98.2 96 18 125/64 100 08/29/16 22:00 90 08/29/16 20:00 50 08/29/16 20:00 98.6 105 18 114/59 100 08/29/16 20:00 105 08/29/16 19:50 100 50 08/29/16 18:00 40 08/29/16 18:00 107 08/29/16 16:41 98 50 08/29/16 16:00 40 08/29/16 16:00 98.0 120 18 107/67 98 08/29/16 16:00 120 08/29/16 15:00 100 100 CBC/BMP: 08/30/16 0900 08/30/16 0900 Lab Results Laboratory Tests Test 08/30/16 08/30/16 08/30/16 08/30/16 08:45 09:00 10:10 12:15 Urine Color YELLOW Urine Turbidity CLOUDY Urine pH 5.5 Urine Specific [place] 1.017 Urine Protein TRACE mg/dL Urine Glucose (UA) NEG mg/dL Urine Ketones NEG mg/dL Urine Occult Blood MOD Urine Nitrite NEG Urine Bilirubin NEG Urine Urobilinogen LESS THAN 2.0 MG/DL Urine Leukocyte Esterase MOD Urine RBC 25 /hpf Urine WBC 9 /hpf Urine Squamous Epithelial <1 /hpf Cells Urine Uric Acid Crystals MANY /hpf Urine Bacteria OCC /hpf Urine Mucus FEW /lpf Microscopic Urinalysis Comment CATH-CULTURE IND White Blood Count 16.3 TH/MM3 Red Blood Count 3.94 MIL/MM3 Hemoglobin 11.9 GM/DL Hematocrit 36.3 % Mean Corpuscular Volume 92.3 FL Mean Corpuscular Hemoglobin 30.3 PG Mean Corpuscular Hemoglobin 32.8 % Concent Red Cell Distribution Width 14.3 % Platelet Count 350 TH/MM3 Mean Platelet Volume 9.4 FL Neutrophils (%) (Auto) 86.5 % Lymphocytes (%) (Auto) 5.9 % Monocytes (%) (Auto) 6.8 % Eosinophils (%) (Auto) 0.6 % Basophils (%) (Auto) 0.2 % Neutrophils # (Auto) 14.1 TH/MM3 Lymphocytes # (Auto) 1.0 TH/MM3 Monocytes # (Auto) 1.1 TH/MM3 Eosinophils # (Auto) 0.1 TH/MM3 Basophils # (Auto) 0.0 TH/MM3 CBC Comment DIFF FINAL Differential Comment Sodium Level 150 MEQ/L Potassium Level 4.0 MEQ/L Chloride Level 111 MEQ/L Carbon Dioxide Level 29.3 MEQ/L Anion Gap 10 MEQ/L Blood Urea Nitrogen 81 MG/DL Creatinine 2.53 MG/DL Estimat Glomerular Filtration 25 ML/MIN Rate Random Glucose 117 MG/DL Calcium Level 8.2 MG/DL Phosphorus Level 5.8 MG/DL Magnesium Level 3.7 MG/DL Total Bilirubin 0.6 MG/DL Aspartate Amino Transf 47 U/L (AST/SGOT) Alanine Aminotransferase 79 U/L (ALT/SGPT) Alkaline Phosphatase 97 U/L Total Protein 6.1 GM/DL Albumin 2.2 GM/DL Triglycerides Level 220 MG/DL Lipase 630 U/L Prothrombin Time 13.6 SEC Prothromb Time International 1.2 RATIO Ratio Urine Eosinophils NONE SEEN /HPF Urine Random Creatinine 78.4 MG/DL Urine Random Sodium 32 MEQ/L Microbiology Microbiology 1/7/17 Urine Culture, Received Pending Physical Exam General General Appearance: No Acute Distress, Comfortable, Obese Eyes Eye Exam: Pupils Equal, Sclera White Ears & Nose Ears & Nose Exam: Nasal Mucosa [place] Throat Throat Exam: Oral Mucosa [place] & Moist Neck Neck Exam: Neck Supple, Trachea Midline Pulmonary Resp Exam: Breath Sounds Equal, Crackles, Rhonchi, Decreased Bases Cardiology CV Exam: Regular, Normal Sinus Rhythm Gastrointestinal/Abdomen GI Exam: Soft, Non-Tender, Bowel Sounds Present, Distended, Bowel Sounds Hypoactive Genitourinary Exam: Clear Urine Musculoskeletal MS Exam: Joints Intact Integumentary Skin Exam: Warm, Dry Extremeties Extremities Exam: No Edema, Pedal Pulses Palpable VTE Prophylaxis VTE Prophylaxis Meds: Lovenox PUD Prophylasis PUD Prophylaxis: Protonix Assessment/Plan Assessment/Plan ASSESSMENT 1. Acute febrile illness with leukocytosis and left shift, source not clear. The patient has evidence of microscopic hematuria, questionable urinary tract infection, rule out bacteremia, question bronchitis. 2. Hyperglycemia. 3. Normochromic normocytic anemia. 4. BPH with chronic urge incontinence. 5. Hypertension. 6. Hyperlipidemia. 7. Recurrent falls, fortunately no significant injury. 8. Acute VDRF 9. ACS/ NSTEMI -evaluated per card. Had STT, negative 10. s/p Acute pulmonary edema/flash pulmonary edema 11. HCA Pneumonia 12. Adynamic Ileus 13. Hypernatremia PLAN CCM following nacho help Ventilator support and weaning per principal administrative clerk IV sedation- per principal administrative clerk continue on vent blood c/s neg [except stap capitis , contaminant] cont empiric IV antibiotics, Levaquin Appreciate ID input IV steroids aerosol tx Control blood pressure S/P NSTEMI, card. evaluated. STT done negative. 2-D echocardiogram noted, EF is 50% Continue Aspirin Hypernatremic, D5LR infusing Cont reglan Continue PPI Subcutaneous Lovenox Persistent ileus, no BM-continue with bowel regimena CT of abd done, results noted Appreciate GI input Continue with NGT to LIS Renal function worsening BP stable improving Surgery evaluated, Dr. Martin, recommends to jul. narc, laxatives, no neostigmine due to recent [place] Condition guarded D/W RN Jorge Shelton MD Aug 30, 2016 14:39
[2016-08-30] MEDS ORDERED: DEXTROSE 50% IN WATER 50 ML VIAL(D50) IV PUSH PRN (15:00)
[2016-08-30] MEDS ORDERED: GLUCAGON 1 MG/ML VIAL OTHER PRN (15:00)
--- NOTE | 2016-08-30 15:33 | HHI.GIFU ---
Subjective Remarks Resting in bed, lightly sedated on cpap. Abdominal distention much improved. + BM. (Alivia Ross) Objective Vitals I&O Vital Signs Date Time Temp Pulse Resp B/P Pulse Ox O2 Delivery O2 Flow Rate FiO2 08/30/16 12:22 99 40 08/30/16 08:17 98 40 08/30/16 08:17 100 Ventilator 40 08/30/16 06:00 93 08/30/16 04:00 104 08/30/16 04:00 50 08/30/16 04:00 98.4 104 18 99/55 100 08/30/16 03:31 100 50 08/30/16 02:00 90 08/30/16 00:44 100 50 08/30/16 00:00 96 08/30/16 00:00 50 08/30/16 00:00 98.2 96 18 125/64 100 08/29/16 22:00 90 08/29/16 20:00 50 08/29/16 20:00 98.6 105 18 114/59 100 08/29/16 20:00 105 08/29/16 19:50 100 50 08/29/16 18:00 40 08/29/16 18:00 107 08/29/16 16:41 98 50 08/29/16 16:00 40 08/29/16 16:00 98.0 120 18 107/67 98 08/29/16 16:00 120 I/O 08/29/16 08/29/16 08/29/16 08/30/16 08/30/16 08/30/16 07:00 15:00 23:00 07:00 15:00 23:00 Intake Total 1137 ml 977 ml 885 ml 624 ml Output Total 3200 ml 2200 ml 450 ml 1750 ml Balance -2063 ml -1223 ml 435 ml -1126 ml IV Total 1137 ml 630 ml 725 ml 584 ml Lipid 47 ml Tube Irrigant 300 ml Other 160 ml 40 ml Output Urine Total 400 ml 500 ml 250 ml 500 ml Stool Total 100 ml 200 ml Gastric Drainage Total 2800 ml 1700 ml 100 ml 1050 ml # Bowel Movements 0 0 2 Laboratory Laboratory Tests Test 08/30/16 08/30/16 08/30/16 08/30/16 08:45 09:00 10:10 12:15 Urine Color YELLOW Urine Turbidity CLOUDY Urine pH 5.5 Urine Specific [place]villa 1.017 Urine Protein TRACE Urine Glucose (UA) NEG Urine Ketones NEG Urine Occult Blood MOD Urine Nitrite NEG Urine Bilirubin NEG Urine Urobilinogen LESS THAN 2.0 Urine Leukocyte Esterase MOD Urine RBC 25 Urine WBC 9 Urine Squamous Epithelial <1 Cells Urine Uric Acid Crystals MANY Urine Bacteria OCC Urine Mucus FEW Microscopic Urinalysis Comment CATH-CULTURE IND White Blood Count 16.3 Red Blood Count 3.94 Hemoglobin 11.9 Hematocrit 36.3 Mean Corpuscular Volume 92.3 Mean Corpuscular Hemoglobin 30.3 Mean Corpuscular Hemoglobin 32.8 Concent Red Cell Distribution Width 14.3 Platelet Count 350 Mean Platelet Volume 9.4 Neutrophils (%) (Auto) 86.5 Lymphocytes (%) (Auto) 5.9 Monocytes (%) (Auto) 6.8 Eosinophils (%) (Auto) 0.6 Basophils (%) (Auto) 0.2 Neutrophils # (Auto) 14.1 Lymphocytes # (Auto) 1.0 Monocytes # (Auto) 1.1 Eosinophils # (Auto) 0.1 Basophils # (Auto) 0.0 CBC Comment DIFF FINAL Differential Comment Sodium Level 150 Potassium Level 4.0 Chloride Level 111 Carbon Dioxide Level 29.3 Anion Gap 10 Blood Urea Nitrogen 81 Creatinine 2.53 Estimat Glomerular Filtration 25 Rate Random Glucose 117 Calcium Level 8.2 Phosphorus Level 5.8 Magnesium Level 3.7 Total Bilirubin 0.6 Aspartate Amino Transf 47 (AST/SGOT) Alanine Aminotransferase 79 (ALT/SGPT) Alkaline Phosphatase 97 Total Protein 6.1 Albumin 2.2 Triglycerides Level 220 Lipase 630 Prothrombin Time 13.6 Prothromb Time International 1.2 Ratio Urine Eosinophils NONE SEEN Urine Random Creatinine 78.4 Urine Random Sodium 32 Date/Time Procedure Status Source Growth 08/30/16 08:45 Urine Culture Received Urine Catheterized Urine Pending 08/29/16 10:58 Aerobic Blood Culture - Preliminary Resulted Blood Peripheral NO GROWTH IN 1 DAY 08/29/16 10:58 Anaerobic Blood Culture - Preliminary Resulted Blood Peripheral NO GROWTH IN 1 DAY Imaging Last Impressions Chest X-Ray 08/30/16 0000 Signed Impressions: Service Date/Time: Tuesday, August 30, 2016 07:51 - CONCLUSION: Interval improvement with better aeration and less interstitial edema. Manolo Owens MD FACR Abdomen X-Ray 08/30/16 0000 Signed Impressions: Service Date/Time: Tuesday, August 30, 2016 07:54 - CONCLUSION: 1. Persistent bowel dilatation most likely ileus. 2. Nasogastric tube and rectal tube are noted. Radiographic contrast is seen scattered in the colon. 3. There has been interval improvement. Manolo Owens MD FACR Enema w/Water Soluble 08/29/16 0000 Signed Impressions: Service Date/Time: Monday, August 29, 2016 15:22 - CONCLUSION: 1. Gastrografin enema as above with some clearing of the rectosigmoid constipation on the postevacuation film. Diffuse ileus. Juice Faith MD Abdomen/Pelvis CT 08/29/16 0000 Signed Impressions: Service Date/Time: Monday, August 29, 2016 10:15 - CONCLUSION: 1. Diffuse ileus and small bowel with air-fluid levels and dilatation. Oral contrast does reach the colon and there is no evidence for small bowel obstruction. 2. Basilar lung consolidation, right greater than left. 3. NG tip in stomach. Rectal tube present with moderate rectal constipation. Bauer in decompressed bladder. Juice Faith MD Small Bowel X-Ray 08/28/16 0000 Signed Impressions: Service Date/Time: August 10:39 - CONCLUSION: 1. Dilated bowel most characteristic of an ileus with poor peristalsis. No transition zone identified. Juice Faith MD Myocardial Perfusion Scan Nuc Med 08/20/16 0000 Signed Impressions: Service Date/Time: Saturday, August 20, 2016 08:43 - CONCLUSION: Unremarkable myocardial perfusion examination. RISK CATEGORY: low Alexander Carter MD Head CT 08/20/16 0000 Signed Impressions: Service Date/Time: Saturday, August 20, 2016 07:58 - CONCLUSION: Unremarkable and stable CT brain for patient's age. Alexander Carter MD Renal Ultrasound 08/18/16 0000 Signed Impressions: Service Date/Time: Thursday, August 18, 2016 11:49 - CONCLUSION: 1. Echogenic kidneys which can be seen with medical renal disease. 2. Bilateral renal cysts. Ricardo Adan MD Physical Exam HEENT: Normocephalic; atraumatic; no jaundice. CHEST: OETT to vent. Resp. even/unlabored. Diminished bases. CARDIAC: RRR ABDOMEN: Soft, distended, but much improved, no hepatosplenomegaly; bowel sounds are hypoactive. NGT to LIWS with gold/brownish colored gastric secretions EXTREMITIES: Generalized edema. NURSING TECHN: Sedated on vent. (Alivia Ross) Assessment and Plan Plan ASSESSMENT: - Persistent small bowel Ileus/Constipation. He is not on chronic narcotics. His magnesium level is 2.9. S/P Magnesium Citrate (08/27/15). S/P Golytely (), no results and noted to have abdominal pressure 20 and therefore this was suctioned out. SBFT (08/28/16)-----> 1. Dilated bowel most characteristic of an ileus with poor peristalsis. No transition zone identified. CT Scan abdomen and pelvis ( 08/29/16)----> Diffuse ileus and small bowel with air-fluid levels and dilatation. Oral contrast does reach the colon and there is no evidence of a bowel obstruction , basilar lung consolidation, right greater than left, NG tip in stomach, rectla tube present with moderate rectal constipation. Bauer in decompressed bladder. Barium enema (08/29/16)----> 1. Gastrografin enema as above with some clearing of the rectosigmoid constipation on the postevacuation film. Diffuse ileus. Abdomen X-Ray (08/30/16)----> 1. Persistent bowel dilatation most likely ileus. 2. Nasogastric tube and rectal tube are noted. Radiographic contrast is seen scattered in the colon. 3. There has been interval improvement. Pt is on Miralax, Reglan, Lactulose, bethanechol. NGT to LIWS. GS following. Clinically much improved today. + BMs. Abdomen much less distended and soft. Will cont. current treatment today, if continues to improve, then start trickle feeds in am. TPN - Acute hypoxic respiratory failure, pulmonary edema, COPD, and probable pneumonia. Vent per CCM. - Leukocytosis, Fever. WBC 16.3 - Anemia. 11.9/36.3. - Elevated lipase, unclear etiology. Although noncontrasted, yesterday's CT did not appreciate any pancreatic abnormalities. - Mild elevation of LFTs, nonobstructive. S/P CT yesterday. Stable. T. Bili 0.6, AST 47, ALT 79, Alk Phosph 97. - ACS/NSTEMI, S/P cardiology evaluation. - HTN, Hyperlipidemia, per primary PLAN: - NPO - NGT to LIWS - S/P Golytely, SSE x 2, Magnesium citrate, SBFT with gastrografin - S/P Barium enema, good results - Cont. Bethanechol - Cont. Reglan - Cont. Miralax - Cont. TPN - Monitor labs, lipase - Supportive care - If continues to improve, consider starting trickle feeds in am - Further recommendations to follow based on results of above - Pt seen and examined by Dr. Benavides and myself and this note is written on his behalf (Alivia Ross) Physician Comments patient was seen and examined, agree with above note, good result with BE, less distended abdomen, guarded prognosis. (Maximo Benavides MD) Alivia Ross Aug 30, 2016 15:33 Maximo Benavides MD Aug 30, 2016 15:40
[2016-08-30] MEDS: LEVOFLOXACIN 750 MG PREMIX INJ 150 ML IV SCH (16:00)
--- NOTE | 2016-08-30 18:32 | PD.PROCEDR ---
Central Line Procedure REASON FOR PROCEDURE Central venous access PROCEDURE PERFORMED Central line placement: Left IJ CVL CONSENT Informed consent for procedure was obtained. The risks and benefits of the procedure were discussed to include but limited to bleeding, clot formation, infection, and even . ANESTHESIA Local injection of 1% Lidocaine DESCRIPTION OF THE PROCEDURE The patient was placed in supine, mild Trendelenburg position. The area was exposed and cleansed with ChloraPrep, times two. Large sterile drape was used to cover the patient, with the site exposed, under sterile conditions including cap, face mask, sterile gown, and sterile gloves. On single attempt, the introducer needle was inserted with negative pressure in syringe and venous flash was obtained. The guide wire was then advanced without any restriction and the needle was removed. The dilator was used without any complications. Using Seldinger technique the triple-lumen catheter was advanced over the guide wire to a depth of 20 centimeters. The guide wire was removed. All ports were aspirated with dark venous blood return and flushed easily with sterile saline. All ports were capped. Antibiotic disc was placed around central line at puncture site. The central line was secured to the skin with two interrupted 2.0 silk sutures. The area was bandaged with sterile see-through central line bandage. RADIOLOGICAL DATA Ultrasound guidance was used to locate the left internal jugular vein. Doppler/ color flow was used to confirm venous flow. COMPLICATIONS: No apparent complications ESTIMATED BLOOD LOSS: Less than 1 cc. Huan Page MD Aug 30, 2016 18:32
--- NOTE | 2016-08-30 18:35 | RADRPT ---
EXAM DATE/TIME: 08/30/2016 15:56 [facility] COMPARISON: No previous studies available for comparison. INDICATIONS : Increased BUN/creatinine. MEDICAL HISTORY : Hypercholesterolemia. Hypertension. Glaucoma. SURGICAL HISTORY : Cataract extraction. Back surgery. ENCOUNTER: Subsequent ACUITY: 1 day PAIN SCORE: Nonresponsive. LOCATION: Bilateral flank MEASUREMENTS: RIGHT KIDNEY: 10.3 x 4.9 x 5.2 cm LEFT KIDNEY: 10.6 x 4.7 x 6.6 cm FINDINGS: RIGHT KIDNEY: Increased cortical echogenicity. No evidence of hydronephrosis. Multiple small cysts, largest a 2 cm exophytic slightly greater than 2 cm cyst arising exophytically from the upper pole. LEFT KIDNEY: Diffuse increase in renal cortical echogenicity. No evidence of hydronephrosis. Multiple cysts presen t, largest be slightly greater than 4 cm cyst arising from the midpole region exophytically. BLADDER: Decompressed with Bauer catheter. CONCLUSION: Increase in renal cortical echogenicity bilaterally suggesting medical renal disease. No hydronephros is. Moises Sanchez MD on August 30, 2016 at 18:29 Board Certified Radiologist. This report was verified electronically.
[2016-08-30] MEDS ORDERED: SODIUM CHLORIDE 0.9% FLUSH 5 ML FLUSH IVF PRN (18:45)
--- NOTE | 2016-08-30 18:57 | RADRPT ---
EXAM DATE/TIME: 08/30/2016 18:41 [facility] COMPARISON: CHEST SINGLE AP, August 30, 2016, 7:51. INDICATIONS : Central Line Placement. MEDICAL HISTORY : Hypercholesterolemia. Hypertension. Glaucoma. SURGICAL HISTORY : Cataract extraction. Back surgery. ENCOUNTER: Initial ACUITY: 1 day PAIN SCORE: Non-responsive. LOCATION: Bilateral chest FINDINGS: Endotracheal tube is stable and relatively high with tip about 10-11 cm above the les. Nasogastric tube since the stomach. Right central line is stable overlying SVC. Left line is now present descend ing into the SVC. No pneumothorax an outpatient placement. Patchy mild predominantly perihilar infilt rates persist, unchanged. Cardiomediastinal contours are grossly stable. CONCLUSION: Left neck central line in good position. No pneumothorax.. Endotracheal tube tip remains high Moises Sanchez MD on August 30, 2016 at 18:55 Board Certified Radiologist. This report was verified electronically.
[2016-08-30] MEDS: INSULIN NovoLIN REGULAR SUPPLEMENTAL SCALE SQ SCH (19:53)
[2016-08-30] MEDS: CLINIMIX 4.25/25 (Cust.Renal Central) 2000 mL- >42 mls/hr IV-CENTRAL SCH ×8 (19:54)
[2016-08-30] MEDS: ENOXAPARIN SODIUM 30 MG/0.3 ML SYRINGE SQ SCH (19:55)
[2016-08-30] MEDS: LATANOPROST 0.005% OPHT SOLN 2.5 ML BTL EACH EYE SCH (19:55)
[2016-08-30] MEDS: LORazepam 2 MG/ML VIAL IV PRN ×2 (19:56→23:21)
[2016-08-31] VITALS (16 sets, daily range): BP systolic 118–186; BP diastolic 58–84; PULSE 79–108; RESP 16–24; TEMP 98.1–100.9; O2SAT 10–100
[2016-08-31] MEDS: hydrALAZINE HCL 20 MG/ML VIAL IV PUSH PRN ×2 (00:06→21:36)
[2016-08-31] MEDS: LABETALOL HCL 100 MG/20 ML VIAL IV PUSH PRN ×3 (00:33→21:03)
[2016-08-31] MEDS: METOCLOPRAMIDE HCL 10 MG/2 ML VIAL IV PUSH SCH ×3 (02:00→17:34)
[2016-08-31] MEDS: INSULIN NovoLIN REGULAR SUPPLEMENTAL SCALE SQ SCH ×7 (04:00→23:51)
[2016-08-31] MEDS: RESP: ALBUTEROL 2.5 MG/IPRATROPIUM 0.5 MG NEB (SCH) NEB ×4 (04:03→20:33)
[2016-08-31] MEDS: ACETAMINOPHEN 325 MG TAB PO PRN (04:14)
[2016-08-31] MEDS: MIDAZOLAM 100 MG/ML INJ 100 ML IV SCH (04:52)
[2016-08-31 05:07] LABS: AUTOMATED NEUTROPHIL # 13.1 TH/MM3 (1.8-7.7); EOSINOPHIL % 0.2 % (0.0-4.0); HEMATOCRIT 32.2 % (39.0-51.0); HEMO FLAGS DIFF FINAL; LYMPH % 3.6 % (9.0-44.0); LYMPHOCYTE # 0.5 TH/MM3 (1.0-4.8); MEAN CELL VOLUME 91.8 FL (80.0-100.0); MEAN CORPUSCULAR HEMOGLOBIN 30.2 PG (27.0-34.0); MEAN CORPUSCULAR HGB CONC 32.9 % (32.0-36.0); MONO % 4.8 % (0.0-8.0); NEUT % 91.4 % (16.0-70.0); PLATELET COUNT 291 TH/MM3 (150-450); WHITE BLOOD COUNT 14.3 TH/MM3 (4.0-11.0)
[2016-08-31] MEDS: BETHANECHOL CHL 25 MG TAB PO SCH ×3 (05:08→21:01)
[2016-08-31 05:35] LABS: ALKALINE PHOSPHATASE 80 U/L (45-117); ALT (GPT) 62 U/L (12-78); ANION GAP 6 MEQ/L (5-15); AST (GOT) 35 U/L (15-37); BICARBONATE 28.6 MEQ/L (21.0-32.0); BLOOD UREA NITROGEN 50 MG/DL (7-18); CHLORIDE 115 MEQ/L (98-107); GLOMERULAR FILTRATION RATE 48 ML/MIN (>89); MAGNESIUM 2.6 MG/DL (1.5-2.5); POTASSIUM 3.9 MEQ/L (3.5-5.1); SODIUM (NA) 150 MEQ/L (136-145); TOTAL BILIRUBIN ADULT 0.4 MG/DL (0.2-1.0)
[2016-08-31] MEDS: SODIUM CHLORIDE 0.9% FLUSH 5 ML FLUSH FLUSH SCH ×2 (09:00→20:14)
[2016-08-31] MEDS: SODIUM CHLORIDE 0.9% FLUSH 5 ML FLUSH IVF SCH (09:00)
[2016-08-31] MEDS: PANTOPRAZOLE SODIUM 40 MG VIAL IV PUSH SCH (09:47)
[2016-08-31] MEDS: methylPREDNISolone SOD SUCC 40 MG/1 ML VIAL IV PUSH SCH ×2 (09:52→20:14)
[2016-08-31] MEDS: PRAVASTATIN SOD 40 MG TAB PO SCH (09:53)
[2016-08-31] MEDS: METOPROLOL TARTRATE 25 MG TAB PO SCH ×2 (09:53→20:14)
[2016-08-31] MEDS: CALCIUM ACETATE 667 MG CAP PO SCH ×3 (09:53→17:34)
[2016-08-31] MEDS: DOCUSATE SODIUM 50 MG/SENNA 8.6 MG TAB PO SCH ×2 (09:53→20:14)
[2016-08-31] MEDS: ASPIRIN 81 MG CHEW TAB CHEW SCH (09:53)
[2016-08-31] MEDS: POLYETHYLENE GLYCOL 17 GM PKG PO SCH ×2 (09:53→20:14)
[2016-08-31] MEDS: THIAMINE HCL 100 MG TAB PO SCH (09:53)
[2016-08-31] MEDS: NYSTATIN SUSP 500,000 U/5 ML CUP SWISH-SPIT SCH ×4 (09:53→20:14)
[2016-08-31] MEDS: FOLIC ACID 1 MG TAB PO SCH (09:53)
[2016-08-31] MEDS: CHLORHEXIDINE 0.12% (ORAL KIT) 15 ML CUP MT SCH ×2 (09:54→20:00)
--- NOTE | 2016-08-31 10:15 | HHI.CCPN ---
Subjective Remarks/Hospital Course 81-year-old man who admitted to [facility] with complains of feeling weak and dizzy , also some chills with it. He had one episode of vomiting earlier today and another episode in the ED. While on a medical floor, he became hypoxemic and tachycardic. Due to hypoxemia at 80s he is transfered to ICU. Patient is alert and oriented and he doesn't want to be intubated in case his condition declines. 08/20 Afebrile. 24 hours patient was noted to have elevated troponins, etiology consulted patient was initiated on aspirin and beta blockers. Cardiology was consulted. Plan for nuclear medicine myocardial perfusion scan, initially scheduled for 08/19 will be done today secondary to NPO status of patient. The patient continues on a Cardizem infusion, metoprolol dosage was increased. Early this a.m., the patient climbed out of the bed and fell, noted laceration posterior right ear. Of note, the patient consumes 2-3 drinks of whiskey per night, came very anxious last night, reported by . The patient was alert and oriented with GCS of 15. Full range of motion denies pain in extremities 4. Stat CT of the head, results pending. 08/21 Tmax 101.8. Yesterday afternoon post nuclear medicine perfusion scan, the patient became acutely hypoxic O2 sat in the 70s, the patient was emergently intubated. Max pulmonary edema was noted, with copious pink frothy sputum via ETT . FiO2 requirements were increased, unable to wean below 70% yesterday afternoon .Sputum culture and urine cultures were obtained, broad- spectrum antibiotics were initiated Vancomycin and Levaquin. The patient currently is on Rocephin for UTI. Flowtrac was instituted, cardiac output and cardiac index were within normal limits. During the night the patient's O2 requirements were increased, the patient required 15 cm of PEEP and initially 100% FiO2. The patient was received 2 mg of Bumex without any diuresis noted. The patient became hypotensive during the night requiring Charbel-Synephrine and Norepinephrine infusions. This morning a central line was placed, steroids were initiated, Solu-Medrol 125 mg IV push, and repeat blood cultures were obtained. 08/22 Tmax 97.8. Patient improvement, weaned off all vasopressors. Oxygen requirements decreased, FiO2 now 40%, PEEP 5. GCS 11 T during sedation holiday. Plan for CPAP trials today. 08/23: Passed weaning parameters today. However, several on propofol at 20 mcg /kg per minute for comfort. Switching to Precedex drip at present. Tolerating tube feeding. 08/24: Not tolerating NG tube feeds, noted residual 500 cc last night. Ileus noted on KUB yesterday. NG tube placed to suction, large amount of care noted. Repeat KUB slightly improved. Prokinetic agents instituted over the last 24 hours 08/25: Increase in intra-abdominal pressure, bladder pressures yesterday afternoon up to 22. Mag citrate added to bowel regimen, Lopid large voluminous bowel movement. OGT to continuous suction 500 cc output overnight. The patient was placed on CPAP trials yesterday from 4 PM2 AM. Abdomen currently soft bladder pressure 14 at 6 AM. Plan for continued CPAP trials today, insertion of NG tube to continued low continuous suction, follow-up KUB. 08/26: Tmax 99.2. The patient was maintained on CPAP trials over 8 hours yesterday without difficulty. GI was consulted yesterday . Patient is NG tube output were night significantly diminished. 250 cc bilious gastric output over 14 hours in total. The patient had 3 bowel movements last night. KUB remains unchanged today with continued small and large bowel distention-ileus. Bladder pressures the last 24 hours remain low averaging 34. 08/27: Afebrile. No acute respiratory issues. Patient remains on Precedex infusion with RASS-1, cooperative. NG tube output 230 cc overnight for 12 hours. Patient still has not had a bowel movement in the last 24hrs. repeat KUB remains unchanged today continued bowel distention. Mag citrate ordered this a.m.. GI following. Intra-abdominal pressures are low 37. 08/28: Patient received mag citrate yesterday with no effect. Overnight the patient was instilled 2 L of GoLYTELY and 1500 cc of soapsuds enema,per GI recommendations. KUB scheduled for this a.m.. Abdominal pressures elevated secondary to the 3.5 L volume intra-abdominal. 08/29: Tmax 100.3. 3450 gastric contents out of NG tube overnight. Currently resting in bed with distended abdomen. 400 cc urine output past 12 hours. Borderline systolic blood pressures. Arousable on Precedex has received Ativan 2 overnight secondary to agitation. 08/30: Afebrile overnight. Approximately 1 L stool since Gastrografin enema. Abdomen still distended but softer. Adequate urine output overnight. Off and on Charbel-Synephrine for vasopressors support. Follows commands on the ventilator. Subjective 08/31: Tmax 100.9. Currently 99.1. 1400 cc stool from rectal tube.. Arousable and will follow commands on the ventilator on Versed drip at 10 mg an hour. Creatinine has normalized. Central line changed yesterday. Objective Vital Signs Date Time Temp Pulse Resp B/P Pulse Ox O2 Delivery O2 Flow Rate FiO2 08/31/16 08:11 99 40 08/31/16 08:00 99.0 85 20 149/70 08/30/16 08:17 Ventilator Intake and Output 08/30/16 08/30/16 08/31/16 08:00 16:00 00:00 Intake Total 624 ml 1618 ml 666 ml Output Total 1750 ml 2150 ml 950 ml Balance -1126 ml -532 ml -284 ml Result Diagram: 08/31/16 0439 08/31/16 0439 Other Results Microbiology Date/Time Procedure Status Source Growth 08/31/16 04:33 Gram Stain - Final Resulted Sputum Endotracheal 08/31/16 04:33 Sputum Culture Resulted Sputum Endotracheal Pending 08/30/16 08:45 Urine Culture Received Urine Catheterized Urine Pending 08/29/16 10:58 Aerobic Blood Culture - Preliminary Resulted Blood Peripheral NO GROWTH IN 1 DAY 08/29/16 10:58 Anaerobic Blood Culture - Preliminary Resulted Blood Peripheral NO GROWTH IN 1 DAY Imaging Last Impressions Chest X-Ray 08/30/16 1831 Signed Impressions: Service Date/Time: Tuesday, August 30, 2016 18:41 - CONCLUSION: Left neck central line in good position. No pneumothorax.. Endotracheal tube tip remains high Moises Sanchez MD Renal Ultrasound 08/30/16 0000 Signed Impressions: Service Date/Time: Tuesday, August 30, 2016 15:56 - CONCLUSION: Increase in renal cortical echogenicity bilaterally suggesting medical renal disease. No hydronephrosis. Moises Sanchez MD Abdomen X-Ray 08/30/16 0000 Signed Impressions: Service Date/Time: Tuesday, August 30, 2016 07:54 - CONCLUSION: 1. Persistent bowel dilatation most likely ileus. 2. Nasogastric tube and rectal tube are noted. Radiographic contrast is seen scattered in the colon. 3. There has been interval improvement. Manolo Owens MD FACR Enema w/Water Soluble 08/29/16 0000 Signed Impressions: Service Date/Time: Monday, August 29, 2016 15:22 - CONCLUSION: 1. Gastrografin enema as above with some clearing of the rectosigmoid constipation on the postevacuation film. Diffuse ileus. Juice Faith MD Abdomen/Pelvis CT 08/29/16 0000 Signed Impressions: Service Date/Time: Monday, August 29, 2016 10:15 - CONCLUSION: 1. Diffuse ileus and small bowel with air-fluid levels and dilatation. Oral contrast does reach the colon and there is no evidence for small bowel obstruction. 2. Basilar lung consolidation, right greater than left. 3. NG tip in stomach. Rectal tube present with moderate rectal constipation. Bauer in decompressed bladder. Juice Faith MD Small Bowel X-Ray 08/28/16 0000 Signed Impressions: Service Date/Time: August 10:39 - CONCLUSION: 1. Dilated bowel most characteristic of an ileus with poor peristalsis. No transition zone identified. Juice Faith MD Myocardial Perfusion Scan Nuc Med 08/20/16 0000 Signed Impressions: Service Date/Time: Saturday, August 20, 2016 08:43 - CONCLUSION: Unremarkable myocardial perfusion examination. RISK CATEGORY: low Alexander Carter MD Head CT 08/20/16 0000 Signed Impressions: Service Date/Time: Saturday, August 20, 2016 07:58 - CONCLUSION: Unremarkable and stable CT brain for patient's age. Alexander Carter MD Objective Remarks GENERAL: 81-year-old male, critically ill currently orotracheally intubated in no acute distress SKIN: Warm and dry, noted abrasion posterior right ear, evolving abrasion right knee HEAD: Normocephalic. EYES: No scleral icterus. No injection or drainage. Pupils around 2 mm bilaterally and reactive NECK: Supple, trachea midline. No JVD or lymphadenopathy. Orotracheally intubated CARDIOVASCULAR: Regular rate and rhythm S1, S2. No S4. Currently without murmurs, clicks, gallops or rubs. RESPIRATORY: Breath sounds equal bilaterally,no wheezing noted. Symmetrical excursion GASTROINTESTINAL: Abdomen soft, obese distended. No guarding this AM.. No rigidity. No appreciable bowel sounds appreciated today 2 minutes 4 quadrants MUSCULOSKELETAL: Trace bilateral lower extremity nonpitting edema. Movement of extremities 4 on commands BACK: Nontender without obvious deformity. No CVA tenderness. Urinary Catheter: Yes Assessment to: Continue Bauer insert reason: ICU Pt Getting Diuretics Date of Insertion: Aug 19, 2016 Vascular Central Line Catheter: Yes Assessment to: Continue Date of Insertion: Aug 30, 2016 Line: Central Venous Catheter Side: Left Location: Internal, Jugular A/P Problem List: (1) BPH with urinary obstruction ICD Code: N40.1 Status: Acute (2) COPD (chronic obstructive pulmonary disease) ICD Code: J44.9 Status: Acute (3) Pulmonary edema ICD Code: J81.1 Status: Acute (4) Respiratory failure ICD Code: J96.90 Status: Acute Assessment and Plan Neuro/Psych: Glaucoma Alcohol use S/P Fall-confusion (08/20) -GCS 11T, Versed drip at 10 mg an hour for sedation while intubated - Goal of RASS -1 - Daily sedation vacation --Continued on Latanoprost 0.005% 1 drop each eye at night for glaucoma -S/P Fall OOB 08/20, CT of the head-unremarkable stable CT of the brain -Thiamine 100 mg, folate 1 mg q/day will be continued Respiratory: Acute hypoxic respiratory failure Acute Pulmonary edema-resolved COPD exacerbation-resolved Chronic smoker Probable multilobar Pneumonia -PRVC FiO2 50%/tidal volume around 550/5/inspiratory time 1.0 with the rate of 18 -Spontaneous breathing trials today -Maintain O2 sat greater than 92% -Scheduled Duonebs every 6 hours, add every 2 PRN - Methylprednisone taper 20 mg BID -Counseled on smoking [id number]/28 (smokes 2 PPD x 65 years), family reported accurate smoking history -Nicotine patch day 02/27 dc'd 08/26 Cardiovascular: NSTEMI H/O Hypertension Tachycardia-resolved Dyslipidemia Cardiogenic Shock -Charbel-Synephrine dc'd 08/30 -Troponin (08/19) 5.17->4.91->4.23 -Continue ASA 81 mg/day - Metoprolol 6.25 mg by tube twice a day Holding Hytrin 1 mg at night and Prinivil 20 mg daily and secured hypotension and acute kidney injury - Patient continues on pravastatin 40 mg by mouth daily (home med) for dyslipidemia -ECHO 08/19- EF 50% , no RWMA. RV dilated. JOHNY 38 mmHg -BNP- 156->91 (08/21) -08/20 nuclear medicine myocardial perfusion scan-intact wall motion and thickening without hypokinetic or dyskinetic segments -Cardiology has signed off, Dr. Cason, follow recommendations including possible cardiac catheterization in the future once stable Renal: Acute on chronic renal failure BPH -Creatinine finally stabilize currently 1.4 -Maintain Bauer - Home meds Flomax being held as currently nothing by mouth Hytrin being held secondary to hypotension -- Strict I/Os -monitor urinary output hourly FEN/GI: Ileus Constipation Increased intra-abdominal pressure Pancreatitis -IVF D5 08/27 NS @ 50 cc an hour -Electrolyte replacement per ICU protocol -Measure bladder pressures q 4 hours last one around -1 L still since Gastrografin enema -F/U KUB reveals contrast in similar position to yesterday after small bowel series Status post Gastrografin enema with positive BM results. Appears to be clearing stool from:. Ileus persists -Surgery consult-Dr Elizabeth 09/25 increased intra-abdominal pressure-resolved - Tube feeds-Jevity 1.5, goal of 60 cc/hr on hold since 08/24. Start TPN 08/30 -NG tube to low intermittent water suction -Zofran for nausea -Protonix GI prophylaxis -Bowel regimen including Sonia-Colace twice a day, MiraLAX twice a day and lactulose QID, Reglan 5 mg TID Urecholine 25 mg 3 times a day written for stimulation Propofol held secondary to elevated triglycerides to 20/pancreatitis Heme/ID: Leukocytosis Normocytic anemia Probable multilobar pneumonia Septic shock UTI Proteus mirabilis - 08/18 urine culture-Proteus mirabilis -08/18 blood culture- Staph Capitis ([id number]) -08/20 blood culture-NGTD -08/20 urine Legionella, Pneumococcal-negative - 08/29 - blood cultures 2 - -no growth - 08/30 - urine - pending - 08/31 - sputum - pending Methylprednisolone 20 mg BID -Monitor CBC, WBC 12 -Lactate 1.4 -ID consulted, Dr Benavides - follow-up recommendations Currently on Levaquin since 08/20. Endocrine: Blood glucose monitoring every 4 hours per ICU protocol -- SSI Prophylaxis: GI Prophylaxis Protonix DVT Prophylaxis -- SCDs Lovenox Lines: Peripheral IVs. Central line RIJ 08/21 - 08/30; left IJ CVL 08/30 - present Critical Care: The total critical care time was 35 minutes. Time to perform other separately billable procedures was not included in the critical care time. Discussed with marie at length yesterday. Care plan discussed and all questions answered . Huan Page MD Aug 31, 2016 10:15
[2016-08-31] MEDS ORDERED: HYOSCYAMINE 0.5 MG/ML AMP IVP ONE (10:30)
[2016-08-31] MEDS: DEXMEDETOMIDINE INJ 1,000 MCG in SODIUM CHLOR 0.9% 250 ML INJ 240 ML IV SCH (10:55)
--- NOTE | 2016-08-31 11:33 | RADRPT ---
EXAM DATE/TIME: 08/31/2016 10:28 [facility] COMPARISON: ABDOMEN KUB ONLY, August 30, 2016, 7:54. INDICATIONS : Evaluate for ileus. MEDICAL HISTORY : Hypertension. Hypercholesterolemia. SURGICAL HISTORY : None. ENCOUNTER: Initial ACUITY: 1 day PAIN SCORE: Non-responsive. LOCATION: Bilateral abdomen. FINDINGS: Nasogastric tube and rectal tube are again noted. Persistent small bowel dilatation is noted. Small bowel is dilated to 5 cm. Radiographic contrast is present in the colon. CONCLUSION: Persistent small bowel dilatation, slightly increased in the interval. Manolo Owens MD FACR on August 31, 2016 at 11:25 Board Certified Radiologist. This report was verified electronically.
--- NOTE | 2016-08-31 16:51 | HHI.PR ---
Subjective Interval History on mechanical ventilation on diprivan no fever in past 24 hour Abd less distended, and soft had BM NGT to LIS Vitals/Results Intake & Output 08/30/16 08/30/16 08/31/16 15:00 23:00 07:00 Intake Total 1618 ml 666 ml 1184 ml Output Total 2150 ml 950 ml 1050 ml Balance -532 ml -284 ml 134 ml IV Total 1298 ml 421 ml 470 ml TPN/PPN 85 ml 594 ml Other 320 ml 160 ml 120 ml Output Urine Total 700 ml 800 ml 1050 ml Stool Total 1250 ml 150 ml 0 ml Gastric Drainage Total 200 ml 0 ml 0 ml # Bowel Movements 1 Vital Signs Vital Signs Date Time Temp Pulse Resp B/P Pulse Ox O2 Delivery O2 Flow Rate FiO2 08/31/16 15:50 97 Nasal Cannula 3 08/31/16 12:00 98.7 79 16 118/58 100 08/31/16 12:00 40 08/31/16 11:33 100 40 08/31/16 10:45 10 40 08/31/16 10:00 40 08/31/16 08:11 99 40 08/31/16 08:00 99.0 85 20 149/70 100 08/31/16 08:00 88 08/31/16 08:00 40 08/31/16 06:00 86 08/31/16 04:00 102 08/31/16 04:00 100.9 102 23 144/65 100 08/31/16 04:00 40 08/31/16 03:59 100 40 08/31/16 02:00 108 08/31/16 00:23 100 40 08/31/16 00:00 40 08/31/16 00:00 98.1 93 24 186/84 100 08/31/16 00:00 93 08/30/16 22:00 96 08/30/16 20:03 100 40 08/30/16 20:00 97.8 96 20 156/73 100 08/30/16 20:00 96 08/30/16 20:00 40 08/30/16 18:00 107 CBC/BMP: 08/31/16 0439 08/31/16 0439 Lab Results Laboratory Tests Test 08/31/16 04:39 White Blood Count 14.3 TH/MM3 Red Blood Count 3.50 MIL/MM3 Hemoglobin 10.6 GM/DL Hematocrit 32.2 % Mean Corpuscular Volume 91.8 FL Mean Corpuscular Hemoglobin 30.2 PG Mean Corpuscular Hemoglobin 32.9 % Concent Red Cell Distribution Width 14.0 % Platelet Count 291 TH/MM3 Mean Platelet Volume 9.4 FL Neutrophils (%) (Auto) 91.4 % Lymphocytes (%) (Auto) 3.6 % Monocytes (%) (Auto) 4.8 % Eosinophils (%) (Auto) 0.2 % Basophils (%) (Auto) 0.0 % Neutrophils # (Auto) 13.1 TH/MM3 Lymphocytes # (Auto) 0.5 TH/MM3 Monocytes # (Auto) 0.7 TH/MM3 Eosinophils # (Auto) 0.0 TH/MM3 Basophils # (Auto) 0.0 TH/MM3 CBC Comment DIFF FINAL Differential Comment Sodium Level 150 MEQ/L Potassium Level 3.9 MEQ/L Chloride Level 115 MEQ/L Carbon Dioxide Level 28.6 MEQ/L Anion Gap 6 MEQ/L Blood Urea Nitrogen 50 MG/DL Creatinine 1.42 MG/DL Estimat Glomerular Filtration 48 ML/MIN Rate Random Glucose 155 MG/DL Calcium Level 7.8 MG/DL Phosphorus Level 2.4 MG/DL Magnesium Level 2.6 MG/DL Total Bilirubin 0.4 MG/DL Aspartate Amino Transf 35 U/L (AST/SGOT) Alanine Aminotransferase 62 U/L (ALT/SGPT) Alkaline Phosphatase 80 U/L Total Protein 5.3 GM/DL Albumin 2.0 GM/DL Microbiology Microbiology 08/31/16 Gram Stain - Final, Resulted 08/31/16 Sputum Culture, Resulted Pending Physical Exam General General Appearance: No Acute Distress, Comfortable, Obese Eyes Eye Exam: Pupils Equal, Sclera White Ears & Nose Ears & Nose Exam: Nasal Mucosa [place] Throat Throat Exam: Oral Mucosa [place] & Moist Neck Neck Exam: Neck Supple, Trachea Midline Pulmonary Resp Exam: Breath Sounds Equal, Crackles, Rhonchi, Decreased Bases Cardiology CV Exam: Regular, Normal Sinus Rhythm Gastrointestinal/Abdomen GI Exam: Soft, Non-Tender, Bowel Sounds Present, Distended, Bowel Sounds Hypoactive Genitourinary Exam: Clear Urine Musculoskeletal MS Exam: Joints Intact Integumentary Skin Exam: Warm, Dry Extremeties Extremities Exam: No Edema, Pedal Pulses Palpable VTE Prophylaxis VTE Prophylaxis Meds: Lovenox PUD Prophylasis PUD Prophylaxis: Protonix Assessment/Plan Assessment/Plan ASSESSMENT 1. Acute febrile illness with leukocytosis and left shift, source not clear. The patient has evidence of microscopic hematuria, questionable urinary tract infection, rule out bacteremia, question bronchitis. 2. Hyperglycemia. 3. Normochromic normocytic anemia. 4. BPH with chronic urge incontinence. 5. Hypertension. 6. Hyperlipidemia. 7. Recurrent falls, fortunately no significant injury. 8. Acute VDRF 9. ACS/ NSTEMI -evaluated per card. Had STT, negative 10. s/p Acute pulmonary edema/flash pulmonary edema 11. HCA Pneumonia 12. Adynamic Ileus 13. Hypernatremia PLAN CCM following nacho help Ventilator support and weaning per track inspector IV sedation- per track inspector continue on vent culture reports reviewed cont empiric IV antibiotics, Levaquin Appreciate ID input IV steroids aerosol tx Control blood pressure S/P NSTEMI, card. evaluated. STT done negative. 2-D echocardiogram noted, EF is 50% Continue Aspirin Hypernatremic, D5LR infusing Continue PPI Subcutaneous Lovenox Persistent ileus, no BM-continue with bowel regimena CT of abd done, results noted Appreciate GI input Continue with NGT to LIS Renal function worsening BP stable improving labs reviewed meds reviewed Condition guarded D/W Jorge Alberto MD Aug 31, 2016 16:51
[2016-08-31] MEDS: ENOXAPARIN SODIUM 30 MG/0.3 ML SYRINGE SQ SCH (20:13)
[2016-08-31] MEDS: LATANOPROST 0.005% OPHT SOLN 2.5 ML BTL EACH EYE SCH (20:14)
[2016-08-31] MEDS: CLINIMIX 4.25/25 (Cust.Renal Central) 2000 mL- >42 mls/hr IV-CENTRAL SCH ×8 (20:15)
[2016-09-01] VITALS (14 sets, daily range): BP systolic 142–172; BP diastolic 67–79; PULSE 98–116; RESP 18–22; TEMP 98.2–98.9; O2SAT 93–97
[2016-09-01] MEDS: METOCLOPRAMIDE HCL 10 MG/2 ML VIAL IV PUSH SCH ×3 (01:14→19:24)
[2016-09-01] MEDS: LABETALOL HCL 100 MG/20 ML VIAL IV PUSH PRN ×3 (01:50→15:03)
[2016-09-01] MEDS: RESP: ALBUTEROL 2.5 MG/IPRATROPIUM 0.5 MG NEB (SCH) NEB ×3 (03:25→21:21)
[2016-09-01] MEDS: INSULIN NovoLIN REGULAR SUPPLEMENTAL SCALE SQ SCH ×5 (03:49→20:00)
[2016-09-01 04:30] LABS: AUTOMATED NEUTROPHIL # 14.9 TH/MM3 (1.8-7.7); BASOPHIL % 0.2 % (0.0-2.0); EOSINOPHIL % 0.1 % (0.0-4.0); HEMATOCRIT 33.9 % (39.0-51.0); HEMO FLAGS DIFF FINAL; LYMPH % 3.9 % (9.0-44.0); LYMPHOCYTE # 0.6 TH/MM3 (1.0-4.8); MEAN CELL VOLUME 91.7 FL (80.0-100.0); MEAN CORPUSCULAR HEMOGLOBIN 30.3 PG (27.0-34.0); MONO % 5.1 % (0.0-8.0); NEUT % 90.7 % (16.0-70.0); PLATELET COUNT 292 TH/MM3 (150-450); RED CELL DISTRIBUTION WIDTH 14.1 % (11.6-17.2); WHITE BLOOD COUNT 16.4 TH/MM3 (4.0-11.0)
[2016-09-01] MEDS: BETHANECHOL CHL 25 MG TAB PO SCH ×3 (05:07→23:12)
[2016-09-01] MEDS: hydrALAZINE HCL 20 MG/ML VIAL IV PUSH PRN ×2 (05:07→13:25)
[2016-09-01 05:27] LABS: ALKALINE PHOSPHATASE 90 U/L (45-117); ALT (GPT) 74 U/L (12-78); ANION GAP 5 MEQ/L (5-15); AST (GOT) 46 U/L (15-37); BICARBONATE 27.7 MEQ/L (21.0-32.0); BLOOD UREA NITROGEN 37 MG/DL (7-18); CHLORIDE 113 MEQ/L (98-107); GLOMERULAR FILTRATION RATE 67 ML/MIN (>89); MAGNESIUM 2.3 MG/DL (1.5-2.5); POTASSIUM 4.1 MEQ/L (3.5-5.1); SODIUM (NA) 146 MEQ/L (136-145); TOTAL BILIRUBIN ADULT 0.4 MG/DL (0.2-1.0)
[2016-09-01] MEDS: SODIUM CHLORIDE 0.9% FLUSH 5 ML FLUSH IVF SCH (09:00)
--- NOTE | 2016-09-01 09:52 | HHI.IDPN ---
Subjective Subjective Remarks Notes reviewed D/W RN Temps ok Extubated this weekend On nasal O2 Not SOB NGT clamped Passed swallowing - pureed diet Has liquid stool No abdominal pain On precedex BP ok Has low grade temps Antibiotics Levaquin Lines LIJ - 08/30 Past Medical History Reviewed Allergies: Coded Allergies: No Known Allergies (Unverified , 05/16/15) Objective . Vital Signs Date Time Temp Pulse Resp B/P Pulse Ox O2 Delivery O2 Flow Rate FiO2 09/01/16 07:39 95 Nasal Cannula 3.00 09/01/16 06:00 116 09/01/16 04:00 98.9 108 20 166/79 96 09/01/16 04:00 108 09/01/16 02:00 100 09/01/16 00:00 107 09/01/16 00:00 98.2 107 18 152/67 93 08/31/16 22:00 102 08/31/16 20:33 100 Nasal Cannula 3.00 08/31/16 20:00 94 08/31/16 20:00 98.2 94 18 169/77 98 08/31/16 19:00 95 Nasal Cannula 2.00 08/31/16 16:00 98.3 97 18 149/67 98 08/31/16 16:00 98 Nasal Cannula 2.00 08/31/16 15:50 97 Nasal Cannula 3 08/31/16 15:50 97 Nasal Cannula 3.00 08/31/16 12:00 98.7 79 16 118/58 100 08/31/16 12:00 40 08/31/16 11:33 100 40 08/31/16 10:45 10 40 08/31/16 10:00 40 08/31/16 08/31/16 09/01/16 15:00 23:00 07:00 Intake Total 1414 ml 688 ml 674 ml Output Total 650 ml 650 ml 1025 ml Balance 764 ml 38 ml -351 ml IV Total 550 ml 10 ml TPN/PPN 664 ml 528 ml 604 ml Other 200 ml 160 ml 60 ml Output Urine Total 650 ml 650 ml 725 ml Stool Total 0 ml 0 ml 300 ml Gastric Drainage Total 0 ml 0 ml 0 ml . Laboratory Tests Test 08/31/16 09/01/16 04:39 03:23 White Blood Count 14.3 TH/MM3 16.4 TH/MM3 Red Blood Count 3.50 MIL/MM3 3.70 MIL/MM3 Hemoglobin 10.6 GM/DL 11.2 GM/DL Hematocrit 32.2 % 33.9 % Mean Corpuscular Volume 91.8 FL 91.7 FL Mean Corpuscular Hemoglobin 30.2 PG 30.3 PG Mean Corpuscular Hemoglobin 32.9 % 33.0 % Concent Red Cell Distribution Width 14.0 % 14.1 % Platelet Count 291 TH/MM3 292 TH/MM3 Mean Platelet Volume 9.4 FL 9.7 FL Neutrophils (%) (Auto) 91.4 % 90.7 % Lymphocytes (%) (Auto) 3.6 % 3.9 % Monocytes (%) (Auto) 4.8 % 5.1 % Eosinophils (%) (Auto) 0.2 % 0.1 % Basophils (%) (Auto) 0.0 % 0.2 % Neutrophils # (Auto) 13.1 TH/MM3 14.9 TH/MM3 Lymphocytes # (Auto) 0.5 TH/MM3 0.6 TH/MM3 Monocytes # (Auto) 0.7 TH/MM3 0.8 TH/MM3 Eosinophils # (Auto) 0.0 TH/MM3 0.0 TH/MM3 Basophils # (Auto) 0.0 TH/MM3 0.0 TH/MM3 CBC Comment DIFF FINAL DIFF FINAL Differential Comment Laboratory Tests Test 08/31/16 09/01/16 04:39 03:23 Sodium Level 150 MEQ/L 146 MEQ/L Potassium Level 3.9 MEQ/L 4.1 MEQ/L Chloride Level 115 MEQ/L 113 MEQ/L Carbon Dioxide Level 28.6 MEQ/L 27.7 MEQ/L Anion Gap 6 MEQ/L 5 MEQ/L Blood Urea Nitrogen 50 MG/DL 37 MG/DL Creatinine 1.42 MG/DL 1.06 MG/DL Estimat Glomerular Filtration 48 ML/MIN 67 ML/MIN Rate Random Glucose 155 MG/DL 145 MG/DL Calcium Level 7.8 MG/DL 8.2 MG/DL Phosphorus Level 2.4 MG/DL 1.4 MG/DL Magnesium Level 2.6 MG/DL 2.3 MG/DL Total Bilirubin 0.4 MG/DL 0.4 MG/DL Aspartate Amino Transf 35 U/L 46 U/L (AST/SGOT) Alanine Aminotransferase 62 U/L 74 U/L (ALT/SGPT) Alkaline Phosphatase 80 U/L 90 U/L Total Protein 5.3 GM/DL 5.8 GM/DL Albumin 2.0 GM/DL 2.0 GM/DL Microbiology Date/Time Procedure Status Source Growth 08/29/16 10:45 Aerobic Blood Culture - Preliminary Resulted Blood Line NO GROWTH IN 2 DAYS 08/29/16 10:45 Anaerobic Blood Culture - Preliminary Resulted Blood Line NO GROWTH IN 2 DAYS 08/29/16 10:58 Aerobic Blood Culture - Preliminary Resulted Blood Peripheral NO GROWTH IN 2 DAYS 08/29/16 10:58 Anaerobic Blood Culture - Preliminary Resulted Blood Peripheral NO GROWTH IN 2 DAYS 08/30/16 08:45 Urine Culture - Preliminary Resulted Urine Catheterized Urine NO GROWTH IN 24 HOURS. 08/31/16 04:33 Gram Stain - Final Resulted Sputum Endotracheal 08/31/16 04:33 Sputum Culture Resulted Sputum Endotracheal Pending Imaging Abdomen X-Ray 08/29/16 0600 Signed Impressions: Service Date/Time: Monday, August 29, 2016 05:00 - CONCLUSION: The position of the oral contrast in dilated loops of bowel is very similar to an image performed at the end of the small bowel series yesterday. Gavin Conte MD Abdomen X-Ray 08/28/16 0600 Signed Impressions: Service Date/Time: August 06:12 - CONCLUSION: Worsening distention of the small bowel. Bowel gas pattern is suggestive of an ileus. Gavin Gray Jr., MD Chest X-Ray 08/28/16 0300 Signed Impressions: Service Date/Time: August 06:10 - CONCLUSION: Unchanged bilateral pulmonary infiltrates. Gavin Gray Jr., MD Small Bowel X-Ray 08/28/16 0000 Signed Impressions: Service Date/Time: August 10:39 - CONCLUSION: 1. Dilated bowel most characteristic of an ileus with poor peristalsis. No transition zone identified. Juice Faith MD Abdomen X-Ray 08/27/16 0600 Signed Impressions: Service Date/Time: Saturday, August 27, 2016 01:10 - CONCLUSION: No change. Persistent gaseous distention of the small bowel. Gavin Gray Jr., MD Chest X-Ray 08/24/16 0600 Signed Impressions: Service Date/Time: Wednesday, August 24, 2016 03:19 - CONCLUSION: Improved airspace disease with some persistent infiltrate in the right perihilar and right lower lobe. NG tube and endotracheal tube in good position. Osvaldo Webb MD Abdomen X-Ray 08/24/16 0600 Signed Impressions: Service Date/Time: Wednesday, August 24, 2016 03:22 - CONCLUSION: Normal examination. Air is in the stomach with a nasogastric tube, large amount of air throughout the small bowel which is diffusely distended but may be slightly improved Osvaldo Webb MD Chest X-Ray 08/23/16 0600 Signed Impressions: Service Date/Time: Tuesday, August 23, 2016 03:53 - CONCLUSION: 1. Diffuse bilateral airspace disease worsening in the right perihilar region. 2. Support lines and tubes are unchanged. Ricardo Adan MD Abdomen X-Ray 08/23/16 0000 Signed Impressions: Service Date/Time: Tuesday, August 23, 2016 16:24 - CONCLUSION: Dilated bowel in a radiographic pattern suggesting an ileus. Gavin Gray Jr., MD Myocardial Perfusion Scan Nuc Med 08/20/16 0000 Signed Impressions: Service Date/Time: Saturday, August 20, 2016 08:43 - CONCLUSION: Unremarkable myocardial perfusion examination. RISK CATEGORY: low Alexnader Carter MD Head CT 08/20/16 0000 Signed Impressions: Service Date/Time: Saturday, August 20, 2016 07:58 - CONCLUSION: Unremarkable and stable CT brain for patient's age. Alexander Carter MD Renal Ultrasound 08/18/16 0000 Signed Impressions: Service Date/Time: Thursday, August 18, 2016 11:49 - CONCLUSION: 1. Echogenic kidneys which can be seen with medical renal disease. 2. Bilateral renal cysts. Ricardo Adan MD Physical Exam GENERAL: Awake and alert, responding, NAD SKIN: Cool and dry. No generalized rash HEENT: [place] conjunctivae, no petechia or hemorrhage. No scleral icterus. NGT in place. Moist mucosa NECK: Trachea midline. No JVD. Line [facility] ok CARDIOVASCULAR: Regular rate and rhythm without murmurs, gallops, or rubs. RESPIRATORY: Coarse breath sounds bilaterally, equal. Scattered rhonchi. GASTROINTESTINAL: Abdomen distended, not tender, bowel sounds are present and hypoactive. MUSCULOSKELETAL: Extremities without clubbing, cyanosis. Has pitting pedal edema NEUROLOGICAL: Awake and responding PSYCH: Unable to assess LINE: [facility] no evidence of infection : Bauer in place, urine looks clear Assessment & Plan Remarks IMPRESSION Sepsis with shock, source, likely pulmonary, HCAP - sputum C/S negative at 48 hrs - has known COPD, chronic smoker Low grade temps, better Admission with NSTEMI, EF 50% MOSF - respiratory, renal - tolerating extubation - renal indices better Hx daily ETOH use Chronic smoker 1 ppd One (+) BC with Coag Neg Staph on admission likely contaminant Proteus mirabilis in the urine Ileus, better RECOMMENDATION Continue Levaquin - if stable, will stop in next day or 2 Follow temps Monitor progress D/W Mimi Shaw MD Sep 01, 2016 09:52
[2016-09-01] MEDS: CHLORHEXIDINE 0.12% (ORAL KIT) 15 ML CUP MT SCH ×2 (10:54→20:00)
[2016-09-01] MEDS: METOPROLOL TARTRATE 25 MG TAB PO SCH ×2 (10:54→20:50)
[2016-09-01] MEDS: FOLIC ACID 1 MG TAB PO SCH (10:55)
[2016-09-01] MEDS: PRAVASTATIN SOD 40 MG TAB PO SCH (10:55)
[2016-09-01] MEDS: PANTOPRAZOLE SODIUM 40 MG VIAL IV PUSH SCH (10:55)
[2016-09-01] MEDS: DOCUSATE SODIUM 50 MG/SENNA 8.6 MG TAB PO SCH ×2 (10:55→20:48)
[2016-09-01] MEDS: SODIUM CHLORIDE 0.9% FLUSH 5 ML FLUSH FLUSH SCH ×2 (10:56→20:50)
[2016-09-01] MEDS: ASPIRIN 81 MG CHEW TAB CHEW SCH (10:56)
[2016-09-01] MEDS: POLYETHYLENE GLYCOL 17 GM PKG PO SCH ×2 (10:56→20:49)
[2016-09-01] MEDS: CALCIUM ACETATE 667 MG CAP PO SCH (10:56)
[2016-09-01] MEDS: methylPREDNISolone SOD SUCC 40 MG/1 ML VIAL IV PUSH SCH ×2 (10:56→20:50)
[2016-09-01] MEDS: NYSTATIN SUSP 500,000 U/5 ML CUP SWISH-SPIT SCH ×4 (10:58→20:48)
--- NOTE | 2016-09-01 11:01 | HHI.CCPN ---
Subjective Remarks/Hospital Course 81-year-old man who admitted to [facility] with complains of feeling weak and dizzy , also some chills with it. He had one episode of vomiting earlier today and another episode in the ED. While on a medical floor, he became hypoxemic and tachycardic. Due to hypoxemia at 80s he is transfered to ICU. Patient is alert and oriented and he doesn't want to be intubated in case his condition declines. 08/20 Afebrile. 24 hours patient was noted to have elevated troponins, etiology consulted patient was initiated on aspirin and beta blockers. Cardiology was consulted. Plan for nuclear medicine myocardial perfusion scan, initially scheduled for 08/19 will be done today secondary to NPO status of patient. The patient continues on a Cardizem infusion, metoprolol dosage was increased. Early this a.m., the patient climbed out of the bed and fell, noted laceration posterior right ear. Of note, the patient consumes 2-3 drinks of whiskey per night, came very anxious last night, reported by . The patient was alert and oriented with GCS of 15. Full range of motion denies pain in extremities 4. Stat CT of the head, results pending. 08/21 Tmax 101.8. Yesterday afternoon post nuclear medicine perfusion scan, the patient became acutely hypoxic O2 sat in the 70s, the patient was emergently intubated. Max pulmonary edema was noted, with copious pink frothy sputum via ETT . FiO2 requirements were increased, unable to wean below 70% yesterday afternoon .Sputum culture and urine cultures were obtained, broad- spectrum antibiotics were initiated Vancomycin and Levaquin. The patient currently is on Rocephin for UTI. Flowtrac was instituted, cardiac output and cardiac index were within normal limits. During the night the patient's O2 requirements were increased, the patient required 15 cm of PEEP and initially 100% FiO2. The patient was received 2 mg of Bumex without any diuresis noted. The patient became hypotensive during the night requiring Charbel-Synephrine and Norepinephrine infusions. This morning a central line was placed, steroids were initiated, Solu-Medrol 125 mg IV push, and repeat blood cultures were obtained. 08/22 Tmax 97.8. Patient improvement, weaned off all vasopressors. Oxygen requirements decreased, FiO2 now 40%, PEEP 5. GCS 11 T during sedation holiday. Plan for CPAP trials today. 08/23: Passed weaning parameters today. However, several on propofol at 20 mcg /kg per minute for comfort. Switching to Precedex drip at present. Tolerating tube feeding. 08/24: Not tolerating NG tube feeds, noted residual 500 cc last night. Ileus noted on KUB yesterday. NG tube placed to suction, large amount of care noted. Repeat KUB slightly improved. Prokinetic agents instituted over the last 24 hours 08/25: Increase in intra-abdominal pressure, bladder pressures yesterday afternoon up to 22. Mag citrate added to bowel regimen, Lopid large voluminous bowel movement. OGT to continuous suction 500 cc output overnight. The patient was placed on CPAP trials yesterday from 4 PM2 AM. Abdomen currently soft bladder pressure 14 at 6 AM. Plan for continued CPAP trials today, insertion of NG tube to continued low continuous suction, follow-up KUB. 08/26: Tmax 99.2. The patient was maintained on CPAP trials over 8 hours yesterday without difficulty. GI was consulted yesterday . Patient is NG tube output were night significantly diminished. 250 cc bilious gastric output over 14 hours in total. The patient had 3 bowel movements last night. KUB remains unchanged today with continued small and large bowel distention-ileus. Bladder pressures the last 24 hours remain low averaging 34. 08/27: Afebrile. No acute respiratory issues. Patient remains on Precedex infusion with RASS-1, cooperative. NG tube output 230 cc overnight for 12 hours. Patient still has not had a bowel movement in the last 24hrs. repeat KUB remains unchanged today continued bowel distention. Mag citrate ordered this a.m.. GI following. Intra-abdominal pressures are low 37. 08/28: Patient received mag citrate yesterday with no effect. Overnight the patient was instilled 2 L of GoLYTELY and 1500 cc of soapsuds enema,per GI recommendations. KUB scheduled for this a.m.. Abdominal pressures elevated secondary to the 3.5 L volume intra-abdominal. 08/29: Tmax 100.3. 3450 gastric contents out of NG tube overnight. Currently resting in bed with distended abdomen. 400 cc urine output past 12 hours. Borderline systolic blood pressures. Arousable on Precedex has received Ativan 2 overnight secondary to agitation. 08/30: Afebrile overnight. Approximately 1 L stool since Gastrografin enema. Abdomen still distended but softer. Adequate urine output overnight. Off and on Charbel-Synephrine for vasopressors support. Follows commands on the ventilator. 08/31: Tmax 100.9. Currently 99.1. 1400 cc stool from rectal tube.. Arousable and will follow commands on the ventilator on Versed drip at 10 mg an hour. Creatinine has normalized. Central line changed yesterday. Subjective 09/01: Extubated yesterday without competition. Currently on 3 L nasal cannula. Appears comfortable and not short of breath, 300 cc stools past 24 hours. Abdomen appears less distended. Objective Vital Signs Date Time Temp Pulse Resp B/P Pulse Ox O2 Delivery O2 Flow Rate FiO2 09/01/16 07:39 95 Nasal Cannula 3.00 09/01/16 06:00 116 09/01/16 04:00 98.9 20 166/79 08/31/16 12:00 40 Intake and Output 08/31/16 08/31/16 09/01/16 08:00 16:00 00:00 Intake Total 1184 ml 1414 ml 688 ml Output Total 1050 ml 650 ml 650 ml Balance 134 ml 764 ml 38 ml Result Diagram: 09/01/16 0323 09/01/16 0323 Other Results Microbiology Date/Time Procedure Status Source Growth 08/31/16 04:33 Gram Stain - Final Resulted Sputum Endotracheal 08/31/16 04:33 Sputum Culture Resulted Sputum Endotracheal Pending 08/30/16 08:45 Urine Culture - Preliminary Resulted Urine Catheterized Urine NO GROWTH IN 24 HOURS. 08/29/16 10:58 Aerobic Blood Culture - Preliminary Resulted Blood Peripheral NO GROWTH IN 3 DAYS 08/29/16 10:58 Anaerobic Blood Culture - Preliminary Resulted Blood Peripheral NO GROWTH IN 3 DAYS Imaging Last Impressions Abdomen X-Ray 08/31/16 0000 Signed Impressions: Service Date/Time: Wednesday, August 31, 2016 10:28 - CONCLUSION: Persistent small bowel dilatation, slightly increased in the interval. Manolo Owens MD FACR Chest X-Ray 08/30/16 1831 Signed Impressions: Service Date/Time: Tuesday, August 30, 2016 18:41 - CONCLUSION: Left neck central line in good position. No pneumothorax.. Endotracheal tube tip remains high Moises Sanchez MD Renal Ultrasound 08/30/16 0000 Signed Impressions: Service Date/Time: Tuesday, August 30, 2016 15:56 - CONCLUSION: Increase in renal cortical echogenicity bilaterally suggesting medical renal disease. No hydronephrosis. Moises Sanchez MD Enema w/Water Soluble 08/29/16 0000 Signed Impressions: Service Date/Time: Monday, August 29, 2016 15:22 - CONCLUSION: 1. Gastrografin enema as above with some clearing of the rectosigmoid constipation on the postevacuation film. Diffuse ileus. Juice Faith MD Abdomen/Pelvis CT 08/29/16 0000 Signed Impressions: Service Date/Time: Monday, August 29, 2016 10:15 - CONCLUSION: 1. Diffuse ileus and small bowel with air-fluid levels and dilatation. Oral contrast does reach the colon and there is no evidence for small bowel obstruction. 2. Basilar lung consolidation, right greater than left. 3. NG tip in stomach. Rectal tube present with moderate rectal constipation. Bauer in decompressed bladder. Juice Faith MD Small Bowel X-Ray 08/28/16 0000 Signed Impressions: Service Date/Time: August 10:39 - CONCLUSION: 1. Dilated bowel most characteristic of an ileus with poor peristalsis. No transition zone identified. Juice Faith MD Myocardial Perfusion Scan [facility] 08/20/16 0000 Signed Impressions: Service Date/Time: Saturday, August 20, 2016 08:43 - CONCLUSION: Unremarkable myocardial perfusion examination. RISK CATEGORY: low Alexander Carter MD Head CT 08/20/16 0000 Signed Impressions: Service Date/Time: Saturday, August 20, 2016 07:58 - CONCLUSION: Unremarkable and stable CT brain for patient's age. Alexander Carter MD Objective Remarks GENERAL: 81-year-old male, critically ill currently on nasal cannula no acute distress SKIN: Warm and dry, noted abrasion posterior right ear, evolving abrasion right knee HEAD: Normocephalic. EYES: No scleral icterus. No injection or drainage. Pupils around 2 mm bilaterally and reactive NECK: Supple, trachea midline. No JVD or lymphadenopathy. Orotracheally intubated CARDIOVASCULAR: Regular rate and rhythm S1, S2. No S4. Currently without murmurs, clicks, gallops or rubs. RESPIRATORY: Breath sounds equal bilaterally,no wheezing noted. Symmetrical excursion GASTROINTESTINAL: Abdomen soft, obese distended. No guarding this AM.. No rigidity. No appreciable bowel sounds appreciated today 2 minutes 4 quadrants MUSCULOSKELETAL: Trace bilateral lower extremity nonpitting edema. BACK: Nontender without obvious deformity. No CVA tenderness. NEURO: Cranial nerves II through grossly intact. Strength equal symmetric bilaterally. Normal sensation. Urinary Catheter: Yes Assessment to: Continue Bauer insert reason: Prolonged Immobilization Date of Insertion: Aug 19, 2016 Vascular Central Line Catheter: Yes Assessment to: Continue Date of Insertion: Aug 30, 2016 Line: Central Venous Catheter Side: Left Location: Internal, Jugular A/P Problem List: (1) BPH with urinary obstruction ICD Code: N40.1 Status: Acute (2) COPD (chronic obstructive pulmonary disease) ICD Code: J44.9 Status: Acute (3) Pulmonary edema ICD Code: J81.1 Status: Acute (4) Respiratory failure ICD Code: J96.90 Status: Acute Assessment and Plan Neuro/Psych: Glaucoma Alcohol use S/P Fall-confusion (08/20) -Off Precedex drip. Not requiring any medications for sedation Acetaminophen for fever to be ordered [place] 5/325 one to 2 tablets as needed for pain management --Continued on Latanoprost 0.005% 1 drop each eye at night for glaucoma -S/P Fall OOB 08/20, CT of the head-unremarkable stable CT of the brain -Thiamine 100 mg, folate 1 mg q/day will be continued Respiratory: Acute hypoxic respiratory failure Acute Pulmonary edema-resolved COPD exacerbation-resolved Chronic smoker Probable multilobar Pneumonia -Nasal cannula to maintain saturations greater than equal to 92% - Incentive spirometry while awake -Scheduled Duonebs every 6 hours, add every 2 PRN - Methylprednisone taper 20 mg BID -Counseled on smoking [id number] (smokes 2 PPD x 65 years), family reported accurate smoking history -Nicotine patch day 02/27 dc'd 08/26 Cardiovascular: NSTEMI H/O Hypertension Tachycardia-resolved Dyslipidemia Cardiogenic Shock -Charbel-Synephrine dc'd 08/30 -Troponin (08/19) 5.17->4.91->4.23 -Continue ASA 81 mg/day - Metoprolol 12.5 mg by tube twice a day Continue to hold Prinivil 20 mg with acute kidney injury - Patient continues on pravastatin 40 mg by mouth daily (home med) for dyslipidemia -ECHO 08/19- EF 50% , no RWMA. RV dilated. JONHY 38 mmHg -BNP- 156->91 (08/21) -08/20 nuclear medicine myocardial perfusion scan-intact wall motion and thickening without hypokinetic or dyskinetic segments -Cardiology has signed off, Dr. Cason, follow recommendations including possible cardiac catheterization in the future once stable Renal/: Acute on chronic renal failure BPH -Creatinine finally stabilize currently 1.4 -Maintain Bauer - Home meds Flomax to be resumed 0.4 mg daily -- Strict I/Os -monitor urinary output hourly FEN/GI: Ileus Constipation Increased intra-abdominal pressure Pancreatitis -IVF D5 08/27 NS @ 50 cc an hour will be discontinued today -Electrolyte replacement per ICU protocol -Measure bladder pressures q 4 hours last one around -1 L still since Gastrografin enema -F/U KUB reveals contrast in similar position to yesterday after small bowel series Status post Gastrografin enema with positive BM results. Appears to be clearing stool from: With persisting ileus. -Surgery consult-Dr Elizabeth 09/25 increased intra-abdominal pressure-resolved - Tube feeds-Jevity 1.5, goal of 60 cc/hr on hold since 08/24. Start TPN 08/30 -NG tube to low intermittent water suction -Zofran for nausea -Protonix GI prophylaxis -Bowel regimen including Sonia-Colace twice a day, MiraLAX twice a day and lactulose QID, Reglan 5 mg TID Urecholine 25 mg 3 times a day written for stimulation Heme/ID: Leukocytosis Normocytic anemia Probable multilobar pneumonia Septic shock UTI Proteus mirabilis - 08/18 urine culture-Proteus mirabilis -08/18 blood culture- Staph Capitis ([id number]) -08/20 blood culture-NGTD -08/20 urine Legionella, Pneumococcal-negative - 08/29 - blood cultures 2 - -no growth - 08/30 - urine - pending - 08/31 - sputum - pending Methylprednisolone 20 mg BID -Monitor CBC, WBC 12 -Lactate 1.4 -ID consulted, Dr Benavides - follow-up recommendations Currently on Levaquin since 08/20. Endocrine: Blood glucose monitoring every 4 hours per ICU protocol -- SSI Prophylaxis: GI Prophylaxis Protonix DVT Prophylaxis -- SCDs Lovenox Lines: Peripheral IVs. Central line RIJ 08/21 - 08/30; left IJ CVL 08/30 - present Critical Care: The total critical care time was 35 minutes. Time to perform other separately billable procedures was not included in the critical care time. Discussed with marie at length yesterday. Care plan discussed and all questions answered . Huan Page MD Sep 01, 2016 11:01 Huan Page MD Sep 01, 2016 11:01
[2016-09-01] MEDS: THIAMINE HCL 100 MG TAB PO SCH (11:37)
--- NOTE | 2016-09-01 11:40 | HHI.PR ---
Subjective Subjective Remarks extubated 08/31 oxygen at 3L/NC sats 95% awake, oriented x 2-3 anxious, has bad experiences associated with ICU wants to get better "fast" has no complaints rectal tube to suction 300 overnight abd. less distended on TPN no fever no pressor support Review of Systems Constitutional Constitutional Remarks 12 point ROS completed, unreliable, Vitals/Results Intake & Output 08/31/16 08/31/16 09/01/16 15:00 23:00 07:00 Intake Total 1414 ml 688 ml 674 ml Output Total 650 ml 650 ml 1025 ml Balance 764 ml 38 ml -351 ml IV Total 550 ml 10 ml TPN/PPN 664 ml 528 ml 604 ml Other 200 ml 160 ml 60 ml Output Urine Total 650 ml 650 ml 725 ml Stool Total 0 ml 0 ml 300 ml Gastric Drainage Total 0 ml 0 ml 0 ml Vital Signs Vital Signs Date Time Temp Pulse Resp B/P Pulse Ox O2 Delivery O2 Flow Rate FiO2 09/01/16 07:39 95 Nasal Cannula 3.00 09/01/16 06:00 116 09/01/16 04:00 98.9 108 20 166/79 96 09/01/16 04:00 108 09/01/16 02:00 100 09/01/16 00:00 107 09/01/16 00:00 98.2 107 18 152/67 93 08/31/16 22:00 102 08/31/16 20:33 100 Nasal Cannula 3.00 08/31/16 20:00 94 08/31/16 20:00 98.2 94 18 169/77 98 08/31/16 19:00 95 Nasal Cannula 2.00 08/31/16 16:00 98.3 97 18 149/67 98 08/31/16 16:00 98 Nasal Cannula 2.00 08/31/16 15:50 97 Nasal Cannula 3 08/31/16 15:50 97 Nasal Cannula 3.00 08/31/16 12:00 98.7 79 16 118/58 100 08/31/16 12:00 40 08/31/16 11:33 100 40 CBC/BMP: 09/01/16 0323 09/01/16 0323 Lab Results Laboratory Tests Test 09/01/16 03:23 White Blood Count 16.4 TH/MM3 Red Blood Count 3.70 MIL/MM3 Hemoglobin 11.2 GM/DL Hematocrit 33.9 % Mean Corpuscular Volume 91.7 FL Mean Corpuscular Hemoglobin 30.3 PG Mean Corpuscular Hemoglobin 33.0 % Concent Red Cell Distribution Width 14.1 % Platelet Count 292 TH/MM3 Mean Platelet Volume 9.7 FL Neutrophils (%) (Auto) 90.7 % Lymphocytes (%) (Auto) 3.9 % Monocytes (%) (Auto) 5.1 % Eosinophils (%) (Auto) 0.1 % Basophils (%) (Auto) 0.2 % Neutrophils # (Auto) 14.9 TH/MM3 Lymphocytes # (Auto) 0.6 TH/MM3 Monocytes # (Auto) 0.8 TH/MM3 Eosinophils # (Auto) 0.0 TH/MM3 Basophils # (Auto) 0.0 TH/MM3 CBC Comment DIFF FINAL Differential Comment Sodium Level 146 MEQ/L Potassium Level 4.1 MEQ/L Chloride Level 113 MEQ/L Carbon Dioxide Level 27.7 MEQ/L Anion Gap 5 MEQ/L Blood Urea Nitrogen 37 MG/DL Creatinine 1.06 MG/DL Estimat Glomerular Filtration 67 ML/MIN Rate Random Glucose 145 MG/DL Calcium Level 8.2 MG/DL Phosphorus Level 1.4 MG/DL Magnesium Level 2.3 MG/DL Total Bilirubin 0.4 MG/DL Aspartate Amino Transf 46 U/L (AST/SGOT) Alanine Aminotransferase 74 U/L (ALT/SGPT) Alkaline Phosphatase 90 U/L Total Protein 5.8 GM/DL Albumin 2.0 GM/DL Physical Exam General General Appearance: No Acute Distress, Comfortable, Obese Eyes Eye Exam: Pupils Equal, Pupils Reactive, Sclera White Ears & Nose Ears & Nose Exam: Nasal Mucosa [place] Throat Throat Exam: Oral Mucosa [place] & Moist Neck Neck Exam: Neck Supple, Trachea Midline Pulmonary Resp Exam: Breath Sounds Equal, Rhonchi, Decreased Bases Cardiology CV Exam: Regular, Normal Sinus Rhythm Gastrointestinal/Abdomen GI Exam: Soft, Non-Tender, Bowel Sounds Present, Positive Bowel Movement, Distended GI Remarks NGT to LIS Genitourinary Exam: Clear Urine Remarks SHIELDS Musculoskeletal MS Exam: Joints Intact Integumentary Skin Exam: Warm, Dry Extremeties Extremities Exam: No Edema, Pedal Pulses Palpable Neurologic Neuro Exam: Alert, Awake, Speech Clear, Moving All Extremities, No Focal Deficits Psychiatric Psych Exam: Appropriate Responses VTE Prophylaxis VTE Prophylaxis Meds: Lovenox PUD Prophylasis PUD Prophylaxis: Protonix Assessment/Plan Assessment/Plan ASSESSMENT 1. Acute febrile illness with leukocytosis and left shift, source not clear. The patient has evidence of microscopic hematuria, questionable urinary tract infection, rule out bacteremia, question bronchitis. 2. Hyperglycemia. 3. Normochromic normocytic anemia. 4. BPH with chronic urge incontinence. 5. Hypertension. 6. Hyperlipidemia. 7. Recurrent falls, fortunately no significant injury. 8. Acute VDRF 9. ACS/ NSTEMI -evaluated per card. Had STT, negative 10. s/p Acute pulmonary edema/flash pulmonary edema 11. HCA Pneumonia 12. Adynamic Ileus 13. Hypernatremia [facility] following nacho help extubated 08/31, on oxygen at 3L/NC off pressor support culture reports reviewed cont empiric IV antibiotics, Levaquin poss. 2 more days then dc Appreciate ID input IV steroids being weaned per [facility] aerosol tx Control blood pressure, was low, required pressor support, now stable. S/P NSTEMI, card. evaluated. STT done negative. 2-D echocardiogram noted, EF is 50% Continue Aspirin Na improving, continue with IVF D5LR Continue PPI Subcutaneous Lovenox Ileus improving slowly continue bowel regimen Rectal tube to suction appreciate GI input. diet to start today per [facility] renal function improving overall improving, condition guarded D/W pt D/W Dr. Shelton D/W RN This patient was seen by myself and Dr. Shelton, this note is written on his behalf Kandi Summers Sep 01, 2016 11:40
[2016-09-01] MEDS ORDERED: POTASSIUM PHOSPHATE/SODIUM PHOSPHATE 250 MG TAB PO ONE (12:45)
[2016-09-01] MEDS ORDERED: ACETAMINOPHEN/HYDROcodone 325 MG/5 MG TAB PO PRN ×2 (13:00)
[2016-09-01] MEDS ORDERED: POTASSIUM PHOSPHATE INJ 15 MMOL in SODIUM CHLORIDE 0.9% INJ 150 ML IV ONE (14:00)
[2016-09-01] MEDS: LEVOFLOXACIN 750 MG PREMIX INJ 150 ML IV SCH (19:25)
[2016-09-01] MEDS: ENOXAPARIN SODIUM 30 MG/0.3 ML SYRINGE SQ SCH (20:49)
[2016-09-01] MEDS: LATANOPROST 0.005% OPHT SOLN 2.5 ML BTL EACH EYE SCH (20:51)
[2016-09-01] MEDS: CLINIMIX 4.25/25 (Cust.Renal Central) 2000 mL- >42 mls/hr IV-CENTRAL SCH ×8 (20:53)
--- NOTE | 2016-09-01 22:23 | HHI.GIFU ---
Subjective Remarks Patient comfortable in bed doing much better past his swallow evaluation earlier today Objective Vitals I&O Vital Signs Date Time Temp Pulse Resp B/P Pulse Ox O2 Delivery O2 Flow Rate FiO2 09/01/16 21:29 95 Nasal Cannula 3.00 09/01/16 19:00 96 Nasal Cannula 3.00 09/01/16 18:00 108 09/01/16 16:00 104 09/01/16 16:00 98.2 104 20 142/71 95 09/01/16 14:00 107 09/01/16 12:00 103 09/01/16 12:00 98.9 103 20 172/79 95 09/01/16 10:00 111 09/01/16 08:00 98.7 110 22 150/68 97 09/01/16 08:00 110 09/01/16 07:39 95 Nasal Cannula 3.00 09/01/16 07:00 97 Nasal Cannula 3.00 09/01/16 06:00 116 09/01/16 04:00 98.9 108 20 166/79 96 09/01/16 04:00 108 09/01/16 02:00 100 09/01/16 00:00 107 09/01/16 00:00 98.2 107 18 152/67 93 I/O 08/31/16 08/31/16 08/31/16 09/01/16 09/01/16 09/01/16 07:00 15:00 23:00 07:00 15:00 23:00 Intake Total 1184 ml 1414 ml 688 ml 674 ml 791 ml 281 ml Output Total 1050 ml 650 ml 650 ml 1025 ml 910 ml Balance 134 ml 764 ml 38 ml -351 ml -119 ml 281 ml IV Total 470 ml 550 ml 10 ml TPN/PPN 594 ml 664 ml 528 ml 604 ml 631 ml 281 ml Other 120 ml 200 ml 160 ml 60 ml 160 ml Output Urine Total 1050 ml 650 ml 650 ml 725 ml 610 ml Stool Total 0 ml 0 ml 0 ml 300 ml 300 ml Gastric Drainage Total 0 ml 0 ml 0 ml 0 ml Laboratory Laboratory Tests Test 09/01/16 03:23 White Blood Count 16.4 Red Blood Count 3.70 Hemoglobin 11.2 Hematocrit 33.9 Mean Corpuscular Volume 91.7 Mean Corpuscular Hemoglobin 30.3 Mean Corpuscular Hemoglobin 33.0 Concent Red Cell Distribution Width 14.1 Platelet Count 292 Mean Platelet Volume 9.7 Neutrophils (%) (Auto) 90.7 Lymphocytes (%) (Auto) 3.9 Monocytes (%) (Auto) 5.1 Eosinophils (%) (Auto) 0.1 Basophils (%) (Auto) 0.2 Neutrophils # (Auto) 14.9 Lymphocytes # (Auto) 0.6 Monocytes # (Auto) 0.8 Eosinophils # (Auto) 0.0 Basophils # (Auto) 0.0 CBC Comment DIFF FINAL Differential Comment Sodium Level 146 Potassium Level 4.1 Chloride Level 113 Carbon Dioxide Level 27.7 Anion Gap 5 Blood Urea Nitrogen 37 Creatinine 1.06 Estimat Glomerular Filtration 67 Rate Random Glucose 145 Calcium Level 8.2 Phosphorus Level 1.4 Magnesium Level 2.3 Total Bilirubin 0.4 Aspartate Amino Transf 46 (AST/SGOT) Alanine Aminotransferase 74 (ALT/SGPT) Alkaline Phosphatase 90 Total Protein 5.8 Albumin 2.0 Date/Time Procedure Status Source Growth 08/31/16 04:33 Gram Stain - Final Resulted Sputum Endotracheal 08/31/16 04:33 Sputum Culture - Preliminary Resulted Sputum Endotracheal HEAVY GROWTH NORMAL RESPIRATORY ETHEL... 08/30/16 08:45 Urine Culture - Preliminary Resulted Urine Catheterized Urine Yeast Species 08/29/16 10:58 Aerobic Blood Culture - Preliminary Resulted Blood Peripheral NO GROWTH IN 3 DAYS 08/29/16 10:58 Anaerobic Blood Culture - Preliminary Resulted Blood Peripheral NO GROWTH IN 3 DAYS Imaging Last Impressions Abdomen X-Ray 08/31/16 0000 Signed Impressions: Service Date/Time: Wednesday, August 31, 2016 10:28 - CONCLUSION: Persistent small bowel dilatation, slightly increased in the interval. Manolo Owens MD FACR Chest X-Ray 08/30/16 1831 Signed Impressions: Service Date/Time: Tuesday, August 30, 2016 18:41 - CONCLUSION: Left neck central line in good position. No pneumothorax.. Endotracheal tube tip remains high Moises Sanchez MD Renal Ultrasound 08/30/16 0000 Signed Impressions: Service Date/Time: Tuesday, August 30, 2016 15:56 - CONCLUSION: Increase in renal cortical echogenicity bilaterally suggesting medical renal disease. No hydronephrosis. Moises Sanchez MD Enema w/Water Soluble 08/29/16 0000 Signed Impressions: Service Date/Time: Monday, August 29, 2016 15:22 - CONCLUSION: 1. Gastrografin enema as above with some clearing of the rectosigmoid constipation on the postevacuation film. Diffuse ileus. Juice Faith MD Abdomen/Pelvis CT 08/29/16 0000 Signed Impressions: Service Date/Time: Monday, August 29, 2016 10:15 - CONCLUSION: 1. Diffuse ileus and small bowel with air-fluid levels and dilatation. Oral contrast does reach the colon and there is no evidence for small bowel obstruction. 2. Basilar lung consolidation, right greater than left. 3. NG tip in stomach. Rectal tube present with moderate rectal constipation. Bauer in decompressed bladder. Juice Faith MD Small Bowel X-Ray 08/28/16 0000 Signed Impressions: Service Date/Time: August 10:39 - CONCLUSION: 1. Dilated bowel most characteristic of an ileus with poor peristalsis. No transition zone identified. Juice Faith MD Myocardial Perfusion Scan [facility] 08/20/16 0000 Signed Impressions: Service Date/Time: Saturday, August 20, 2016 08:43 - CONCLUSION: Unremarkable myocardial perfusion examination. RISK CATEGORY: low Alexander Carter MD Head CT 08/20/16 0000 Signed Impressions: Service Date/Time: Saturday, August 20, 2016 07:58 - CONCLUSION: Unremarkable and stable CT brain for patient's age. Alexander Carter MD Physical Exam HEENT: Normocephalic; atraumatic; no jaundice. CHEST: OETT to vent. Resp. even/unlabored. Diminished bases. CARDIAC: RRR ABDOMEN: Soft, distended, but much improved, no hepatosplenomegaly; bowel sounds are hypoactive. NGT to LIWS with gold/brownish colored gastric secretions EXTREMITIES: No clubbing or cyanosis mild edema. [facility]: No focal deficit Assessment and Plan Assessment: (1) Ileus Plan: S/p acute hypoxic respiratory failure, acute pulmonary edema, COPD exacerbation and probable pneumonia on vent Developed an Ileus and abdominal x-ray done today showed distended small and large bowel loops , ileus pattern Was stated on Miralax, stool softeners, Senna, suppositories NG tube feeding place on hold Had large BM yesterday and small BM today, has bowel sounds present Plan ASSESSMENT: - Persistent small bowel Ileus/Constipation. He is not on chronic narcotics. His magnesium level is 2.9. S/P Magnesium Citrate (08/27/15). S/P Golytely (), no results and noted to have abdominal pressure 20 and therefore this was suctioned out. SBFT (08/28/16)-----> 1. Dilated bowel most characteristic of an ileus with poor peristalsis. No transition zone identified. CT Scan abdomen and pelvis ( 08/29/16)----> Diffuse ileus and small bowel with air-fluid levels and dilatation. Oral contrast does reach the colon and there is no evidence of a bowel obstruction , basilar lung consolidation, right greater than left, NG tip in stomach, rectla tube present with moderate rectal constipation. Bauer in decompressed bladder. Barium enema (08/29/16)----> 1. Gastrografin enema as above with some clearing of the rectosigmoid constipation on the postevacuation film. Diffuse ileus. Abdomen X-Ray (08/30/16)----> 1. Persistent bowel dilatation most likely ileus. 2. Nasogastric tube and rectal tube are noted. Radiographic contrast is seen scattered in the colon. 3. There has been interval improvement. Pt is on Miralax, Reglan, Lactulose, bethanechol. NGT to LIWS. GS following. Clinically much improved today. + BMs. Abdomen much less distended and soft. Will cont. current treatment today, if continues to improve, then start trickle feeds in am. TPN - Acute hypoxic respiratory failure, pulmonary edema, COPD, and probable pneumonia. Vent per CCM. - Leukocytosis, Fever. WBC 16.3 - Anemia. 11.9/36.3. - Elevated lipase, unclear etiology. Although noncontrasted, yesterday's CT did not appreciate any pancreatic abnormalities. - Mild elevation of LFTs, nonobstructive. S/P CT yesterday. Stable. T. Bili 0.6, AST 47, ALT 79, Alk Phosph 97. - ACS/NSTEMI, S/P cardiology evaluation. - HTN, Hyperlipidemia, per primary PLAN: - NPO - NGT to LIWS - S/P Golytely, SSE x 2, Magnesium citrate, SBFT with gastrografin - S/P Barium enema, good results - Cont. Bethanechol - Cont. Reglan - Cont. Miralax -Okay to advance oral intake - Monitor labs, lipase - Supportive care - Further recommendations to follow based on results of above Alvaro Muhammad MD Sep 01, 2016 22:23
[2016-09-02] VITALS (13 sets, daily range): BP systolic 154–168; BP diastolic 70–78; PULSE 86–119; RESP 18–22; TEMP 97.6–98.4; O2SAT 93–98
[2016-09-02] MEDS: INSULIN NovoLIN REGULAR SUPPLEMENTAL SCALE SQ SCH ×6 (00:18→20:00)
[2016-09-02] MEDS: METOCLOPRAMIDE HCL 10 MG/2 ML VIAL IV PUSH SCH ×3 (02:44→17:47)
[2016-09-02] MEDS: RESP: ALBUTEROL 2.5 MG/IPRATROPIUM 0.5 MG NEB (SCH) NEB ×4 (03:21→19:52)
[2016-09-02] MEDS: BETHANECHOL CHL 25 MG TAB PO SCH ×3 (05:15→21:45)
[2016-09-02 05:45] LABS: AUTOMATED NEUTROPHIL # 11.1 TH/MM3 (1.8-7.7); BASOPHIL % 0.3 % (0.0-2.0); EOSINOPHIL % 0.1 % (0.0-4.0); HEMATOCRIT 32.2 % (39.0-51.0); HEMO FLAGS DIFF FINAL; LYMPH % 5.5 % (9.0-44.0); LYMPHOCYTE # 0.7 TH/MM3 (1.0-4.8); MEAN CELL VOLUME 91.6 FL (80.0-100.0); MEAN CORPUSCULAR HEMOGLOBIN 30.7 PG (27.0-34.0); MEAN CORPUSCULAR HGB CONC 33.5 % (32.0-36.0); MONO % 5.6 % (0.0-8.0); NEUT % 88.5 % (16.0-70.0); PLATELET COUNT 265 TH/MM3 (150-450); RED BLOOD COUNT 3.51 MIL/MM3 (4.50-5.90); RED CELL DISTRIBUTION WIDTH 13.9 % (11.6-17.2); WHITE BLOOD COUNT 12.6 TH/MM3 (4.0-11.0)
--- NOTE | 2016-09-02 05:57 | RADRPT ---
EXAM DATE/TIME: 09/02/2016 04:54 [place] COMPARISON: CHEST SINGLE AP, August 30, 2016, 18:41. INDICATIONS : Short of breath. MEDICAL HISTORY : Chronic obstructive pulmonary disease. Hypercholesterolemia. Hypertension. Glaucoma. SURGICAL HISTORY : None. ENCOUNTER: Subsequent ACUITY: 2 weeks PAIN SCORE: Non-responsive. LOCATION: Bilateral chest FINDINGS: A single view of the chest demonstrates removal of endotracheal tube. Nasogastric tube and left jugul ar central line are stable in position. Right jugular central line has been removed. There is some sl ight prominence in the perihilar regions which has improved. The cardiomediastinal contours are unrem arkable. Osseous structures are intact. CONCLUSION: Decreasing opacities in the perihilar regions. Ricardo Adan MD on September 02, 2016 at 5:53 Board Certified Radiologist. This report was verified electronically.
[2016-09-02 06:07] LABS: ALT (GPT) 94 U/L (12-78); ANION GAP 7 MEQ/L (5-15); AST (GOT) 56 U/L (15-37); BICARBONATE 25.9 MEQ/L (21.0-32.0); BLOOD UREA NITROGEN 35 MG/DL (7-18); CHLORIDE 112 MEQ/L (98-107); GLOMERULAR FILTRATION RATE 68 ML/MIN (>89); MAGNESIUM 1.8 MG/DL (1.5-2.5); POTASSIUM 4.1 MEQ/L (3.5-5.1); SODIUM (NA) 145 MEQ/L (136-145)
[2016-09-02 06:09] LABS: ALKALINE PHOSPHATASE 86 U/L (45-117); TOTAL BILIRUBIN ADULT 0.3 MG/DL (0.2-1.0)
[2016-09-02] MEDS: CHLORHEXIDINE 0.12% (ORAL KIT) 15 ML CUP MT SCH (08:00)
[2016-09-02] MEDS: SODIUM CHLORIDE 0.9% FLUSH 5 ML FLUSH FLUSH SCH ×2 (09:29→21:44)
[2016-09-02] MEDS: SODIUM CHLORIDE 0.9% FLUSH 5 ML FLUSH IVF SCH (09:29)
[2016-09-02] MEDS: PANTOPRAZOLE SODIUM 40 MG VIAL IV PUSH SCH (09:34)
[2016-09-02] MEDS: ASPIRIN 81 MG CHEW TAB CHEW SCH (09:34)
[2016-09-02] MEDS: THIAMINE HCL 100 MG TAB PO SCH (09:35)
[2016-09-02] MEDS: FOLIC ACID 1 MG TAB PO SCH (09:35)
[2016-09-02] MEDS: DOCUSATE SODIUM 50 MG/SENNA 8.6 MG TAB PO SCH ×2 (09:35→21:44)
[2016-09-02] MEDS: POLYETHYLENE GLYCOL 17 GM PKG PO SCH ×2 (09:35→21:44)
[2016-09-02] MEDS: METOPROLOL TARTRATE 25 MG TAB PO SCH ×2 (09:35→21:44)
[2016-09-02] MEDS: NYSTATIN SUSP 500,000 U/5 ML CUP SWISH-SPIT SCH ×4 (09:35→21:45)
[2016-09-02] MEDS: PRAVASTATIN SOD 40 MG TAB PO SCH (09:35)
[2016-09-02] MEDS: methylPREDNISolone SOD SUCC 40 MG/1 ML VIAL IV PUSH SCH ×2 (09:35→21:43)
--- NOTE | 2016-09-02 10:09 | HHI.CCPN ---
Subjective Remarks/Hospital Course 81-year-old man who admitted to [facility] with complains of feeling weak and dizzy , also some chills with it. He had one episode of vomiting earlier today and another episode in the ED. While on a medical floor, he became hypoxemic and tachycardic. Due to hypoxemia at 80s he is transfered to ICU. Patient is alert and oriented and he doesn't want to be intubated in case his condition declines. 08/20 Afebrile. 24 hours patient was noted to have elevated troponins, etiology consulted patient was initiated on aspirin and beta blockers. Cardiology was consulted. Plan for nuclear medicine myocardial perfusion scan, initially scheduled for 08/19 will be done today secondary to NPO status of patient. The patient continues on a Cardizem infusion, metoprolol dosage was increased. Early this a.m., the patient climbed out of the bed and fell, noted laceration posterior right ear. Of note, the patient consumes 2-3 drinks of whiskey per night, came very anxious last night, reported by . The patient was alert and oriented with GCS of 15. Full range of motion denies pain in extremities 4. Stat CT of the head, results pending. 08/21 Tmax 101.8. Yesterday afternoon post nuclear medicine perfusion scan, the patient became acutely hypoxic O2 sat in the 70s, the patient was emergently intubated. Max pulmonary edema was noted, with copious pink frothy sputum via ETT . FiO2 requirements were increased, unable to wean below 70% yesterday afternoon .Sputum culture and urine cultures were obtained, broad- spectrum antibiotics were initiated Vancomycin and Levaquin. The patient currently is on Rocephin for UTI. Flowtrac was instituted, cardiac output and cardiac index were within normal limits. During the night the patient's O2 requirements were increased, the patient required 15 cm of PEEP and initially 100% FiO2. The patient was received 2 mg of Bumex without any diuresis noted. The patient became hypotensive during the night requiring Charbel-Synephrine and Norepinephrine infusions. This morning a central line was placed, steroids were initiated, Solu-Medrol 125 mg IV push, and repeat blood cultures were obtained. 08/22 Tmax 97.8. Patient improvement, weaned off all vasopressors. Oxygen requirements decreased, FiO2 now 40%, PEEP 5. GCS 11 T during sedation holiday. Plan for CPAP trials today. 08/23: Passed weaning parameters today. However, several on propofol at 20 mcg /kg per minute for comfort. Switching to Precedex drip at present. Tolerating tube feeding. 08/24: Not tolerating NG tube feeds, noted residual 500 cc last night. Ileus noted on KUB yesterday. NG tube placed to suction, large amount of care noted. Repeat KUB slightly improved. Prokinetic agents instituted over the last 24 hours 08/25: Increase in intra-abdominal pressure, bladder pressures yesterday afternoon up to 22. Mag citrate added to bowel regimen, Lopid large voluminous bowel movement. OGT to continuous suction 500 cc output overnight. The patient was placed on CPAP trials yesterday from 4 PM2 AM. Abdomen currently soft bladder pressure 14 at 6 AM. Plan for continued CPAP trials today, insertion of NG tube to continued low continuous suction, follow-up KUB. 08/26: Tmax 99.2. The patient was maintained on CPAP trials over 8 hours yesterday without difficulty. GI was consulted yesterday . Patient is NG tube output were night significantly diminished. 250 cc bilious gastric output over 14 hours in total. The patient had 3 bowel movements last night. KUB remains unchanged today with continued small and large bowel distention-ileus. Bladder pressures the last 24 hours remain low averaging 34. 08/27: Afebrile. No acute respiratory issues. Patient remains on Precedex infusion with RASS-1, cooperative. NG tube output 230 cc overnight for 12 hours. Patient still has not had a bowel movement in the last 24hrs. repeat KUB remains unchanged today continued bowel distention. Mag citrate ordered this a.m.. GI following. Intra-abdominal pressures are low 37. 08/28: Patient received mag citrate yesterday with no effect. Overnight the patient was instilled 2 L of GoLYTELY and 1500 cc of soapsuds enema,per GI recommendations. KUB scheduled for this a.m.. Abdominal pressures elevated secondary to the 3.5 L volume intra-abdominal. 08/29: Tmax 100.3. 3450 gastric contents out of NG tube overnight. Currently resting in bed with distended abdomen. 400 cc urine output past 12 hours. Borderline systolic blood pressures. Arousable on Precedex has received Ativan 2 overnight secondary to agitation. 08/30: Afebrile overnight. Approximately 1 L stool since Gastrografin enema. Abdomen still distended but softer. Adequate urine output overnight. Off and on Charbel-Synephrine for vasopressors support. Follows commands on the ventilator. 08/31: Tmax 100.9. Currently 99.1. 1400 cc stool from rectal tube.. Arousable and will follow commands on the ventilator on Versed drip at 10 mg an hour. Creatinine has normalized. Central line changed yesterday. Subjective 09/01: Extubated 08/31 without complications. Currently on 3 L nasal cannula. Appears comfortable and not short of breath, 300 cc stools past 24 hours. Abdomen appears less distended. Objective Vital Signs Date Time Temp Pulse Resp B/P Pulse Ox O2 Delivery O2 Flow Rate FiO2 09/02/16 08:29 96 Nasal Cannula 3.00 09/02/16 06:00 105 09/02/16 04:00 97.8 19 161/77 08/31/16 12:00 40 Intake and Output 09/01/16 09/01/16 09/02/16 08:00 16:00 00:00 Intake Total 674 ml 791 ml 1141 ml Output Total 1025 ml 910 ml 200 ml Balance -351 ml -119 ml 941 ml Result Diagram: 09/02/16 0525 09/02/16 0525 Other Results Microbiology Date/Time Procedure Status Source Growth 08/31/16 04:33 Gram Stain - Final Complete Sputum Endotracheal 08/31/16 04:33 Sputum Culture - Final Complete Sputum Endotracheal HEAVY GROWTH NORMAL RESPIRATORY ETHEL Imaging Last Impressions Abdomen X-Ray 08/31/16 0000 Signed Impressions: Service Date/Time: Wednesday, August 31, 2016 10:28 - CONCLUSION: Persistent small bowel dilatation, slightly increased in the interval. Manolo Owens MD FACR Chest X-Ray 08/30/16 1831 Signed Impressions: Service Date/Time: Tuesday, August 30, 2016 18:41 - CONCLUSION: Left neck central line in good position. No pneumothorax.. Endotracheal tube tip remains high Moises Sanchez MD Renal Ultrasound 08/30/16 0000 Signed Impressions: Service Date/Time: Tuesday, August 30, 2016 15:56 - CONCLUSION: Increase in renal cortical echogenicity bilaterally suggesting medical renal disease. No hydronephrosis. Moises Sanchez MD Enema w/Water Soluble 08/29/16 0000 Signed Impressions: Service Date/Time: Monday, August 29, 2016 15:22 - CONCLUSION: 1. Gastrografin enema as above with some clearing of the rectosigmoid constipation on the postevacuation film. Diffuse ileus. Juice Faith MD Abdomen/Pelvis CT 08/29/16 0000 Signed Impressions: Service Date/Time: Monday, August 29, 2016 10:15 - CONCLUSION: 1. Diffuse ileus and small bowel with air-fluid levels and dilatation. Oral contrast does reach the colon and there is no evidence for small bowel obstruction. 2. Basilar lung consolidation, right greater than left. 3. NG tip in stomach. Rectal tube present with moderate rectal constipation. Bauer in decompressed bladder. Juice Faith MD Small Bowel X-Ray 08/28/16 0000 Signed Impressions: Service Date/Time: August 10:39 - CONCLUSION: 1. Dilated bowel most characteristic of an ileus with poor peristalsis. No transition zone identified. Juice Faith MD Myocardial Perfusion Scan Nuc Med 08/20/16 0000 Signed Impressions: Service Date/Time: Saturday, August 20, 2016 08:43 - CONCLUSION: Unremarkable myocardial perfusion examination. RISK CATEGORY: low Alexander Carter MD Head CT 08/20/16 0000 Signed Impressions: Service Date/Time: Saturday, August 20, 2016 07:58 - CONCLUSION: Unremarkable and stable CT brain for patient's age. Alexander Carter MD Objective Remarks GENERAL: 81-year-old male, critically ill currently on nasal cannula no acute distress SKIN: Warm and dry, noted abrasion posterior right ear, evolving abrasion right knee HEAD: Normocephalic. EYES: No scleral icterus. No injection or drainage. Pupils around 2 mm bilaterally and reactive NECK: Supple, trachea midline. No JVD or lymphadenopathy. Orotracheally intubated CARDIOVASCULAR: Regular rate and rhythm S1, S2. No S4. Currently without murmurs, clicks, gallops or rubs. RESPIRATORY: Breath sounds equal bilaterally,no wheezing noted. Symmetrical excursion GASTROINTESTINAL: Abdomen soft, obese distended. No guarding this AM.. No rigidity. No appreciable bowel sounds appreciated today 2 minutes 4 quadrants MUSCULOSKELETAL: Trace bilateral lower extremity nonpitting edema. BACK: Nontender without obvious deformity. No CVA tenderness. NEURO: Cranial nerves II through grossly intact. Strength equal symmetric bilaterally. Normal sensation. Date of Insertion: Aug 19, 2016 Date of Insertion: Aug 30, 2016 Line: Central Venous Catheter Side: Left Location: Internal, Jugular A/P Problem List: (1) BPH with urinary obstruction ICD Code: N40.1 Status: Acute (2) COPD (chronic obstructive pulmonary disease) ICD Code: J44.9 Status: Acute (3) Pulmonary edema ICD Code: J81.1 Status: Acute (4) Respiratory failure ICD Code: J96.90 Status: Acute Assessment and Plan Acute hypoxic respiratory failure - due to Pulmonary edema - resolved - Nasal cannula to maintain saturations greater than equal to 92% - Incentive spirometry while awake COPD exacerbation - resolved - Scheduled Duonebs every 6 hours, and every 2 PRN - Methylprednisone taper 20 mg BID Tabacco use disorder - smoking cessation provided 08/20 - smokes 2 PPD x 65 years - Nicotine patch day 02/27 dc'd 08/26 Glaucoma - Continued on Latanoprost 0.005% 1 drop each eye at night Cardiogenic Shock - due to NSTEMI - resolved - off Charbel-Synephrine dc'd 08/30 - Troponin (08/19) 5.17->4.91->4.23 - Continue ASA 81 mg/day - Metoprolol 12.5 mg by tube twice a day - Hold Prinivil 20 mg due to acute kidney injury - Pravastatin 40 mg by mouth daily (home med) for dyslipidemia - ECHO 08/19- EF 50% , no RWMA. RV dilated. JOHNY 38 mmHg - Cardiology has signed off - Dr. Yoav Garay on chronic renal failure - Creatinine stabilize - currently 1.04 BPH - Maintain Bauer - Flomax to be resumed 0.4 mg daily Ileus - Tube feeds-Jevity 1.5, goal of 60 cc/hr on hold since 08/24. - TPN [id number] 08/30 - NG tube to low intermittent water suction - Zofran for nausea - Protonix GI prophylaxis - Bowel regimen including Sonia-Colace twice a day, MiraLAX twice a day and lactulose QID, Reglan 5 mg TID - Urecholine 25 mg 3 times a day written for stimulation DVT/GI Prophylaxis: - Lovenox, Protonix Lines: Peripheral IVs. Central line - left IJ CVL 08/30 - present Level 3 Joseph Ramsay MD Sep 02, 2016 10:09 Acute on chronic renal failure BPH -Creatinine finally stabilize currently 1.4 -Maintain Bauer - Home meds Flomax to be resumed 0.4 mg daily -- Strict I/Os -monitor urinary output hourly FEN/GI: Ileus Constipation Increased intra-abdominal pressure Pancreatitis -IVF D5 08/27 NS @ 50 cc an hour will be discontinued today -Electrolyte replacement per ICU protocol -Measure bladder pressures q 4 hours last one around -1 L still since Gastrografin enema -F/U KUB reveals contrast in similar position to yesterday after small bowel series Status post Gastrografin enema with positive BM results. Appears to be clearing stool from: With persisting ileus. -Surgery consult-Dr Elizabeth 09/25 increased intra-abdominal pressure-resolved - Tube feeds-Jevity 1.5, goal of 60 cc/hr on hold since 08/24. Start TPN 08/30 -NG tube to low intermittent water suction -Zofran for nausea -Protonix GI prophylaxis -Bowel regimen including Sonia-Colace twice a day, MiraLAX twice a day and lactulose QID, Reglan 5 mg TID Urecholine 25 mg 3 times a day written for stimulation Heme/ID: Leukocytosis Normocytic anemia Probable multilobar pneumonia Septic shock UTI Proteus mirabilis - 08/18 urine culture-Proteus mirabilis -08/18 blood culture- Staph Capitis ([id number]) -08/20 blood culture-NGTD -08/20 urine Legionella, Pneumococcal-negative - 08/29 - blood cultures 2 - -no growth - 08/30 - urine - pending - 08/31 - sputum - pending Methylprednisolone 20 mg BID -Monitor CBC, WBC 12 -Lactate 1.4 -ID consulted, Dr Benavides - follow-up recommendations Currently on Levaquin since 08/20. Endocrine: Blood glucose monitoring every 4 hours per ICU protocol -- SSI Prophylaxis: GI Prophylaxis Protonix DVT Prophylaxis -- SCDs Lovenox Lines: Peripheral IVs. Central line RIJ 08/21 - 08/30; left IJ CVL 08/30 - present Critical Care: The total critical care time was 35 minutes. Time to perform other separately billable procedures was not included in the critical care time. Discussed with marie at length yesterday. Care plan discussed and all questions answered . Joseph Ramsay MD Sep 02, 2016 10:09
[2016-09-02] MEDS: TAMSULOSIN HCL 0.4 MG CAP PO SCH (10:56)
--- NOTE | 2016-09-02 11:24 | HHI.PR ---
Subjective Subjective Remarks extubated 08/31 oxygen at 3L/NC sats 95% awake, oriented x 3 less anxious NGT out abd. soft, tolerating liquids okay no N/V no fever no cp no sob on TPN rectal output 300 cc overnight Review of Systems Constitutional Constitutional Remarks 12 point ROS completed, negative except as noted above Vitals/Results Intake & Output 09/01/16 09/01/16 09/02/16 15:00 23:00 07:00 Intake Total 791 ml 1141 ml 635 ml Output Total 910 ml 200 ml 625 ml Balance -119 ml 941 ml 10 ml Intake Oral 250 ml TPN/PPN 631 ml 831 ml 575 ml Tube Irrigant 60 ml 60 ml Other 160 ml Output Urine Total 610 ml 575 ml Stool Total 300 ml 200 ml 50 ml Vital Signs Vital Signs Date Time Temp Pulse Resp B/P Pulse Ox O2 Delivery O2 Flow Rate FiO2 09/02/16 08:29 96 Nasal Cannula 3.00 09/02/16 06:00 105 09/02/16 04:00 109 09/02/16 04:00 97.8 109 19 161/77 93 09/02/16 02:00 101 09/02/16 00:00 100 09/02/16 00:00 98.4 100 20 168/77 96 09/01/16 22:00 98 09/01/16 21:29 95 Nasal Cannula 3.00 09/01/16 20:00 98.3 106 22 154/70 94 09/01/16 20:00 106 09/01/16 19:00 96 Nasal Cannula 3.00 09/01/16 18:00 108 09/01/16 16:00 104 09/01/16 16:00 98.2 104 20 142/71 95 09/01/16 14:00 107 09/01/16 12:00 103 09/01/16 12:00 98.9 103 20 172/79 95 CBC/BMP: 09/02/16 0525 09/02/16 0525 Lab Results Laboratory Tests Test 09/02/16 05:25 White Blood Count 12.6 TH/MM3 Red Blood Count 3.51 MIL/MM3 Hemoglobin 10.8 GM/DL Hematocrit 32.2 % Mean Corpuscular Volume 91.6 FL Mean Corpuscular Hemoglobin 30.7 PG Mean Corpuscular Hemoglobin 33.5 % Concent Red Cell Distribution Width 13.9 % Platelet Count 265 TH/MM3 Mean Platelet Volume 9.4 FL Neutrophils (%) (Auto) 88.5 % Lymphocytes (%) (Auto) 5.5 % Monocytes (%) (Auto) 5.6 % Eosinophils (%) (Auto) 0.1 % Basophils (%) (Auto) 0.3 % Neutrophils # (Auto) 11.1 TH/MM3 Lymphocytes # (Auto) 0.7 TH/MM3 Monocytes # (Auto) 0.7 TH/MM3 Eosinophils # (Auto) 0.0 TH/MM3 Basophils # (Auto) 0.0 TH/MM3 CBC Comment DIFF FINAL Differential Comment Sodium Level 145 MEQ/L Potassium Level 4.1 MEQ/L Chloride Level 112 MEQ/L Carbon Dioxide Level 25.9 MEQ/L Anion Gap 7 MEQ/L Blood Urea Nitrogen 35 MG/DL Creatinine 1.04 MG/DL Estimat Glomerular Filtration 68 ML/MIN Rate Random Glucose 181 MG/DL Calcium Level 8.4 MG/DL Phosphorus Level 2.0 MG/DL Magnesium Level 1.8 MG/DL Total Bilirubin 0.3 MG/DL Aspartate Amino Transf 56 U/L (AST/SGOT) Alanine Aminotransferase 94 U/L (ALT/SGPT) Alkaline Phosphatase 86 U/L Total Protein 5.4 GM/DL Albumin 1.9 GM/DL Physical Exam General General Appearance: Well Developed, No Acute Distress, Comfortable Eyes Eye Exam: Pupils Equal, Pupils Reactive, Sclera White Ears & Nose Ears & Nose Exam: Nasal Mucosa Gypsum Throat Throat Exam: Oral Mucosa Gypsum & Moist Neck Neck Exam: Neck Supple, Trachea Midline Pulmonary Resp Exam: Breath Sounds Equal, Decreased Bases Resp Remarks faint bibasilar rales Cardiology CV Exam: Regular, Normal Sinus Rhythm Gastrointestinal/Abdomen GI Exam: Soft, Non-Tender, Bowel Sounds Present, Positive Bowel Movement, Distended GI Remarks rectal tube to suction Genitourinary Exam: Clear Urine Remarks SHIELDS Musculoskeletal MS Exam: Joints Intact Integumentary Skin Exam: Warm, Dry Extremeties Extremities Exam: No Edema, Pedal Pulses Palpable Neurologic Neuro Exam: Alert, Awake, Speech Clear, Moving All Extremities, No Focal Deficits Psychiatric Psych Exam: Appropriate Responses VTE Prophylaxis VTE Prophylaxis Meds: Lovenox PUD Prophylasis PUD Prophylaxis: Protonix Assessment/Plan Assessment/Plan ASSESSMENT 1. Acute febrile illness with leukocytosis and left shift, source not clear. The patient has evidence of microscopic hematuria, questionable urinary tract infection, rule out bacteremia, question bronchitis. 2. Hyperglycemia. 3. Normochromic normocytic anemia. 4. BPH with chronic urge incontinence. 5. Hypertension. 6. Hyperlipidemia. 7. Recurrent falls, fortunately no significant injury. 8. Acute VDRF 9. ACS/ NSTEMI -evaluated per card. Had STT, negative 10. s/p Acute pulmonary edema/flash pulmonary edema 11. HCA Pneumonia 12. Adynamic Ileus 13. Hypernatremia PLAN CCM following nacho help extubated 08/31, on oxygen at 3L/NC off pressor support culture reports reviewed cont empiric IV antibiotics, Levaquin poss. 2 more days then dc Appreciate ID input IV steroids being weaned per CCM aerosol tx Control blood pressure, was low, required pressor support, now stable. S/P NSTEMI, card. evaluated. STT done negative. 2-D echocardiogram noted, EF is 50% Continue Aspirin Na improving, continue with IVF D5LR Continue PPI Subcutaneous Lovenox Ileus improving slowly continue bowel regimen Rectal tube to suction appreciate GI input. NGT has been removed, pt. started on Clears and tolerating well. Diet to be advanced per GI orders renal function improving overall improving PT eval and tx OOB daily Replace Phos Hopefully to rehab soon D/W pt D/W Dr. Shelton D/W RN This patient was seen by myself and Dr. Shelton, this note is written on his behalf Kandi Summers Sep 02, 2016 11:24
[2016-09-02] MEDS ORDERED: POTASSIUM PHOSPHATE INJ 15 MMOL in SODIUM CHLORIDE 0.9% INJ 150 ML IV ONE (14:00)
--- NOTE | 2016-09-02 15:32 | HHI.IDPN ---
Subjective Subjective Remarks Notes reviewed Temps ok Clinically doing wee post extubation Stooling Not SOB NGT clamped Antibiotics Levaquin Lines [facility] - 08/30 Past Medical History Reviewed Allergies: Coded Allergies: No Known Allergies (Unverified , 05/16/15) Objective . Vital Signs Date Time Temp Pulse Resp B/P Pulse Ox O2 Delivery O2 Flow Rate FiO2 09/02/16 12:00 86 09/02/16 12:00 97.6 86 19 164/78 97 09/02/16 11:15 98 Nasal Cannula 2.00 09/02/16 10:00 119 09/02/16 08:29 96 Nasal Cannula 3.00 09/02/16 08:00 100 09/02/16 08:00 97.8 106 18 157/73 94 09/02/16 08:00 94 Nasal Cannula 3.00 09/02/16 06:00 105 09/02/16 04:00 109 09/02/16 04:00 97.8 109 19 161/77 93 09/02/16 02:00 101 09/02/16 00:00 100 09/02/16 00:00 98.4 100 20 168/77 96 09/01/16 22:00 98 09/01/16 21:29 95 Nasal Cannula 3.00 09/01/16 20:00 98.3 106 22 154/70 94 09/01/16 20:00 106 09/01/16 19:00 96 Nasal Cannula 3.00 09/01/16 18:00 108 09/01/16 16:00 104 09/01/16 16:00 98.2 104 20 142/71 95 09/01/16 09/01/16 09/02/16 15:00 23:00 07:00 Intake Total 791 ml 1141 ml 635 ml Output Total 910 ml 200 ml 625 ml Balance -119 ml 941 ml 10 ml Intake Oral 250 ml TPN/PPN 631 ml 831 ml 575 ml Tube Irrigant 60 ml 60 ml Other 160 ml Output Urine Total 610 ml 575 ml Stool Total 300 ml 200 ml 50 ml . Laboratory Tests Test 09/01/16 09/02/16 03:23 05:25 White Blood Count 16.4 TH/MM3 12.6 TH/MM3 Red Blood Count 3.70 MIL/MM3 3.51 MIL/MM3 Hemoglobin 11.2 GM/DL 10.8 GM/DL Hematocrit 33.9 % 32.2 % Mean Corpuscular Volume 91.7 FL 91.6 FL Mean Corpuscular Hemoglobin 30.3 PG 30.7 PG Mean Corpuscular Hemoglobin 33.0 % 33.5 % Concent Red Cell Distribution Width 14.1 % 13.9 % Platelet Count 292 TH/MM3 265 TH/MM3 Mean Platelet Volume 9.7 FL 9.4 FL Neutrophils (%) (Auto) 90.7 % 88.5 % Lymphocytes (%) (Auto) 3.9 % 5.5 % Monocytes (%) (Auto) 5.1 % 5.6 % Eosinophils (%) (Auto) 0.1 % 0.1 % Basophils (%) (Auto) 0.2 % 0.3 % Neutrophils # (Auto) 14.9 TH/MM3 11.1 TH/MM3 Lymphocytes # (Auto) 0.6 TH/MM3 0.7 TH/MM3 Monocytes # (Auto) 0.8 TH/MM3 0.7 TH/MM3 Eosinophils # (Auto) 0.0 TH/MM3 0.0 TH/MM3 Basophils # (Auto) 0.0 TH/MM3 0.0 TH/MM3 CBC Comment DIFF FINAL DIFF FINAL Differential Comment Laboratory Tests Test 09/01/16 09/02/16 03:23 05:25 Sodium Level 146 MEQ/L 145 MEQ/L Potassium Level 4.1 MEQ/L 4.1 MEQ/L Chloride Level 113 MEQ/L 112 MEQ/L Carbon Dioxide Level 27.7 MEQ/L 25.9 MEQ/L Anion Gap 5 MEQ/L 7 MEQ/L Blood Urea Nitrogen 37 MG/DL 35 MG/DL Creatinine 1.06 MG/DL 1.04 MG/DL Estimat Glomerular Filtration 67 ML/MIN 68 ML/MIN Rate Random Glucose 145 MG/DL 181 MG/DL Calcium Level 8.2 MG/DL 8.4 MG/DL Phosphorus Level 1.4 MG/DL 2.0 MG/DL Magnesium Level 2.3 MG/DL 1.8 MG/DL Total Bilirubin 0.4 MG/DL 0.3 MG/DL Aspartate Amino Transf 46 U/L 56 U/L (AST/SGOT) Alanine Aminotransferase 74 U/L 94 U/L (ALT/SGPT) Alkaline Phosphatase 90 U/L 86 U/L Total Protein 5.8 GM/DL 5.4 GM/DL Albumin 2.0 GM/DL 1.9 GM/DL Microbiology Date/Time Procedure Status Source Growth 08/31/16 04:33 Gram Stain - Final Complete Sputum Endotracheal 08/31/16 04:33 Sputum Culture - Final Complete Sputum Endotracheal HEAVY GROWTH NORMAL RESPIRATORY ETHEL Imaging Abdomen X-Ray 08/29/16 0600 Signed Impressions: Service Date/Time: Monday, August 29, 2016 05:00 - CONCLUSION: The position of the oral contrast in dilated loops of bowel is very similar to an image performed at the end of the small bowel series yesterday. Gavin Conte MD Abdomen X-Ray 08/28/16 0600 Signed Impressions: Service Date/Time: August 06:12 - CONCLUSION: Worsening distention of the small bowel. Bowel gas pattern is suggestive of an ileus. Gavin Gray Jr., MD Chest X-Ray 08/28/16 0300 Signed Impressions: Service Date/Time: August 06:10 - CONCLUSION: Unchanged bilateral pulmonary infiltrates. Gavin Gray Jr., MD Small Bowel X-Ray 08/28/16 0000 Signed Impressions: Service Date/Time: August 10:39 - CONCLUSION: 1. Dilated bowel most characteristic of an ileus with poor peristalsis. No transition zone identified. Juice Faith MD Abdomen X-Ray 08/27/16 06 Signed Impressions: Service Date/Time: Saturday, August 27, 2016 01:10 - CONCLUSION: No change. Persistent gaseous distention of the small bowel. Gavin Gray Jr., MD Chest X-Ray 08/24/16 06 Signed Impressions: Service Date/Time: Wednesday, August 24, 2016 03:19 - CONCLUSION: Improved airspace disease with some persistent infiltrate in the right perihilar and right lower lobe. NG tube and endotracheal tube in good position. Osvaldo Webb MD Abdomen X-Ray 08/24/16 06 Signed Impressions: Service Date/Time: Wednesday, August 24, 2016 03:22 - CONCLUSION: Normal examination. Air is in the stomach with a nasogastric tube, large amount of air throughout the small bowel which is diffusely distended but may be slightly improved Osvaldo Webb MD Chest X-Ray 08/23/16 0600 Signed Impressions: Service Date/Time: Tuesday, August 23, 2016 03:53 - CONCLUSION: 1. Diffuse bilateral airspace disease worsening in the right perihilar region. 2. Support lines and tubes are unchanged. Ricardo Adan MD Abdomen X-Ray 08/23/16 0000 Signed Impressions: Service Date/Time: Tuesday, August 23, 2016 16:24 - CONCLUSION: Dilated bowel in a radiographic pattern suggesting an ileus. Gavin Gray Jr., MD Myocardial Perfusion Scan Nuc Med 08/20/16 0000 Signed Impressions: Service Date/Time: Saturday, August 20, 2016 08:43 - CONCLUSION: Unremarkable myocardial perfusion examination. RISK CATEGORY: low Alexander Carter MD Head CT 08/20/16 0000 Signed Impressions: Service Date/Time: Saturday, August 20, 2016 07:58 - CONCLUSION: Unremarkable and stable CT brain for patient's age. Alexander Carter MD Renal Ultrasound 08/18/16 0000 Signed Impressions: Service Date/Time: Thursday, August 18, 2016 11:49 - CONCLUSION: 1. Echogenic kidneys which can be seen with medical renal disease. 2. Bilateral renal cysts. Ricardo Adan MD Physical Exam GENERAL: Awake and alert, responding, NAD SKIN: Cool and dry. No generalized rash HEENT: [place] conjunctivae, no petechia or hemorrhage. No scleral icterus. NGT in place. Moist mucosa NECK: Trachea midline. No JVD. Line [facility] ok CARDIOVASCULAR: Regular rate and rhythm without murmurs, gallops, or rubs. RESPIRATORY: Coarse breath sounds bilaterally, equal. Scattered rhonchi. GASTROINTESTINAL: Abdomen distended, not tender, bowel sounds are present and hypoactive. MUSCULOSKELETAL: Extremities without clubbing, cyanosis. Has pitting pedal edema NEUROLOGICAL: Awake and responding PSYCH: Unable to assess LINE: [facility] no evidence of infection : Bauer in place, urine looks clear Assessment & Plan Remarks IMPRESSION Sepsis with shock, source, likely pulmonary, HCAP - sputum C/S negative at 48 hrs - has known COPD, chronic smoker Low grade temps, better Admission with NSTEMI, EF 50% MOSF - respiratory, renal - tolerating extubation - renal indices better Hx daily ETOH use Chronic smoker 1 ppd One (+) BC with Coag Neg Staph on admission likely contaminant Proteus mirabilis in the urine Ileus, better RECOMMENDATION Stop Levaquin Follow temps Monitor progress Monitor off Abx Mimi Benavides MD Sep 02, 2016 15:32
--- NOTE | 2016-09-02 16:52 | HHI.GIFU ---
Subjective Remarks Tolerating diet- clears. NGT/Rectal tube out today. No n/v. No abdominal pain. (Alivia Ross) Objective Vitals I&O Vital Signs Date Time Temp Pulse Resp B/P Pulse Ox O2 Delivery O2 Flow Rate FiO2 09/02/16 12:00 86 09/02/16 12:00 97.6 86 19 164/78 97 09/02/16 11:15 98 Nasal Cannula 2.00 09/02/16 10:00 119 09/02/16 08:29 96 Nasal Cannula 3.00 09/02/16 08:00 100 09/02/16 08:00 97.8 106 18 157/73 94 09/02/16 08:00 94 Nasal Cannula 3.00 09/02/16 06:00 105 09/02/16 04:00 109 09/02/16 04:00 97.8 109 19 161/77 93 09/02/16 02:00 101 09/02/16 00:00 100 09/02/16 00:00 98.4 100 20 168/77 96 09/01/16 22:00 98 09/01/16 21:29 95 Nasal Cannula 3.00 09/01/16 20:00 98.3 106 22 154/70 94 09/01/16 20:00 106 09/01/16 19:00 96 Nasal Cannula 3.00 09/01/16 18:00 108 I/O 09/01/16 09/01/16 09/01/16 09/02/16 09/02/16 09/02/16 07:00 15:00 23:00 07:00 15:00 23:00 Intake Total 674 ml 791 ml 1141 ml 635 ml Output Total 1025 ml 910 ml 200 ml 625 ml Balance -351 ml -119 ml 941 ml 10 ml Intake Oral 250 ml IV Total 10 ml TPN/PPN 604 ml 631 ml 831 ml 575 ml Tube Irrigant 60 ml 60 ml Other 60 ml 160 ml Output Urine Total 725 ml 610 ml 575 ml Stool Total 300 ml 300 ml 200 ml 50 ml Gastric Drainage Total 0 ml Laboratory Laboratory Tests Test 09/02/16 05:25 White Blood Count 12.6 Red Blood Count 3.51 Hemoglobin 10.8 Hematocrit 32.2 Mean Corpuscular Volume 91.6 Mean Corpuscular Hemoglobin 30.7 Mean Corpuscular Hemoglobin 33.5 Concent Red Cell Distribution Width 13.9 Platelet Count 265 Mean Platelet Volume 9.4 Neutrophils (%) (Auto) 88.5 Lymphocytes (%) (Auto) 5.5 Monocytes (%) (Auto) 5.6 Eosinophils (%) (Auto) 0.1 Basophils (%) (Auto) 0.3 Neutrophils # (Auto) 11.1 Lymphocytes # (Auto) 0.7 Monocytes # (Auto) 0.7 Eosinophils # (Auto) 0.0 Basophils # (Auto) 0.0 CBC Comment DIFF FINAL Differential Comment Sodium Level 145 Potassium Level 4.1 Chloride Level 112 Carbon Dioxide Level 25.9 Anion Gap 7 Blood Urea Nitrogen 35 Creatinine 1.04 Estimat Glomerular Filtration 68 Rate Random Glucose 181 Calcium Level 8.4 Phosphorus Level 2.0 Magnesium Level 1.8 Total Bilirubin 0.3 Aspartate Amino Transf 56 (AST/SGOT) Alanine Aminotransferase 94 (ALT/SGPT) Alkaline Phosphatase 86 Total Protein 5.4 Albumin 1.9 Date/Time Procedure Status Source Growth 08/31/16 04:33 Gram Stain - Final Complete Sputum Endotracheal 08/31/16 04:33 Sputum Culture - Final Complete Sputum Endotracheal HEAVY GROWTH NORMAL RESPIRATORY ETHEL 08/30/16 08:45 Urine Culture - Final Complete Urine Catheterized Urine Charlotte Glabrata 08/29/16 10:58 Aerobic Blood Culture - Preliminary Resulted Blood Peripheral NO GROWTH IN 4 DAYS 08/29/16 10:58 Anaerobic Blood Culture - Preliminary Resulted Blood Peripheral NO GROWTH IN 4 DAYS Imaging Last Impressions Chest X-Ray 09/02/16 0600 Signed Impressions: Service Date/Time: Friday, September 02, 2016 04:54 - CONCLUSION: Decreasing opacities in the perihilar regions. Ricardo Adan MD Abdomen X-Ray 08/31/16 0000 Signed Impressions: Service Date/Time: Wednesday, August 31, 2016 10:28 - CONCLUSION: Persistent small bowel dilatation, slightly increased in the interval. Manolo Owens MD FACR Renal Ultrasound 08/30/16 0000 Signed Impressions: Service Date/Time: Tuesday, August 30, 2016 15:56 - CONCLUSION: Increase in renal cortical echogenicity bilaterally suggesting medical renal disease. No hydronephrosis. Moises Sanchez MD Enema w/Water Soluble 08/29/16 0000 Signed Impressions: Service Date/Time: Monday, August 29, 2016 15:22 - CONCLUSION: 1. Gastrografin enema as above with some clearing of the rectosigmoid constipation on the postevacuation film. Diffuse ileus. Juice Faith MD Abdomen/Pelvis CT 08/29/16 0000 Signed Impressions: Service Date/Time: Monday, August 29, 2016 10:15 - CONCLUSION: 1. Diffuse ileus and small bowel with air-fluid levels and dilatation. Oral contrast does reach the colon and there is no evidence for small bowel obstruction. 2. Basilar lung consolidation, right greater than left. 3. NG tip in stomach. Rectal tube present with moderate rectal constipation. Bauer in decompressed bladder. Juice Faith MD Small Bowel X-Ray 08/28/16 0000 Signed Impressions: Service Date/Time: August 10:39 - CONCLUSION: 1. Dilated bowel most characteristic of an ileus with poor peristalsis. No transition zone identified. Juice Faith MD Myocardial Perfusion Scan [facility] 08/20/16 0000 Signed Impressions: Service Date/Time: Saturday, August 20, 2016 08:43 - CONCLUSION: Unremarkable myocardial perfusion examination. RISK CATEGORY: low Alexander Carter MD Head CT 08/20/16 0000 Signed Impressions: Service Date/Time: Saturday, August 20, 2016 07:58 - CONCLUSION: Unremarkable and stable CT brain for patient's age. Alexander Carter MD Physical Exam HEENT: Normocephalic; atraumatic; no jaundice. CHEST: Extubated. Resp. even/unlabored. Diminished bases. CARDIAC: RRR ABDOMEN: Soft, distended, but much improved, no hepatosplenomegaly; bowel sounds are hypoactive. EXTREMITIES: No clubbing or cyanosis mild edema. [employer]PARER: alert/oriented, no focal deficits (Alivia RossP) Assessment and Plan Plan ASSESSMENT: - Persistent small bowel Ileus/Constipation. He is not on chronic narcotics. His magnesium level is 2.9. S/P Magnesium Citrate (08/27/15). S/P Golytely (), no results and noted to have abdominal pressure 20 and therefore this was suctioned out. SBFT (08/28/16)-----> 1. Dilated bowel most characteristic of an ileus with poor peristalsis. No transition zone identified. CT Scan abdomen and pelvis ( 08/29/16)----> Diffuse ileus and small bowel with air-fluid levels and dilatation. Oral contrast does reach the colon and there is no evidence of a bowel obstruction , basilar lung consolidation, right greater than left, NG tip in stomach, rectla tube present with moderate rectal constipation. Bauer in decompressed bladder. Barium enema (08/29/16)----> 1. Gastrografin enema as above with some clearing of the rectosigmoid constipation on the postevacuation film. Diffuse ileus. Abdomen X-Ray (08/30/16)----> 1. Persistent bowel dilatation most likely ileus. 2. Nasogastric tube and rectal tube are noted. Radiographic contrast is seen scattered in the colon. 3. There has been interval improvement. Pt is on Miralax, Reglan, Lactulose, bethanechol. GS following. Clinically much improved today. + BMs. Abdomen much less distended and soft. Tolerating clear liquids , NGT out. Rectal tube out. Will advance diet. - Acute hypoxic respiratory failure, pulmonary edema, COPD, and probable pneumonia. S/P Extubation. - Leukocytosis, Fever. WBC 12.6 - Anemia. 10.8/32.2. - Elevated lipase, unclear etiology. Although noncontrasted, yesterday's CT did not appreciate any pancreatic abnormalities. - Mild elevation of LFTs, nonobstructive. S/P CT yesterday. Stable. . - ACS/NSTEMI, S/P cardiology evaluation. - HTN, Hyperlipidemia, per primary PLAN: - Full liquids - If tolerates full liquids, will advance diet tomorrow and wean TPN - Cont. Bethanechol - Cont. Reglan - Cont. Miralax - Monitor labs, lipase - Supportive care - S/P Golytely, SSE x 2, Magnesium citrate, SBFT with gastrografin - S/P Barium enema, good results- Further recommendations to follow based on results of above - Further recommendations to follow based on results of above - Pt seen and examined by Dr. Muhammad and myself and this note is written on his behalf (Alivia Ross) Physician Comments Patient seen and examined Agree with above Continue with current supportive care Monitor labs (Alvaro Muhammad MD) Alivia Ross Sep 02, 2016 16:52 Alvaro Muhammad MD Sep 02, 2016 21:53
[2016-09-02] MEDS: LATANOPROST 0.005% OPHT SOLN 2.5 ML BTL EACH EYE SCH (21:00)
[2016-09-02] MEDS: ENOXAPARIN SODIUM 30 MG/0.3 ML SYRINGE SQ SCH (21:41)
[2016-09-03] VITALS (10 sets, daily range): BP systolic 123–154; BP diastolic 62–77; PULSE 97–113; RESP 20–22; TEMP 96.3–98.3; O2SAT 93–100
[2016-09-03] MEDS: METOCLOPRAMIDE HCL 10 MG/2 ML VIAL IV PUSH SCH ×3 (02:20→17:36)
[2016-09-03] MEDS: CLINIMIX 4.25/25 (Cust.Renal Central) 2000 mL- >42 mls/hr IV-CENTRAL SCH ×8 (02:20)
[2016-09-03] MEDS: RESP: ALBUTEROL 2.5 MG/IPRATROPIUM 0.5 MG NEB (SCH) NEB ×4 (03:48→21:35)
[2016-09-03] MEDS: INSULIN NovoLIN REGULAR SUPPLEMENTAL SCALE SQ SCH ×6 (04:32→20:00)
[2016-09-03] MEDS: BETHANECHOL CHL 25 MG TAB PO SCH ×3 (05:54→21:37)
[2016-09-03 08:15] LABS: AUTOMATED NEUTROPHIL # 10.5 TH/MM3 (1.8-7.7); BASOPHIL % 0.1 % (0.0-2.0); HEMATOCRIT 30.6 % (39.0-51.0); HEMO FLAGS DIFF FINAL; LYMPH % 5.6 % (9.0-44.0); LYMPHOCYTE # 0.6 TH/MM3 (1.0-4.8); MEAN CORPUSCULAR HEMOGLOBIN 30.3 PG (27.0-34.0); MEAN CORPUSCULAR HGB CONC 33.2 % (32.0-36.0); MONO % 3.4 % (0.0-8.0); NEUT % 90.9 % (16.0-70.0); PLATELET COUNT 233 TH/MM3 (150-450); RED BLOOD COUNT 3.37 MIL/MM3 (4.50-5.90); RED CELL DISTRIBUTION WIDTH 13.6 % (11.6-17.2); WHITE BLOOD COUNT 11.5 TH/MM3 (4.0-11.0)
[2016-09-03 08:36] LABS: ALT (GPT) 179 U/L (12-78); ANION GAP 8 MEQ/L (5-15); AST (GOT) 96 U/L (15-37); BICARBONATE 25.9 MEQ/L (21.0-32.0); BLOOD UREA NITROGEN 32 MG/DL (7-18); CHLORIDE 110 MEQ/L (98-107); GLOMERULAR FILTRATION RATE 72 ML/MIN (>89); MAGNESIUM 1.7 MG/DL (1.5-2.5); POTASSIUM 4.2 MEQ/L (3.5-5.1); SODIUM (NA) 144 MEQ/L (136-145)
[2016-09-03 08:38] LABS: ALKALINE PHOSPHATASE 87 U/L (45-117); TOTAL BILIRUBIN ADULT 0.3 MG/DL (0.2-1.0)
[2016-09-03] MEDS: ASPIRIN 81 MG CHEW TAB CHEW SCH (08:44)
[2016-09-03] MEDS: THIAMINE HCL 100 MG TAB PO SCH (08:44)
[2016-09-03] MEDS: PRAVASTATIN SOD 40 MG TAB PO SCH (08:44)
[2016-09-03] MEDS: METOPROLOL TARTRATE 25 MG TAB PO SCH ×2 (08:44→21:37)
[2016-09-03] MEDS: methylPREDNISolone SOD SUCC 40 MG/1 ML VIAL IV PUSH SCH (08:45)
[2016-09-03] MEDS: FOLIC ACID 1 MG TAB PO SCH (08:45)
[2016-09-03] MEDS: PANTOPRAZOLE SODIUM 40 MG VIAL IV PUSH SCH (08:45)
[2016-09-03] MEDS: TAMSULOSIN HCL 0.4 MG CAP PO SCH (08:46)
[2016-09-03] MEDS: SODIUM CHLORIDE 0.9% FLUSH 5 ML FLUSH IVF SCH (08:46)
[2016-09-03] MEDS: DOCUSATE SODIUM 50 MG/SENNA 8.6 MG TAB PO SCH ×2 (08:46→21:37)
[2016-09-03] MEDS: NYSTATIN SUSP 500,000 U/5 ML CUP SWISH-SPIT SCH ×4 (08:46→21:42)
[2016-09-03] MEDS: POLYETHYLENE GLYCOL 17 GM PKG PO SCH ×2 (08:46→21:41)
[2016-09-03] MEDS: SODIUM CHLORIDE 0.9% FLUSH 5 ML FLUSH FLUSH SCH ×2 (09:00→21:41)
--- NOTE | 2016-09-03 11:17 | HHI.PR ---
Subjective Subjective Remarks extubated 08/31 oxygen at 2L/NC sats 98% awake, oriented x 3 no cp, sob tolerating full liquid diet well abd. non tender, less distended had BM yesterday rectal tube has been removed on TPN at 75/hr no fever agreeable with going to rehab Review of Systems Constitutional Constitutional Remarks 12 point ROS completed, negative except as noted above Vitals/Results Intake & Output 09/02/16 09/02/16 09/03/16 15:00 23:00 07:00 Intake Total 769 ml 425 ml 480 ml Output Total 800 ml 650 ml 450 ml Balance -31 ml -225 ml 30 ml Intake Oral 60 ml 480 ml IV Total 145 ml TPN/PPN 709 ml 280 ml Output Urine Total 600 ml 650 ml 450 ml Stool Total 200 ml # Bowel Movements 1 1 Vital Signs Vital Signs Date Time Temp Pulse Resp B/P Pulse Ox O2 Delivery O2 Flow Rate FiO2 09/03/16 09:45 98 Nasal Cannula 2.00 09/03/16 08:22 96.3 97 20 148/70 93 09/03/16 04:00 97.5 107 20 153/77 97 09/03/16 00:00 98.3 113 20 123/71 97 09/02/16 20:11 98 Nasal Cannula 1.00 09/02/16 20:00 97.7 115 22 155/72 98 09/02/16 19:56 98 Nasal Cannula 2.00 09/02/16 18:00 108 09/02/16 16:00 98.2 108 18 154/70 97 09/02/16 16:00 97 Nasal Cannula 1.00 09/02/16 16:00 108 09/02/16 14:00 104 09/02/16 12:00 86 09/02/16 12:00 97.6 86 19 164/78 97 CBC/BMP: 09/03/16 0630 09/03/16 0630 Lab Results Laboratory Tests Test 09/03/16 06:30 White Blood Count 11.5 TH/MM3 Red Blood Count 3.37 MIL/MM3 Hemoglobin 10.2 GM/DL Hematocrit 30.6 % Mean Corpuscular Volume 91.0 FL Mean Corpuscular Hemoglobin 30.3 PG Mean Corpuscular Hemoglobin 33.2 % Concent Red Cell Distribution Width 13.6 % Platelet Count 233 TH/MM3 Mean Platelet Volume 10.0 FL Neutrophils (%) (Auto) 90.9 % Lymphocytes (%) (Auto) 5.6 % Monocytes (%) (Auto) 3.4 % Eosinophils (%) (Auto) 0.0 % Basophils (%) (Auto) 0.1 % Neutrophils # (Auto) 10.5 TH/MM3 Lymphocytes # (Auto) 0.6 TH/MM3 Monocytes # (Auto) 0.4 TH/MM3 Eosinophils # (Auto) 0.0 TH/MM3 Basophils # (Auto) 0.0 TH/MM3 CBC Comment DIFF FINAL Differential Comment Sodium Level 144 MEQ/L Potassium Level 4.2 MEQ/L Chloride Level 110 MEQ/L Carbon Dioxide Level 25.9 MEQ/L Anion Gap 8 MEQ/L Blood Urea Nitrogen 32 MG/DL Creatinine 1.00 MG/DL Estimat Glomerular Filtration 72 ML/MIN Rate Random Glucose 200 MG/DL Calcium Level 8.3 MG/DL Phosphorus Level 2.6 MG/DL Magnesium Level 1.7 MG/DL Total Bilirubin 0.3 MG/DL Aspartate Amino Transf 96 U/L (AST/SGOT) Alanine Aminotransferase 179 U/L (ALT/SGPT) Alkaline Phosphatase 87 U/L Total Protein 5.2 GM/DL Albumin 1.9 GM/DL Physical Exam General General Appearance: Well Developed, No Acute Distress, Comfortable Eyes Eye Exam: Pupils Equal, Pupils Reactive, Sclera White Ears & Nose Ears & Nose Exam: Nasal Mucosa [place] Throat Throat Exam: Oral Mucosa [place] & Moist Neck Neck Exam: Neck Supple, Trachea Midline Pulmonary Resp Exam: Breath Sounds Equal, Decreased Bases Resp Remarks faint bibasilar rales Cardiology CV Exam: Regular, Normal Sinus Rhythm Gastrointestinal/Abdomen GI Exam: Soft, Non-Tender, Bowel Sounds Present, Distended Genitourinary Exam: Clear Urine Remarks SHIELDS Musculoskeletal MS Exam: Joints Intact Integumentary Skin Exam: Warm, Dry Extremeties Extremities Exam: No Edema, Pedal Pulses Palpable Neurologic Neuro Exam: Alert, Awake, Oriented, Speech Clear, Moving All Extremities, No Focal Deficits Psychiatric Psych Exam: Appropriate Responses VTE Prophylaxis VTE Prophylaxis Meds: Lovenox PUD Prophylasis PUD Prophylaxis: Protonix Assessment/Plan Assessment/Plan ASSESSMENT 1. Acute febrile illness with leukocytosis and left shift, source not clear. The patient has evidence of microscopic hematuria, questionable urinary tract infection, rule out bacteremia, question bronchitis. 2. Hyperglycemia. 3. Normochromic normocytic anemia. 4. BPH with chronic urge incontinence. 5. Hypertension. 6. Hyperlipidemia. 7. Recurrent falls, fortunately no significant injury. 8. Acute VDRF 9. ACS/ NSTEMI -evaluated per card. Had STT, negative 10. s/p Acute pulmonary edema/flash pulmonary edema 11. HCA Pneumonia 12. Adynamic Ileus 13. Hypernatremia PLAN CCM signed off extubated 08/31, on oxygen at 2L/NC culture reports reviewed completed abx, Levaquin d/c'd today per ID recommendations Appreciate ID input Wean off IV steroids, change to Prednisone 20 mg po daily Duonebs S/P NSTEMI, card. evaluated. STT done negative. 2-D echocardiogram noted, EF is 50% Continue Aspirin/BB Na improved, dc IVF Continue PPI-change to PO/Subcutaneous Lovenox for DVT prophylaxis Ileus improving/rectal tube removed continue bowel regimen Reglan, Bethanecol Rectal tube removed, had BM yesterday Adv to full liquid per GI, NGT out, tolerating well Wean off TPN Stable renal function LFTs inc. will stop statins, follow in am Blood glucose elevated, sec. steroids and TPN Change to accuchecks AC/HS with ISS PT eval and tx OOB daily CM for discharge planning, pt. agreeable, CIR evaluating Clinically improving, hopefully to rehab by Thursday D/W pt D/W Dr. Shelton D/W RN D/W CM This patient was seen by myself and Dr. Shelton, this note is written on his behalf Kandi Summers Sep 03, 2016 11:17 behalf Kandi Summers Sep 03, 2016 11:17
--- NOTE | 2016-09-03 17:06 | HHI.GIFU ---
Subjective Remarks Eating full liquids in bed. Tolerating this well. States he had a large a bowel movement today. No distention or abdominal pain. TPN has been weaned off. (Alivia Ross) Objective Vitals I&O Vital Signs Date Time Temp Pulse Resp B/P Pulse Ox O2 Delivery O2 Flow Rate FiO2 09/03/16 16:21 97.2 104 20 139/74 100 09/03/16 12:00 97.7 102 20 154/68 95 09/03/16 09:45 98 Nasal Cannula 2.00 09/03/16 08:22 96.3 97 20 148/70 93 09/03/16 04:00 97.5 107 20 153/77 97 09/03/16 00:00 98.3 113 20 123/71 97 09/02/16 20:11 98 Nasal Cannula 1.00 09/02/16 20:00 97.7 115 22 155/72 98 09/02/16 19:56 98 Nasal Cannula 2.00 09/02/16 18:00 108 I/O 09/02/16 09/02/16 09/02/16 09/03/16 09/03/16 09/03/16 07:00 15:00 23:00 07:00 15:00 23:00 Intake Total 635 ml 769 ml 425 ml 480 ml 600 ml Output Total 625 ml 800 ml 650 ml 450 ml 700 ml Balance 10 ml -31 ml -225 ml 30 ml -100 ml Intake Oral 60 ml 480 ml 600 ml IV Total 145 ml TPN/PPN 575 ml 709 ml 280 ml Tube Irrigant 60 ml Output Urine Total 575 ml 600 ml 650 ml 450 ml 700 ml Stool Total 50 ml 200 ml # Bowel Movements 1 1 0 Laboratory Laboratory Tests Test 09/03/16 06:30 White Blood Count 11.5 Red Blood Count 3.37 Hemoglobin 10.2 Hematocrit 30.6 Mean Corpuscular Volume 91.0 Mean Corpuscular Hemoglobin 30.3 Mean Corpuscular Hemoglobin 33.2 Concent Red Cell Distribution Width 13.6 Platelet Count 233 Mean Platelet Volume 10.0 Neutrophils (%) (Auto) 90.9 Lymphocytes (%) (Auto) 5.6 Monocytes (%) (Auto) 3.4 Eosinophils (%) (Auto) 0.0 Basophils (%) (Auto) 0.1 Neutrophils # (Auto) 10.5 Lymphocytes # (Auto) 0.6 Monocytes # (Auto) 0.4 Eosinophils # (Auto) 0.0 Basophils # (Auto) 0.0 CBC Comment DIFF FINAL Differential Comment Sodium Level 144 Potassium Level 4.2 Chloride Level 110 Carbon Dioxide Level 25.9 Anion Gap 8 Blood Urea Nitrogen 32 Creatinine 1.00 Estimat Glomerular Filtration 72 Rate Random Glucose 200 Calcium Level 8.3 Phosphorus Level 2.6 Magnesium Level 1.7 Total Bilirubin 0.3 Aspartate Amino Transf 96 (AST/SGOT) Alanine Aminotransferase 179 (ALT/SGPT) Alkaline Phosphatase 87 Total Protein 5.2 Albumin 1.9 Date/Time Procedure Status Source Growth 08/31/16 04:33 Gram Stain - Final Complete Sputum Endotracheal 08/31/16 04:33 Sputum Culture - Final Complete Sputum Endotracheal HEAVY GROWTH NORMAL RESPIRATORY ETHEL 08/30/16 08:45 Urine Culture - Final Complete Urine Catheterized Urine [facility] Last Impressions Chest X-Ray 09/02/16 0600 Signed Impressions: Service Date/Time: Friday, September 02, 2016 04:54 - CONCLUSION: Decreasing opacities in the perihilar regions. Ricardo Adan MD Abdomen X-Ray 08/31/16 0000 Signed Impressions: Service Date/Time: Wednesday, August 31, 2016 10:28 - CONCLUSION: Persistent small bowel dilatation, slightly increased in the interval. Manolo Owens MD FACR Renal Ultrasound 08/30/16 0000 Signed Impressions: Service Date/Time: Tuesday, August 30, 2016 15:56 - CONCLUSION: Increase in renal cortical echogenicity bilaterally suggesting medical renal disease. No hydronephrosis. Moises Sanchez MD Enema w/Water Soluble 08/29/16 0000 Signed Impressions: Service Date/Time: Monday, August 29, 2016 15:22 - CONCLUSION: 1. Gastrografin enema as above with some clearing of the rectosigmoid constipation on the postevacuation film. Diffuse ileus. Juice Faith MD Abdomen/Pelvis CT 08/29/16 0000 Signed Impressions: Service Date/Time: Monday, August 29, 2016 10:15 - CONCLUSION: 1. Diffuse ileus and small bowel with air-fluid levels and dilatation. Oral contrast does reach the colon and there is no evidence for small bowel obstruction. 2. Basilar lung consolidation, right greater than left. 3. NG tip in stomach. Rectal tube present with moderate rectal constipation. Bauer in decompressed bladder. Juice Faith MD Small Bowel X-Ray 08/28/16 0000 Signed Impressions: Service Date/Time: August 10:39 - CONCLUSION: 1. Dilated bowel most characteristic of an ileus with poor peristalsis. No transition zone identified. Juice Faith MD Myocardial Perfusion Scan Nuc Med 08/20/16 0000 Signed Impressions: Service Date/Time: Saturday, August 20, 2016 08:43 - CONCLUSION: Unremarkable myocardial perfusion examination. RISK CATEGORY: low Alexander Carter MD Head CT 08/20/16 0000 Signed Impressions: Service Date/Time: Saturday, August 20, 2016 07:58 - CONCLUSION: Unremarkable and stable CT brain for patient's age. Alexander Carter MD Physical Exam HEENT: Normocephalic; atraumatic; no jaundice. CHEST: Extubated. Resp. even/unlabored. Diminished bases. CARDIAC: RRR ABDOMEN: Soft, nondistended, no hepatosplenomegaly; bowel sounds are oactive. EXTREMITIES: No clubbing or cyanosis mild edema. 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 IMPROVED. He is not on chronic narcotics. S/P Magnesium Citrate (08/27/15). S/P Golytely (08/27/15), no results and noted to have abdominal pressure 20 and therefore this was suctioned out. SBFT (08/28/16)-----> 1. Dilated bowel most characteristic of an ileus with poor peristalsis. No transition zone identified. CT Scan abdomen and pelvis ( 08/29/16)----> Diffuse ileus and small bowel with air-fluid levels and dilatation. Oral contrast does reach the colon and there is no evidence of a bowel obstruction , basilar lung consolidation, right greater than left, NG tip in stomach, rectla tube present with moderate rectal constipation. Bauer in decompressed bladder. Barium enema (08/29/16)----> 1. Gastrografin enema as above with some clearing of the rectosigmoid constipation on the postevacuation film. Diffuse ileus. Abdomen X-Ray (08/30/16)----> 1. Persistent bowel dilatation most likely ileus. 2. Nasogastric tube and rectal tube are noted. Radiographic contrast is seen scattered in the colon. 3. There has been interval improvement. Pt is on Miralax, Reglan, Lactulose, bethanechol. His ileus has resolved. He is tolerating full liquids. His TPN has been weaned off. He had a large bowel movement and is not having any abdominal pain, distention or n/v. Will advance diet and sign off. - Acute hypoxic respiratory failure, pulmonary edema, COPD, and probable pneumonia. S/P Extubation. - Leukocytosis, Fever. Improved - Anemia. Stable. - Elevated lipase, unclear etiology. Although noncontrasted, yesterday's CT did not appreciate any pancreatic abnormalities. - Mild elevation of LFTs, nonobstructive. S/P CT yesterday. Slowly trending up , but he has been on TPN which was discontinued today. Hopefully now that he is off the TPN, his LFTs will start to improve. - ACS/NSTEMI, S/P cardiology evaluation. - HTN, Hyperlipidemia, per primary PLAN: - Heart healthy 2 gram sodium, low fat diet - TPN has been weaned off - Cont. Bethanechol - Cont. Reglan - Cont. Miralax - LFT in am - Supportive care - Further recommendations to follow based on results of above - Pt seen and examined by Dr. Muhammad and myself and this note is written on his behalf (Alivia Ross) Physician Comments Patient seen and examined Agree with above Continue with current supportive care Monitor labs (Alvaro Muhammad MD) Alivia Ross Sep 03, 2016 17:06 Alvaro Muhammda MD Sep 03, 2016 20:10
[2016-09-03] MEDS: ENOXAPARIN SODIUM 30 MG/0.3 ML SYRINGE SQ SCH (21:39)
[2016-09-03] MEDS: LATANOPROST 0.005% OPHT SOLN 2.5 ML BTL EACH EYE SCH (21:40)
[2016-09-04] VITALS (7 sets, daily range): BP systolic 102–139; BP diastolic 53–71; PULSE 86–112; RESP 16–20; TEMP 97–98.3; O2SAT 95–98
[2016-09-04] MEDS: METOCLOPRAMIDE HCL 10 MG/2 ML VIAL IV PUSH SCH ×3 (02:00→19:13)
[2016-09-04] MEDS: INSULIN NovoLIN REGULAR SUPPLEMENTAL SCALE SQ SCH ×7 (03:18→23:58)
[2016-09-04] MEDS: RESP: ALBUTEROL 2.5 MG/IPRATROPIUM 0.5 MG NEB (SCH) NEB ×4 (03:50→20:58)
[2016-09-04] MEDS: BETHANECHOL CHL 25 MG TAB PO SCH ×3 (05:44→20:30)
[2016-09-04 06:28] LABS: HEMATOCRIT 30.9 % (39.0-51.0); MEAN CELL VOLUME 90.2 FL (80.0-100.0); MEAN CORPUSCULAR HEMOGLOBIN 30.4 PG (27.0-34.0); MEAN CORPUSCULAR HGB CONC 33.7 % (32.0-36.0); PLATELET COUNT 219 TH/MM3 (150-450); RED BLOOD COUNT 3.43 MIL/MM3 (4.50-5.90); RED CELL DISTRIBUTION WIDTH 13.4 % (11.6-17.2); REVIEW FLAG FINAL; WHITE BLOOD COUNT 10.9 TH/MM3 (4.0-11.0)
[2016-09-04 07:02] LABS: INDIRECT BILIRUBIN 0.3 MG/DL (0.0-0.8); POTASSIUM 3.6 MEQ/L (3.5-5.1); TOTAL BILIRUBIN ADULT 0.4 MG/DL (0.2-1.0)
[2016-09-04] MEDS: ASPIRIN 81 MG CHEW TAB CHEW SCH (08:54)
[2016-09-04] MEDS: POLYETHYLENE GLYCOL 17 GM PKG PO SCH ×2 (08:54→20:31)
[2016-09-04] MEDS: FOLIC ACID 1 MG TAB PO SCH (08:54)
[2016-09-04] MEDS: TAMSULOSIN HCL 0.4 MG CAP PO SCH (08:54)
[2016-09-04] MEDS: DOCUSATE SODIUM 50 MG/SENNA 8.6 MG TAB PO SCH ×2 (08:54→20:30)
[2016-09-04] MEDS: PANTOPRAZOLE SOD 40 MG DELAYED RELEASE TAB PO SCH (08:54)
[2016-09-04] MEDS: THIAMINE HCL 100 MG TAB PO SCH (08:54)
[2016-09-04] MEDS: METOPROLOL TARTRATE 25 MG TAB PO SCH ×3 (08:54→20:30)
[2016-09-04] MEDS: NYSTATIN SUSP 500,000 U/5 ML CUP SWISH-SPIT SCH ×4 (08:54→20:31)
[2016-09-04] MEDS: predniSONE 20 MG TAB PO SCH (08:54)
[2016-09-04] MEDS: SODIUM CHLORIDE 0.9% FLUSH 5 ML FLUSH FLUSH SCH ×2 (08:55→20:31)
[2016-09-04] MEDS: SODIUM CHLORIDE 0.9% FLUSH 5 ML FLUSH IVF SCH (08:55)
--- NOTE | 2016-09-04 10:16 | HHI.PR ---
Subjective Subjective Remarks extubated 08/31 oxygen at 2L/NC sats 98% awake, oriented x 3 no cp, sob tolerating regular diet well, asking if he can have yogurt had BM yesterday voiding okay no fever off TPN anxious to go to rehab Review of Systems Constitutional Constitutional Remarks 12 point ROS completed, negative except as noted above Vitals/Results Intake & Output 09/03/16 09/03/16 09/04/16 15:00 23:00 07:00 Intake Total 600 ml 240 ml 120 ml Output Total 700 ml 300 ml Balance -100 ml 240 ml -180 ml Intake Oral 600 ml 240 ml 120 ml Output Urine Total 700 ml 300 ml # Bowel Movements 0 Vital Signs Vital Signs Date Time Temp Pulse Resp B/P Pulse Ox O2 Delivery O2 Flow Rate FiO2 09/04/16 07:00 98.0 86 18 102/53 95 09/04/16 04:59 98.1 94 18 139/63 97 09/04/16 03:52 96 21 09/03/16 21:50 100 09/03/16 21:35 95 09/03/16 20:09 97.9 109 22 137/62 94 09/03/16 16:21 97.2 104 20 139/74 100 09/03/16 12:00 97.7 102 20 154/68 95 CBC/BMP: 09/04/16 0610 09/04/16 0610 Lab Results Laboratory Tests Test 09/04/16 06:10 White Blood Count 10.9 TH/MM3 Red Blood Count 3.43 MIL/MM3 Hemoglobin 10.4 GM/DL Hematocrit 30.9 % Mean Corpuscular Volume 90.2 FL Mean Corpuscular Hemoglobin 30.4 PG Mean Corpuscular Hemoglobin 33.7 % Concent Red Cell Distribution Width 13.4 % Platelet Count 219 TH/MM3 Mean Platelet Volume 9.2 FL Sodium Level 144 MEQ/L Potassium Level 3.6 MEQ/L Chloride Level 111 MEQ/L Carbon Dioxide Level 25.0 MEQ/L Anion Gap 8 MEQ/L Blood Urea Nitrogen 30 MG/DL Creatinine 1.00 MG/DL Estimat Glomerular Filtration 72 ML/MIN Rate Random Glucose 74 MG/DL Calcium Level 8.0 MG/DL Total Bilirubin 0.4 MG/DL Direct Bilirubin 0.1 MG/DL Indirect Bilirubin 0.3 MG/DL Aspartate Amino Transf 110 U/L (AST/SGOT) Alanine Aminotransferase 218 U/L (ALT/SGPT) Alkaline Phosphatase 102 U/L Total Protein 5.1 GM/DL Albumin 2.0 GM/DL Physical Exam General General Appearance: Well Developed, No Acute Distress, Comfortable Eyes Eye Exam: Pupils Equal, Pupils Reactive, Sclera White Ears & Nose Ears & Nose Exam: Nasal Mucosa [place] Throat Throat Exam: Oral Mucosa [place] & Moist Neck Neck Exam: Neck Supple, Trachea Midline Pulmonary Resp Exam: Breath Sounds Equal, Decreased Bases Cardiology CV Exam: Regular, Normal Sinus Rhythm Gastrointestinal/Abdomen GI Exam: Soft, Non-Tender, Bowel Sounds Present, Positive Bowel Movement, Non- Distended Musculoskeletal MS Exam: Joints Intact Integumentary Skin Exam: Warm, Dry Extremeties Extremities Exam: No Edema, Pedal Pulses Palpable Neurologic Neuro Exam: Alert, Awake, Oriented, Speech Clear, Moving All Extremities, No Focal Deficits Psychiatric Psych Exam: Appropriate Responses VTE Prophylaxis VTE Prophylaxis Meds: Lovenox PUD Prophylasis PUD Prophylaxis: Protonix Assessment/Plan Assessment/Plan ASSESSMENT 1. Acute febrile illness with leukocytosis and left shift, source not clear. The patient has evidence of microscopic hematuria, questionable urinary tract infection, rule out bacteremia, question bronchitis. 2. Hyperglycemia. 3. Normochromic normocytic anemia. 4. BPH with chronic urge incontinence. 5. Hypertension. 6. Hyperlipidemia. 7. Recurrent falls, fortunately no significant injury. 8. Acute VDRF 9. ACS/ NSTEMI -evaluated per card. Had STT, negative 10. s/p Acute pulmonary edema/flash pulmonary edema 11. HCA Pneumonia 12. Adynamic Ileus 13. Hypernatremia PLAN [facility] signed off extubated 08/31, on oxygen at 2L/NC culture reports reviewed completed abx, Levaquin d/c'd today per ID recommendations Appreciate ID input Wean off IV steroids, change to Prednisone 20 mg po daily-to stop tomorrow. Duonebs S/P NSTEMI, card. evaluated. STT done negative. 2-D echocardiogram noted, EF is 50% Continue Aspirin/BB Na improved, dc IVF Continue PPI-change to PO/Subcutaneous Lovenox for DVT prophylaxis Ileus improving/rectal tube removed continue bowel regimen Reglan, Bethanecol Tolerating regular diet, off TPN Stable renal function LFTs inc. -statins stopped, poss. sec. to TPN Blood glucose improved, off TPN, steroids being weaned off Accuchecks AC/HS with ISS PT eval and tx OOB daily D/W CM, CIR, insurance won't pay for CIR, but will pay for SNF Will keep one more day to monitor LFTs CM to arrange SNF LFTs in am D/W pt D/W Dr. Shelton D/W RN D/W CM This patient was seen by myself and Dr. Shelton, this note is written on his behalf Kandi Summers Sep 04, 2016 10:16 D/W RN D/W CM This patient was seen by myself and Dr. Shelton, this note is written on his behalf Kandi Summers Sep 04, 2016 10:16
--- NOTE | 2016-09-04 16:11 | HHI.GIFU ---
Subjective Remarks Resting in bed in no distress. No n/v. No abdominal pain. Tolerating diet. Moving bowels. (Alivia Ross) Objective Vitals I&O Vital Signs Date Time Temp Pulse Resp B/P Pulse Ox O2 Delivery O2 Flow Rate FiO2 09/04/16 11:00 97.0 94 18 116/56 96 09/04/16 07:00 98.0 86 18 102/53 95 09/04/16 04:59 98.1 94 18 139/63 97 09/04/16 03:52 96 21 09/03/16 21:50 100 09/03/16 21:35 95 09/03/16 20:09 97.9 109 22 137/62 94 09/03/16 16:21 97.2 104 20 139/74 100 I/O 09/03/16 09/03/16 09/03/16 09/04/16 09/04/16 09/04/16 07:00 15:00 23:00 07:00 15:00 23:00 Intake Total 480 ml 600 ml 240 ml 120 ml 240 ml Output Total 450 ml 700 ml 300 ml Balance 30 ml -100 ml 240 ml -180 ml 240 ml Intake Oral 480 ml 600 ml 240 ml 120 ml 240 ml Output Urine Total 450 ml 700 ml 300 ml # Voids 2 # Bowel Movements 1 0 0 Laboratory Laboratory Tests Test 09/04/16 06:10 White Blood Count 10.9 Red Blood Count 3.43 Hemoglobin 10.4 Hematocrit 30.9 Mean Corpuscular Volume 90.2 Mean Corpuscular Hemoglobin 30.4 Mean Corpuscular Hemoglobin 33.7 Concent Red Cell Distribution Width 13.4 Platelet Count 219 Mean Platelet Volume 9.2 Sodium Level 144 Potassium Level 3.6 Chloride Level 111 Carbon Dioxide Level 25.0 Anion Gap 8 Blood Urea Nitrogen 30 Creatinine 1.00 Estimat Glomerular Filtration 72 Rate Random Glucose 74 Calcium Level 8.0 Total Bilirubin 0.4 Direct Bilirubin 0.1 Indirect Bilirubin 0.3 Aspartate Amino Transf 110 (AST/SGOT) Alanine Aminotransferase 218 (ALT/SGPT) Alkaline Phosphatase 102 Total Protein 5.1 Albumin 2.0 Date/Time Procedure Status Source Growth 08/31/16 04:33 Gram Stain - Final Complete Sputum Endotracheal 08/31/16 04:33 Sputum Culture - Final Complete Sputum Endotracheal HEAVY GROWTH NORMAL RESPIRATORY ETHEL Imaging Last Impressions Chest X-Ray 09/02/16 0600 Signed Impressions: Service Date/Time: Friday, September 02, 2016 04:54 - CONCLUSION: Decreasing opacities in the perihilar regions. Ricardo Adan MD Abdomen X-Ray 08/31/16 0000 Signed Impressions: Service Date/Time: Wednesday, August 31, 2016 10:28 - CONCLUSION: Persistent small bowel dilatation, slightly increased in the interval. Manolo Owens MD FACR Renal Ultrasound 08/30/16 0000 Signed Impressions: Service Date/Time: Tuesday, August 30, 2016 15:56 - CONCLUSION: Increase in renal cortical echogenicity bilaterally suggesting medical renal disease. No hydronephrosis. Moises Sanchez MD Enema w/Water Soluble 08/29/16 0000 Signed Impressions: Service Date/Time: Monday, August 29, 2016 15:22 - CONCLUSION: 1. Gastrografin enema as above with some clearing of the rectosigmoid constipation on the postevacuation film. Diffuse ileus. Juice Faith MD Abdomen/Pelvis CT 08/29/16 0000 Signed Impressions: Service Date/Time: Monday, August 29, 2016 10:15 - CONCLUSION: 1. Diffuse ileus and small bowel with air-fluid levels and dilatation. Oral contrast does reach the colon and there is no evidence for small bowel obstruction. 2. Basilar lung consolidation, right greater than left. 3. NG tip in stomach. Rectal tube present with moderate rectal constipation. Bauer in decompressed bladder. Juice Faith MD Small Bowel X-Ray 08/28/16 0000 Signed Impressions: Service Date/Time: August 10:39 - CONCLUSION: 1. Dilated bowel most characteristic of an ileus with poor peristalsis. No transition zone identified. Juice Faith MD Myocardial Perfusion Scan Nuc Med 08/20/16 0000 Signed Impressions: Service Date/Time: Saturday, August 20, 2016 08:43 - CONCLUSION: Unremarkable myocardial perfusion examination. RISK CATEGORY: low Alexander Carter MD Head CT 08/20/16 0000 Signed Impressions: Service Date/Time: Saturday, August 20, 2016 07:58 - CONCLUSION: Unremarkable and stable CT brain for patient's age. Alexander Carter MD Physical Exam HEENT: Normocephalic; atraumatic; no jaundice. CHEST: Extubated. Resp. even/unlabored. Diminished bases. CARDIAC: RRR ABDOMEN: Soft, nondistended, no hepatosplenomegaly; bowel sounds are active. EXTREMITIES: No clubbing or cyanosis mild edema. 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 RESOLVED. He is not on chronic narcotics. S/P Magnesium Citrate (08/27/15). S/P Golytely (08/27/15), no results and noted to have abdominal pressure 20 and therefore this was suctioned out. SBFT (08/28/16)-----> 1. Dilated bowel most characteristic of an ileus with poor peristalsis. No transition zone identified. CT Scan abdomen and pelvis ( 08/29/16)----> Diffuse ileus and small bowel with air-fluid levels and dilatation. Oral contrast does reach the colon and there is no evidence of a bowel obstruction , basilar lung consolidation, right greater than left, NG tip in stomach, rectla tube present with moderate rectal constipation. Bauer in decompressed bladder. Barium enema (08/29/16)----> 1. Gastrografin enema as above with some clearing of the rectosigmoid constipation on the postevacuation film. Diffuse ileus. Abdomen X-Ray (08/30/16)----> 1. Persistent bowel dilatation most likely ileus. 2. Nasogastric tube and rectal tube are noted. Radiographic contrast is seen scattered in the colon. 3. There has been interval improvement. Pt is on Miralax, Reglan, Lactulose, bethanechol. His ileus has resolved. Tolerating diet. - Acute hypoxic respiratory failure, pulmonary edema, COPD, and probable pneumonia. S/P Extubation. - Leukocytosis, Fever. Improved - Anemia. Stable. - Elevated lipase, unclear etiology. Although noncontrasted, yesterday's CT did not appreciate any pancreatic abnormalities. - Mild elevation of LFTs, nonobstructive. S/P CT yesterday. TPN was discontinued on 09/03/16. T. Bili 0.4, AST 110, ALT 218, Alk Phosph 102. Will D/C his Acetaminophen. Monitor lfts. - ACS/NSTEMI, S/P cardiology evaluation. - HTN, Hyperlipidemia, per primary PLAN: - Heart healthy 2 gram sodium, low fat diet - Cont. Bethanechol - Cont. Reglan - Cont. Miralax - D/C Acetaminophen - LFT in am - Supportive care - Further recommendations to follow based on results of above - Pt seen and examined by Dr. Muhammad and myself and this note is written on his behalf (Alivia Ross) Physician Comments Patient was seen and examined Agree with above Continue with current supportive care Monitor labs LFT elevation possibly related to medications we will continue to monitor at this point (Alvaro Muhammad MD) Alivia Ross Sep 04, 2016 16:11 Alvaro Muhammad MD Sep 04, 2016 20:38
[2016-09-04] MEDS: ENOXAPARIN SODIUM 30 MG/0.3 ML SYRINGE SQ SCH (20:29)
[2016-09-04] MEDS: LATANOPROST 0.005% OPHT SOLN 2.5 ML BTL EACH EYE SCH (20:31)
[2016-09-05] VITALS: BP 115/51; PULSE 106; RESP 18; TEMP 97.8; O2SAT 96
[2016-09-05] MEDS: METOCLOPRAMIDE HCL 10 MG/2 ML VIAL IV PUSH SCH ×2 (01:30→09:57)
[2016-09-05] MEDS: INSULIN NovoLIN REGULAR SUPPLEMENTAL SCALE SQ SCH ×4 (04:00→15:37)
[2016-09-05 04:21] VITALS: BP 138/72; PULSE 101; RESP 16; TEMP 98.2; O2SAT 97
[2016-09-05] MEDS: RESP: ALBUTEROL 2.5 MG/IPRATROPIUM 0.5 MG NEB (SCH) NEB ×2 (04:25→09:25)
[2016-09-05] MEDS: BETHANECHOL CHL 25 MG TAB PO SCH ×2 (04:48→12:58)
[2016-09-05 07:26] LABS: INDIRECT BILIRUBIN 0.3 MG/DL (0.0-0.8); TOTAL BILIRUBIN ADULT 0.4 MG/DL (0.2-1.0)
[2016-09-05 07:57] VITALS: BP 138/60; PULSE 99; RESP 18; TEMP 96.7; O2SAT 100
[2016-09-05] MEDS: SODIUM CHLORIDE 0.9% FLUSH 5 ML FLUSH IVF SCH (09:00)
[2016-09-05] MEDS: POLYETHYLENE GLYCOL 17 GM PKG PO SCH (09:00)
--- NOTE | 2016-09-05 09:15 | HHI.PR ---
Subjective Subjective Remarks extubated 08/31 on RA, sats 97% no cp no sob having BM abd. non tender tolerating diet well no fever Review of Systems Constitutional Constitutional Remarks 12 point ROS completed, negative except as noted above Vitals/Results Intake & Output 09/04/16 09/04/16 09/05/16 15:00 23:00 07:00 Intake Total 240 ml 250 ml 200 ml Output Total 300 ml Balance 240 ml 250 ml -100 ml Intake Oral 240 ml 250 ml 200 ml Output Urine Total 300 ml # Voids 2 1 # Bowel Movements 0 0 0 Vital Signs Vital Signs Date Time Temp Pulse Resp B/P Pulse Ox O2 Delivery O2 Flow Rate FiO2 09/05/16 07:57 96.7 99 18 138/60 100 09/05/16 04:21 98.2 101 16 138/72 97 09/05/16 00:00 97.8 106 18 115/51 96 09/04/16 20:58 98 21 09/04/16 20:00 98.3 100 16 130/53 98 09/04/16 15:00 97.6 112 20 138/71 97 09/04/16 11:00 97.0 94 18 116/56 96 CBC/BMP: 09/04/16 0610 09/04/16 0610 Lab Results Laboratory Tests Test 09/05/16 06:05 Total Bilirubin 0.4 MG/DL Direct Bilirubin 0.1 MG/DL Indirect Bilirubin 0.3 MG/DL Aspartate Amino Transf 58 U/L (AST/SGOT) Alanine Aminotransferase 163 U/L (ALT/SGPT) Alkaline Phosphatase 98 U/L Total Protein 5.1 GM/DL Albumin 2.0 GM/DL Physical Exam General General Appearance: Well Developed, No Acute Distress, Comfortable Eyes Eye Exam: Pupils Equal, Pupils Reactive, Sclera White Ears & Nose Ears & Nose Exam: Nasal Mucosa [place] Throat Throat Exam: Oral Mucosa [place] & Moist Neck Neck Exam: Neck Supple, Trachea Midline Pulmonary Resp Exam: Breath Sounds Equal, Decreased Bases Cardiology CV Exam: Regular, Normal Sinus Rhythm Gastrointestinal/Abdomen GI Exam: Soft, Non-Tender, Bowel Sounds Present, Positive Bowel Movement, Non- Distended Musculoskeletal MS Exam: Joints Intact Integumentary Skin Exam: Warm, Dry Extremeties Extremities Exam: No Edema, Pedal Pulses Palpable Neurologic Neuro Exam: Alert, Awake, Oriented, Speech Clear, Moving All Extremities, No Focal Deficits Psychiatric Psych Exam: Appropriate Responses VTE Prophylaxis VTE Prophylaxis Meds: Lovenox PUD Prophylasis PUD Prophylaxis: Protonix Assessment/Plan Assessment/Plan ASSESSMENT 1. Acute febrile illness with leukocytosis and left shift, source not clear. The patient has evidence of microscopic hematuria, questionable urinary tract infection, rule out bacteremia, question bronchitis. 2. Hyperglycemia. 3. Normochromic normocytic anemia. 4. BPH with chronic urge incontinence. 5. Hypertension. 6. Hyperlipidemia. 7. Recurrent falls, fortunately no significant injury. 8. Acute VDRF 9. ACS/ NSTEMI -evaluated per card. Had STT, negative 10. s/p Acute pulmonary edema/flash pulmonary edema 11. HCA Pneumonia 12. Adynamic Ileus 13. Hypernatremia PLAN [facility] signed off extubated 08/31 completed abx Appreciate ID input DC PO steroids Duonebs PRN S/P NSTEMI, card. evaluated. STT done negative. 2-D echocardiogram noted, EF is 50% Continue Aspirin/BB Continue PPI-change to PO/Subcutaneous Lovenox for DVT prophylaxis Ileus improving/rectal tube removed continue bowel regimen Reglan, Bethanecol Tolerating regular diet, off TPN Stable renal function LFTs trending down, resume statins in one week Blood glucose improved, off TPN, steroids being weaned off Accuchecks AC/HS with ISS PT eval and tx OOB daily CM attempted to call [facility], she could not speak to CM Pt's insurance will not approve CIR, ok for SNF Discharge to SNF pending pt's [facility] choice F/U Dr. Cason 2 weeks, will need further work up due to recent NSTEMI F/U PCP Diet-heart healthy Activity-as tolerated D/W pt D/W Dr. Shelton D/W RN D/W CM This patient was seen by myself and Dr. Shelton, this note is written on his behalf Kandi Summers Sep 05, 2016 09:15
[2016-09-05 09:25] VITALS: O2SAT 97
[2016-09-05] MEDS ORDERED: FOLI1TAB4 PO (09:30)
[2016-09-05] MEDS ORDERED: VITA100T2 PO (09:31)
[2016-09-05] MEDS ORDERED: Aspirin Chew CHEW (09:31)
--- NOTE | 2016-09-05 09:31 | HHI.DCPOC ---
Discharge Care Plan Diagnosis: (1) Incomplete bladder emptying (2) Urgency incontinence (3) Microhematuria (4) Sepsis (5) COPD (chronic obstructive pulmonary disease) (6) Pulmonary edema (7) Respiratory failure (8) BPH with urinary obstruction (9) Ileus Your Health Problems Are: Chest Pain Shortness of Breath Goals to Promote Your Health * To prevent worsening of your condition and complications * To maintain your health at the optimal level Directions to Meet Your Goals Take your medications as prescribed Follow your dietary instruction Follow activity as directed Keep your appointments as scheduled Take your immunizations and boosters as scheduled If your symptoms worsen call your PCP, if no PCP go to Urgent Care Center or Emergency Room Smoking is Dangerous to Your Health. Avoid second hand smoke Call the 24-hour hour crisis hotline for domestic abuse at Kandi Summers Sep 05, 2016 09:31
[2016-09-05] MEDS ORDERED: METO-309 PO (09:35)
[2016-09-05] MEDS: ASPIRIN 81 MG CHEW TAB CHEW SCH (09:54)
[2016-09-05] MEDS: SODIUM CHLORIDE 0.9% FLUSH 5 ML FLUSH FLUSH SCH (09:54)
[2016-09-05] MEDS: METOPROLOL TARTRATE 25 MG TAB PO SCH (09:55)
[2016-09-05] MEDS: predniSONE 20 MG TAB PO SCH (09:56)
[2016-09-05] MEDS: PANTOPRAZOLE SOD 40 MG DELAYED RELEASE TAB PO SCH (09:56)
[2016-09-05] MEDS: FOLIC ACID 1 MG TAB PO SCH (09:56)
[2016-09-05] MEDS: DOCUSATE SODIUM 50 MG/SENNA 8.6 MG TAB PO SCH (09:56)
[2016-09-05] MEDS: THIAMINE HCL 100 MG TAB PO SCH (09:56)
[2016-09-05] MEDS: TAMSULOSIN HCL 0.4 MG CAP PO SCH (09:57)
[2016-09-05] MEDS: NYSTATIN SUSP 500,000 U/5 ML CUP SWISH-SPIT SCH ×2 (09:57→12:58)
--- NOTE | 2016-09-05 10:19 | HHI.IDPN ---
Subjective Subjective Remarks Notes reviewed Temps ok Clinically doing well Valentino removed Off Abx Not SOB Antibiotics None Lines [facility] - 08/30 Past Medical History Reviewed Allergies: Coded Allergies: No Known Allergies (Unverified , 05/16/15) Objective . Vital Signs Date Time Temp Pulse Resp B/P Pulse Ox O2 Delivery O2 Flow Rate FiO2 09/05/16 09:25 97 21 09/05/16 07:57 96.7 99 18 138/60 100 09/05/16 04:21 98.2 101 16 138/72 97 09/05/16 00:00 97.8 106 18 115/51 96 09/04/16 20:58 98 21 09/04/16 20:00 98.3 100 16 130/53 98 09/04/16 15:00 97.6 112 20 138/71 97 09/04/16 11:00 97.0 94 18 116/56 96 09/04/16 09/04/16 09/05/16 15:00 23:00 07:00 Intake Total 240 ml 250 ml 200 ml Output Total 300 ml Balance 240 ml 250 ml -100 ml Intake Oral 240 ml 250 ml 200 ml Output Urine Total 300 ml # Voids 2 1 # Bowel Movements 0 0 0 . Laboratory Tests Test 09/04/16 06:10 White Blood Count 10.9 TH/MM3 Red Blood Count 3.43 MIL/MM3 Hemoglobin 10.4 GM/DL Hematocrit 30.9 % Mean Corpuscular Volume 90.2 FL Mean Corpuscular Hemoglobin 30.4 PG Mean Corpuscular Hemoglobin 33.7 % Concent Red Cell Distribution Width 13.4 % Platelet Count 219 TH/MM3 Mean Platelet Volume 9.2 FL Laboratory Tests Test 09/04/16 09/05/16 06:10 06:05 Sodium Level 144 MEQ/L Potassium Level 3.6 MEQ/L Chloride Level 111 MEQ/L Carbon Dioxide Level 25.0 MEQ/L Anion Gap 8 MEQ/L Blood Urea Nitrogen 30 MG/DL Creatinine 1.00 MG/DL Estimat Glomerular Filtration 72 ML/MIN Rate Random Glucose 74 MG/DL Calcium Level 8.0 MG/DL Total Bilirubin 0.4 MG/DL 0.4 MG/DL Direct Bilirubin 0.1 MG/DL 0.1 MG/DL Indirect Bilirubin 0.3 MG/DL 0.3 MG/DL Aspartate Amino Transf 110 U/L 58 U/L (AST/SGOT) Alanine Aminotransferase 218 U/L 163 U/L (ALT/SGPT) Alkaline Phosphatase 102 U/L 98 U/L Total Protein 5.1 GM/DL 5.1 GM/DL Albumin 2.0 GM/DL 2.0 GM/DL Imaging Abdomen X-Ray 08/29/16 0600 Signed Impressions: Service Date/Time: Monday, August 29, 2016 05:00 - CONCLUSION: The position of the oral contrast in dilated loops of bowel is very similar to an image performed at the end of the small bowel series yesterday. Gavin Conte MD Abdomen X-Ray 08/28/16 0600 Signed Impressions: Service Date/Time: August 06:12 - CONCLUSION: Worsening distention of the small bowel. Bowel gas pattern is suggestive of an ileus. Gavin Gray Jr., MD Chest X-Ray 08/28/16 0300 Signed Impressions: Service Date/Time: August 06:10 - CONCLUSION: Unchanged bilateral pulmonary infiltrates. Gavin Gray Jr., MD Small Bowel X-Ray 08/28/16 0000 Signed Impressions: Service Date/Time: August 10:39 - CONCLUSION: 1. Dilated bowel most characteristic of an ileus with poor peristalsis. No transition zone identified. Juice Faith MD Abdomen X-Ray 08/27/16 0600 Signed Impressions: Service Date/Time: Saturday, August 27, 2016 01:10 - CONCLUSION: No change. Persistent gaseous distention of the small bowel. Gavin Gray Jr., MD Chest X-Ray 08/24/16 06 Signed Impressions: Service Date/Time: Wednesday, August 24, 2016 03:19 - CONCLUSION: Improved airspace disease with some persistent infiltrate in the right perihilar and right lower lobe. NG tube and endotracheal tube in good position. Osvaldo Webb MD Abdomen X-Ray 08/24/16 0600 Signed Impressions: Service Date/Time: Wednesday, August 24, 2016 03:22 - CONCLUSION: Normal examination. Air is in the stomach with a nasogastric tube, large amount of air throughout the small bowel which is diffusely distended but may be slightly improved Osvaldo Webb MD Chest X-Ray 08/23/16 0600 Signed Impressions: Service Date/Time: Tuesday, August 23, 2016 03:53 - CONCLUSION: 1. Diffuse bilateral airspace disease worsening in the right perihilar region. 2. Support lines and tubes are unchanged. Ricardo Adan MD Abdomen X-Ray 08/23/16 0000 Signed Impressions: Service Date/Time: Tuesday, August 23, 2016 16:24 - CONCLUSION: Dilated bowel in a radiographic pattern suggesting an ileus. Gavin Gray Jr., MD Myocardial Perfusion Scan Nuc Med 08/20/16 0000 Signed Impressions: Service Date/Time: Saturday, August 20, 2016 08:43 - CONCLUSION: Unremarkable myocardial perfusion examination. RISK CATEGORY: low Alexander Carter MD Head CT 08/20/16 0000 Signed Impressions: Service Date/Time: Saturday, August 20, 2016 07:58 - CONCLUSION: Unremarkable and stable CT brain for patient's age. Alexander Carter MD Renal Ultrasound 08/18/16 0000 Signed Impressions: Service Date/Time: Thursday, August 18, 2016 11:49 - CONCLUSION: 1. Echogenic kidneys which can be seen with medical renal disease. 2. Bilateral renal cysts. Ricardo Adan MD Physical Exam GENERAL: Awake and alert, responding, NAD SKIN: Cool and dry. No generalized rash HEENT: [place] conjunctivae. No scleral icterus. Moist mucosa CARDIOVASCULAR: Regular rate and rhythm without murmurs, gallops, or rubs. RESPIRATORY: Coarse breath sounds bilaterally, equal. Scattered rhonchi. GASTROINTESTINAL: Abdomen distended, not tender, bowel sounds are present and hypoactive. MUSCULOSKELETAL: Extremities without clubbing, cyanosis. Has pitting pedal edema NEUROLOGICAL: Awake and responding PSYCH: Unable to assess LINE: No evidence of infection Assessment & Plan Remarks IMPRESSION Sepsis with shock, source, likely pulmonary, HCAP - sputum C/S negative at 48 hrs - has known COPD, chronic smoker Low grade temps, better Admission with NSTEMI, EF 50% MOSF - respiratory, renal - tolerating extubation - renal indices better Hx daily ETOH use Chronic smoker 1 ppd One (+) BC with Coag Neg Staph on admission likely contaminant Proteus mirabilis in the urine Ileus, better Candiduria RECOMMENDATION Candiduria should improve since valentino has been removed He is clinically stable off Abx OK for D/C I will sign off Please reconsult if with any new ID issue or question Mimi Benavides MD Sep 05, 2016 10:18
--- NOTE | 2016-09-05 12:17 | HHI.DS ---
Discharge Summary Admission Date Aug 17, 2016 at 17:58 Discharge Date: Sep 05, 2016 Admitting Diagnosis fever, weakness, rule out sepsis (1) Respiratory failure (2) NSTEMI (non-ST elevated myocardial infarction) (3) Sepsis (4) Ileus (5) Incomplete bladder emptying (6) COPD (chronic obstructive pulmonary disease) (7) Pulmonary edema (8) Urgency incontinence (9) BPH with urinary obstruction (10) Microhematuria (11) Candiduria (12) Pneumonia (13) Transaminitis CBC/BMP: 09/04/16 0610 09/04/16 0610 Significant Findings Laboratory Tests Test 09/03/16 09/04/16 09/05/16 06:30 06:10 06:05 White Blood Count 11.5 TH/MM3 (4.0-11.0) Red Blood Count 3.37 MIL/MM3 3.43 MIL/MM3 (4.50-5.90) (4.50-5.90) Hemoglobin 10.2 GM/DL 10.4 GM/DL (13.0-17.0) (13.0-17.0) Hematocrit 30.6 % 30.9 % (39.0-51.0) (39.0-51.0) Neutrophils (%) (Auto) 90.9 % (16.0-70.0) Lymphocytes (%) (Auto) 5.6 % (9.0-44.0) Neutrophils # (Auto) 10.5 TH/MM3 (1.8-7.7) Lymphocytes # (Auto) 0.6 TH/MM3 (1.0-4.8) Chloride Level 110 MEQ/L 111 MEQ/L (98-107) (98-107) Blood Urea Nitrogen 32 MG/DL (7-18) 30 MG/DL (7-18) Estimat Glomerular Filtration 72 ML/MIN (>89) 72 ML/MIN (>89) Rate Random Glucose 200 MG/DL (74-106) Calcium Level 8.3 MG/DL 8.0 MG/DL (8.5-10.1) (8.5-10.1) Aspartate Amino Transf 96 U/L (15-37) 110 U/L (15-37) 58 U/L (15-37) (AST/SGOT) Alanine Aminotransferase 179 U/L (12-78) 218 U/L (12-78) 163 U/L (12-78) (ALT/SGPT) Total Protein 5.2 GM/DL 5.1 GM/DL 5.1 GM/DL (6.4-8.2) (6.4-8.2) (6.4-8.2) Albumin 1.9 GM/DL 2.0 GM/DL 2.0 GM/DL (3.4-5.0) (3.4-5.0) (3.4-5.0) Imaging Last Impressions Chest X-Ray 09/02/16 0600 Signed Impressions: Service Date/Time: Friday, September 02, 2016 04:54 - CONCLUSION: Decreasing opacities in the perihilar regions. Ricardo Adan MD Abdomen X-Ray 08/31/16 0000 Signed Impressions: Service Date/Time: Wednesday, August 31, 2016 10:28 - CONCLUSION: Persistent small bowel dilatation, slightly increased in the interval. Manolo Owens MD FACR Renal Ultrasound 08/30/16 0000 Signed Impressions: Service Date/Time: Tuesday, August 30, 2016 15:56 - CONCLUSION: Increase in renal cortical echogenicity bilaterally suggesting medical renal disease. No hydronephrosis. Moises Sanchez MD Enema w/Water Soluble 08/29/16 0000 Signed Impressions: Service Date/Time: Monday, August 29, 2016 15:22 - CONCLUSION: 1. Gastrografin enema as above with some clearing of the rectosigmoid constipation on the postevacuation film. Diffuse ileus. Juice Faith MD Abdomen/Pelvis CT 08/29/16 0000 Signed Impressions: Service Date/Time: Monday, August 29, 2016 10:15 - CONCLUSION: 1. Diffuse ileus and small bowel with air-fluid levels and dilatation. Oral contrast does reach the colon and there is no evidence for small bowel obstruction. 2. Basilar lung consolidation, right greater than left. 3. NG tip in stomach. Rectal tube present with moderate rectal constipation. Valentino in decompressed bladder. Juice Faith MD Small Bowel X-Ray 08/28/16 0000 Signed Impressions: Service Date/Time: August 10:39 - CONCLUSION: 1. Dilated bowel most characteristic of an ileus with poor peristalsis. No transition zone identified. Juice Faith MD Myocardial Perfusion Scan Nuc Med 08/20/16 0000 Signed Impressions: Service Date/Time: Saturday, August 20, 2016 08:43 - CONCLUSION: Unremarkable myocardial perfusion examination. RISK CATEGORY: low Alexander Carter MD Head CT 08/20/16 0000 Signed Impressions: Service Date/Time: Saturday, August 20, 2016 07:58 - CONCLUSION: Unremarkable and stable CT brain for patient's age. Alexander Carter MD Hospital Course This is a pleasant, 81-year-old male with prior history of hypertension, hyperlipidemia, BPH and chronic urge incontinence. He lives at home with his . He smokes about two packs per day and usually consumes a couple of shots of Scotch and whiskey at night. He was in his usual state of health until yesterday when he claims that he was sitting in chair. As he tried to get up to go to the kitchen, he lost his balance and fell backward on his buttocks. Fortunately he did not sustain any injury. He denied head injury, loss of consciousness, denied preceding chest pain, palpitations. His came to help him and it took him about 8-10 minutes after which was able to get up and was able to walk to the chair and sat down for some time. She needed to help his put a roast in the oven, so therefore he walked to the kitchen where he bent over and placed the roast inside the oven. After he was done pushing it in, he lost his balance again and fell backwards again, landing on his bottom. He denied any significant back pain, hip pain, head injury or loss of consciousness. He had a difficult time getting up, his got concerned and called [facility]. The patient was brought to hospital. Upon arrival he was slightly tachycardiac, clinically appeared dehydrated. He admitted to having intermittent cough which was mostly chronic with occasional scanty white sputum production. He denied fever, denies chest pain, dyspnea, orthopnea, paroxysmal nocturnal dyspnea. Denied nausea or vomiting. His appetite is okay. He denied melena or bright red blood per rectum. He has had frequent urination and has chronic urge incontinence. He had to get up several times at night to urinate. He usually wears Depends at home as he is incontinent of urine. Initially, pt. was admitted for febrile illness for possible bronchitis, questionable UTI, poss. bacteremia. Pt. was put on IVF, antibiotics, blood cultures were done. Flu was tested, it was negative. US of kidneys were done, which was normal. He was put on GI protection with Pepcid and subq Lovenox for DVT prophylaxis. The patient was counseled against cigarette smoking and was advised to completely stop smoking but he was not willing to do that at that time. He also was advised to at least cut down on drinking alcohol. He was put on some thiamine and folic acid and watch him for DTs. Pt. was admitted to tele floor. On 08/19, pt. became hypoxic, tachycardic. Halicat was called, and he was transferred to ICU. Vehicle Assembler was consulted. During ICU evaluation, he went into respiratory failure, was found with elevated troponin consistent with NSTEMI. Cardiology was consulted. Pt. was put on ASA, BB. Cardiology recommended STT. Was also found tachycardic and required Cardizem infusion. On 08/20, pt. was anxious, fell and incurred laceration to right ear. CT head done, negative. STT results was negative. 2-D echocardiogram noted, EF is 50%. Cardiology recommended f/u when stable as OP for further work up . After STTT, the patient became acutely hypoxic O2 sat in the 70s, the patient was emergently intubated. Max pulmonary edema was noted, with copious pink frothy sputum via ETT . FiO2 requirements were increased, unable to wean below 70%.Sputum culture and urine cultures were obtained, broad-spectrum antibiotics were initiated Vancomycin and Levaquin. The patient was on Rocephin for UTI. Flowtrac was instituted, cardiac output and cardiac index were within normal limits. During the night the patient's O2 requirements were increased, the patient required 15 cm of PEEP and initially 100% FiO2. The patient was received 2 mg of Bumex without any diuresis noted. The patient became hypotensive during the night required Charbel-Synephrine and Norepinephrine infusions. TLC required placement, steroids initiated. Blood cultures again obtaine. ID consulted, recommendations made This morning a central line was placed, steroids were initiated, Solu-Medrol 125 mg IV push, and repeat blood cultures were obtained. Pt. started on tube feeds 08/23. On 08/24, pt. not tolerating tube feedings, increase residuals. Feedings on hold. Ileus noted on KUB. NG tube placed to suction Prokinetic agents instituted. Pt was noted with increase intra-abdominal pressure GI consulted. PT. unable to extubate due to ileus. Bowel regimen started with little results. Follow up abd xray showing ileus. Noted with inc. gastric contents. Gastrografin enema done. Rectal tube inserted and put to suction Was noted with low bp again, increase creat. IVF and pressors restarted. Ileus improving, increase stool output. Put on TPN for nutrition Creat improved. Pt.was following commands. Pt. extubated on 08/31 CCM singed. Pt. was transferred out of ICU on 09/02 NGT discontinued, started on diet and did well. GI continued to adv diet and and TPN weaned off Rectal tube removed, pt. continued to have regular BMs LFTs noted elevated, statins stopped, poss. due to TPN GI continued to follow. LFTs finally trending down. Pt continued to improved, oxygen discontinued Completed antibiotics UA + candiduria, valentino dc, pt. able to void. ID did not recommend more antibiotics. No fever, no WBC elevation Weaned off IV steroids Blood sugars were monitored, stabilized as pt's sepsis improved, steroids weaned off. CM consulted to assist with placement. Agreed with going to SNF Pt. stable for discharge. Instructed to: F/U Dr. Cason 2 weeks, will need further work up due to recent NSTEMI F/U PCP Diet-heart healthy Activity-as tolerated Pt Condition on Discharge: Stable Discharge Disposition: Discharge to SNF Discharge Instructions DIET: Follow Instructions for: Heart Healthy Diet Speech Therapy-Diet Recommends: Pureed Activities you can perform: Weight Bearing as Mark Follow up Referrals: Cardiology - 2 Weeks with Regi Cason MD PCP Follow-up New Medications: Metoprolol Tartrate (Lopressor) 50 Mg Tab 12.5 MG PO BID coronary artery disease #30 Ref 1 TAB Folic Acid (Folate) 1 Mg Tab 1 MG PO DAILY NUTRITION SUPPLEMENT #30 TAB Thiamine (Vitamin B-1) 100 Mg Tab 100 MG PO DAILY NUTRITIONAL SUPPLEMENT #30 Ref 0 TAB ([Aspirin Chew]) 81 MG CHEW 81 MG CHEW DAILY CAD #30 Ref 0 TAB.CHEW Continued Medications: Latanoprost Opth Drops (Latanoprost Opth Drops) 0.005% Drops 1 DROP EACH EYE HS Refrigerate until opened. Glaucoma #2.5 Ref 0 ML Lisinopril-Hctz (Zestoretic) 20-25 Mg Tab 1 TAB PO DAILY Blood Pressure Management #30 Ref 0 TAB Tamsulosin (Flomax) 0.4 Mg Cap 0.4 MG PO HS Manage Prostate Problems #30 Ref 0 CAP Discontinued Medications: Lovastatin (Lovastatin) 40 Mg Tab 40 MG PO DAILY Cholesterol Management #30 Ref 0 TAB Kandi Summers Sep 05, 2016 12:17
[2016-09-05 12:41] VITALS: PULSE 116
[2016-09-05 13:25] VITALS: BP 155/76; PULSE 97; RESP 20; TEMP 96.3; O2SAT 99
[2016-09-05] MEDS ORDERED: ENOXAPARIN SODIUM 40 MG/0.4 ML SYRINGE SQ SCH (20:00)
== END 2016-09-05 16:32 | DRG 870 ==
LOC: NEPC 15:58 → NEDA 17:58 → NEPHCDU 21:09 → N04B 08-18 14:48 → N03A 08-19 02:41 → N05A 09-02 18:57
PROVIDERS: ADMIT Specialist; ATTEND Specialist
PROC: 5A1955Z Respiratory Ventilation, Greater than 96 Consecutive Hours (ICD-10-PCS; principal; 2016-08-20)
PROC: 03HY32Z Insertion of Monitoring Device into Upper Artery, Percutaneous Approach (ICD-10-PCS; 2016-08-20)
PROC: 0BH17EZ Insertion of Endotracheal Airway into Trachea, Via Natural or Artificial Opening (ICD-10-PCS; 2016-08-20)
PROC: 4A133B1 Monitoring of Arterial Pressure, Peripheral, Percutaneous Approach (ICD-10-PCS; 2016-08-20)
PROC: 4A133J1 Monitoring of Arterial Pulse, Peripheral, Percutaneous Approach (ICD-10-PCS; 2016-08-20)
PROC: 02HV33Z Insertion of Infusion Device into Superior Vena Cava, Percutaneous Approach (ICD-10-PCS; 2016-08-20)
PROC: B543ZZA Ultrasonography of Right Jugular Veins, Guidance (ICD-10-PCS; 2016-08-30)
PROC: 02HV33Z Insertion of Infusion Device into Superior Vena Cava, Percutaneous Approach (ICD-10-PCS; 2016-08-30)
PROC: B544ZZA Ultrasonography of Left Jugular Veins, Guidance (ICD-10-PCS; 2016-08-30)
DX: A41.9 Sepsis, unspecified organism (principal); J96.01 Acute respiratory failure with hypoxia; I21.4 Non-ST elevation (NSTEMI) myocardial infarction; J18.9 Pneumonia, unspecified organism; K85.90 Acute pancreatitis without necrosis or infection, unspecified; R57.0 Cardiogenic shock; R65.21 Severe sepsis with septic shock; J81.1 Chronic pulmonary edema; J81.0 Acute pulmonary edema; N17.9 Acute kidney failure, unspecified; E87.0 Hyperosmolality and hypernatremia; J44.0 Chronic obstructive pulmonary disease with (acute) lower respiratory infection; N39.0 Urinary tract infection, site not specified; J44.1 Chronic obstructive pulmonary disease with (acute) exacerbation; K56.0 Paralytic ileus; B37.49 Other urogenital candidiasis; J40 Bronchitis, not specified as acute or chronic; D64.9 Anemia, unspecified; E86.0 Dehydration; R73.9 Hyperglycemia, unspecified; N40.1 Benign prostatic hyperplasia with lower urinary tract symptoms; N39.41 Urge incontinence; E78.5 Hyperlipidemia, unspecified; J44.9 Chronic obstructive pulmonary disease, unspecified; E87.6 Hypokalemia; S01.311A Laceration without foreign body of right ear, initial encounter; R40.2430 Glasgow coma scale score 3-8, unspecified time; I12.9 Hypertensive chronic kidney disease with stage 1 through stage 4 chronic kidney disease, or unspecified chronic kidney disease; N18.9 Chronic kidney disease, unspecified; H40.9 Unspecified glaucoma; R29.6 Repeated falls; R74.0 Nonspecific elevation of levels of transaminase and lactic acid dehydrogenase [LDH]; F17.210 Nicotine dependence, cigarettes, uncomplicated; F10.10 Alcohol abuse, uncomplicated; W06.XXXA Fall from bed, initial encounter; W18.30XA Fall on same level, unspecified, initial encounter; Y92.239 Unspecified place in hospital as the place of occurrence of the external cause; Y95 Nosocomial condition
CPT/HCPCS: 31500; 36556; 36600; 70450; 71010; 74000; 74176; 74250; 74270; 76775; 76937; 78452; 80048; 80053; 80061; 80076; 80202; 81001; 82150; 82550; 82570; 82728; 82805; 82948; 83540; 83550; 83605; 83690; 83735; 83880; 84100; 84155; 84300; 84478; 84484; 85007; 85025; 85027; 85610; 86403; 87040; 87070; 87077; 87086; 87106; 87186; 87205; 87449; 87641; 87804; 93005; 93017; 93306; 94002; 94003; 94150; 94640; 94664; 94667; 94668; 96360; 96361; A9502; C9113; C9399; J0171; J0360; J0461; J0692; J0696; J1650; J1815; J1940; J1956; J1980; J2020; J2060; J2212; J2250; J2370; J2765; J2785; J2920; J2930; J2997; J3010; J3370; J3480; J7030; J7040; J7050; J7060; J7121; J7512; Q9963

== ENCOUNTER 2016-10-18 14:30 | Emergency (ER) | payer MEDICARE, OTHER ==
[~2016-10-18] VITALS: Ht 170.2 cm; Wt 72.0 kg
[~2016-10-18 14:30] MED LIST changes: +Aspirin Chew CHEW; +FOLI1TAB4 PO; -LATA.005%O OU; +LATA0.002 EACH EYE; -LOVA40TA PO; +METO-309 PO; -TAMS0.4C67 PO; +TAMS5CAP PO; +VITA100T2 PO
[2016-10-18 14:32] VITALS: BP 120/66; PULSE 113; RESP 19; TEMP 97.8; O2SAT 97
--- NOTE | 2016-10-18 15:49 | PD ---
HPI Chief Complaint: Musculoskeletal Complaint Time Seen by Provider: 15:44 Travel History International Travel<30 days: No Contact w/Intl Traveler<30days: No Traveled to known affect area: No History of Present Illness HPI 81 year old male presents to the emergency department for evaluation of left wrist injury that occurred today. He states he was hurrying and tripped going up one stair to get into the house. His family member at bedside corroborates this story. He denies hitting his head or any LOC. No neck pain or back pain. He denies any chest pain or abdominal pain. No vomiting. He denies any pelvic or hip pain. Patient denies any dizziness or headache. He states he felt fine and tripped because he was hurrying too fast. He is right handed. PFSH Past Medical History Blood Disorders: No Cancer: No Cardiovascular Problems: Yes (CHF, [place]) High Cholesterol: Yes Endocrine: No Glaucoma: Yes Genitourinary: No Immune Disorder: No Musculoskeletal: No Neurologic: No Psychiatric: No Respiratory: No Social History Alcohol Use: Yes (A FEW DRINKS PER NITE) Tobacco Use: Yes (1 PPD) Substance Use: No Allergies-Medications (Allergen,Severity, Reaction): Coded Allergies: No Known Allergies (Unverified , 10/18/16) Reported Meds & Prescriptions Reported Meds & Active Scripts Active Lortab (Hydrocodone-Acetaminophen) 5-325 Mg Tab 0.5-1 Tab PO Q6H PRN Lopressor (Metoprolol Tartrate) 50 Mg Tab 12.5 Mg PO BID [Aspirin Chew] 81 MG Chew 81 Mg CHEW DAILY Vitamin B-1 (Thiamine HCl) 100 Mg Tab 100 Mg PO DAILY Folate (Folic Acid) 1 Mg Tab 1 Mg PO DAILY Reported Zestoretic (Lisinopril-Hctz) 20-25 Mg Tab 1 Tab PO DAILY Flomax (Tamsulosin HCl) 0.4 Mg Cap 0.4 Mg PO HS Latanoprost Opth Drops (Latanoprost) 0.005% Drops 1 Drop EACH EYE HS Refrigerate until opened. Review of Systems Except as stated in HPI: all other systems reviewed are Neg Physical Exam Narrative GENERAL: Well-developed well-nourished elderly male patient, afebrile. SKIN: Warm and dry. HEAD: Normocephalic. Atraumatic ENT: Mucosa pink and moist. No erythema or exudates. No uvular edema. No uvular , palatal, or tonsillar deviation. Airway patent. Nasal turbinates appear normal without nasal blood, purulent drainage or septal hematoma. Bilateral tympanic membranes are clear without erythema or perforation. EYES: No scleral icterus. No injection or drainage. NECK: Supple, trachea midline. No JVD or lymphadenopathy. CARDIOVASCULAR: Regular rate and rhythm without murmurs, gallops, or rubs. Left radial pulse is 2+. Capillary refill less than 2 seconds in the digits of the left hand RESPIRATORY: Breath sounds equal bilaterally. No accessory muscle use. Lungs sounds are clear to auscultation. GASTROINTESTINAL: Abdomen soft, non-tender, nondistended. MUSCULOSKELETAL: No cyanosis, or edema. Patient has tenderness over left dorsal wrist reduced range of motion because of pain. He has full sensation to the distal left upper extremity. No other bony point tenderness. BACK: Nontender without obvious deformity. No CVA tenderness. No midline spinal tenderness. He has full range of motion cervical spine without pain or stiffness. Data Data Last Documented VS Vital Signs Date Time Temp Pulse Resp B/P Pulse Ox O2 Delivery O2 Flow Rate FiO2 10/18/16 14:49 10/18/16 14:32 97.8 113 19 97 Orders Wrist, Complete ([id number]) (10/18/16 ) Forearm (2vws) (10/18/16 ) Splint Or Brace Apply/Monitor (10/18/16 16:16) [facility] Medical Decision Making Medical Screen Exam Complete: Yes Emergency Medical Condition: Yes Medical Record Reviewed: Yes Interpretation(s) Last Impressions Wrist X-Ray 10/18/16 0000 Signed Impressions: Service Date/Time: Tuesday, October 18, 2016 16:05 - CONCLUSION: Radial styloid fracture. Ricardo Adan MD x-ray left forearm - CONCLUSION: Radial styloid fracture. Differential Diagnosis Fracture versus sprain versus contusion versus dislocation Narrative Course 81-year-old male presents to the emergency department for evaluation of left wrist injury that occurred when he tripped and fell. He denies any other symptoms or complaints. X-ray of the left wrist and forearm and pending. Patient declines pain medication at this time. X-ray of the left wrist and left forearm shows a radial styloid fracture. Patient will be placed in a sugartong splint and instructed to follow-up with an orthopedist. Patient was discharged short-term prescription for Lortab. He is instructed on fall precautions while taking medication. He is to take Tylenol [id number] for mild to moderate pain and Lortab only for severe pain. He is agreeable to this. Patient verbalizes understanding. He is to return for any acute worsening of symptoms. The patient was discharged in stable condition with instructions, including return instructions and follow up instructions. Diagnosis Primary Impression: Nondisplaced fracture of left radial styloid process, initial encounter for closed fracture Referrals: Hardeep Huddleston MD call for appointment Patient Instructions: General Instructions, Wrist Fracture in Adults (ED) Additional Instructions: Wear splint. Elevate. Take [id number] Tylenol every 4 hours as needed for [id number] pain. Take Lortab only for severe pain. Caution while taking this medication. Fall precautions. Follow-up with orthopedist. Dr. Huddleston is the orthopedist on-call today. Return to the emergency department for any acute worsening of symptoms. Med/Other Pt SpecificInfo: Prescription(s) given Scripts Hydrocodone-Acetaminophen (Lortab)5-325 Mg Tab0.5-1 Tab PO Q6H PRN (PAIN) #12 TAB Ref 0 Prov:Unique Lindo MD 10/18/16 Disposition: 01 DISCHARGE HOME Condition: Stable Vero Marsh ALAYNA Oct 18, 2016 15:49
--- NOTE | 2016-10-18 16:10 | RADRPT ---
EXAM DATE/TIME: 10/18/2016 16:05 [facility] COMPARISON: No previous studies available for comparison. INDICATIONS : Left wrist pain after fall yesterday. MEDICAL HISTORY : None. SURGICAL HISTORY : None. ENCOUNTER: Initial ACUITY: 2 days PAIN SCORE: 5/10 LOCATION: Left wrist. FINDINGS: Three view examination of the left wrist demonstrates mild displaced fracture of the radial styloid. Intra-articular extension.. Bony mineralization is normal. CONCLUSION: Radial styloid fracture. Ricardo Adan MD on October 18, 2016 at 16:09 Board Certified Radiologist. This report was verified electronically.
--- NOTE | 2016-10-18 16:11 | RADRPT ---
EXAM DATE/TIME: 10/18/2016 16:07 [facility] COMPARISON: No previous studies available for comparison. INDICATIONS : Left wrist pain after fall last night. MEDICAL HISTORY : None. SURGICAL HISTORY : None. ENCOUNTER: Initial ACUITY: 2 days PAIN SCORE: 5/10 LOCATION: Left wrist. FINDINGS: Two view examination of the left forearm demonstrates radial styloid fracture. Soft tissue swelling. Bony mineralization is normal. CONCLUSION: Radial styloid fracture. Ricardo Adan MD on October 18, 2016 at 16:09 Board Certified Radiologist. This report was verified electronically.
[2016-10-18] MEDS ORDERED: HYDR-3533 PO (16:17)
[2016-10-18] MEDS ORDERED: ASPI81CH7 CHEW (16:53)
[2016-10-18] MEDS ORDERED: METO25TA3 PO (16:55)
[2016-10-18] MEDS ORDERED: LOVA40TA PO (16:55)
== END 2016-10-18 17:54 | disposition home or self-care (01) ==
LOC: NEPA 14:30
DX: S52.515A Nondisplaced fracture of left radial styloid process, initial encounter for closed fracture (principal); E78.00 Pure hypercholesterolemia, unspecified; F17.210 Nicotine dependence, cigarettes, uncomplicated; W10.8XXA Fall (on) (from) other stairs and steps, initial encounter; Y92.008 Other place in unspecified non-institutional (private) residence as the place of occurrence of the external cause
CPT/HCPCS: 29125; 73090; 73110

== ENCOUNTER 2016-10-25 21:17 | Emergency (ER) | payer OTHER ==
[~2016-10-25] VITALS: Ht 170.2 cm; Wt 73.0 kg
[~2016-10-25 21:17] MED LIST changes: +ASPI81CH7 CHEW; -Aspirin Chew CHEW; +HYDR-3533 PO; +LOVA40TA PO; -METO-309 PO; +METO25TA3 PO; -VITA100T2 PO
[2016-10-25 21:18] VITALS: BP 147/73; PULSE 108; RESP 16; TEMP 97.9; O2SAT 98
--- NOTE | 2016-10-25 23:04 | PD ---
HPI Chief Complaint: Wound/Suture/Staple Re-Check Time Seen by Provider: 23:01 Travel History International Travel<30 days: No Contact w/Intl Traveler<30days: No Traveled to known affect area: No History of Present Illness HPI 81-year-old white male presents to the department to have his splint adjusted. He states that he was told that if the Wyatt bandage or the splint loosens up he needs to come to the ER. He states that the splint distal in place but they Wyatt bandage by his elbow has come loose. He denies any pain. No numbness or tingling. He was seen here in the ER earlier this past week for a left radial styloid fracture. PFSH Past Medical History Blood Disorders: No Cancer: No Cardiovascular Problems: Yes (CHF, PR) High Cholesterol: Yes Endocrine: No Gastrointestinal Disorders: No Glaucoma: Yes Genitourinary: No Hypertension: Yes Immune Disorder: No Implanted Vascular Access Dvce: No Musculoskeletal: No Neurologic: No Psychiatric: No Respiratory: No Past Surgical History Other Surgery: Yes (Back) Social History Alcohol Use: Yes (A FEW DRINKS PER NITE) Tobacco Use: Yes (1 PPD) Substance Use: No Allergies-Medications (Allergen,Severity, Reaction): Coded Allergies: No Known Allergies (Unverified , 10/25/16) Reported Meds & Prescriptions Reported Meds & Active Scripts Active Lortab (Hydrocodone-Acetaminophen) 5-325 Mg Tab 0.5-1 Tab PO Q6H PRN Folate (Folic Acid) 1 Mg Tab 1 Mg PO DAILY Reported Lovastatin 40 Mg Tab 40 Mg PO HS Metoprolol Tartrate 25 Mg Tab 25 Mg PO DAILY Aspirin Children's (Aspirin) 81 Mg Chew 81 Mg CHEW DAILY Zestoretic (Lisinopril-Hctz) 20-25 Mg Tab 1 Tab PO DAILY Flomax (Tamsulosin HCl) 0.4 Mg Cap 0.4 Mg PO DAILY Latanoprost Opth Drops (Latanoprost) 0.005% Drops 1 Drop EACH EYE HS Refrigerate until opened. Review of Systems Except as stated in HPI: all other systems reviewed are Neg Physical Exam Narrative GENERAL: This is a well-nourished, well-developed patient, in no apparent distress. SKIN: No rashes, ecchymoses or lesions. Warm and dry. HEAD: Atraumatic. Normocephalic. EYES: PERRL, EOMI, no discharge or injection. No scleral icterus. EARS: Clear NOSE: Nasal turbinates appear normal. THROAT: Mucosa pink and moist. Airway patent. NECK: Trachea midline. supple, moves head freely. LUNGS: Clear to auscultation. CV: Regular in rhythm. ABDOMEN: Soft nontender. EXT: No clubbing cyanosis or edema. Patient has a sugar tong splint on his left wrist. The proximal Wyatt bandages loose. The distal base bandages in place and this but has not moved. He is able to move his fingers with good Refill. Data Data Last Documented VS Vital Signs Date Time Temp Pulse Resp B/P Pulse Ox O2 Delivery O2 Flow Rate FiO2 10/25/16 21:18 97.9 108 16 147/73 98 MDM Medical Decision Making Medical Screen Exam Complete: Yes Emergency Medical Condition: Yes Medical Record Reviewed: Yes Differential Diagnosis Differential diagnoses: Splint malfunction, left wrist pain, wrist fracture Narrative Course The patient's Wyatt wrap was reapplied to his splint. He is able to move his fingers freely. There is no indication for removal of the splint. Diagnosis Primary Impression: splint malfunction Patient Instructions: General Instructions Additional Instructions: Rest. Continue to follow-up with orthopedics. Return to the ER for any problems. Med/Other Pt SpecificInfo: No Change to Meds Disposition: 01 DISCHARGE HOME Condition: Stable Juice Rob Oct 25, 2016 23:04
== END 2016-10-25 23:11 | disposition home or self-care (01) ==
LOC: NEPB 21:17
DX: S52.515D Nondisplaced fracture of left radial styloid process, subsequent encounter for closed fracture with routine healing (principal); E78.00 Pure hypercholesterolemia, unspecified; I10 Essential (primary) hypertension
CPT/HCPCS: 99282